=== PATIENT | male | born 1945 | race African-American/Black ===

== ENCOUNTER 2017-01-09 07:04 | Inpatient (IN) | payer OTHER ==
--- NOTE | 2017-01-09 08:15 | PDOC ---
History of Present Illness - General Chief Complaint: Congestive Heart Failure Stated Complaint: ADMISSION/ PCP REFERRAL Time Seen by Provider: 01/09/17 07:42 History Source: Patient, Family Exam Limitations: No Limitations - History of Present Illness Initial Comments: 71 yo AA with h/o CAD s/p [place], HTN, COPD on home 4L O2, pulmonary HTN, dystolic CHF, chronic venous stasis, prostate cancer s/p prostectomy, stage 3 CKD sent to the ED by his PMD due to worsening shortness of breath. Patient states that he has gained over 30 lbs over unknown amount of time compared to baseline weight of 250 lbs. He has mainly exertional shortness of breath which has been getting worse since last year. He uses 2 pillows to sleep and gets sob within 10 meters. Denies chest pain, fever, chills, n/v, abd pain, constipation or diarrhea. Timing/Duration: getting worse Associated Symptoms: reports: cough Past History - Travel Traveled outside of the country in the last 30 days: No - Past Medical History Allergies/Adverse Reactions: Allergies Allergy/AdvReac Type Severity Reaction Status Date / Time lactose Allergy Mild Verified 01/09/17 07:10 Penicillins Allergy Verified 01/09/17 07:10 Home Medications: Ambulatory Orders Hydralazine HCl 100 mg PO BID 03/17/16 Isosorbide Dinitrate [Isordil -] 10 mg PO BID 03/17/16 Lisinopril [Prinivil] 20 mg PO DAILY 03/17/16 Torsemide 40 mg PO DAILY 03/17/16 Acetaminophen [Tylenol .Regular Strength -] 650 mg PO Q4H PRN #0 tablet Albuterol 0.083% Nebulizer Felicia [Ventolin 0.083% Nebulizer Soln -] 1 amp NEB Q4H PRN #120 amp 03/21/16 Arformoterol Tartrate [Brovana -] 1 amp NEB BID #30 amp 03/21/16 Levofloxacin [Levaquin -] 500 mg PO DAILY@0600 #10 tablet 03/21/16 Mineral Oil/Petrolat,Wht/Water [Eucerin (Large Jar) -] 1 applic TP DAILY PRN #1 jar 03/21/16 Asthma: Yes Cancer: Yes (prostate) COPD: Yes HTN: Yes - Surgical History Abdominal Surgery: Yes Appendectomy: Yes - Psycho/Social/Smoking Cessation Hx Anxiety: No Suicidal Ideation: No Smoking History: Never smoked Have you smoked in the past 12 months: No If you are a former smoker, when did you quit?: 1959 Information on smoking cessation initiated: No Hx Alcohol Use: No Drug/Substance Use Hx: No Substance Use Type: None Hx Substance Use Treatment: No Review of Systems - Review of Systems Able to Perform ROS?: Yes Is the patient limited Kazakh proficient: No Constitutional: Yes: Other (Weight gain of >35 lbs over unknown amount of time) Respiratory: Yes: Cough, Shortness of Breath, SOB with Exertion Cardiac (ROS): No: Chest Pain ABD/GI: No: Constipated, Diarrhea, Vomiting : Yes: Frequency *Physical Exam - Vital Signs Last Vital Signs Temp Pulse Resp BP Pulse Ox 98.0 F 84 22 159/65 98 01/09/17 07:10 01/09/17 07:10 01/09/17 07:10 01/09/17 07:10 01/09/17 07:10 - Physical Exam General Appearance: No: Apparent Distress HEENT: positive: Other (tonsil removed) Neck: positive: Trachea midline, Supple Respiratory/Chest: positive: Crackles (bibasilar) Cardiovascular: positive: Regular Rhythm, Regular Rate. negative: Diastolic Murmur, Systolic Murmur, Gallop/S3, Gallop/S4 Gastrointestinal/Abdominal: positive: Normal Bowel Sounds, Distended Extremity: positive: Swelling, Erythema Integumentary: positive: Dry Neurologic: positive: Fully Oriented, Alert, Normal Mood/Affect ED Treatment Course - LABORATORY CBC & Chemistry Diagram: 01/10/17 07:15 01/10/17 07:15 Medical Decision Making - Medical Decision Making 71 yo AA with h/o CAD, HTN, COPD on home 4L O2, pulmonary HTN, dystolic CHF, chronic venous stasis, prostate cancer s/p prostectomy, stage 3 CKD sent to the ED by his PMD due to worsening shortness of breath. Differential diagnosis include acute on chronic CHF or COPD exacerbation, pneumonia, BEATRIZ. Will obtain CBC w/ diff, CMP, Mg, Phos, Troponin, BNP, CXR, UA and give lasix if there's sign of fluid overload. 01/09/17 09:39 CBC shows elevated WBC at 11, elevated Cr at 1.6 which is at his baseline, CXR is unremarkable, BNP normal range, EKG shows anterior infarct which is noted since 2014; no other change compared to prior EKGs. 1 dose of lasix 40mg given. Call made to Dr. Amaya's office and message left. Awaiting call-back regarding admission decision. 01/09/17 10:[address] Amaya and will admit the patient under hospitalist service. Will also consult patient's manager sales support Dr. Fu. *DC/Admit/Observation/Transfer Diagnosis at time of Disposition: CHF (congestive heart failure) Qualifiers: Congestive heart failure type: diastolic Congestive heart failure chronicity: unspecified congestive heart failure chronicity Qualified Code(s): I50.30 - Unspecified diastolic (congestive) heart failure
[2017-01-09 09:00] LABS: BASOPHIL 0.6 % (0-2.0); EOSINOPHIL 0.6 % (0-4.5); MCH 27.9 pg (25.7-33.7); MCHC 33.2 g/dl (32.0-35.9); MEAN CELL VOLUME 84.1 fl (80-96); MEAN PLT VOLUME 7.8 fl (7.5-11.1); PLATELET COUNT 238 K/MM3 (134-434); RDW 15.3 % (11.9-15.9); WHITE BLOOD COUNT 11.2 K/mm3 (4.0-10.0)
[2017-01-09 09:12] LABS: URINE APPEARANCE CLEAR; URINE BILIRUBIN NEGATIVE (NEGATIVE); URINE BLOOD NEGATIVE (NEGATIVE); URINE COLOR STRAW; URINE GLUCOSE (UA) NEGATIVE (NEGATIVE); URINE KETONE NEGATIVE (NEGATIVE); URINE LEUK ESTERASE NEGATIVE (NEGATIVE); URINE NITRITE NEGATIVE (NEGATIVE); URINE PROTEIN NEGATIVE (NEGATIVE); URINE UROBILINOGEN NEGATIVE E.U./dl (0.2-1.0)
[2017-01-09] MEDS ORDERED: FUROSEMIDE 40 MG/4 ML INJECTABLE VIAL IVPUSH ONE (09:14)
[2017-01-09 09:26] LABS: MAGNESIUM 1.9 mg/dL (1.8-2.4)
[2017-01-09 09:27] LABS: ALBUMIN 3.8 g/dl (3.4-5.0); CALCIUM 8.8 mg/dL (8.5-10.1); COCKROFT - GAULT 76.88; CREATININE 1.6 mg/dL (0.7-1.3)
[2017-01-09 09:28] LABS: PHOSPHOROUS 3.5 mg/dL (2.5-4.9); TROPONIN I < 0.02 ng/ml (0.00-0.05)
[2017-01-09 09:29] LABS: BILIRUBIN,TOTAL 0.9 mg/dL (0.2-1.0); TOT PROT 6.9 g/dl (6.4-8.2)
[2017-01-09] MEDS ORDERED: FUROSEMIDE 40 MG/4 ML INJECTABLE VIAL ONE (09:34)
--- NOTE | 2017-01-09 10:13 | PDOC ---
Attending Attestation - Resident Resident Name: Pablito Gilmore - ED Attending Attestation I have performed the following: I have examined & evaluated the patient, The case was reviewed & discussed with the resident, I agree w/resident's findings & plan, Exceptions are as noted - HPI HPI: 01/09/17 10:11 71-year-old male with history of CHF and COPD sent by Dr. Amaya for volume overload and progressive shortness of breath. - Physicial Exam PE: 01/09/17 10:11 Vital signs normal. Bibasilar crackles. Chronic bilateral leg edema - Medical Decision Making 01/09/17 10:11 Patient seen and evaluated with the resident. I agree with the overall evaluation, assessment, and management with the following summary of visit: 71-year-old male sent for evaluation and management of volume overload and progressive dyspnea. Labs, EKG Chest x-ray Diuresis Admission as per Dr. Amaya Heart Score/ECG Review #1 ECG reviewed & interpreted by me at: 08:15 General ECG Interpretation: Sinus Rhythm, Normal Rate (74), Normal Intervals, No acute ischemic changes (TWI I/AVL) Compared to previous ECG there are: No significant change
--- NOTE | 2017-01-09 11:19 | EKG ---
Test Reason : Blood Pressure : / mmHG Vent. Rate : 074 BPM Atrial Rate : 074 BPM P-R Int : 194 ms QRS Dur : 090 ms QT Int : 428 ms P-R-T Axes : 040 -08 068 degrees QTc Int : 475 ms NORMAL SINUS RHYTHM POSSIBLE LEFT ATRIAL ENLARGEMENT POSSIBLE ANTERIOR INFARCT (CITED ON OR BEFORE 07-NOV-2013) ABNORMAL ECG WHEN COMPARED WITH ECG OF 17-MAR-2016 07:44, CRITERIA FOR INFERIOR INFARCT ARE NO LONGER PRESENT NONSPECIFIC T WAVE ABNORMALITY NOW EVIDENT IN LATERAL LEADS QT HAS LENGTHENED Confirmed by JOHN GIBSON, DUSTIN ([id number]) on 01/09/2017 11:19:20 AM Referred By: Confirmed By:DUSTIN LOPEZ MD
--- NOTE | 2017-01-09 13:25 | CON.PULM ---
Consult Consult Specialty:: PULMONARY Referred by:: ER Reason for Consultation:: shortness of breath - History of Present Illness Chief Complaint: shortness of breath History of Present Illness: 71yo male with h/o HTN, LV diastolic dysfunction, COPD, chronic hypoxic respiratory failure on home O2, LV diastolic dysfunction, pulmonary HTN, CKD, severe BEATRIZ, CAD s/p [place], prostate ca who presents with worsening shortness of breath. He denies any chest pain or palpitations. No fevers, chills or sweats. No nausea, vomiting or diarrhea. No recent travel or sick contacts. States that he ran out of his medications or stopped his medications about 6 months ago and has not seen his PMD or his special procedures tech recently. Reports about a 30 lb weight gain since March when he was last admitted. Reports increase in his leg swelling , abdominal bloating and now with 2 pillow orthopnea. - History Source History Provided By: Patient, Medical Record Limitations to Obtaining History: No Limitations - Past Medical History Cardio/Vascular: Yes: CAD, CHF, HTN, Pulmonary Hypertension Pulmonary: Yes: Asthma, COPD. No: O2 Dependent Renal/: Yes: Cancer (prostate) Dermatology: Yes: Other (chronic changes on bilateral LEs due to venous insufficiency) - Past Surgical History Past Surgical History: Yes: Appendectomy, Prostatectomy - Alcohol/Substance Use Hx Alcohol Use: No History of Substance Use: reports: Marijuana (many years ago) - Smoking History Smoking history: Never smoked Have you smoked in the past 12 months: No If you are a former smoker, when did you quit?: 1959 - Social History Usual Living Arrangement: With Spouse ADL: Family Assistance History of Recent Travel: (unknown) Home Medications - Allergies Allergies/Adverse Reactions: Allergies Allergy/AdvReac Type Severity Reaction Status Date / Time lactose Allergy Mild Verified 01/09/17 07:10 Penicillins Allergy Verified 01/09/17 07:10 - Home Medications Home Medications: Ambulatory Orders Hydralazine HCl 100 mg PO BID 03/17/16 Isosorbide Dinitrate [Isordil -] 10 mg PO BID 03/17/16 Lisinopril [Prinivil] 20 mg PO DAILY 03/17/16 Torsemide 40 mg PO DAILY 03/17/16 Acetaminophen [Tylenol .Regular Strength -] 650 mg PO Q4H PRN #0 tablet Albuterol 0.083% Nebulizer Felicia [Ventolin 0.083% Nebulizer Soln -] 1 amp NEB Q4H PRN #120 amp 03/21/16 Arformoterol Tartrate [Brovana -] 1 amp NEB BID #30 amp 03/21/16 Levofloxacin [Levaquin -] 500 mg PO DAILY@0600 #10 tablet 03/21/16 Mineral Oil/Petrolat,Wht/Water [Eucerin (Large Jar) -] 1 applic TP DAILY PRN #1 jar 03/21/16 Family Disease History - Family Disease History Family Disease History: Heart Disease: Father (HTN, Stroke ) Review of Systems - Review of Systems Constitutional: denies: Chills, Fever Eyes: denies: Recent Change in Vision HENT: denies: Nasal Congestion, Throat Pain Neck: denies: Stiffness, Tenderness Cardiovascular: reports: Edema, Shortness of Breath. denies: Chest Pain, Palpitations Respiratory: reports: Cough, SOB, SOB on Exertion. denies: Hemoptysis, Wheezing Gastrointestinal: denies: Abdominal Pain, Nausea, Vomiting Genitourinary: denies: Dysuria, Hematuria Neurological: denies: Dizziness, Headache Endocrine: reports: Unexplained Weight Gain Physical Exam Vital Sings: Vital Signs Temperature 98.0 F 01/09/17 07:10 Pulse Rate 78 01/09/17 12:26 Respiratory Rate 22 01/09/17 12:26 Blood Pressure 136/73 01/09/17 12:26 O2 Sat by Pulse Oximetry (%) 99 01/09/17 12:26 Constitutional: Yes: Calm Eyes: Yes: Conjunctiva Clear, EOM Intact HENT: Yes: Atraumatic, Normocephalic Neck: Yes: Supple, Trachea Midline Cardiovascular: Yes: Regular Rate and Rhythm Respiratory: Yes: Rales (basilar) ...Clubbing: No Gastrointestinal: Yes: Normal Bowel Sounds, Soft, Abdomen, Obese. No: Tenderness Edema: Yes Neurological: Yes: Alert, Oriented Imaging - Results Chest X-ray: Report Reviewed, Image Reviewed (no infiltrates) Problem List - Problems (1) Acute on chronic diastolic (congestive) heart failure Code(s): I50.33 - ACUTE ON CHRONIC DIASTOLIC (CONGESTIVE) HEART FAILURE (2) Pulmonary hypertension Code(s): I27.2 - OTHER SECONDARY PULMONARY HYPERTENSION (3) Volume overload Code(s): E87.70 - FLUID OVERLOAD, UNSPECIFIED (4) COPD (chronic obstructive pulmonary disease) Code(s): J44.9 - CHRONIC OBSTRUCTIVE PULMONARY DISEASE, UNSPECIFIED Qualifiers : COPD type: COPD with acute exacerbation Qualified Code(s): J44.1 - Chronic obstructive pulmonary disease with (acute) exacerbation (5) Chronic respiratory failure with hypoxia and hypercapnia Code(s): J96.11 - CHRONIC RESPIRATORY FAILURE WITH HYPOXIA J96.12 - CHRONIC RESPIRATORY FAILURE WITH HYPERCAPNIA (6) Obstructive sleep apnea Code(s): G47.33 - OBSTRUCTIVE SLEEP APNEA (ADULT) (PEDIATRIC) (7) HTN (hypertension) Code(s): I10 - ESSENTIAL (PRIMARY) HYPERTENSION Assessment/Plan Acute on Chronic LV Diastolic Heart Failure Pulmonary HTN COPD Chronic Hypoxic and Hypercapneic Respiratory Failure Severe Obstructive Sleep Apnea HTN CKD - IV lasix - monitor urine output, creatinine - daily weights, I/Os - beta milli, SHEN-I when renal function stable - echocardiogram - O2 to keep SpO2 >90% - inhaled bronchodilators - DVT prophylaxis Thank you for this consult Js Bah MD
--- NOTE | 2017-01-09 14:08 | HP ---
CHIEF COMPLAINT: worsening shortness of breath, unable to lay flat PCP: Dr. Terrell Insurance Verification Specialist: Dr. Fu HISTORY OF PRESENT ILLNESS: Patient is an 71 year old male with a significant past medical history of CAD, s /p KS, hypertension, dystolic CHF, chronic venous stasis, prostate cancer with prostectomy and CKD stage 3. He was sent to [place] ER by his PCP due to worsening shortness of breath. Patient noted that he has been gaining weight over past few months but was unable to seek medical attention due to family obligations. He also reports being non compliant with his home medications. He noted that he became short of breath when ambulating a few feet and unable to lay flat in the bed. He denies any chest pain, fever, chills, nausea or vomiting. He is home oxygen dependent: nasal cannula @ 4 liters. He also states he uses crutches to ambulate secondary to a painful right hip and a pulled right groin muscle. ER course was notable for: (1) EKG with possible left atrial enlargement, anterior infarct noted since 2013 (2) WBC 11.2, K: 3.3 (3) BUN/Creat: 24/1.6 (4) Glucose 159 (5) Troponin negative x 1 Recent Travel: denies PAST MEDICAL HISTORY: Coronary artery disease Myocardial infarction Hypertension COPD Pulmonary hypertension Chronic diastolic heart failure Chronic venous stasis Prostate cancer Stage 3 chronic kidney disease PAST SURGICAL HISTORY: Prostatectomy, CAD with stents. appendectomy Social History: Smoking: denies Alcohol: denies Drugs: denies Family History: He is retired, lives with his who is semi-retired Allergies: lactose, penicillins lactose Allergy (Mild, Verified 01/09/17 07:10) Penicillins Allergy (Verified 01/09/17 07:10) HOME MEDICATIONS: Home Medications Medication Instructions Recorded Hydralazine HCl 100 mg PO BID 03/17/16 Isosorbide Dinitrate [Isordil -] 10 mg PO BID 03/17/16 Lisinopril [Prinivil] 20 mg PO DAILY 03/17/16 Torsemide 40 mg PO DAILY 03/17/16 Acetaminophen [Tylenol .Regular 650 mg PO Q4H PRN #0 tablet 03/21/16 Strength -] Albuterol 0.083% Nebulizer Felicia 1 amp NEB Q4H PRN #120 amp 03/21/16 [Ventolin 0.083% Nebulizer Soln -] Arformoterol Tartrate [Brovana -] 1 amp NEB BID #30 amp 03/21/16 Levofloxacin [Levaquin -] 500 mg PO DAILY@0600 #10 tablet 03/21/16 Mineral Oil/Petrolat,Wht/Water 1 applic TP DAILY PRN #1 jar 03/21/16 [Eucerin (Large Jar) -] REVIEW OF SYSTEMS CONSTITUTIONAL: Absent: fever, chills, diaphoresis, generalized weakness, malaise, loss of appetite HEENT: Absent: rhinorrhea, nasal congestion, throat pain, throat swelling, difficulty swallowing, mouth swelling, ear pain, eye pain, visual changes CARDIOVASCULAR: Absent: chest pain, syncope, palpitations, irregular heart rate, lightheadedness , peripheral edema RESPIRATORY: Present: non productive moist cough, shortness of breath, dyspnea with exertion , orthopnea GASTROINTESTINAL: Absent: abdominal pain, abdominal distension, nausea, vomiting, diarrhea, constipation, melena, hematochezia GENITOURINARY: Absent: dysuria, frequency, urgency, hesitancy, hematuria, flank pain, genital pain MUSCULOSKELETAL: Absent: myalgia, arthralgia, joint swelling, back pain, neck pain SKIN: Absent: rash, itching, pallor HEMATOLOGIC/IMMUNOLOGIC: Absent: easy bleeding, easy bruising, lymphadenopathy, frequent infections ENDOCRINE: Absent: unexplained weight gain, unexplained weight loss, heat intolerance, cold intolerance NEUROLOGIC: Absent: headache, focal weakness or paresthesias, dizziness, unsteady gait, seizure, mental status changes, bladder or bowel incontinence PSYCHIATRIC: Absent: anxiety, depression, suicidal or homicidal ideation, hallucinations. PHYSICAL EXAMINATION Vital Signs - 24 hr 01/09/17 01/09/17 11:45 12:26 Pulse Rate [ 78 Left Radial] Respiratory 22 Rate Blood Pressure 136/73 [Left Arm] O2 Sat by Pulse 98 99 Oximetry (%) GENERAL: Awake, alert, and fully oriented, in mild respiratory distress HEAD: Normal with no signs of trauma. EYES: Pupils equal, round and reactive to light, extraocular movements intact, sclera anicteric, conjunctiva clear. No lid lag. EARS, NOSE, THROAT: Ears normal, nares patent, oropharynx clear without exudates. Moist mucous membranes. NECK: Normal range of motion, supple without lymphadenopathy, JVD, or masses. LUNGS: + course crackles: bilateral lung bases Left> right HEART: Regular rate and rhythm ABDOMEN: Distended, soft MUSCULOSKELETAL: Normal range of motion at all joints. No bony deformities or tenderness. No CVA tenderness. UPPER EXTREMITIES: bilateral hands with non pitting edema LOWER EXTREMITIES: 2+ pulses, warm, well-perfused. No calf tenderness. No peripheral edema. NEUROLOGICAL: Normal speech. Normal gait. PSYCHIATRIC: Cooperative. Good eye contact. Appropriate mood and affect. SKIN: bilateral lower extremities with non pitting edema ASSESSMENT/PLAN: Patient is an 71 year old male with a significant past medical history of CAD, s /p KS, hypertension, dystolic CHF, chronic venous stasis, prostate cancer with prostectomy and CKD stage 3, COPD (home oxygen dependent), pulmonary hypertension and chronic venous insufficiency. He was sent to [place] ER by his PCP due to worsening shortness of breath. Patient noted that he has been gaining weight over past few months but was unable to seek medical attention due to family obligations. He also reports being non compliant with his home medications. He noted that he became short of breath when ambulating a few feet and unable to lay flat in the bed. He denies any chest pain, fever, chills, nausea or vomiting. He also states he uses crutches to ambulate secondary to a painful right hip and a pulled right groin muscle. Imaging: EKG 01/09/2017: anterior inf.possible left atrial enlargement, unchanged since ekg of 2013 Echo pending Chest xray 01/09/17 uncoiled thoracic aorta, no evidence of active pulmonary disease Cardiology: CHF (congestive heart failure) acute on chronic/shortness of breath Assessment/Plan: Likely secondary to medication non compliance Echo ordered Troponins negative x 1, continue to trend On Lasix 40mg BID Hypertension - chronic Assessment/Plan: Monitor on Hydrazine Titrate as needed CAD, history of KS Assessment/Plan: Not on home ASA Lipid panel ordered for a.m. Endocrine: Hyperglycemia Assessment/Plan: BGMs ordered, hmg a1c for a.m. Pulmonary: Pulmonary HTN - chronic Assessment/Plan: On Lasix, monitor COPD - stable, not in acute exacerbation Assessment/Plan: Albuterol as needed supplemental oxygen Chronic hypoxic and hypercapnic respiratory failure Assessment/Plan: Home oxygen dependent @ 4 liters Supplemental oxygen ordered : Acute kidney injury - acute on chronic Assessment/Plan: Likely secondary to dehydration/diuretic use Monitor BUN, creatinine, baseline creatinine ~1.3 hold iram inhibitor F.E.N Fluids: no IVF, tolerating PO Electrolytes: hypokalemia repleted with K supplements x 1 Nutrition: low sodium diet. Prophylaxis: GI: Protonix DVT:Lovenox 40mg daily Disposition: Requires inpatient hospitalization. Full Code. Visit type - Emergency Visit Emergency Visit: Yes ED Registration Date: 01/09/17 Care time: The patient presented to the Emergency Department on the above date and was hospitalized for further evaluation of their emergent condition. - New Patient This patient is new to me today: Yes Date on this admission: 01/09/17 - Critical Care Critical Care patient: No
[2017-01-09] MEDS ORDERED: ALBUTEROL SO4 2.5/IPRATROPIUM 0.5 INH SOL 3 ML VIAL.NEB. NEB SCH (14:15)
--- NOTE | 2017-01-09 15:03 | CON.CARD ---
Cardiology Consult (text) - Consultation Consultation Note: Consultation Note: cc: sob, cough, fevers hpi: 71 m hx dchf, venous insuff/le edema, htn, obesity, copd, and pna this past summer here with sob. states hasn't taken any medication since august because his prescription ran out. since then slow weight gain, worsened sob. Now sob with minimal exertion. worsened LE edema, abdominal distension no orthopnea, cp, palps, dizziness, bleeding, claudicaiton + joint pain , no f/c/s, n/v/d, cough, congestion, headache, visual disturbances , rash. pmh: per hpi psh: appendectomy, prostate surgery social: ex tob fam: nc ros: per hpi; meds: Ambulatory Orders Hydralazine HCl 100 mg PO BID 03/17/16 Isosorbide Dinitrate [Isordil -] 10 mg PO BID 03/17/16 Lisinopril [Prinivil] 20 mg PO DAILY 03/17/16 Torsemide 40 mg PO DAILY 03/17/16 Acetaminophen [Tylenol .Regular Strength -] 650 mg PO Q4H PRN #0 tablet Albuterol 0.083% Nebulizer Felicia [Ventolin 0.083% Nebulizer Soln -] 1 amp NEB Q4H PRN #120 amp 03/21/16 Arformoterol Tartrate [Brovana -] 1 amp NEB BID #30 amp 03/21/16 Levofloxacin [Levaquin -] 500 mg PO DAILY@0600 #10 tablet 03/21/16 Mineral Oil/Petrolat,Wht/Water [Eucerin (Large Jar) -] 1 applic TP DAILY PRN #1 jar 03/21/16 Current Medications Albuterol/Ipratropium (Duoneb -) 1 amp NEB Q4HPO EVANGELINA Furosemide (Lasix Injection -) 40 mg IVPUSH BID@0600,1400 EVANGELINA Hydralazine HCl (Apresoline -) 100 mg PO BID EVANGELINA Fluticasone/Salmeterol (Advair 100mcg/50mcg -) 1 puff IH BID EVANGELINA pe: Vital Signs - 24 hr 01/09/17 01/09/17 01/09/17 07:10 10:00 11:45 Temperature 98.0 F Pulse Rate 84 Pulse Rate [ 86 Left Radial] Respiratory 22 22 Rate Blood Pressure 159/65 Blood Pressure 140/70 [Left Arm] O2 Sat by Pulse 98 98 98 Oximetry (%) 01/09/17 12:26 Temperature Pulse Rate Pulse Rate [ 78 Left Radial] Respiratory 22 Rate Blood Pressure Blood Pressure 136/73 [Left Arm] O2 Sat by Pulse 99 Oximetry (%) Intake & Output 01/07/17 01/08/17 01/09/17 01/10/17 07:59 07:59 07:59 07:59 Weight 283 lb nad, jvd elevated rrr s1s2 no mrg bibasilar crackles, no wheeze, nl eff aaox3 abd nt distended pos bs. 1+ le edema and nonpitting edema, chronic stasis changes no diaphoresis jaundice diminished dp pt CBC, BMP 01/09/17 08:40 01/09/17 08:40 Laboratory Tests 10/07/15 01/09/17 01/09/17 19:30 08:38 08:40 Total Bilirubin 0.9 D AST 7 L D ALT 13 D Alkaline Phosphatase 88 D Creatine Kinase 130 Troponin I < 0.02 B-Natriuretic Peptide 1449.49 H 109.61 Albumin 3.8 D ecg: nsr, prolonged qt, lae, poor r wave progression. TWI in high lateral leads. cxr: clear per report. by my review --> suboptimal quality. mibi 11/2013: no ischemia, nl lvef echo 10/2015: tds, nl lvef, mild conc lvh, nl rv, mild lae, mod phtn, no sig valve path 71 m hx dchf, venous insuff/le edema, htn, obesity, copd, and pna this past summer here with sob. dchf - diuresis with iv lasix. monitor standing weight, daily i/o bmp. copd: - per pmd anthony: -monitor with diuresis venous insuff: -diuretic as above htn: -holding iram due to anthony. on hydralazine but not home indur.
[2017-01-09] MEDS: FUROSEMIDE 40 MG/4 ML INJECTABLE VIAL IVPUSH SCH (16:00)
[2017-01-09] MEDS ORDERED: POTASSIUM CHLORIDE ORAL LIQUID 20 MEQ/15 ML PO ONE (17:52)
[2017-01-09] MEDS ORDERED: ALBUTEROL SO4 2.5/IPRATROPIUM 0.5 INH SOL 3 ML VIAL.NEB. NEB PRN (18:20)
[2017-01-09 19:35] VITALS: BMI 37.7
[2017-01-09] MEDS: ENOXAPARIN NA (PORCINE) 40 MG/0.4 ML DISP.SYRIN SQ SCH (21:48)
[2017-01-09] MEDS: hydrALAZINE HCL 50 MG TABLET (FP) PO SCH (21:48)
[2017-01-09] MEDS ORDERED: PT OWN MED DRAWER 7, Y5N ONE (21:52)
[2017-01-09] MEDS: FLUTICASONE/SALMETEROL 100 MCG/50 MCG DISKUS IH SCH (23:00)
[2017-01-10] MEDS: ACETAMINOPHEN 325 MG TABLET (FP) PO PRN (01:20)
[2017-01-10] MEDS: FUROSEMIDE 40 MG/4 ML INJECTABLE VIAL IVPUSH SCH ×2 (05:54→14:43)
[2017-01-10 08:21] LABS: MCHC 32.9 g/dl (32.0-35.9); MEAN PLT VOLUME 7.9 fl (7.5-11.1); PLATELET COUNT 226 K/MM3 (134-434); RDW 15.8 % (11.9-15.9); WHITE BLOOD COUNT 9.7 K/mm3 (4.0-10.0)
[2017-01-10 08:44] LABS: CALCIUM 8.9 mg/dL (8.5-10.1); CREATININE 1.6 mg/dL (0.7-1.3); MAGNESIUM 1.9 mg/dL (1.8-2.4); PHOSPHOROUS 3.3 mg/dL (2.5-4.9)
[2017-01-10 08:54] LABS: CHOLESTEROL 216 mg/dL (50-200); LDL CHOLESTEROL (ONLY SJRH) 117 mg/dL (5-100)
[2017-01-10] MEDS ORDERED: ATORVASTATIN CA 20 MG TABLET (FP) PO ONE (09:30)
[2017-01-10] MEDS: hydrALAZINE HCL 50 MG TABLET (FP) PO SCH ×2 (10:12→21:54)
[2017-01-10] MEDS: ENOXAPARIN NA (PORCINE) 40 MG/0.4 ML DISP.SYRIN SQ SCH (10:12)
[2017-01-10] MEDS: FLUTICASONE/SALMETEROL 100 MCG/50 MCG DISKUS IH SCH ×3 (10:13→21:58)
[2017-01-10] MEDS ORDERED: POTASSIUM CHLORIDE ORAL LIQUID 20 MEQ/15 ML PO ONE (10:30)
[2017-01-10 10:46] LABS: TROPONIN I < 0.02 ng/ml (0.00-0.05)
--- NOTE | 2017-01-10 12:04 | PN ---
Physical Exam: SUBJECTIVE: Patient seen and examined. Denies chest pain, some shortness of breath with ambulation. Comfortable at rest. OBJECTIVE: Patient was ambulating with PT using rolling walker, steady gait Patient appears to be tolerating room air, less dyspnea Lipid panel reviewed, started on Lipitor Hmg A1c elevated, pt states he does not take any diabetic meds at home - will need diabetic teaching - Started on Novolog Vital Signs Period Temp Pulse Resp BP Sys/Davila Pulse Ox Last 24 Hr 98 F-98.6 F 74-97 18-22 136-164/73-97 93-99 GENERAL: Awake, alert, and fully oriented, in no respiratory distress during exam, has dyspnea with ambulation HEAD: Normal with no signs of trauma. EYES: Pupils equal, round and reactive to light, extraocular movements intact, sclera anicteric, conjunctiva clear. No lid lag. EARS, NOSE, THROAT: Ears normal, nares patent, oropharynx clear without exudates. Moist mucous membranes. NECK: Normal range of motion, supple without lymphadenopathy, JVD, or masses. LUNGS: + crackles: bilateral lung bases HEART: Regular rate and rhythm ABDOMEN: Distended, soft MUSCULOSKELETAL: Normal range of motion at all joints. No bony deformities or tenderness. No CVA tenderness. UPPER EXTREMITIES: bilateral hands with non pitting edema LOWER EXTREMITIES: 2+ pulses, warm, well-perfused. No calf tenderness. No peripheral edema. NEUROLOGICAL: Normal speech. Normal gait. PSYCHIATRIC: Cooperative. Good eye contact. Appropriate mood and affect. SKIN: bilateral lower extremities with non pitting edema - improving Laboratory Results - last 24 hr 01/10/17 01/10/17 01/10/17 00:39 07:15 07:15 WBC 9.7 RBC 4.74 Hgb 13.2 Hct 40.2 MCV 85.0 MCHC 32.9 RDW 15.8 Plt Count 226 MPV 7.9 Sodium 141 Potassium 3.4 L Chloride 94 L Carbon Dioxide 36 H Anion Gap 11 BUN 30 H D Creatinine 1.6 H POC Glucometer 142 Random Glucose 152 H Hemoglobin A1c % Calcium 8.9 Phosphorus 3.3 Magnesium 1.9 Troponin I Triglycerides Cholesterol Total LDL Cholesterol HDL Cholesterol 01/10/17 01/10/17 01/10/17 07:15 07:15 07:30 WBC RBC Hgb Hct MCV MCHC RDW Plt Count MPV Sodium Potassium Chloride Carbon Dioxide Anion Gap BUN Creatinine POC Glucometer Random Glucose Hemoglobin A1c % 7.8 H D Calcium Phosphorus Magnesium Troponin I < 0.02 Cancelled Triglycerides 324 H Cholesterol 216 H D Total LDL Cholesterol 117 H D HDL Cholesterol 39 L D 01/10/17 11:35 WBC RBC Hgb Hct MCV MCHC RDW Plt Count MPV Sodium Potassium Chloride Carbon Dioxide Anion Gap BUN Creatinine POC Glucometer 171 Random Glucose Hemoglobin A1c % Calcium Phosphorus Magnesium Troponin I Triglycerides Cholesterol Total LDL Cholesterol HDL Cholesterol Active Medications Generic Name Dose Route Start Last Admin Trade Name Freq PRN Reason Stop Dose Admin Acetaminophen 650 mg 01/10/17 01:05 01/10/17 01:20 Tylenol - PO 650 mg Q6H PRN Administration FEVER OR PAIN Albuterol/Ipratropium 1 amp 01/09/17 18:20 Duoneb - NEB Q4HPO PRN copd Atorvastatin Calcium 40 mg 01/10/17 22:00 Lipitor - PO HS EVANGELINA Enoxaparin Sodium 40 mg 01/09/17 21:00 01/10/17 10:12 Lovenox - SQ 40 mg DAILY EVANGELINA Administration Furosemide 40 mg 01/09/17 14:00 01/10/17 05:54 Lasix Injection - IVPUSH 40 mg BID@0600,1400 EVANGELINA Administration Hydralazine HCl 100 mg 01/09/17 22:00 01/10/17 10:12 Apresoline - PO 100 mg BID EVANGELINA Administration Insulin Aspart 1 vial 01/10/17 16:30 Novolog Vial Sliding Scale - SQ ACHS EVANGELINA Protocol Fluticasone/Salmeterol 1 puff 01/09/17 22:00 01/10/17 10:13 Advair 100mcg/50mcg - IH Not Given BID EVANGELINA ASSESSMENT/PLAN: Patient is an 71 year old male with a significant past medical history of CAD, s /p [place], hypertension, dystolic CHF, chronic venous stasis, prostate cancer with prostectomy and CKD stage 3, COPD (home oxygen dependent), pulmonary hypertension and chronic venous insufficiency. He was sent to [place] ER by his PCP due to worsening shortness of breath. Patient noted that he has been gaining weight over past few months but was unable to seek medical attention due to family obligations. He also reports being non compliant with his home medications. He noted that he became short of breath when ambulating a few feet and unable to lay flat in the bed. He denies any chest pain, fever, chills, nausea or vomiting. He also states he uses crutches to ambulate secondary to a painful right hip and a pulled right groin muscle. Imaging: EKG 01/09/2017: anterior inf.possible left atrial enlargement, unchanged since ekg of 2013 Echo pending Chest xray 01/09/17 uncoiled thoracic aorta, no evidence of active pulmonary disease Cardiology: CHF (congestive heart failure) acute on chronic/shortness of breath Assessment/Plan: Likely secondary to medication non compliance Echo reviewed Troponins negative x 2, On Lasix 40mg iv push BID daily weights, intake and output Hypertension - chronic Assessment/Plan: Monitor on Hydrazine BID Started on Isosorbide CAD, history of [place] Assessment/Plan: Not on home ASA Lipid panel reviewed, started on Lipitor 40mg @ hs Endocrine: Diabetes Mellitus Assessment/Plan: hmga1c 7.8, started on Novolog sliding scale Pt states he has no home diabetic meds, will need diabetic teaching for compliance Pulmonary: Pulmonary HTN - chronic Assessment/Plan: On Lasix, monitor COPD - stable, not in acute exacerbation Assessment/Plan: Albuterol as needed supplemental oxygen Chronic hypoxic and hypercapnic respiratory failure Assessment/Plan: Home oxygen dependent @ 4 liters Supplemental oxygen ordered : Acute kidney injury - acute on chronic Assessment/Plan: Likely secondary to dehydration/diuretic use Monitor BUN, creatinine, baseline creatinine ~1.3 hold iram inhibitor F.E.N Fluids: no IVF, tolerating PO Electrolytes: hypokalemia repleted with 40meq K supplements x 1 Nutrition: low sodium diet. Prophylaxis: GI: Protonix DVT:Lovenox 40mg daily Disposition: Requires inpatient hospitalization. Full Code. Visit type - Emergency Visit Emergency Visit: Yes ED Registration Date: 01/09/17 Care time: The patient presented to the Emergency Department on the above date and was hospitalized for further evaluation of their emergent condition. - New Patient This patient is new to me today: No - Critical Care Critical Care patient: No - Discharge Referral Referred to [facility] Med [facility] No
[2017-01-10] MEDS: ISOSORBIDE DINITRATE 10 MG TABLET (FP) PO SCH ×2 (15:37→21:57)
--- NOTE | 2017-01-10 15:58 | PN ---
Progress Note (short form) - Note Progress Note: s: no cp, sob, palps, dizzy; le edema better o: Vital Signs Period Temp Pulse Resp BP Sys/Davila Pulse Ox Last 24 Hr 98 F-98.6 F 74-97 18-20 152-164/75-97 93-95 nad, no jvd rrr s1s2 no mrg cta bl nl eff aaox3 trace le edema and nonpitting edema, chronic stasis changes no diaphoresis jaundice Current Medications Generic Name Dose Route Start Last Admin Trade Name Freq PRN Reason Stop Dose Admin Acetaminophen 650 mg 01/10/17 01:05 01/10/17 01:20 Tylenol - PO 650 mg Q6H PRN Administration FEVER OR PAIN Albuterol/Ipratropium 1 amp 01/09/17 18:20 Duoneb - NEB Q4HPO PRN copd Atorvastatin Calcium 40 mg 01/10/17 22:00 Lipitor - PO HS EVANGELINA Enoxaparin Sodium 40 mg 01/09/17 21:00 01/10/17 10:12 Lovenox - SQ 40 mg DAILY EVANGELINA Administration Furosemide 40 mg 01/09/17 14:00 01/10/17 14:43 Lasix Injection - IVPUSH 40 mg BID@0600,1400 EVANGELINA Administration Hydralazine HCl 100 mg 01/09/17 22:00 01/10/17 10:12 Apresoline - PO 100 mg BID EVANGELINA Administration Insulin Aspart 1 vial 01/10/17 16:30 Novolog Vial Sliding Scale - SQ ACHS [facility] Protocol Isosorbide Dinitrate 10 mg 01/10/17 15:00 01/10/17 15:37 Isordil - PO Not Given BID EVANGELINA Fluticasone/Salmeterol 1 puff 01/09/17 22:00 01/10/17 12:44 Advair 100mcg/50mcg - IH 1 puff BID EVANGELINA Administration CBC, BMP 01/10/17 07:15 01/10/17 07:15 ecg: nsr, prolonged qt, lae, poor r wave progression. TWI in high lateral leads. cxr: clear per report mibi 11/2013: no ischemia, nl lvef echo 10/2015: tds, nl lvef, mild conc lvh, nl rv, mild lae, mod phtn, no sig valve path a/p: 71 m hx dchf, venous insuff/le edema, htn, obesity, copd, and pna this past summer here with sob. dchf - wt down, le edema improving, cr stable. cont diuresis with iv lasix. near his prior baseline dry wt (260s) monitor standing weight, daily i/o bmp. copd: - per pmd anthony: -monitor with diuresis, cr stable venous insuff: -diuretic as above htn: -holding iram due to anthony -cont home hydralazine, will add home isordil as well as bp high
--- NOTE | 2017-01-10 17:20 | PN ---
Progress Note (short form) - Note Progress Note: PULMONARY AMBULATING HAS LOST 2 LBS LOW GRADE TEMP TODAY ANICTERIC DISTANT B/L BREATH SOUNDS S1S2 BS+ OBESE LESS EDEMA LABS/MEDS/NOTES/IMAGING/MICRO/ECHO REVIEWED Acute on Chronic LV Diastolic Heart Failure Pulmonary HTN COPD Chronic Hypoxic and Hypercapneic Respiratory Failure Severe Obstructive Sleep Apnea HTN CKD - IV lasix - monitor urine output, creatinine - daily weights, I/Os - O2 to keep SpO2 >90% - inhaled bronchodilators - DVT prophylaxis Apollo CID MD
[2017-01-10] MEDS: INSULIN SLIDING SCALE (NOVOLOG) 1 VIAL SQ SCH ×2 (17:34→21:59)
[2017-01-10] MEDS ORDERED: PT OWN MED DRAWER 7, Y5N ONE (21:50)
[2017-01-10] MEDS: ATORVASTATIN CA 40 MG TABLET (FP) PO SCH (21:54)
[2017-01-11] MEDS: FUROSEMIDE 40 MG/4 ML INJECTABLE VIAL IVPUSH SCH ×2 (05:48→14:34)
[2017-01-11] MEDS: ACETAMINOPHEN 325 MG TABLET (FP) PO PRN ×2 (06:21→15:30)
[2017-01-11] MEDS ORDERED: INSULIN (NOVOLOG) ASPART 100 UNITS/ML 10ML VIAL ONE ×2 (06:43→11:33)
[2017-01-11] MEDS: INSULIN SLIDING SCALE (NOVOLOG) 1 VIAL SQ SCH ×4 (06:45→21:49)
[2017-01-11] MEDS ORDERED: PT OWN MED DRAWER 7, Y5N ONE ×3 (09:49→21:23)
[2017-01-11] MEDS: hydrALAZINE HCL 50 MG TABLET (FP) PO SCH ×2 (09:58→21:41)
[2017-01-11] MEDS: ENOXAPARIN NA (PORCINE) 40 MG/0.4 ML DISP.SYRIN SQ SCH (09:58)
[2017-01-11] MEDS: ISOSORBIDE DINITRATE 10 MG TABLET (FP) PO SCH ×2 (10:00→21:41)
[2017-01-11] MEDS: FLUTICASONE/SALMETEROL 100 MCG/50 MCG DISKUS IH SCH ×2 (10:02→21:42)
--- NOTE | 2017-01-11 11:30 | PN ---
Progress Note (short form) - Note Progress Note: s: no cp, sob, palps, dizzy; le edema better o: Vital Signs Period Temp Pulse Resp BP Sys/Davila Pulse Ox Last 24 Hr 97.9 F-99.2 F 70-80 18-20 122-162/69-86 95-95 nad, no jvd rrr s1s2 no mrg cta bl nl eff aaox3 trace le edema and nonpitting edema, chronic stasis changes no diaphoresis jaundice Current Medications Generic Name Dose Route Start Last Admin Trade Name Freq PRN Reason Stop Dose Admin Acetaminophen 650 mg 01/10/17 01:05 01/11/17 06:21 Tylenol - PO 650 mg Q6H PRN Administration FEVER OR PAIN Albuterol/Ipratropium 1 amp 01/09/17 18:20 Duoneb - NEB Q4HPO PRN copd Atorvastatin Calcium 40 mg 01/10/17 22:00 01/10/17 21:54 Lipitor - PO 40 mg HS EVANGELINA Administration Enoxaparin Sodium 40 mg 01/09/17 21:00 01/11/17 09:58 Lovenox - SQ 40 mg DAILY EVANGELINA Administration Furosemide 40 mg 01/09/17 14:00 01/11/17 05:48 Lasix Injection - IVPUSH 40 mg BID@0600,1400 EVANGELINA Administration Hydralazine HCl 100 mg 01/09/17 22:00 01/11/17 09:58 Apresoline - PO 100 mg BID EVANGELINA Administration Insulin Aspart 1 vial 01/10/17 16:30 01/11/17 06:45 Novolog Vial Sliding Scale - SQ 2 units ACHS EVANGELINA Administration Protocol Isosorbide Dinitrate 10 mg 01/10/17 15:00 01/11/17 10:00 Isordil - PO 10 mg BID EVANGELINA Administration Fluticasone/Salmeterol 1 puff 01/09/17 22:00 01/11/17 10:02 Advair 100mcg/50mcg - IH 1 puff BID EVANGELINA Administration CBC, BMP 01/10/17 07:15 01/10/17 07:15 ecg: nsr, prolonged qt, lae, poor r wave progression. TWI in high lateral leads. cxr: clear per report mibi 11/2013: no ischemia, nl lvef echo 10/2015: tds, nl lvef, mild conc lvh, nl rv, mild lae, mod phtn, no sig valve path echo 12/2016: tds; mild conc lvh, nl lvef, nl rv, mild tr, mod ao root dil a/p: 71 m hx dchf, venous insuff/le edema, htn, obesity, copd, and pna this past summer here with sob. dchf - wt continues to decrease, le edema improving, cr stable. cont diuresis with iv lasix. near his prior baseline dry wt (low 260s). monitor daily standing weight, i/o, bmp. copd: - per pmd ckd/anthony: -monitor with diuresis, cr has been stable venous insuff: -diuretic as above htn: -holding iram due to anthony -cont home hydralazine and isordil
--- NOTE | 2017-01-11 12:23 | PN ---
Progress Note (short form) - Note Progress Note: PULMONARY OOB TO CHAIR VSS/AFEBRILE ANICTERIC DISTANT B/L BREATH SOUNDS S1S2 BS+ OBESE LESS EDEMA LABS/MEDS/NOTES/IMAGING/MICRO/ECHO REVIEWED Acute on Chronic LV Diastolic Heart Failure Pulmonary HTN COPD Chronic Hypoxic and Hypercapneic Respiratory Failure Severe Obstructive Sleep Apnea HTN CKD - IV lasix - monitor urine output, creatinine - daily weights, I/Os - O2 to keep SpO2 >90% - inhaled bronchodilators - DVT prophylaxis Apollo CID MD
--- NOTE | 2017-01-11 12:55 | PN ---
Physical Exam: SUBJECTIVE: Patient seen and examined. He is up OOB to side watching TV. He ambulated with crutches, he denies SOB or sob with ambulation. OBJECTIVE: Vital Signs Period Temp Pulse Resp BP Sys/Davila Pulse Ox Last 24 Hr 97.9 F-99.2 F 70-80 18-20 122-162/69-86 92-95 PE Neuro: alert, awake, cn 2-12intact Pulm: basilar crackles, no sob, orthopnea, wheezing CV: S1 s2 rrr no mrg Abd: s nt bd + bs Ext: le edema +2 leathery venous skin changes Laboratory Results - last 24 hr 01/11/17 01/11/17 05:51 11:15 POC Glucometer 181 187 Active Medications Generic Name Dose Route Start Last Admin Trade Name Freq PRN Reason Stop Dose Admin Acetaminophen 650 mg 01/10/17 01:05 01/11/17 06:21 Tylenol - PO 650 mg Q6H PRN Administration FEVER OR PAIN Albuterol/Ipratropium 1 amp 01/09/17 18:20 Duoneb - NEB Q4HPO PRN copd Atorvastatin Calcium 40 mg 01/10/17 22:00 01/10/17 21:54 Lipitor - PO 40 mg HS EVANGELINA Administration Enoxaparin Sodium 40 mg 01/09/17 21:00 01/11/17 09:58 Lovenox - SQ 40 mg DAILY EVANGELINA Administration Furosemide 40 mg 01/09/17 14:00 01/11/17 05:48 Lasix Injection - IVPUSH 40 mg BID@0600,1400 EVANGELINA Administration Hydralazine HCl 100 mg 01/09/17 22:00 01/11/17 09:58 Apresoline - PO 100 mg BID EVANGELINA Administration Insulin Aspart 1 vial 01/10/17 16:30 01/11/17 11:35 Novolog Vial Sliding Scale - SQ Not Given ACHS EVANGELINA Protocol Isosorbide Dinitrate 10 mg 01/10/17 15:00 01/11/17 10:00 Isordil - PO 10 mg BID EVANGELINA Administration Fluticasone/Salmeterol 1 puff 01/09/17 22:00 01/11/17 10:02 Advair 100mcg/50mcg - IH 1 puff BID EVANGELINA Administration Imaging: ECHO 12/2016: normal LVEF, normal RVSP, mild conc lvh, mild tr, mod ao root dil Assessment: 71 year old male with CAD, s/p [place], HTN, diastolic CHF, chronic venous stasis, prostate cancer with prostectomy and CKD stage 3 admitted with worsening SOB. Plan: 1. Acute on chronic LV diastolic HF - Continue diuresis Lasix 40mg IV BID - Monitor weight 2. Acute on chronic hypoxic and hypercapneic resp failure - Due to CHF exacerbation 3. COPD - [place] 1 BID - Duonebs prn 4. HTN - Hydralazine 100mg BID - Isordil 10mg BID - Hold SHEN d/t PAULINO 5. PAULINO on CKD - Baseline appears to be 1.3 - On diuretics - Will trend 6. BEATRIZ - Evening OA screen tonight 7. DVT ppx - Change lovenox 40mg to heparin 5000mg TID Visit type - Emergency Visit Emergency Visit: Yes ED Registration Date: 01/09/17 Care time: The patient presented to the Emergency Department on the above date and was hospitalized for further evaluation of their emergent condition. - New Patient This patient is new to me today: Yes Date on this admission: 01/11/17 - Critical Care Critical Care patient: No
[2017-01-11] MEDS: ATORVASTATIN CA 40 MG TABLET (FP) PO SCH (21:41)
[2017-01-11] MEDS ORDERED: ATORVASTATIN CA 20 MG TABLET (FP) PO SCH (22:00)
[2017-01-12] MEDS: FUROSEMIDE 40 MG/4 ML INJECTABLE VIAL IVPUSH SCH (06:23)
[2017-01-12] MEDS: INSULIN SLIDING SCALE (NOVOLOG) 1 VIAL SQ SCH ×2 (06:45→11:52)
[2017-01-12 08:58] VITALS: BP 141/66; TEMP 98.2
[2017-01-12 09:19] VITALS: PULSE 53
[2017-01-12 09:29] LABS: ALBUMIN 3.6 g/dl (3.4-5.0); BILIRUBIN,TOTAL 0.9 mg/dL (0.2-1.0); CALCIUM 8.3 mg/dL (8.5-10.1); COCKROFT - GAULT 68.22; CREATININE 1.7 mg/dL (0.7-1.3); TOT PROT 6.7 g/dl (6.4-8.2)
[2017-01-12] MEDS ORDERED: PT OWN MED DRAWER 7, Y5N ONE (09:40)
[2017-01-12] MEDS ORDERED: HEPARIN NA (PORCINE) 5,000 UNITS/ML 1ML VIAL SQ SCH (10:00)
[2017-01-12] MEDS: ISOSORBIDE DINITRATE 10 MG TABLET (FP) PO SCH (10:03)
[2017-01-12] MEDS: FLUTICASONE/SALMETEROL 100 MCG/50 MCG DISKUS IH SCH (10:03)
[2017-01-12] MEDS: hydrALAZINE HCL 50 MG TABLET (FP) PO SCH (10:03)
--- NOTE | 2017-01-12 10:08 | PN ---
Progress Note (short form) - Note Progress Note: PULMONARY States breathing is improving daily. No chest pain or palpitations. Swelling is decreasing. Last Vital Signs Temp Pulse Resp BP Pulse Ox 98.2 F 53 L 20 141/66 97 01/12/17 08:58 01/12/17 09:18 01/12/17 08:58 01/12/17 08:58 01/12/17 09:18 Intake & Output 01/09/17 01/10/17 01/11/17 01/12/17 23:59 23:59 23:59 23:59 Intake Total 1540 700 Output Total 800 2450 1200 Balance -800 -910 -500 Weight 270 lb 9 oz 268 lb 11.2 oz 265 lb 266 lb 12.8 oz Gen: NAD at rest Heart: RRR Lung: decreased breath sound at the bases Abd: soft, nontender Ext: decreasing edema CBC, BMP 01/10/17 07:15 01/12/17 06:00 Active Medications Acetaminophen (Tylenol -) 650 mg PO Q6H PRN PRN Reason: FEVER OR PAIN Last Admin: 01/11/17 15:30 Dose: 650 mg Albuterol/Ipratropium (Duoneb -) 1 amp NEB Q4HPO PRN PRN Reason: copd Atorvastatin Calcium (Lipitor -) 40 mg PO HS [facility] Last Admin: 01/11/17 21:41 Dose: 40 mg Furosemide (Lasix Injection -) 40 mg IVPUSH BID@0600,1400 [facility] Last Admin: 01/12/17 06:23 Dose: 40 mg Heparin Sodium (Porcine) (Heparin -) 5,000 unit SQ TID [facility] Last Admin: 01/12/17 10:03 Dose: 5,000 unit Hydralazine HCl (Apresoline -) 100 mg PO BID [facility] Last Admin: 01/12/17 10:03 Dose: 100 mg Insulin Aspart (Novolog Vial Sliding Scale -) 1 vial SQ ACHS [facility] PRN Reason: Protocol Last Admin: 01/12/17 06:45 Dose: Not Given Isosorbide Dinitrate (Isordil -) 10 mg PO BID [facility] Last Admin: 01/12/17 10:03 Dose: 10 mg Fluticasone/Salmeterol (Advair 100mcg/50mcg -) 1 puff IH BID [facility] Last Admin: 01/12/17 10:03 Dose: 1 puff A/P Acute on Chronic LV Diastolic Heart Failure Pulmonary HTN COPD Chronic Hypoxic and Hypercapneic Respiratory Failure Severe Obstructive Sleep Apnea HTN CKD - IV lasix - monitor urine output, creatinine - daily weights, I/Os - beta milli, SHEN-I when renal function stable - O2 to keep SpO2 >90% - inhaled bronchodilators - DVT prophylaxis Problem List - Problems (1) Acute on chronic diastolic (congestive) heart failure Code(s): I50.33 - ACUTE ON CHRONIC DIASTOLIC (CONGESTIVE) HEART FAILURE (2) Pulmonary hypertension Code(s): I27.2 - OTHER SECONDARY PULMONARY HYPERTENSION (3) Volume overload Code(s): E87.70 - FLUID OVERLOAD, UNSPECIFIED (4) COPD (chronic obstructive pulmonary disease) Code(s): J44.9 - CHRONIC OBSTRUCTIVE PULMONARY DISEASE, UNSPECIFIED Qualifiers : COPD type: COPD with acute exacerbation Qualified Code(s): J44.1 - Chronic obstructive pulmonary disease with (acute) exacerbation (5) Chronic respiratory failure with hypoxia and hypercapnia Code(s): J96.11 - CHRONIC RESPIRATORY FAILURE WITH HYPOXIA J96.12 - CHRONIC RESPIRATORY FAILURE WITH HYPERCAPNIA (6) Obstructive sleep apnea Code(s): G47.33 - OBSTRUCTIVE SLEEP APNEA (ADULT) (PEDIATRIC) (7) HTN (hypertension) Code(s): I10 - ESSENTIAL (PRIMARY) HYPERTENSION
--- NOTE | 2017-01-12 11:10 | PN ---
Progress Note (short form) - Note Progress Note: s: no cp, sob, palps, dizzy; le edema better, walking in halls a lot, feels well o: Vital Signs Period Temp Pulse Resp BP Sys/Davila Pulse Ox Last 24 Hr 97.9 F-98.9 F 53-83 20-20 133-152/56-81 96-97 nad, no jvd rrr s1s2 no mrg cta bl nl eff aaox3 trace le edema and nonpitting edema, chronic stasis changes no diaphoresis jaundice Current Medications Generic Name Dose Route Start Last Admin Trade Name Freq PRN Reason Stop Dose Admin Acetaminophen 650 mg 01/10/17 01:05 01/11/17 15:30 Tylenol - PO 650 mg Q6H PRN Administration FEVER OR PAIN Albuterol/Ipratropium 1 amp 01/09/17 18:20 Duoneb - NEB Q4HPO PRN copd Atorvastatin Calcium 40 mg 01/10/17 22:00 01/11/17 21:41 Lipitor - PO 40 mg HS EVANGELINA Administration Furosemide 40 mg 01/12/17 14:00 Lasix - PO BID@0600,1400 [facility] Heparin Sodium (Porcine) 5,000 unit 01/12/17 10:00 01/12/17 10:03 Heparin - SQ 5,000 unit TID EVANGELINA Administration Hydralazine HCl 100 mg 01/09/17 22:00 01/12/17 10:03 Apresoline - PO 100 mg BID EVANGELINA Administration Insulin Aspart 1 vial 01/10/17 16:30 01/12/17 06:45 Novolog Vial Sliding Scale - SQ Not Given ACHS [facility] Protocol Isosorbide Dinitrate 10 mg 01/10/17 15:00 01/12/17 10:03 Isordil - PO 10 mg BID EVANGELINA Administration Fluticasone/Salmeterol 1 puff 01/09/17 22:00 01/12/17 10:03 Advair 100mcg/50mcg - IH 1 puff BID EVANGELINA Administration CBC, BMP 01/10/17 07:15 01/12/17 06:00 ecg: nsr, prolonged qt, lae, poor r wave progression. TWI in high lateral leads. cxr: clear per report mibi 11/2013: no ischemia, nl lvef echo 10/2015: tds, nl lvef, mild conc lvh, nl rv, mild lae, mod phtn, no sig valve path echo 12/2016: tds; mild conc lvh, nl lvef, nl rv, mild tr, mod ao root dil a/p: 71 m hx dchf, venous insuff/le edema, htn, obesity, copd, and pna this past summer here with sob. dchf - vol status improved, pt feels at baseline, wt plateaued. Switch to po lasix 40 bid with kdur. copd: - per pmd/pulm ckd/anthony: -monitor with diuresis, cr has been stable venous insuff: -diuretic as above htn: -iram stopped due to anthony/ckd -cont home hydralazine and isordil cardiac pedro ok for dc. Pt has hx of noncompliance with meds and f/u. Again instructed of importance of taking meds and following up.
[2017-01-12] MEDS ORDERED: POTASSIUM CHLORIDE ORAL LIQUID 20 MEQ/15 ML PO ONE (11:42)
--- NOTE | 2017-01-12 11:54 | DS ---
Physical Exam: SUBJECTIVE: Patient seen and examined. He feels well, no sob or dyspnea. Had long discussion regarding importance of follow up and medication adherence, pt agrees and is going to start taking care of himself. OBJECTIVE: Vital Signs Period Temp Pulse Resp BP Sys/Davila Pulse Ox Last 24 Hr 98.2 F-98.9 F 53-83 20-20 137-152/56-81 96-97 PE Neuro: alert, awake, cn 2-12intact Pulm: mild basilar crackles, no sob, orthopnea, wheezing CV: S1 s2 rrr no mrg Abd: s nt bd + bs Ext: le edema +1 leathery venous skin changes Laboratory Results - last 24 hr 01/12/17 06:00 Sodium 140 Potassium 3.3 L Chloride 96 L Carbon Dioxide 34 H Anion Gap 10 BUN 30 H Creatinine 1.7 H Creat Clearance w eGFR 39.93 POC Glucometer Random Glucose 155 H Calcium 8.3 L Total Bilirubin 0.9 AST 9 L D ALT 15 Alkaline Phosphatase 84 Total Protein 6.7 Albumin 3.6 HOSPITAL COURSE: Date of Admission:01/09/17 Date of Discharge: 01/12/17 Minutes to complete discharge: 35 Discharge Summary Reason For Visit: CHRONIC DIASTOLIC HEART FAILURE Current Active Problems Acute on chronic diastolic (congestive) heart failure (Acute) CHF (congestive heart failure) (Acute) Obstructive sleep apnea (Acute) Volume overload (Acute) Hospital Course: Initial Hospital Course: Briefly, this 71 year old male with a significant past medical history of CAD, s /p RI, hypertension, dystolic CHF, chronic venous stasis, prostate cancer with prostectomy and CKD stage 3. Sent to ED by PCP due to worsening shortness of breath. Patient noted weight gain over past few months but was unable to seek medical attention due to family obligations. He also reported being non compliant with his home medications. He was becoming SOB after ambulating a few feet and unable to lay flat in the bed. He is home oxygen dependent: nasal cannula @ 4 liters. He uses crutches to ambulate secondary to a painful right hip and a pulled right groin muscle. Imaging: ECHO 12/2016: normal LVEF, normal RVSP, mild conc lvh, mild tr, mod ao root dil Subsequent Hospital Course/Progress Note/Discharge Summary by a/p: Assessment: 71 year old male with CAD, s/p RI, HTN, diastolic CHF, chronic venous stasis, prostate cancer with prostectomy and CKD stage 3 admitted with worsening SOB. Plan: 1. Acute on chronic LV diastolic HF - s/p IV diuresis Lasix 40mg BID - Transition to 40mg PO BID 2. Acute on chronic hypoxic and hypercapneic resp failure - Resolved - Due to CHF exacerbation 3. COPD - Tim 1 BID - Duonebs prn 4. HTN - Hydralazine 100mg BID - Isordil 10mg BID - Hold SHEN d/t PAULINO, pt to follow up with Cardiology next week for restarting, pt aware 5. PAULINO on CKD - Baseline appears to be 1.3; 1.7 on discharge - Lasix now PO - SHEN discontinued - To follow up with cardiology next week for blood work 6. BEATRIZ - OA screening completed, pulmonary referral enclosed Dispo: - Home with above meds and pcp, cardiology and pulm follow up - Pt aware and agrees to above plan Condition: Stable - Instructions Diet, Activity, Other Instructions: Please return to the ED for any new, persistent, or worsening symptoms. Follow up with your PC in 1 week Follow up with Dr. Fu in office next week, he will decide at that time if to restart you on Lisinopril 20mg daily Resume home medications as listed on home discharge list Referrals: Gael Amaya MD [Primary Care Provider] - Kadeem Gong MD [Staff Physician] - 2 Weeks (Kidney doctor, who will follow your kidney function ) Triston Fu MD [Staff Physician] - 1 Week (Re evaluate for Lisinopril and status of your heart failure ) Disposition: HOME - Home Medications Comprehensive Discharge Medication List: Ambulatory Orders Hydralazine HCl 100 mg PO BID 03/17/16 Isosorbide Dinitrate [Isordil -] 10 mg PO BID 03/17/16 Acetaminophen [Tylenol .Regular Strength -] 650 mg PO Q4H PRN #0 tablet Albuterol 0.083% Nebulizer Felicia [Ventolin 0.083% Nebulizer Soln -] 1 amp NEB Q4H PRN #120 amp 03/21/16 Arformoterol Tartrate [Brovana -] 1 amp NEB BID #30 amp 03/21/16 Mineral Oil/Petrolat,Wht/Water [Eucerin (Large Jar) -] 1 applic TP DAILY PRN #1 jar 03/21/16 Atorvastatin Ca [Lipitor] 40 mg PO HS #30 tablet 01/12/17 Furosemide [Lasix -] 40 mg PO BID@0600,1400 #60 tablet 01/12/17 This patient is new to me today: No Emergency Visit: Yes ED Registration Date: 01/09/17 Care time: The patient presented to the Emergency Department on the above date and was hospitalized for further evaluation of their emergent condition. Critical Care patient: No - Discharge Referral Referred to [facility] Med P.C.: No
[2017-01-12] MEDS ORDERED: FUROSEMIDE 40 MG TABLET (FP) PO SCH (14:00)
== END 2017-01-12 12:52 | disposition home or self-care (01) | DRG 291 ==
LOC: JER 07:04 → JERBED 11:36 → J8W 13:25
PROVIDERS: ADMIT Internal Medicine; ATTEND Nurse Practitioner Acute Care
DX: I13.0 Hypertensive heart and chronic kidney disease with heart failure and stage 1 through stage 4 chronic kidney disease, or unspecified chronic kidney disease (principal); I50.33 Acute on chronic diastolic (congestive) heart failure; J96.11 Chronic respiratory failure with hypoxia; J96.10 Chronic respiratory failure, unspecified whether with hypoxia or hypercapnia; N17.9 Acute kidney failure, unspecified; I25.10 Atherosclerotic heart disease of native coronary artery without angina pectoris; I27.2 Other secondary pulmonary hypertension; N18.3 Chronic kidney disease, stage 3 (moderate); J44.9 Chronic obstructive pulmonary disease, unspecified; G47.33 Obstructive sleep apnea (adult) (pediatric); I25.2 Old myocardial infarction; I73.89 Other specified peripheral vascular diseases; M25.551 Pain in right hip; E87.6 Hypokalemia; E86.0 Dehydration; E66.8 Other obesity; Z68.37 Body mass index [BMI] 37.0-37.9, adult; Z71.3 Dietary counseling and surveillance; Z91.14 Patient's other noncompliance with medication regimen; Z85.46 Personal history of malignant neoplasm of prostate; Z99.81 Dependence on supplemental oxygen
CPT/HCPCS: 36415; 71010-TC; 80048; 80053; 80061; 81003; 82550; 83036; 83721; 83735; 83880; 84100; 84484; 85025; 85027; 93005; 93010; 93306-TC; 94640; 97116-GP; 97161-GP; 99283-25; J1644

== ENCOUNTER 2017-08-07 09:26 | Inpatient (IN) | payer OTHER ==
--- NOTE | 2017-08-07 10:39 | PDOC ---
History of Present Illness <ClariNyla - Last Filed: 08/07/17 14:09> - General History Source: Patient Exam Limitations: No Limitations - History of Present Illness Initial Comments: This is a 71 YOM with h/o diastolic CHF, COPD, chronic venous stasis, CKD stage 3, CAD with prior VT, prostate CA, and prostatectomy who presents with SOB and leg swelling for the past week. The SOB is constant despite his home use of 3 LPM O2 at all times. He has decreased exercise tolerance but is unable to say how many blocks he can walk. The SOB and leg swelling are accompanied by exacerbated cough with white milky sputum, weight gain, and decreased urine production. He denies any fever. He does note additionally having spilled boiling water on both feet about a month ago and notes he sustained alanis, and has continued wounds to both feet. <BookerLorin - Last Filed: 08/08/17 11:30> - General Chief Complaint: Congestive Heart Failure Stated Complaint: SOB, SWOLLEN LEGS Time Seen by Provider: 08/07/17 10:00 Past History <Nyla Montague - Last Filed: 08/07/17 14:09> - Past Medical History Asthma: Yes Cancer: Yes (prostate) COPD: Yes HTN: Yes - Surgical History Abdominal Surgery: Yes (Prostate removal) Appendectomy: Yes - Immunization History Immunization Up to Date: Yes - Suicide/Smoking/Psychosocial Hx Smoking History: Former smoker Have you smoked in the past 12 months: No If you are a former smoker, when did you quit?: 1959 Information on smoking cessation initiated: No Hx Alcohol Use: No Drug/Substance Use Hx: No Substance Use Type: None Hx Substance Use Treatment: No <Booker,Lorin - Last Filed: 08/08/17 11:30> - Past Medical History Allergies/Adverse Reactions: Allergies Allergy/AdvReac Type Severity Reaction Status Date / Time lactose Allergy Mild Verified 08/07/17 09:50 Penicillins Allergy Verified 08/07/17 09:50 Home Medications: Ambulatory Orders Hydralazine HCl 100 mg PO BID 03/17/16 Isosorbide Dinitrate [Isordil -] 10 mg PO BID 03/17/16 Atorvastatin Ca [Lipitor] 40 mg PO HS #30 tablet 01/12/17 Furosemide [Lasix] 20 mg PO BID 08/07/17 Potassium Chloride 20 meq PO DAILY 08/07/17 Review of Systems - Review of Systems Able to Perform ROS?: Yes Is the patient limited Syriac proficient: No Constitutional: No: Chills, Fever, Unexplained wgt Loss HEENTM: No: Recent change in vision, Throat Pain Respiratory: Yes: Cough, Shortness of Breath, SOB with Exertion, SOB at Rest, Productive cough Cardiac (ROS): Yes: Edema. No: Chest Pain, Palpitations ABD/GI: No: Constipated, Diarrhea, Nausea, Vomiting : Yes: Other (decreased urination). No: Burning, Incontinence Musculoskeletal: No: Back Pain, Neck Pain Integumentary: No: Bruising, Rash Neurological: No: Headache, Numbness, Tingling, Weakness, Dizziness Endocrine: No: Increased Urine, Unexplained Weight Loss <Lorin Booker - Last Filed: 08/08/17 11:30> *Physical Exam - Vital Signs Last Vital Signs Temp Pulse Resp BP Pulse Ox 98.9 F 81 24 162/108 80 L 08/07/17 09:50 08/07/17 09:50 08/07/17 09:50 08/07/17 09:50 08/07/17 09:50 <BladimirNyla cuevas - Last Filed: 08/07/17 14:09> - Vital Signs Last Vital Signs Temp Pulse Resp BP Pulse Ox 98.9 F 81 24 162/108 80 L 08/07/17 09:50 08/07/17 09:50 08/07/17 09:50 08/07/17 09:50 08/07/17 09:50 - Physical Exam General Appearance: Yes: Nourished, Appropriately Dressed, Obese, Other ( pleasant and answering questions, occasionally becomes winded with conversation) . No: Apparent Distress HEENT: positive: EOMI, Normal Voice, Hearing Grossly Normal. negative: Scleral Icterus (R), Scleral Icterus (L), Nasal Congestion Neck: positive: Trachea midline, Supple. negative: Tender, Rigid Respiratory/Chest: positive: Respiratory Distress, Rapid RR, Crackles (bibasilar ). negative: Stridor, Wheezing Cardiovascular: positive: Edema (3+ BLE pitting edema with skin tightening), Murmur (2/6 systolic), Irregularly Irregular Gastrointestinal/Abdominal: positive: Normal Bowel Sounds, Soft, Protuberent. negative: Tender, Organomegaly, Pulsatile Mass, Guarding Musculoskeletal: negative: Decreased Range of Motion, Vertebral Tenderness Extremity: positive: Normal Capillary Refill, Normal Inspection, Normal Range of Motion. negative: Tender, Cyanosis Integumentary: positive: Normal Color, Dry, Warm, Swelling (BLE), Other ( bilateral dorsal foot ulcerations with appearance of wet gangrene and a few maggots present, L worse than R). negative: Erythema, Rash, Bruising Neurologic: positive: senior research scientist II-XII NML intact, Fully Oriented, Alert, Normal Mood/ Affect, Normal Response, Motor Strength 5/5 <Booker,Lorin - Last Filed: 08/08/17 11:30> Heart Score/ECG Review #1 General ECG Interpretation: Normal Rate (97), Normal Intervals, No acute ischemic changes - ECG Intrepretation Rhythm: Irregularly Irregular Comment:: 08/07/17 14:09 atrial fibrillation <Nyla Montgaue - Last Filed: 08/07/17 14:09> ED Treatment Course - LABORATORY CBC & Chemistry Diagram: 08/07/17 11:20 08/07/17 11:20 - ADDITIONAL ORDERS Additional order review: Laboratory Results 08/07/17 08/07/17 08/07/17 11:22 11:20 11:20 Sodium 141 Potassium 3.6 Chloride 98 Carbon Dioxide 38 H Anion Gap 5 L BUN 12 D Creatinine 1.1 D Creat Clearance w eGFR > 60 Random Glucose 226 H D Lactic Acid 1.3 Calcium 8.1 L Total Bilirubin 0.7 D AST 6 L D ALT 14 Alkaline Phosphatase 96 Creatine Kinase 79 Troponin I 0.02 B-Natriuretic Peptide 1383.44 H Total Protein 6.0 L Albumin 3.0 L TSH 2.06 D 08/07/17 11:20 RBC 3.97 L MCV 84.9 MCHC 32.5 RDW 16.3 H MPV 6.6 L D Neutrophils % 80.2 Lymphocytes % 13.2 Monocytes % 5.3 Eosinophils % 0.8 Basophils % 0.5 - RADIOLOGY Radiology Studies Ordered: Category Date Time Status CHEST X-RAY PORTABLE* [RAD] Stat Radiology 08/07/17 10:32 Completed - Medications Given in the ED: ED Medications Discontinued Medications Generic Name Dose Route Start Last Admin Trade Name Freq PRN Reason Stop Dose Admin Clindamycin Phosphate 50 mls @ 100 mls/hr 08/07/17 10:41 08/07/17 11:19 Cleocin 600 Mg Premix Ivpb - IVPB 08/07/17 11:10 100 mls/hr ONCE ONE Administration <BladimirNyla ceuvas - Last Filed: 08/07/17 14:09> - LABORATORY CBC & Chemistry Diagram: 08/08/17 06:30 08/08/17 06:30 <Lorin Booker - Last Filed: 08/08/17 11:30> Medical Decision Making - Medical Decision Making 71 YOM with h/o diastolic CHF (admitted 12/2016), COPD, P/W SOB, leg edema, and BLE foot wounds. Has not taken most of his medications in one week, including Lasix. On exam his saturation is 80% on 1 LPM, bibasilar crackles, 3+ tight pitting edema BLE. Also in atrial fibrillation on exam and on EKG, which Pt states is new. Also dorsal bilateral foot wounds with wet gangrenous appearance and maggots. DDX for SOB/edema IBNLT CHF exacerbation, pneumonia, COPD exacerbation, etc. DDX for foot wounds IBNLT cellulitis, wet gangrene, 2nd degree burn, unlikely deep space infection or osteo. Ordered is CBCD, CMP, BNP, cardiac panel, blood cx, lactate, TSH, EKG, clinda for empiric coverage. 08/07/17 11:00 BNP 1383 which is higher than baseline but not as high as it has been in the past per [facility] records. CBCD, CMP, lactate are non-directive. CXR concerning for bilateral pleural effusion. Spoke with Dr. Encarnacion (honest john rocket crew member for Dr. Fu). He will call back with recommendation for ED Lasix dosing and other recs. 08/07/17 13:29 Ordered is 40 mg Lasix IVPUSH. Patient to be admitted. 08/07/17 14:00 Spoke with Raji Braun whose team will admit to inpatient tele under Dr. Hernandez. 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
[2017-08-07] MEDS ORDERED: CLINDAMYCIN 600MG PREMIX IVPB 50 ML IVPB ONE ×3 (10:41→19:38)
[2017-08-07 11:38] LABS: BASOPHIL 0.5 % (0-2.0); EOSINOPHIL 0.8 % (0-4.5); MCH 27.6 pg (25.7-33.7); MCHC 32.5 g/dl (32.0-35.9); MEAN CELL VOLUME 84.9 fl (80-96); MEAN PLT VOLUME 6.6 fl (7.5-11.1); NEUTROPHILS 80.2 % (42.8-82.8); PLATELET COUNT 193 K/MM3 (134-434); RDW 16.3 % (11.9-15.9); WHITE BLOOD COUNT 8.3 K/mm3 (4.0-10.0)
[2017-08-07 12:03] LABS: ANION GAP 5 (8-16); CALCIUM 8.1 mg/dL (8.5-10.1); CO2 38 mmol/L (21-32); CREATININE 1.1 mg/dL (0.7-1.3); GLUCOSE,RANDOM 226 mg/dL (74-106); SGOT/AST 6 U/L (15-37); SGPT/ALT 14 U/L (12-78)
[2017-08-07 12:14] LABS: ALK PHOS 96 U/L (45-117); BILIRUBIN,TOTAL 0.7 mg/dL (0.2-1.0); CPK 79 IU/L (39-308); TROPONIN I 0.02 ng/ml (0.00-0.05)
--- NOTE | 2017-08-07 13:16 | PDOC ---
Attending Attestation - Resident Resident Name: Lorin Booker - ED Attending Attestation I have performed the following: I have examined & evaluated the patient, The case was reviewed & discussed with the resident, I agree w/resident's findings & plan, Exceptions are as noted - Medical Decision Making 08/07/17 13:13 71-year-old male with a history of hypertension, CHF states he's been off his medications for 1 week. Here today complaining of bilateral leg swelling, exertional shortness of breath, denies chest pain, fevers, chills, or cough. Patient follows Dr. Steele and Dr. Mely Cardoza. On exam patient is awake and alert, and lungs are with bilateral crackles at bases. Normal work of breathing. Cardiac irregularly irregular rhythm no murmurs rubs or gallops. Abdomen is distended but soft and nontender. Bilateral lower extremity pitting edema. Bilateral feet with scaling blistering skin with discoloration. Visible maggots present. Differential CHF, new onset A. fib, anemia, SLOT HOST, cellulitis, infection such as pneumonia. Plan chest x-ray, EKG, he C, CMP, BNP, will cover for infection of bilateral feet with clindamycin and admit for likely diuresis. <Nyla Montague - Last Filed: 08/07/17 13:12> - HPI HPI: 08/07/17 13:17 71 y/o M with a PMHx of diastolic CHF, COPD, chronic venous stasis, CKD stage 3 , CAD with prior ND, prostate CA, and prostatectomy presents to the ED with SOB and bilateral lower extremity edema for a week. Patient is on 3 L of O2 at home but still feels short of breath. His SOB is worse with ambulation. Patient also reports boiling water burned both of his feet a few weeks ago, and he has not seen anyone for it. He does not have a design specialist. He has not been taking his medications for a week. No known history of AFib. Denies chest pain. Denies fever, chills. Denies nausea, vomiting, diarrhea. PCP: Dr. Amaya Bar Host: Dr. Farrell Ultrasonic Cleaner: Dr. uF - Physicial Exam PE: 08/07/17 13:18 GENERAL: Awake, alert, and fully oriented, in no acute distress HEAD: No signs of trauma EYES: PERRLA, EOMI, sclera anicteric, conjunctiva clear ENT: Auricles normal inspection, hearing grossly normal, nares patent, oropharynx clear without exudates. Moist mucosa NECK: Normal ROM, supple, no lymphadenopathy, JVD, or masses LUNGS: Crackles in bilateral lung bases HEART: Irregularly irregular, no murmurs, rubs or gallops ABDOMEN: Obese, nontender, normoactive bowel sounds. No guarding, no rebound. No masses EXTREMITIES: Bilateral pitting edema, moving all extremities equally. No clubbing or cyanosis. No cords, erythema, or tenderness NEUROLOGICAL: Cranial nerves II through XII grossly intact. Normal speech, A& Ox3 SKIN: Bilateral feet with scaling dermatitis with peeling warmth and maggots present. - Medical Decision Making 08/07/17 13:18 Documentation prepared by Itzel Oliva, acting as medical device sales representative for Nyla Montague MD. <Itzel Oliva - Last Filed: 08/07/17 13:18>
[2017-08-07] MEDS ORDERED: FUROSEMIDE 40 MG/4 ML INJECTABLE VIAL IVPUSH ONE ×2 (13:26→15:51)
[2017-08-07] MEDS ORDERED: POTASSIUM CHLORIDE TABS 20 MEQ TABLET.ER (FP) PO ONE ×2 (14:56→15:14)
--- NOTE | 2017-08-07 14:57 | CON.CARD ---
Cardiology Consult (text) - Consultation Consultation Note: cc: sob, afib hpi: 71 m hx diastolic chf/venous insuff/le edema, htn, dilated aortic root, ckd, obesity, copd p/w heart failure exacerbation and new onset aflutter. states hasn't taken any medication in 2 weeks because his prescription ran out. since then slow weight gain, worsened sob. Now sob with minimal exertion. worsened LE edema, abdominal distension recently burned his feet --> erythema, pain, exudate. Unclear what dose of lasix he was taking prior to stopping his meds. no orthopnea, cp, palps, dizziness, bleeding, claudicaiton + joint pain , no f/c/s, n/v/d, cough, congestion, headache, visual disturbances , rash. pmh: per hpi psh: appendectomy, prostate surgery social: ex tob fam: no premature cad. ros: per hpi; meds: Ambulatory Orders Hydralazine HCl 100 mg PO BID 03/17/16 Isosorbide Dinitrate [Isordil -] 10 mg PO BID 03/17/16 Acetaminophen [Tylenol .Regular Strength -] 650 mg PO Q4H PRN #0 tablet Albuterol 0.083% Nebulizer Felicia [Ventolin 0.083% Nebulizer Soln -] 1 amp NEB Q4H PRN #120 amp 03/21/16 Arformoterol Tartrate [Brovana -] 1 amp NEB BID #30 amp 03/21/16 Mineral Oil/Petrolat,Wht/Water [Eucerin (Large Jar) -] 1 applic TP DAILY PRN #1 jar 03/21/16 Atorvastatin Ca [Lipitor] 40 mg PO HS #30 tablet 01/12/17 Furosemide [Lasix -] 40 mg PO BID@0600,1400 #60 tablet 01/12/17 per office notes: hydralazine 100 bid, isordil 10 bid, lasix 80 bid, kdur 20 bid , lipitor 40. Vital Signs - 24 hr 08/07/17 09:50 Temperature 98.9 F Pulse Rate 81 Respiratory 24 Rate Blood Pressure 162/108 O2 Sat by Pulse 80 L Oximetry (%) Intake & Output 08/05/17 08/06/17 08/07/17 08/08/17 08:59 07:59 07:59 07:59 Weight 280 lb nad, calm jvd elevated, neck supple irregularly irregular s1s2 no mrg bibasilar crackles, no wheeze, nl eff aaox3 abd nt distended pos bs. 1+ tense le edema to sacrum, chronic stasis changes no diaphoresis jaundice diminished dp pt no carotid bruits CBC, BMP 08/07/17 11:20 08/07/17 11:20 Laboratory Tests 03/17/16 01/09/17 08/07/17 07:45 08:38 11:20 INR 1.48 H Lactic Acid ALT 14 Alkaline Phosphatase 96 Creatine Kinase 79 B-Natriuretic Peptide 109.61 1383.44 H Troponin I 0.02 Albumin 3.0 L 08/07/17 11:22 INR Lactic Acid 1.3 ALT Alkaline Phosphatase Creatine Kinase B-Natriuretic Peptide Troponin I Albumin ekg: afib with pvc's/aberrancy. poor r wave progresion. no acute ischemic changes tele: flutter, hr's 100's. cxr: poor inspiration. suspicion for bilateral pleural effusions mibi 11/2013: no ischemia, nl lvef echo 12/2016 ([facility]) : tds; mild conc lvh, nl lvef, nl rv, mild tr, mod ao root dil 71 m hx diastolic chf/venous insuff/le edema, htn, dilated aortic root, ckd, obesity, copd p/w heart failure exacerbation and new onset aflutter. new onset afib - on heparin drip - curretnly hr in low 100's. will start lopressor 25 mg tid (monitor for bronchospasm). Will decrease hydral dose to make room for uptitration of av omkar blockade. - ANA - evaluate for infectious trigger per pmd. diastolic chf exacerbation - grossly volume overloaded. diuresis with lasix 80 mg IV BId to start. uptitrate as needed. - reevaluate EF once better diuresed. - ana. monitor standing weight, daily i/o, bmp. copd: - per pmd venous insuff: -diuretic as above htn: - changes as above. have decreased dose of hydralazine to allow for BB uptitration. .
--- NOTE | 2017-08-07 15:04 | PN ---
Progress Note (short form) - Note Progress Note: ID consult dictated imp/reccd 71 year old man with PMH CHF on home oxygen admitted with progressive SOB and increasing edema He ran out of his lasix several weeks ago he spilled hot water on hiselft and has a healing burn on his right thigh, as well as nonhealing skin ulcers on the dorsum of both feet with maggots he tried soaking his feet at home no fever or chills given clindamycin in ED for his legs +anasarca CBC, BMP 08/07/17 11:20 08/07/17 11:20 suspect volume overload/chf from not taking lasix at home soft tissue infection both feet- no erythema no drainage, maggots removed pen allergy- hives? plan continue clindamycin , add bacid surgical evaluation for wound care Problem List - Problems (1) Maggot infestation Code(s): B87.9 - MYIASIS, UNSPECIFIED (2) CHF (congestive heart failure) Code(s): I50.9 - HEART FAILURE, UNSPECIFIED Qualifiers: Congestive heart failure type: diastolic Congestive heart failure chronicity: unspecified congestive heart failure chronicity Qualified Code(s): I50.30 - Unspecified diastolic (congestive) heart failure; I50.30 - Unspecified diastolic (congestive) heart failure; I50.30 - Unspecified diastolic (congestive) heart failure; I50.30 - Unspecified diastolic (congestive ) heart failure
--- NOTE | 2017-08-07 15:07 | HP ---
CHIEF COMPLAINT:"My feet are swollen" PCP:Xander HISTORY OF PRESENT ILLNESS: nitial Comments: 71M with PMH of heart failure with preserved ejection fraction, COPD, chronic venous stasis, CKD , documented CAD with prior [place] however patient denies having an [place] or having a cath, prostate CA s/p prostatectomy in 2005 who presents with worsening shortness of breath leg swelling for the 1-2 weeks. Patient lives on home oxygen and uses 3-4 liters nasal cannula. He states his saturation is usually between 87-92%. He states he has been also having worsening exercise tolerance. He has a history of being non compliant with his medications. Patient states he ran out of his medications about weeks ago. Patient was admitted December of this year and discharged on torsemide 40mg but he had his diuretic changes to lasix 20mg BID. Per cardiology he was supposed to be on lasix 80mg po BID. The patient states he has had a cough with some sputum which is white in color and he states he has had this chronically from COPD. He denies fevers chills chest pain. He denies nausea vomiting constipation or urinary symptoms. The patient spilled boiling water on both his feet and his right thigh about a month ago and has been unable to care for his feet since he can not bend over that far. he has been able to care for the wound on his thigh since he was able to reach it. He has been trying to place triple antibiotic ointment on his feet and thigh along with some silver cream however the patients feet still got infected. he never wrapped then but did soak them sometimes. Initially he stated the burn was a week ago. The patient seems to be a poor historian and has changed the length of time he has not been taking his meds and forgets how long its been since he burned his feet. He denies palpitations. Patient walks with crutches and states he need 2 knees and a hip replaced. He endorses that yesterday he all of a sudden had 3 episodes of "explosive" diarrhea which has since resolved. Patient's daughter at bedside states her father has "diabetic neuropathy" because he has numbness and tingling in his feet but they deny a history of diabetes. Patient is a retied search and rescue officer. In the ED he was noted to have foul smelling feet with maggots coming out of them. he was also noted to have new onset A. Fib. He denies ever having a history of A. Fib ER course was notable for: (1)Labs (2)CXR (3)Lasix Recent Travel:Denies PAST MEDICAL HISTORY:Morbid obesity heart failure with preserved ejection fraction COPD on home O2 CKD possible CAD prostate Ca HTN HLD PAST SURGICAL HISTORY:Prostate surgery appendectomy Social History: Smoking:quit 30 years ago Alcohol:Denies Drugs: Denies Allergies lactose Allergy (Mild, Verified 08/07/17 09:50) Penicillins Allergy (Verified 08/07/17 09:50) HOME MEDICATIONS: Home Medications Ambulatory Orders Hydralazine HCl 100 mg PO BID 03/17/16 Isosorbide Dinitrate [Isordil -] 10 mg PO BID 03/17/16 Atorvastatin Ca [Lipitor] 40 mg PO HS #30 tablet 01/12/17 Furosemide [Lasix] 20 mg PO BID 08/07/17 Potassium Chloride 20 meq PO DAILY 08/07/17 REVIEW OF SYSTEMS CONSTITUTIONAL: Absent: fever, chills, diaphoresis, generalized weakness, malaise, loss of appetite, weight change HEENT: Absent: rhinorrhea, nasal congestion, throat pain, throat swelling, difficulty swallowing, mouth swelling, ear pain, eye pain, visual changes CARDIOVASCULAR: Absent: chest pain, syncope, palpitations, irregular heart rate, lightheadedness , Present: peripheral edema RESPIRATORY: Absent: wheezing, stridor, hemoptysis Present: cough, shortness of breath, dyspnea with exertion, orthopnea GASTROINTESTINAL: Absent: abdominal pain, abdominal distension, nausea, vomiting, diarrhea, constipation, melena, hematochezia GENITOURINARY: Absent: dysuria, frequency, urgency, hesitancy, hematuria, flank pain, genital pain MUSCULOSKELETAL: Absent: joint swelling, back pain, neck pain Present: arthralgia SKIN: Absent: rash, itching, pallor HEMATOLOGIC/IMMUNOLOGIC: Absent: easy bleeding, easy bruising, lymphadenopathy, frequent infections ENDOCRINE: Absent: unexplained weight gain, unexplained weight loss, heat intolerance, cold intolerance NEUROLOGIC: Absent: headache, focal weakness, dizziness, unsteady gait, seizure, mental status changes, bladder or bowel incontinence Present: paresthesias in lower extremities PSYCHIATRIC: Absent: anxiety, depression, suicidal or homicidal ideation, hallucinations. PHYSICAL EXAMINATION Vital Signs - 24 hr 08/07/17 09:50 Temperature 98.9 F Pulse Rate 81 Respiratory 24 Rate Blood Pressure 162/108 O2 Sat by Pulse 80 L Oximetry (%) GENERAL: Awake, alert, and fully oriented, in no acute distress. Patient looks disheveled and has poor hygiene. Anasarca EYES: Pupils equal, round and reactive to light, extraocular movements intact, sclera anicteric, conjunctiva clear. No lid lag. EARS, NOSE, THROAT: Moist mucous membranes. Extremely poor dentition NECK:supple LUNGS: Bilateral crackles diffusely HEART: Irregulary Irregular S1 S2 heard no murmur appreciated. 2+ pitting edema up to epigastrium. Anasarca. positive JVD ABDOMEN: Soft, nontender, not distended. 2+ pitting edema UPPER EXTREMITIES: warm, well-perfused. LOWER EXTREMITIES: warm, evidence of chronic venous stasis. Legs are dry and scaly. Right thigh has superficial 1st degree alanis with no signs of infection. Bilateral feet scaly and crusted with open wounds weeping pus and foul smelling. In between the webbed toe spaces maggots were present. legs are taut from edema. There is stuck debris such as cotton, dirt, hair etc. likely from socks and clothing being placed directly on open wound/ Pulses coukld not be palpated NEUROLOGICAL: Cranial nerves II-XII intact. Normal speech. Normal gait. PSYCHIATRIC: Cooperative. Good eye contact. Appropriate mood and affect. SKIN: Warm, dry, normal turgor, no rashes or lesions noted, normal capillary refill. Laboratory Results - last 24 hr 08/07/17 08/07/17 08/07/17 11:20 11:20 11:20 WBC 8.3 RBC 3.97 L Hgb 10.9 L D Hct 33.7 L D MCV 84.9 MCH 27.6 MCHC 32.5 RDW 16.3 H Plt Count 193 MPV 6.6 L D Neutrophils % 80.2 Lymphocytes % 13.2 Monocytes % 5.3 Eosinophils % 0.8 Basophils % 0.5 Sodium 141 Potassium 3.6 Chloride 98 Carbon Dioxide 38 H Anion Gap 5 L BUN 12 D Creatinine 1.1 D Creat Clearance w eGFR > 60 Random Glucose 226 H D Lactic Acid Calcium 8.1 L Total Bilirubin 0.7 D AST 6 L D ALT 14 Alkaline Phosphatase 96 Creatine Kinase 79 Troponin I 0.02 B-Natriuretic Peptide 1383.44 H Total Protein 6.0 L Albumin 3.0 L TSH 2.06 D 08/07/17 11:22 WBC RBC Hgb Hct MCV MCH MCHC RDW Plt Count MPV Neutrophils % Lymphocytes % Monocytes % Eosinophils % Basophils % Sodium Potassium Chloride Carbon Dioxide Anion Gap BUN Creatinine Creat Clearance w eGFR Random Glucose Lactic Acid 1.3 Calcium Total Bilirubin AST ALT Alkaline Phosphatase Creatine Kinase Troponin I B-Natriuretic Peptide Total Protein Albumin TSH EKG: A fib. CXR:consistent with fluid overload Echo from 12/2016: Diastolic CHF. miild oncentric LVH. normal RV. moderate aortic root dilation Mild tricuspid regurgitation tds; mild conc lvh, nl lvef, nl rv, mild tr, mod ao root dil ASSESSMENT/PLAN: 71M with multiple medical problems including diastolic CHF presents with acute exacerbation of CHF and bilateral foot infection. acute exacerbation of heart failure with preserved ejection fraction: likely due to poor medication compliance and ineffective doses of diuretics. Patient ran out of meds and per cardiology should be on a stronger dose of loop diuertics. new onset A. Fib may also be contibuting to exacerbation Admit to inpatient telemetry daily weights lasix 80mg IV BID cardiology consult strict I/O await cardiology recs for starting beta beta milli vs CCB for rate control will probably need SHEN inhibitor/ARB prior to discharge to prevent remodeling will send lipid panel check HbA1c TSH will get dietary consult for low sodium diet education as patient has poor diet habits continue isosorbide dinitrate 10mg po BID Anasarca: See above New onset A. Fib Cardiology consult troponin negative [id number] at least 4 if patient has diabetes will be 5 will start heparin gtt PTT q6h then per protocol PTT goal 50-70 Guiac stool first Infected bilateral feet with maggots: from poor hygiene and not being able to take care of himself. patient never wrapped his feet nor did he clean them maggots removed with forceps soak with peroxide to get other maggots out from under skin vascular Sx consult podiatry consult ID consult Continue Clindamycin 600mg IV Q8H COPD on Home O2: does not seem to be in exacerbation at this time ifrah PRN Pulmonology consult continue 4L nasal cannula O2 SPO2 monitoring was on inhaled steroids in the past but not currently on inhaled steroids HTN: continue hydralazine 100mg po BID continue isosorbide dinitrate 10mg po BID trend BP and titrate meds PRN May need SHEN/ARB May need beta milli vs CCB....will follow up with cardiology HLD: continue Statin Hyperglycemia: Possible new onset diabetes check HbA1c Fingersticks ACHS to monitor for now ISS Possible history of CAD documented in EMR: patient never had cath and denies history of [place] last stress test in 2013 cardiology consult Prostate Ca s/p surgery: outpatient follow up Morbid obesity: Counselled on lifestyle changes such as exercise and dietary modifications will get dietary consult Probable Obstructive sleep apnea: outpatient sleep study FEN: no IVF hypokalemia replete and start home dose of 20 meq daily diabetic/sodium controlled diet PPx: Heparin gtt no GI PPx indicated PT consult to avoid deconditioning Case discussed with attending Dr. Hernandez Visit type - Emergency Visit Emergency Visit: Yes ED Registration Date: 08/07/17 Care time: The patient presented to the Emergency Department on the above date and was hospitalized for further evaluation of their emergent condition. - New Patient This patient is new to me today: Yes Date on this admission: 08/07/17 - Critical Care Critical Care patient: No
[2017-08-07] MEDS ORDERED: FUROSEMIDE 40 MG/4 ML INJECTABLE VIAL ONE ×2 (15:14→16:56)
--- NOTE | 2017-08-07 15:35 | CONSULT ---
Consultation: REQUESTING PROVIDER: Raji Braun CONSULT REQUEST: We have been asked to medically evaluate this patient for ( specify). HISTORY OF PRESENT ILLNESS: This is a 71 YOM with h/o diastolic CHF, COPD, chronic venous stasis, CKD stage 3, CAD with prior [place], prostate CA, and prostatectomy who presents with SOB and leg swelling for the past week. The SOB is constant despite his home use of 3 L O2 at all times. He has decreased exercise tolerance, he can walk up to 600 yards on flaat floor and can climb up to 27 steps before feel SOB. The SOB and leg swelling are accompanied by exacerbated cough with white milky sputum, weight gain, and decreased urine production. He denies any fever. He does note additionally having spilled boiling water on both feet about a month ago and notes he sustained alanis, and has continued wounds to both feet. He denies any fever, chills, N/V/D/C, chest pain, palpitation, dizziness, abdominal pain or burning on urinations. He reports he can not lay flat, he sleep on 45 degree. Patient reports that he ran out of his diuretic meds. REVIEW OF SYSTEMS: CONSTITUTIONAL: Denies fever, chills, diaphoresis, generalized weakness, malaise, loss of appetite, weight change Denies chest pain, syncope, palpitations, lightheadedness,+ peripheral edema RESPIRATORY: Absent: cough,+ shortness of breath, +dyspnea with exertion, +orthopnea, Denies wheezing, stridor, hemoptysis GASTROINTESTINAL: Absent: abdominal pain, abdominal distension, nausea, vomiting, diarrhea, constipation, melena, hematochezia GENITOURINARY: denies dysuria, frequency, urgency, hesitancy, hematuria, flank pain, genital pain MUSCULOSKELETAL: Absent: myalgia, arthralgia, joint swelling, back pain, neck pain SKIN: Absent: rash, itching, pallor HEMATOLOGIC/IMMUNOLOGIC: Absent: easy bleeding, easy bruising, lymphadenopathy, frequent infections ENDOCRINE: Absent: +unexplained weight gain, unexplained weight loss, heat intolerance, cold intolerance NEUROLOGIC: Absent: headache, focal weakness or paresthesias, dizziness, unsteady gait, seizure, mental status changes, bladder or bowel incontinence PSYCHIATRIC: Absent: anxiety, depression, suicidal or homicidal ideation, hallucinations. PHYSICAL EXAMINATION GENERAL: Awake, alert, and fully oriented, in no acute distress. HEAD: Normal with no signs of trauma. EYES: sclera anicteric, conjunctiva clear. EARS, NOSE, THROAT: Moist mucous membranes.very poor dental Hygiene. NECK: No JVD, LUNGS: Bibasilar crackles No wheezes. No accessory muscle use. HEART: IRRegular rate and rhythm, normal S1 and S2 without murmur, rub or gallop. ABDOMEN: Soft,Obese , nontender, not distended, normoactive bowel sounds, no guarding, LOWER EXTREMITIES: , warm,peripheral venous stasis, No calf tenderness.+2 peripheral edema. very poor hygiene. buring blisters B/L foot. NEUROLOGICAL: no focal deficit, Normal speech. gait not observed. PSYCHIATRIC: Cooperative. Good eye contact. Appropriate mood and affect. SKIN: Warm, dry, no rashes. Home Medications Medication Instructions Recorded Hydralazine HCl 100 mg PO BID 03/17/16 Isosorbide Dinitrate [Isordil -] 10 mg PO BID 03/17/16 Acetaminophen [Tylenol .Regular 650 mg PO Q4H PRN #0 tablet 03/21/16 Strength -] Albuterol 0.083% Nebulizer Felicia 1 amp NEB Q4H PRN #120 amp 03/21/16 [Ventolin 0.083% Nebulizer Soln -] Arformoterol Tartrate [Brovana -] 1 amp NEB BID #30 amp 03/21/16 Mineral Oil/Petrolat,Wht/Water 1 applic TP DAILY PRN #1 jar 03/21/16 [Eucerin (Large Jar) -] Atorvastatin Ca [Lipitor] 40 mg PO HS #30 tablet 01/12/17 Furosemide [Lasix -] 40 mg PO BID@0600,1400 #60 tablet 01/12/17 Active Medications Generic Name Dose Route Start Last Admin Trade Name Freq PRN Reason Stop Dose Admin Heparin Sodium (Porcine) 5,000 unit 08/07/17 22:00 Heparin - SQ TID [facility] Laboratory Tests 03/17/16 01/09/17 08/07/17 07:45 08:38 11:20 INR 1.48 H Lactic Acid ALT 14 Alkaline Phosphatase 96 Creatine Kinase 79 B-Natriuretic Peptide 109.61 1383.44 H Troponin I 0.02 Albumin 3.0 L 08/07/17 11:22 INR Lactic Acid 1.3 ALT Alkaline Phosphatase Creatine Kinase B-Natriuretic Peptide Troponin I Albumin CBC, BMP 08/07/17 11:20 08/07/17 11:20 CXR Shallow inspiration. Cardiomegaly. Blunting of the bilateral costophrenic angles concerning for the pleural effusions. No pneumothorax is seen ASSESSMENT/PLAN: This is a 71 YOM with h/o diastolic CHF, COPD, chronic venous stasis, CKD stage 3, CAD with prior [place], prostate CA, and prostatectomy who presents with SOB and leg swelling for the past week. he was admitted to tele for further evaluation and treatment. # DCHF # COPD on home O2 # HTN # CKD stage 3 # B/L feet alanis stage 2 # Peripheral venous stasis # CAD #H/O prostate cancer with prostatectomy # Maggot infestation Plan: Furosemide 40 mg IV I/O daily weight continue home meds Hydrazine, Isosorbide dinitrate continue statin 40 mg daily one dose of clindamycin was given in ED Consult Cardiology Consult [employer] and may be vascular surgeon Duo-neb , albuterol , O2 to keep sat >90 % F/U blood culture Dispo: We will continue to follow the patient. Thank you for this consultative opportunity. Visit type - Emergency Visit Emergency Visit: Yes ED Registration Date: 08/07/17 Care time: The patient presented to the Emergency Department on the above date and was hospitalized for further evaluation of their emergent condition. - New Patient This patient is new to me today: Yes Date on this admission: 08/07/17 - Critical Care Critical Care patient: No
[2017-08-07] MEDS ORDERED: hydrALAZINE HCL 50 MG TABLET (FP) PO ONE (15:51)
--- NOTE | 2017-08-07 16:40 | PN ---
Teaching Attending Note Name of Resident: Tj Smith ATTENDING PHYSICIAN STATEMENT I saw and evaluated the patient. I reviewed the resident's note and discussed the case with the resident. I agree with the resident's findings and plan as documented. PULMONARY IMP ACUTE ON CHRONIC HYPOXEMIC/HYPERCAPNEIC RESPIRATORY FAILURE ACUTE ON CHRONIC DIASTOLIC CHF COPD PVD CKD PULMONARY HTN HTN MORBID OBESITY LIKELY OSAS PLAN IV LASIX O2 INHALED BRONCHODILATORS ANTIBIOTICS DAILY WTS VASCULAR OPINION MONITOR LYTES,RENAL FUNCTION F/U CHEST X-RAYS SLEEP SCREEN DR ESPARZA Problem List - Problems (1) Acute on chronic respiratory failure with hypoxia and hypercapnia Code(s): J96.21 - ACUTE AND CHRONIC RESPIRATORY FAILURE WITH HYPOXIA J96.22 - ACUTE AND CHRONIC RESPIRATORY FAILURE WITH HYPERCAPNIA (2) Foot ulcer Code(s): L97.509 - NON-PRESSURE CHRONIC ULCER OTH PRT UNSP FOOT W UNSP SEVERITY Qualifiers: Laterality: unspecified laterality Non-pressure ulcer stage: unspecified non-pressure ulcer stage Qualified Code(s): L97.509 - Non- pressure chronic ulcer of other part of unspecified foot with unspecified severity; L97.509 - Non-pressure chronic ulcer of other part of unspecified foot with unspecified severity; L97.509 - Non-pressure chronic ulcer of other part of unspecified foot with unspecified severity; L97.509 - Non-pressure chronic ulcer of other part of unspecified foot with unspecified severity (3) Maggot infestation Code(s): B87.9 - MYIASIS, UNSPECIFIED (4) CHF (congestive heart failure) Code(s): I50.9 - HEART FAILURE, UNSPECIFIED Qualifiers: Congestive heart failure type: diastolic Congestive heart failure chronicity: unspecified congestive heart failure chronicity Qualified Code(s): I50.30 - Unspecified diastolic (congestive) heart failure; I50.30 - Unspecified diastolic (congestive) heart failure; I50.30 - Unspecified diastolic (congestive) heart failure; I50.30 - Unspecified diastolic (congestive ) heart failure (5) Volume overload Code(s): E87.70 - FLUID OVERLOAD, UNSPECIFIED (6) CAD (coronary artery disease) Code(s): I25.10 - ATHSCL HEART DISEASE OF [place] CORONARY ARTERY W/O ANG PCTRS (7) CKD (chronic kidney disease) stage 3, GFR 30-59 ml/min Code(s): N18.3 - CHRONIC KIDNEY DISEASE, STAGE 3 (MODERATE) (8) COPD (chronic obstructive pulmonary disease) Code(s): J44.9 - CHRONIC OBSTRUCTIVE PULMONARY DISEASE, UNSPECIFIED Qualifiers : COPD type: COPD with acute exacerbation Qualified Code(s): J44.1 - Chronic obstructive pulmonary disease with (acute) exacerbation; J44.1 - Chronic obstructive pulmonary disease with (acute) exacerbation; J44.1 - Chronic obstructive pulmonary disease with (acute) exacerbation; J44.1 - Chronic obstructive pulmonary disease with (acute) exacerbation (9) HTN (hypertension) Code(s): I10 - ESSENTIAL (PRIMARY) HYPERTENSION (10) Obesity, Class II, BMI 35.0-39.9, with comorbidity (see actual BMI) Code(s): E66.01 - MORBID (SEVERE) OBESITY DUE TO EXCESS CALORIES (11) Pulmonary hypertension Code(s): I27.2 - OTHER SECONDARY PULMONARY HYPERTENSION * DO NOT USE * (12) Venous stasis of both lower extremities Code(s): I87.8 - OTHER SPECIFIED DISORDERS OF VEINS
--- NOTE | 2017-08-07 16:44 | PN ---
Teaching Attending Note Name of Resident: Raji Braun ATTENDING PHYSICIAN STATEMENT I saw and evaluated the patient. I reviewed the resident's note and discussed the case with the resident. I agree with the resident's findings and plan as documented. SUBJECTIVE: This is a 71 year old man with a history of HTN, chronic diastolic heart failure, chronic venous stasis, COPD, chronic hypoxic respiratory failure , prostate cancer, CKD, obesity who comes to the ER complaining of worsening SOB and leg edema for the past 2 weeks. He says he ran out of medications 1-2 weeks ago. He denies chest pain, palpitations, fever, chills. OBJECTIVE: Vital Signs Period Temp Pulse Resp BP Sys/Davila Pulse Ox Last 24 Hr 98.9 F 81 24 162/108 80 HEART: Irregularly irregular LUNGS: Bibasilar crackles ABDOMEN: Obese, soft, non-tender, non-distended, normal BS EXTREMITIES: 2+ edema, chronic venous stasis changes, healing burn wound right thigh, ulcers of dorsal surfaces of both feet Home Medications Medication Instructions Recorded Hydralazine HCl 100 mg PO BID 03/17/16 Isosorbide Dinitrate [Isordil -] 10 mg PO BID 03/17/16 Atorvastatin Ca [Lipitor] 40 mg PO HS #30 tablet 01/12/17 Furosemide [Lasix] 20 mg PO BID 08/07/17 Potassium Chloride 20 meq PO DAILY 08/07/17 Laboratory Tests 08/07/17 08/07/17 08/07/17 11:20 11:20 11:20 WBC 8.3 RBC 3.97 L Hgb 10.9 L D Hct 33.7 L D MCV 84.9 MCH 27.6 MCHC 32.5 RDW 16.3 H Plt Count 193 MPV 6.6 L D Neutrophils % 80.2 Lymphocytes % 13.2 Monocytes % 5.3 Eosinophils % 0.8 Basophils % 0.5 Sodium 141 Potassium 3.6 Chloride 98 Carbon Dioxide 38 H Anion Gap 5 L BUN 12 D Creatinine 1.1 D Creat Clearance w eGFR > 60 Random Glucose 226 H D Lactic Acid Calcium 8.1 L Total Bilirubin 0.7 D AST 6 L D ALT 14 Alkaline Phosphatase 96 Creatine Kinase 79 Troponin I 0.02 B-Natriuretic Peptide 1383.44 H Total Protein 6.0 L Albumin 3.0 L TSH 2.06 D 11/06/17 11:22 WBC RBC Hgb Hct MCV MCH MCHC RDW Plt Count MPV Neutrophils % Lymphocytes % Monocytes % Eosinophils % Basophils % Sodium Potassium Chloride Carbon Dioxide Anion Gap BUN Creatinine Creat Clearance w eGFR Random Glucose Lactic Acid 1.3 Calcium Total Bilirubin AST ALT Alkaline Phosphatase Creatine Kinase Troponin I B-Natriuretic Peptide Total Protein Albumin TSH ASSESSMENT AND PLAN: This is a 71 year old man with a history of HTN, chronic diastolic heart failure , chronic venous stasis, COPD, chronic hypoxic respiratory failure, prostate cancer, stage 3 CKD, obesity who presented to the ER today with worsening SOB and leg edema x 2 weeks. 1. Acute on chronic diastolic heart failure - Fluid overload/anasarca secondary to non-compliance - IV Lasix - Monitor I&O, weight - Cardiology consult appreciated 2. Atrial fibrillation, new-onset - Rate ok without medication - Monitor on telemetry - Serial troponins 3. Bilateral infected foot wounds - Clindamycin given in ER - Continue Clindamycin - Wound care - Podiatry consult - ID consult appreciated 4. Chronic hypoxic respiratory failure - Continue oxygen to maintain saturation > 90% 5. COPD - Stable - DuoNeb as needed 6. Stage 3 CKD - Stable 7. HTN - Continue Hydralazine, lasix 8. Hyperlipidemia - Continue Lipitor 9. Venous insufficiency of both legs 10. Morbid obesity with BMI 40.2
[2017-08-07] MEDS ORDERED: HEPARIN INFUSION - 500 ML IVPB ONE (16:57)
[2017-08-07] MEDS: HEPARIN - 25,000 UNIT in SODIUM CHLORIDE 495 ML IV SCH (17:26)
[2017-08-07 17:29] LABS: INR 1.19 (0.82-1.09); PROTHROMBIN TIME (PATIENT) 13.4 SEC (9.98-11.88)
[2017-08-07 17:31] LABS: ACTIVATED PTT 31.8 SECONDS (26.9-34.4)
[2017-08-07 18:10] LABS: ARTERIAL BLOOD GAS pH 7.39 (7.35-7.45)
[2017-08-07 18:11] LABS: ARTERIAL BLOOD GAS PO2 65.9 mmHg (70-100)
[2017-08-07 18:12] LABS: ALLENS TEST POSITIVE; ART PUNCT SITE LEFT RADIAL; ARTERIAL BLD GAS O2 SATURATION 91.7 % (90-98.9); ARTERIAL BLOOD GAS BASE EXCESS 10.8 meq/l (-2-2); ARTERIAL BLOOD GAS HCO3 37.7 meq/L (22-26); PT. ON O2? YES
[2017-08-07 18:13] LABS: LPM/O2% 3L; TYPE OF O2 NASAL
[2017-08-07 18:14] LABS: MECH. VENT. NO
--- NOTE | 2017-08-07 18:25 | EKG ---
Test Reason : Blood Pressure : / mmHG Vent. Rate : 097 BPM Atrial Rate : 083 BPM P-R Int : 000 ms QRS Dur : 088 ms QT Int : 404 ms P-R-T Axes : 000 -01 033 degrees QTc Int : 513 ms ATRIAL FIBRILLATION WITH PREMATURE VENTRICULAR OR ABERRANTLY CONDUCTED COMPLEXES LOW VOLTAGE QRS IN LIMB LEADS CANNOT RULE OUT ANTERIOR INFARCT (CITED ON OR BEFORE 07-NOV-2013) ABNORMAL ECG WHEN COMPARED WITH ECG OF 09-JAN-2017 08:15, ATRIAL FIBRILLATION HAS REPLACED SINUS RHYTHM Confirmed by CHITO FLORES MD ([id number]) on 08/07/2017 6:24:41 PM Referred By: Confirmed By:CHITO FLORES MD
[2017-08-07] MEDS: CLINDAMYCIN 600MG PREMIX IVPB 50 ML IVPB SCH (19:00)
[2017-08-07] MEDS: METOPROLOL TARTRATE 25 MG TABLET (FP) PO SCH (19:00)
[2017-08-07] MEDS: INSULIN SLIDING SCALE (NOVOLOG) 1 VIAL SQ SCH (19:00)
[2017-08-07] MEDS ORDERED: METOPROLOL TARTRATE 25 MG TABLET (FP) ONE (19:38)
[2017-08-07] MEDS ORDERED: CLINDAMYCIN 600MG PREMIX IVPB 50 ML IVPB SCH (21:00)
[2017-08-07] MEDS ORDERED: hydrALAZINE HCL 50 MG TABLET (FP) PO SCH (22:00)
[2017-08-07] MEDS ORDERED: HEPARIN NA (PORCINE) 5,000 UNITS/ML 1ML VIAL SQ SCH (22:00)
[2017-08-07] MEDS ORDERED: METOPROLOL TARTRATE 25 MG TABLET (FP) PO SCH (22:00)
[2017-08-07] MEDS ORDERED: hydrALAZINE HCL 25 MG TABLET (FP) ONE (22:07)
[2017-08-07] MEDS ORDERED: ATORVASTATIN CA 40 MG TABLET (FP) ONE (22:07)
[2017-08-07] MEDS: ATORVASTATIN CA 40 MG TABLET (FP) PO SCH (22:34)
[2017-08-07] MEDS: LACTOBACILLUS ACIDOPHILUS 1 EACH TAB (FP) PO SCH (22:34)
[2017-08-07] MEDS: ISOSORBIDE DINITRATE 10 MG TABLET (FP) PO SCH (22:34)
[2017-08-07] MEDS: hydrALAZINE HCL 50 MG TABLET (FP) PO SCH (22:34)
[2017-08-07 23:40] LABS: INR 1.18 (0.82-1.09); PROTHROMBIN TIME (PATIENT) 13.3 SEC (9.98-11.88)
[2017-08-07 23:43] LABS: ACTIVATED PTT 33.9 SECONDS (26.9-34.4)
[2017-08-08] MEDS: CLINDAMYCIN 600MG PREMIX IVPB 50 ML IVPB SCH ×3 (02:45→18:11)
[2017-08-08] MEDS ORDERED: ACETAMINOPHEN 325 MG TABLET (FP) ONE (04:09)
[2017-08-08] MEDS: ACETAMINOPHEN 325 MG TABLET (FP) PO PRN ×2 (04:09→19:49)
[2017-08-08] MEDS: METOPROLOL TARTRATE 25 MG TABLET (FP) PO SCH ×3 (05:24→22:27)
[2017-08-08] MEDS: FUROSEMIDE 40 MG/4 ML INJECTABLE VIAL IVPUSH SCH ×2 (05:24→15:26)
[2017-08-08 05:43] VITALS: BMI 48.9
[2017-08-08] MEDS: INSULIN SLIDING SCALE (NOVOLOG) 1 VIAL SQ SCH ×3 (06:03→17:15)
[2017-08-08 07:06] LABS: MCH 27.6 pg (25.7-33.7); MCHC 32.7 g/dl (32.0-35.9); MEAN CELL VOLUME 84.6 fl (80-96); MEAN PLT VOLUME 7.1 fl (7.5-11.1); PLATELET COUNT 227 K/MM3 (134-434); WHITE BLOOD COUNT 8.9 K/mm3 (4.0-10.0)
[2017-08-08 07:32] LABS: ANION GAP 7 (8-16); CALCIUM 8.2 mg/dL (8.5-10.1); CHOLESTEROL 157 mg/dL (50-200); CO2 38 mmol/L (21-32); CREATININE 1.3 mg/dL (0.7-1.3); GLUCOSE,RANDOM 256 mg/dL (74-106); MAGNESIUM 1.7 mg/dL (1.8-2.4); SGOT/AST 8 U/L (15-37); SGPT/ALT 15 U/L (12-78)
[2017-08-08 07:35] LABS: ALK PHOS 97 U/L (45-117); BILIRUBIN,TOTAL 0.8 mg/dL (0.2-1.0); PHOSPHOROUS 3.4 mg/dL (2.5-4.9); TOT PROT 6.3 g/dl (6.4-8.2)
[2017-08-08] MEDS: HEPARIN NA (PORCINE) 5,000 UNITS/ML 1ML VIAL IVPUSH PRN ×2 (09:23→23:07)
[2017-08-08] MEDS ORDERED: FLU VACCINE QUAD 60 MCG/0.5 ML (MDV 17-18) IM ONE (10:00)
[2017-08-08 10:32] LABS: URINE APPEARANCE CLEAR; URINE BILIRUBIN NEGATIVE (NEGATIVE); URINE BLOOD NEGATIVE (NEGATIVE); URINE COLOR COLORLESS; URINE GLUCOSE (UA) 1+ (NEGATIVE); URINE KETONE NEGATIVE (NEGATIVE); URINE NITRITE NEGATIVE (NEGATIVE); URINE PROTEIN NEGATIVE (NEGATIVE); URINE UROBILINOGEN NEGATIVE mg/dL (0.2-1.0)
[2017-08-08] MEDS ORDERED: POTASSIUM CHLORIDE TABS 20 MEQ TABLET.ER (FP) PO ONE (10:45)
[2017-08-08] MEDS ORDERED: MAGNESIUM SULF 50% (8.12 MEQ/2 ML-1 GM VIAL) IVPB ONE (11:00)
--- NOTE | 2017-08-08 11:08 | CONS ---
INFECTIOUS DISEASE CONSULTATION DATE OF CONSULTATION: 08/07/2017 Patient was seen and examined in the ER on August 07. HISTORY OF PRESENT ILLNESS: This is a 71-year-old man who presents with progressive shortness of breath to the emergency room. He has a history of heart failure, COPD. About a month back, he spilled some hot water on himself. He burned his right thigh and both his feet. He was able to take care of the thigh because he could bend and see it, but he really was not able to take care of his feet. He tried various antibacterial ointments and soaks with no improvement. He ran out of his Lasix several weeks ago and did not renew; so, he had progressive worsening of shortness of breath and worsening edema, and he came to the emergency room. He has no fevers or chills. No nausea, vomiting, diarrhea, or dysuria. He had some diarrhea yesterday, which has since resolved. In the emergency room, he was noted to have ulcers that appeared superficial on both his feet. He had maggots between his toes, and he was noted to have new-onset atrial fibrillation. PAST MEDICAL HISTORY: Notable for a history of asthma, prostate cancer, COPD, hypertension. He has a history of CHF, chronic venous stasis, CKD, coronary artery disease. SURGICAL HISTORY: He is status post prostatectomy. He has had an appendectomy in the past. ALLERGIES: He is allergic to PENICILLIN and LACTOSE. MEDICATIONS AT HOME: Include hydralazine, Isordil, Lipitor, Lasix, and potassium. SOCIAL HISTORY: Former smoker, stopped many years ago. He is a retired surveillance officer. He lives at home. No history of any substance use. He stopped smoking at least 30 years ago. REVIEW OF SYSTEMS: There are no fevers or chills. He has had weight gain and progressive decrease in urination and increasing edema. He has no chest pain. PHYSICAL EXAMINATION: General: He is awake and alert. Vital Signs: He has no fever; temperature is 98.9. Pulse of 63, blood pressure 166/85, respiratory rate is 18. He is saturating 97% on 2 L. HEENT: He is normocephalic. His eyes are anicteric. Neck: Supple. Lungs: Have diminished breath sounds at the bases. Heart: Regular rate and rhythm. Abdomen: Protuberant and soft, nontender. Extremities: He has pitting edema that extends up into his lower abdomen including all his thighs, his scrotum, as well as lower abdomen. He has superficial ulcers on both his legs. He has maggots coming out between his toes. He has minimal erythema. He has no purulence associated with the foot wounds. DIAGNOSTIC DATA: His white count is 8.3, hemoglobin 10.9, platelets are 193. BUN is 12 and creatinine 1.1. BNP is 1383. LFTs are normal. His chest x-ray is notable for cardiomegaly with blunting of both costophrenic margins. In summary, this is a 71-year-old man with volume overload consistent with [id number] heart failure. He has a history as well of chronic hypoxemia and respiratory failure. He is on home oxygen. He has, of note, cellulitis with maggot infestation of both his feet and a PENICILLIN allergy. Would suggest at this time that we continue clindamycin. Would add Bacid and would ask Surgery to evaluate his feet. The ulcers appear superficial, and hopefully, he will improve with diuresis. Case was discussed with the admitting resident. Brandon [id number]
--- NOTE | 2017-08-08 11:52 | PN ---
Progress Note, Physician History of Present Illness: pulmonary alert,feeling better,less dyspneic. - Current Medication List Current Medications: Active Medications Acetaminophen (Tylenol -) 650 mg PO Q6H PRN PRN Reason: FEVER OR PAIN Last Admin: 08/08/17 04:09 Dose: 650 mg Albuterol/Ipratropium (Duoneb -) 1 amp NEB Q4H PRN PRN Reason: SHORTNESS OF BREATH Atorvastatin Calcium (Lipitor -) 40 mg PO HS [facility] Last Admin: 08/07/17 22:34 Dose: 40 mg Furosemide (Lasix Injection -) 80 mg IVPUSH BID@0600,1400 [facility] Last Admin: 08/08/17 05:24 Dose: 80 mg Heparin Sodium (Porcine) (Heparin -) 1,000 unit IVPUSH PRN PRN PRN Reason: Heparin Heparin Sodium (Porcine) (Heparin -) 5,000 unit IVPUSH PRN PRN PRN Reason: Heparin Last Admin: 08/08/17 09:23 Dose: 5,000 unit Hydralazine HCl (Apresoline -) 50 mg PO BID [facility] Last Admin: 08/07/17 22:34 Dose: 50 mg Heparin Sodium (Porcine) 25, (000 unit/ Sodium Chloride) 500 mls @ 20 mls/hr IV TITR [facility]ANGELINA; 1,000 UNIT/HR PRN Reason: Protocol Last Titration: 08/08/17 00:48 Dose: 1,150 unit/hr Clindamycin Phosphate (Cleocin 600 Mg Premix Ivpb -) 50 mls @ 100 mls/hr IVPB Q8H-IV [facility] Last Admin: 08/08/17 02:45 Dose: 100 mls/hr Insulin Aspart (Novolog Vial Sliding Scale -) 1 vial SQ TIDAC [facility] PRN Reason: Protocol Insulin Detemir (Levemir Vial) 10 units SQ [facility] Isosorbide Dinitrate (Isordil -) 10 mg PO BID [facility] Last Admin: 08/07/17 22:34 Dose: 10 mg Lactobacillus Acidophilus (Bacid -) 1 tab PO BID [facility] Last Admin: 08/07/17 22:34 Dose: 1 tab Metoprolol Tartrate (Lopressor -) 25 mg PO TID [facility] Last Admin: 08/08/17 05:24 Dose: 25 mg Potassium Chloride (K-Dur -) 20 meq PO DAILY [facility] Silver Sulfadiazine (Silvadene -) 1 applic TP DAILY [facility] Sodium Hypochlorite (Dakin's Solution 0.25% (Half-Strength) -) 1 applic TP DAILY [facility] Spironolactone (Aldactone -) 25 mg PO DAILY EVANGELINA - Objective Vital Signs: Vital Signs Temperature 98.0 F 08/08/17 06:00 Pulse Rate 60 08/08/17 06:00 Respiratory Rate 24 08/08/17 06:00 Blood Pressure 133/63 08/08/17 06:00 O2 Sat by Pulse Oximetry (%) 92 L 08/08/17 04:00 Constitutional: Yes: Well Nourished, Calm, Obese Eyes: Yes: WNL HENT: Yes: WNL Cardiovascular: Yes: Regular Rate and Rhythm, S1, S2 Respiratory: Yes: Diminished Gastrointestinal: Yes: Normal Bowel Sounds, Soft Extremities: Yes: WNL Edema: Yes Labs: CBC, BMP 08/08/17 06:30 08/08/17 06:30 INR, PTT INR 1.18 (0.82-1.09) H 08/07/17 23:12 Problem List - Problems (1) Acute on chronic respiratory failure with hypoxia and hypercapnia Code(s): J96.21 - ACUTE AND CHRONIC RESPIRATORY FAILURE WITH HYPOXIA J96.22 - ACUTE AND CHRONIC RESPIRATORY FAILURE WITH HYPERCAPNIA (2) Foot ulcer Code(s): L97.509 - NON-PRESSURE CHRONIC ULCER OTH PRT UNSP FOOT W UNSP SEVERITY Qualifiers: Laterality: unspecified laterality Non-pressure ulcer stage: with fat layer exposed Qualified Code(s): L97.502 - Non-pressure chronic ulcer of other part of unspecified foot with fat layer exposed; L97.502 - Non-pressure chronic ulcer of other part of unspecified foot with fat layer exposed; L97.502 - Non-pressure chronic ulcer of other part of unspecified foot with fat layer exposed; L97.502 - Non-pressure chronic ulcer of other part of unspecified foot with fat layer exposed (3) Maggot infestation Code(s): B87.9 - MYIASIS, UNSPECIFIED (4) CHF (congestive heart failure) Code(s): I50.9 - HEART FAILURE, UNSPECIFIED Qualifiers: Congestive heart failure type: diastolic Congestive heart failure chronicity: unspecified congestive heart failure chronicity Qualified Code(s): I50.30 - Unspecified diastolic (congestive) heart failure; I50.30 - Unspecified diastolic (congestive) heart failure; I50.30 - Unspecified diastolic (congestive) heart failure; I50.30 - Unspecified diastolic (congestive ) heart failure (5) Volume overload Code(s): E87.70 - FLUID OVERLOAD, UNSPECIFIED (6) CAD (coronary artery disease) Code(s): I25.10 - ATHSCL HEART DISEASE OF [place] CORONARY ARTERY W/O ANG PCTRS (7) CKD (chronic kidney disease) stage 3, GFR 30-59 ml/min Code(s): N18.3 - CHRONIC KIDNEY DISEASE, STAGE 3 (MODERATE) (8) COPD (chronic obstructive pulmonary disease) Code(s): J44.9 - CHRONIC OBSTRUCTIVE PULMONARY DISEASE, UNSPECIFIED Qualifiers : COPD type: COPD with acute exacerbation Qualified Code(s): J44.1 - Chronic obstructive pulmonary disease with (acute) exacerbation; J44.1 - Chronic obstructive pulmonary disease with (acute) exacerbation; J44.1 - Chronic obstructive pulmonary disease with (acute) exacerbation; J44.1 - Chronic obstructive pulmonary disease with (acute) exacerbation (9) HTN (hypertension) Code(s): I10 - ESSENTIAL (PRIMARY) HYPERTENSION (10) Obesity, Class II, BMI 35.0-39.9, with comorbidity (see actual BMI) Code(s): E66.01 - MORBID (SEVERE) OBESITY DUE TO EXCESS CALORIES (11) Pulmonary hypertension Code(s): I27.2 - OTHER SECONDARY PULMONARY HYPERTENSION * DO NOT USE * (12) Venous stasis of both lower extremities Code(s): I87.8 - OTHER SPECIFIED DISORDERS OF VEINS Assessment/Plan PULMONARY IMP ACUTE ON CHRONIC HYPOXEMIC/HYPERCAPNEIC RESPIRATORY FAILURE ACUTE ON CHRONIC DIASTOLIC CHF COPD PVD CKD PULMONARY HTN HTN MORBID OBESITY LIKELY OSAS PLAN IV LASIX O2 INHALED BRONCHODILATORS ANTIBIOTICS PER ID DAILY WTS MONITOR LYTES,RENAL FUNCTION F/U CHEST X-RAYS SLEEP SCREEN DR ESPARZA
[2017-08-08] MEDS: hydrALAZINE HCL 50 MG TABLET (FP) PO SCH ×2 (12:11→22:28)
[2017-08-08] MEDS: ISOSORBIDE DINITRATE 10 MG TABLET (FP) PO SCH ×2 (12:11→22:28)
[2017-08-08] MEDS: LACTOBACILLUS ACIDOPHILUS 1 EACH TAB (FP) PO SCH ×2 (12:11→22:27)
[2017-08-08] MEDS: SODIUM HYPOCHLORITE 0.25%- 473 ML BULK BOTTLE TP SCH (12:12)
[2017-08-08] MEDS: SILVER SULFADIAZINE 1% TOP CREAM 50 GM JAR TP SCH (12:13)
[2017-08-08] MEDS: POTASSIUM CHLORIDE TABS 20 MEQ TABLET.ER (FP) PO SCH (12:14)
[2017-08-08] MEDS: SPIRONOLACTONE 25 MG TABLET (FP) PO SCH (13:14)
--- NOTE | 2017-08-08 13:20 | PN ---
Progress Note (short form) - Note Progress Note: CC: sob, new aflutter S: remains in aflutter, better rate control. started on metoprolol last night. endorses good uop to lasix. no cp, palps, dizziness. + sob. Current Medications Acetaminophen (Tylenol -) 650 mg PO Q6H PRN PRN Reason: FEVER OR PAIN Last Admin: 08/08/17 04:09 Dose: 650 mg Albuterol/Ipratropium (Duoneb -) 1 amp NEB Q4H PRN PRN Reason: SHORTNESS OF BREATH Atorvastatin Calcium (Lipitor -) 40 mg PO HS [facility] Last Admin: 08/07/17 22:34 Dose: 40 mg Furosemide (Lasix Injection -) 80 mg IVPUSH BID@0600,1400 [facility] Last Admin: 08/08/17 05:24 Dose: 80 mg Heparin Sodium (Porcine) (Heparin -) 1,000 unit IVPUSH PRN PRN PRN Reason: Heparin Heparin Sodium (Porcine) (Heparin -) 5,000 unit IVPUSH PRN PRN PRN Reason: Heparin Last Admin: 08/08/17 09:23 Dose: 5,000 unit Hydralazine HCl (Apresoline -) 50 mg PO BID [facility] Last Admin: 08/08/17 12:11 Dose: 50 mg Heparin Sodium (Porcine) 25, (000 unit/ Sodium Chloride) 500 mls @ 20 mls/hr IV TITR EVANGELINA; 1,000 UNIT/HR PRN Reason: Protocol Last Titration: 08/08/17 00:48 Dose: 1,150 unit/hr Clindamycin Phosphate (Cleocin 600 Mg Premix Ivpb -) 50 mls @ 100 mls/hr IVPB Q8H-IV [facility] Last Admin: 08/08/17 12:11 Dose: 100 mls/hr Insulin Aspart (Novolog Vial Sliding Scale -) 1 vial SQ TIDAC [facility] PRN Reason: Protocol Last Admin: 08/08/17 12:06 Dose: 4 unit Insulin Detemir (Levemir Vial) 10 units SQ [facility] Isosorbide Dinitrate (Isordil -) 10 mg PO BID [facility] Last Admin: 08/08/17 12:11 Dose: 10 mg Lactobacillus Acidophilus (Bacid -) 1 tab PO BID [facility] Last Admin: 08/08/17 12:11 Dose: 1 tab Metoprolol Tartrate (Lopressor -) 25 mg PO TID [facility] Last Admin: 08/08/17 05:24 Dose: 25 mg Potassium Chloride (K-Dur -) 20 meq PO DAILY [facility] Last Admin: 08/08/17 12:14 Dose: 20 meq Silver Sulfadiazine (Silvadene -) 1 applic TP DAILY [facility] Last Admin: 08/08/17 12:13 Dose: 1 applic Sodium Hypochlorite (Dakin's Solution 0.25% (Half-Strength) -) 1 applic TP DAILY [facility] Last Admin: 08/08/17 12:12 Dose: 1 applic Spironolactone (Aldactone -) 25 mg PO DAILY [facility] Last Admin: 08/08/17 13:14 Dose: 25 mg Vital Signs - 24 hr 08/07/17 08/07/17 08/08/17 16:32 20:33 00:58 Temperature Pulse Rate Pulse Rate [ 63 70 80 Apical] Respiratory 18 18 18 Rate Blood Pressure Blood Pressure 166/85 163/83 108/80 [Arm] O2 Sat by Pulse 97 95 93 L Oximetry (%) 08/08/17 08/08/17 08/08/17 01:09 02:08 02:20 Temperature 98.3 F Pulse Rate 61 Pulse Rate [ Apical] Respiratory 24 Rate Blood Pressure 145/83 Blood Pressure [Arm] O2 Sat by Pulse 92 L 92 L Oximetry (%) 08/08/17 08/08/17 08/08/17 03:08 04:00 06:00 Temperature 98.0 F Pulse Rate 60 Pulse Rate [ Apical] Respiratory 24 Rate Blood Pressure 133/63 Blood Pressure [Arm] O2 Sat by Pulse 92 L 92 L Oximetry (%) 08/08/17 10:00 Temperature 98.1 F Pulse Rate 63 Pulse Rate [ Apical] Respiratory 18 Rate Blood Pressure 144/75 Blood Pressure [Arm] O2 Sat by Pulse Oximetry (%) Intake & Output 08/06/17 08/07/17 08/08/17 08/09/17 07:59 07:59 07:59 07:59 Intake Total 161 370 Output Total 1000 Balance -839 370 Weight 341 lb 6.4 oz nad, calm jvd elevated, neck supple irregularly irregular s1s2 no mrg bibasilar crackles, no wheeze, nl eff aaox3 abd nt distended pos bs. 1+ tense le edema to sacrum, chronic stasis changes no diaphoresis jaundice diminished dp pt no carotid bruits Laboratory Tests 08/07/17 08/08/17 08/08/17 11:20 06:30 06:30 WBC 8.9 Hgb 11.6 L Plt Count 227 Sodium 141 Potassium 3.5 Carbon Dioxide 38 H BUN 16 D Creatinine 1.3 Hemoglobin A1c % Magnesium 1.7 L Total Bilirubin 0.8 AST 8 L D ALT 15 Alkaline Phosphatase 97 Troponin I 0.02 Albumin 3.0 L Triglycerides 175 H D Cholesterol 157 D Total LDL Cholesterol 86 D HDL Cholesterol 35 L 08/08/17 08/08/17 06:30 12:56 WBC Hgb Plt Count Sodium Potassium Carbon Dioxide BUN Creatinine Hemoglobin A1c % 11.6 H D Magnesium Total Bilirubin AST ALT Alkaline Phosphatase Troponin I < 0.02 Albumin Triglycerides Cholesterol Total LDL Cholesterol HDL Cholesterol ekg: afib with pvc's/aberrancy. poor r wave progresion. no acute ischemic changes tele: flutter, rate controlled. cxr: poor inspiration. suspicion for bilateral pleural effusions mibi 11/2013: no ischemia, nl lvef echo 12/2016 ([facility]) : tds; mild conc lvh, nl lvef, nl rv, mild tr, mod ao root dil 71 m hx diastolic chf/venous insuff/le edema, htn, dilated aortic root, ckd, obesity, copd p/w heart failure exacerbation and new onset aflutter. new onset aflutter - on heparin drip. Long-term AC is going to be a challenge. Discussed with pmd , patient unlikely to be compliant with INR checks. Limited data for NOAC's at BMI of 49. Given possible increased risk of stroke with non-adherence to xarelto, would favor eliquis. If patient's insurance can cover it, would recommend transitioning to eliquis tomorrow. If noac's not covered than will need to reconsider feasability of coumadin. - started on lopressor 25 tid with good rate control today, cont - echo pending - Ce's neg. - evaluate for infectious trigger per pmd diastolic chf exacerbation - remains grossly volume overloaded. good uop to 80 mg IV lasix. con't. Adding aldactone as additional diuretic/bp med and to help with low k. monitor weight, daily bmp, I/O - reevaluate EF --> echo pending. copd: - per pmd venous insuff: -diuretic as above htn: - changes as above. still needs improved control. have decreased dose of hydralazine to allow for BB and aldactone. con't nitrate for now.
[2017-08-08 13:34] LABS: CPK 91 IU/L (39-308); TROPONIN I < 0.02 ng/ml (0.00-0.05)
--- NOTE | 2017-08-08 14:06 | PN ---
Progress Note (short form) - Note Progress Note: feels better weight of 340! he was 89 when he was here last -December 2016 Vital Signs Period Temp Pulse Resp BP Sys/Davila Pulse Ox Last 24 Hr 98.0 F-98.3 F 60-80 18-24 108-166/63-85 92-97 cor-rrr lungs decreased bs at ases abd soft,nt ext +edema CBC, BMP 08/08/17 06:30 08/08/17 06:30 Microbiology 08/07/17 11:20 Blood - Peripheral Venous Blood Culture - Preliminary NO GROWTH OBTAINED AFTER 24 HOURS, INCUBATION TO CONTINUE FOR 4 DAYS. 08/07/17 11:20 Blood - Peripheral Venous Blood Culture - Preliminary NO GROWTH OBTAINED AFTER 24 HOURS, INCUBATION TO CONTINUE FOR 4 DAYS. a/p suspect volume overload/chf from not taking lasix at home soft tissue infection both feet- no erythema no drainage, maggots removed pen allergy- hives? plan continue clindamycin , add bacid surgical evaluation for wound care feels better today continue diuresis continue antibiotics Problem List - Problems (1) Maggot infestation Code(s): B87.9 - MYIASIS, UNSPECIFIED (2) CHF (congestive heart failure) Code(s): I50.9 - HEART FAILURE, UNSPECIFIED Qualifiers: Congestive heart failure type: diastolic Congestive heart failure chronicity: unspecified congestive heart failure chronicity Qualified Code(s): I50.30 - Unspecified diastolic (congestive) heart failure; I50.30 - Unspecified diastolic (congestive) heart failure; I50.30 - Unspecified diastolic (congestive) heart failure; I50.30 - Unspecified diastolic (congestive ) heart failure
--- NOTE | 2017-08-08 14:42 | PN ---
Physical Exam: SUBJECTIVE: Patient seen and examined at bedside. feeling better, breathing is better. No new complains, no acute events over night. OBJECTIVE: Vital Signs Period Temp Pulse Resp BP Sys/Davila Pulse Ox Last 24 Hr 98.0 F-98.3 F 60-80 18-24 108-166/63-85 92-97 GENERAL: Awake, alert, and fully oriented, in no acute distress. HEAD: Normal with no signs of trauma. EYES: sclera anicteric, conjunctiva clear. EARS, NOSE, THROAT: Moist mucous membranes.very poor dental Hygiene. NECK: No JVD, LUNGS: Bibasilar crackles No wheezes. No accessory muscle use. HEART: IRRegular rate and rhythm, normal S1 and S2 without murmur, rub or gallop. ABDOMEN: Soft,Obese , nontender, not distended, normoactive bowel sounds, no guarding, LOWER EXTREMITIES: , warm,peripheral venous stasis, No calf tenderness.+2 peripheral edema. very poor hygiene. buring blisters B/L foot. NEUROLOGICAL: no focal deficit, Normal speech. gait not observed. PSYCHIATRIC: Cooperative. Good eye contact. Appropriate mood and affect. SKIN: Warm, dry, no rashes. Laboratory Results - last 24 hr 08/07/17 08/07/17 08/07/17 17:00 17:45 19:51 WBC RBC Hgb Hct MCV MCH MCHC RDW Plt Count MPV PT with INR 13.40 H INR 1.19 H PTT (Actin FS) 31.8 Anticoagulation Therapy Y Puncture Site Left radial ABG pH 7.39 ABG pCO2 at Pt Temp 63.1 H* D ABG pO2 at Pt Temp 65.9 L ABG HCO3 37.7 H ABG O2 Sat (Measured) 91.7 ABG O2 Content 15.1 ABG Base Excess 10.8 H Logan Test Positive O2 Delivery Device Nasal Oxygen Flow Rate 3l Vent Mode Y Vent Rate Y Mechanical Rate No Pressure Support Vent Y Sodium Potassium Chloride Carbon Dioxide Anion Gap BUN Creatinine Creat Clearance w eGFR POC Glucometer [phone] Random Glucose Hemoglobin A1c % Calcium Phosphorus Magnesium Total Bilirubin AST ALT Alkaline Phosphatase Creatine Kinase Troponin I Total Protein Albumin Triglycerides Cholesterol Total LDL Cholesterol HDL Cholesterol Urine Color Urine Appearance Urine pH Ur Specific Eldon Urine Protein Urine Glucose (UA) Urine Ketones Urine Blood Urine Nitrite Urine Bilirubin Urine Urobilinogen 08/07/17 08/08/17 08/08/17 23:12 05:23 06:30 WBC 8.9 RBC 4.19 Hgb 11.6 L Hct 35.4 MCV 84.6 MCH 27.6 MCHC 32.7 RDW 16.0 H Plt Count 227 MPV 7.1 L PT with INR 13.30 H INR 1.18 H PTT (Actin FS) 33.9 Anticoagulation Therapy Puncture Site ABG pH ABG pCO2 at Pt Temp ABG pO2 at Pt Temp ABG HCO3 ABG O2 Sat (Measured) ABG O2 Content ABG Base Excess Logan Test O2 Delivery Device Oxygen Flow Rate Vent Mode Vent Rate Mechanical Rate Pressure Support Vent Sodium Potassium Chloride Carbon Dioxide Anion Gap BUN Creatinine Creat Clearance w eGFR POC Glucometer 285 Random Glucose Hemoglobin A1c % Calcium Phosphorus Magnesium Total Bilirubin AST ALT Alkaline Phosphatase Creatine Kinase Troponin I Total Protein Albumin Triglycerides Cholesterol Total LDL Cholesterol HDL Cholesterol Urine Color Urine Appearance Urine pH Ur Specific Eldon Urine Protein Urine Glucose (UA) Urine Ketones Urine Blood Urine Nitrite Urine Bilirubin Urine Urobilinogen 08/08/17 08/08/17 08/08/17 06:30 06:30 06:30 WBC RBC Hgb Hct MCV MCH MCHC RDW Plt Count MPV PT with INR INR PTT (Actin FS) 33.6 Anticoagulation Therapy Puncture Site ABG pH ABG pCO2 at Pt Temp ABG pO2 at Pt Temp ABG HCO3 ABG O2 Sat (Measured) ABG O2 Content ABG Base Excess Logan Test O2 Delivery Device Oxygen Flow Rate Vent Mode Vent Rate Mechanical Rate Pressure Support Vent Sodium 141 Potassium 3.5 Chloride 96 L Carbon Dioxide 38 H Anion Gap 7 L BUN 16 D Creatinine 1.3 Creat Clearance w eGFR 54.42 POC Glucometer Random Glucose 256 H Hemoglobin A1c % 11.6 H D Calcium 8.2 L Phosphorus 3.4 Magnesium 1.7 L Total Bilirubin 0.8 AST 8 L D ALT 15 Alkaline Phosphatase 97 Creatine Kinase Troponin I Total Protein 6.3 L Albumin 3.0 L Triglycerides 175 H D Cholesterol 157 D Total LDL Cholesterol 86 D HDL Cholesterol 35 L Urine Color Urine Appearance Urine pH Ur Specific Eldon Urine Protein Urine Glucose (UA) Urine Ketones Urine Blood Urine Nitrite Urine Bilirubin Urine Urobilinogen 08/08/17 08/08/17 08/08/17 07:00 12:06 12:56 WBC RBC Hgb Hct MCV MCH MCHC RDW Plt Count MPV PT with INR INR PTT (Actin FS) Anticoagulation Therapy Puncture Site ABG pH ABG pCO2 at Pt Temp ABG pO2 at Pt Temp ABG HCO3 ABG O2 Sat (Measured) ABG O2 Content ABG Base Excess Logan Test O2 Delivery Device Oxygen Flow Rate Vent Mode Vent Rate Mechanical Rate Pressure Support Vent Sodium Potassium Chloride Carbon Dioxide Anion Gap BUN Creatinine Creat Clearance w eGFR POC Glucometer 243 Random Glucose Hemoglobin A1c % Calcium Phosphorus Magnesium Total Bilirubin AST ALT Alkaline Phosphatase Creatine Kinase 91 Troponin I < 0.02 Total Protein Albumin Triglycerides Cholesterol Total LDL Cholesterol HDL Cholesterol Urine Color Colorless Urine Appearance Clear Urine pH 8.0 D Ur Specific Eldon 1.006 Urine Protein Negative Urine Glucose (UA) 1+ H Urine Ketones Negative Urine Blood Negative Urine Nitrite Negative Urine Bilirubin Negative Urine Urobilinogen Negative Active Medications Generic Name Dose Route Start Last Admin Trade Name Freq PRN Reason Stop Dose Admin Acetaminophen 650 mg 08/08/17 03:54 08/08/17 04:09 Tylenol - PO 650 mg Q6H PRN Administration FEVER OR PAIN Albuterol/Ipratropium 1 amp 08/07/17 16:45 Duoneb - NEB Q4H PRN SHORTNESS OF BREATH Atorvastatin Calcium 40 mg 08/07/17 22:00 08/07/17 22:34 Lipitor - PO 40 mg HS EVANGELINA Administration Furosemide 80 mg 08/08/17 06:00 08/08/17 05:24 Lasix Injection - IVPUSH 80 mg BID@0600,1400 EVANGELINA Administration Heparin Sodium (Porcine) 1,000 unit 08/07/17 15:46 Heparin - IVPUSH PRN PRN Heparin Heparin Sodium (Porcine) 5,000 unit 08/07/17 15:46 08/08/17 09:23 Heparin - IVPUSH 5,000 unit PRN PRN Administration Heparin Hydralazine HCl 75 mg 08/08/17 22:00 Apresoline - PO BID EVANGELINA Heparin Sodium (Porcine) 25, 500 mls @ 20 mls/hr 08/07/17 16:00 08/08/17 09:30 000 unit/ Sodium Chloride IV 1,300 unit/hr TITR EVANGELINA Titration Protocol 1,000 UNIT/HR Clindamycin Phosphate 50 mls @ 100 mls/hr 08/07/17 18:00 08/08/17 12:11 Cleocin 600 Mg Premix Ivpb - IVPB 100 mls/hr Q8H-IV EVANGELINA Administration Insulin Aspart 1 vial 08/08/17 11:00 08/08/17 12:06 Novolog Vial Sliding Scale - SQ 4 unit TIDAC EVANGELINA Administration Protocol Insulin Detemir 10 units 08/08/17 22:00 Levemir Vial SQ HS EVANGELINA Isosorbide Dinitrate 10 mg 08/07/17 22:00 08/08/17 12:11 Isordil - PO 10 mg BID EVANGELINA Administration Lactobacillus Acidophilus 1 tab 08/07/17 22:00 08/08/17 12:11 Bacid - PO 1 tab BID EVANGELINA Administration Metoprolol Tartrate 25 mg 08/07/17 19:00 08/08/17 05:24 Lopressor - PO 25 mg TID EVANGELINA Administration Potassium Chloride 20 meq 08/08/17 10:00 08/08/17 12:14 K-Dur - PO 20 meq DAILY EVANGELINA Administration Silver Sulfadiazine 1 applic 08/08/17 10:00 08/08/17 12:13 Silvadene - TP 1 applic DAILY EVANGELINA Administration Sodium Hypochlorite 1 applic 08/08/17 10:00 08/08/17 12:12 Dakin's Solution 0.25% (Half-Strength) - TP 1 applic DAILY EVANGELINA Administration Spironolactone 25 mg 08/08/17 10:15 08/08/17 13:14 Aldactone - PO 25 mg DAILY EVANGELINA Administration CBC, BMP 08/08/17 06:30 08/08/17 06:30 Microbiology 08/07/17 11:20 Blood - Peripheral Venous Blood Culture - Preliminary NO GROWTH OBTAINED AFTER 24 HOURS, INCUBATION TO CONTINUE FOR 4 DAYS. 08/07/17 11:20 Blood - Peripheral Venous Blood Culture - Preliminary NO GROWTH OBTAINED AFTER 24 HOURS, INCUBATION TO CONTINUE FOR 4 DAYS. CXR Shallow inspiration. Cardiomegaly. Blunting of the bilateral costophrenic angles concerning for the pleural effusions. No pneumothorax is seen ASSESSMENT/PLAN: This is a 71 YOM with h/o diastolic CHF, COPD, chronic venous stasis, CKD stage 3, CAD with prior [place], prostate CA, and prostatectomy who presents with SOB and leg swelling for the past week. he was admitted to [facility] for further evaluation and treatment. # DCHF # COPD on home O2 # HTN # CKD stage 3 # B/L feet alanis stage 2 # Peripheral venous stasis # CAD #H/O prostate cancer with prostatectomy # Maggot infestation Plan: Furosemide 80 mg IV BID I/O daily weight continue home meds Hydrazine, Isosorbide dinitrate continue statin 40 mg daily one dose of clindamycin was given in ED Consult Cardiology Consult Institute Director and may be vascular surgeon Duo-neb , albuterol , O2 to keep sat >90 % blood culture No growth Visit type - Emergency Visit Emergency Visit: Yes ED Registration Date: 08/07/17 Care time: The patient presented to the Emergency Department on the above date and was hospitalized for further evaluation of their emergent condition. - New Patient This patient is new to me today: Yes Date on this admission: 08/10/17 - Critical Care Critical Care patient: No
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
--- NOTE | 2017-08-08 16:19 | PN ---
Teaching Attending Note Name of Resident: Olivia Goldberg ATTENDING PHYSICIAN STATEMENT I saw and evaluated the patient. I reviewed the resident's note and discussed the case with the resident. I agree with the resident's findings and plan as documented. SUBJECTIVE: complains of HILL and orthopnia . has no cough , feels better today OBJECTIVE: NAD , morbidly obese male . Pleasant and cooperative . MMM. no LAP in neck CV: irreg irreg . JVD . Lungs : b/l crackles half way down Abd: soft, morbidly obese. nl BS . Ext: R anterior thigh with area of hypopigmented skin . b/l dorsal feet with scaly skin with slough and greenish exudate. DP 1+ b/l . 2-3 + pitting edema up tothighs ASSESSMENT AND PLAN: 71 y/o man with h/o HTN, CAD, Diastolic heart failure , COPD , prostate carcinoma and untreated DM , who presented with SOB , LE edema and wounds on his feet. He was found to have infected wounds, CHF, and A flutter with RVR 1- Acute CHF exacerbation: he has h/o D CHF , but now tih rapid A flutter , his EF might have fallen . also , being off lasix might have triggered this - Cont lasix 60 BID - Obtain echo, last echo was 01/16 - Control rate - Started on spironolactone - d/w Dr. Stubbs, the possibility of changing isosorbide dinitrate to Isosorbide mononitrate for compliance purpose. will follow Recs 2- New onset A flutter: rate is controlled on BB now. TSH NL, no significant valvular abn on previous echo. possibly triggred by infection and BEATRIZ - Cont BB - cont tele - [id number] 4. cont heparin gtt - Choice of terminal manager AC is a little challenging. LOvenox is not recommended for weight > 120 kg. NOACS not studies for morbidly obese patients. Coumadin which would be ideal for such obese patients, will be risky in this non compliant patient. Decision on AC will follow in next 1-2 days after more discussion with patient and cardiology. conversation already started with patinet and family. 3- Infected wounds on feet : - cont clinda - follow blood cx 4- hyperlipidemia : LDL above goal - cont lipitor 5- DM : A1c 11. Need to be on insulin. pt agreeable - Start 10 units of levemir in HS - Cont SSI - Can adjust dose 6- HTN: cont nitrate , HZn, BB , and diuretics pending further card recs 7- dispo : HLOC
[2017-08-08] MEDS: HEPARIN - 25,000 UNIT in SODIUM CHLORIDE 495 ML IV SCH ×2 (17:14→23:06)
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
[2017-08-08 20:12] LABS: URINE LEUK ESTERASE Negative (NEGATIVE)
[2017-08-08] MEDS: GABAPENTIN 300 MG CAPSULE (FP) PO SCH (22:27)
[2017-08-08] MEDS: ATORVASTATIN CA 40 MG TABLET (FP) PO SCH (22:27)
[2017-08-08] MEDS: INSULIN DETEMIR 100 UNITS/ML MDV SQ SCH (22:28)
[2017-08-09] MEDS: CLINDAMYCIN 600MG PREMIX IVPB 50 ML IVPB SCH ×3 (02:55→17:28)
[2017-08-09 08:32] LABS: MCH 27.7 pg (25.7-33.7); MCHC 32.5 g/dl (32.0-35.9); MEAN CELL VOLUME 85.2 fl (80-96); MEAN PLT VOLUME 7.5 fl (7.5-11.1); PLATELET COUNT 234 K/MM3 (134-434); RDW 15.6 % (11.9-15.9); WHITE BLOOD COUNT 8.2 K/mm3 (4.0-10.0)
--- NOTE | 2017-08-09 09:27 | PN ---
Teaching Attending Note Name of Resident: Olivia Goldberg ATTENDING PHYSICIAN STATEMENT I saw and evaluated the patient. I reviewed the resident's note and discussed the case with the resident. I agree with the resident's findings and plan as documented. SUBJECTIVE: Patient is morbidly obese, lying in bed on 3L NC, o2 sat. was found to be 82% on RA. OBJECTIVE: Vital Signs Temperature 97.8 F 08/09/17 07:30 Pulse Rate 58 L 08/09/17 07:30 Respiratory Rate 18 08/09/17 07:30 Blood Pressure 134/68 08/09/17 07:30 O2 Sat by Pulse Oximetry (%) 96 08/08/17 22:00 CBCD WBC 8.2 K/mm3 (4.0-10.0) 08/09/17 05:35 RBC 3.93 M/mm3 (4.00-5.60) L 08/09/17 05:35 Hgb 10.9 GM/dL (11.7-16.9) L 08/09/17 05:35 Hct 33.5 % (35.4-49) L 08/09/17 05:35 MCV 85.2 fl (80-96) 08/09/17 05:35 MCHC 32.5 g/dl (32.0-35.9) 08/09/17 05:35 RDW 15.6 % (11.9-15.9) 08/09/17 05:35 Plt Count 234 K/MM3 (134-434) 08/09/17 05:35 MPV 7.5 fl (7.5-11.1) 08/09/17 05:35 CMP Sodium 141 mmol/L (136-145) 08/08/17 06:30 Potassium 3.5 mmol/L (3.5-5.1) 08/08/17 06:30 Chloride 96 mmol/L (98-107) L 08/08/17 06:30 Carbon Dioxide 38 mmol/L (21-32) H 08/08/17 06:30 Anion Gap 7 (8-16) L 08/08/17 06:30 BUN 16 mg/dL (7-18) D 08/08/17 06:30 Creatinine 1.3 mg/dL (0.7-1.3) 08/08/17 06:30 Creat Clearance w eGFR 54.42 (>60) 08/08/17 06:30 Random Glucose 256 mg/dL (74-106) H 08/08/17 06:30 Calcium 8.2 mg/dL (8.5-10.1) L 08/08/17 06:30 Total Bilirubin 0.8 mg/dL (0.2-1.0) 08/08/17 06:30 AST 8 U/L (15-37) L D 08/08/17 06:30 ALT 15 U/L (12-78) 08/08/17 06:30 Alkaline Phosphatase 97 U/L (45-117) 08/08/17 06:30 Total Protein 6.3 g/dl (6.4-8.2) L 08/08/17 06:30 Albumin 3.0 g/dl (3.4-5.0) L 08/08/17 06:30 CARDIAC ENZYMES Creatine Kinase 91 IU/L (39-308) 08/08/17 12:56 Troponin I < 0.02 ng/ml (0.00-0.05) 08/08/17 12:56 Current Medications Generic Name Dose Route Start Last Admin Trade Name Freq PRN Reason Stop Dose Admin Acetaminophen 650 mg 08/08/17 03:54 08/08/17 19:49 Tylenol - PO 650 mg Q6H PRN Administration FEVER OR PAIN Albuterol/Ipratropium 1 amp 08/07/17 16:45 Duoneb - NEB Q4H PRN SHORTNESS OF BREATH Atorvastatin Calcium 40 mg 08/07/17 22:00 08/08/17 22:27 Lipitor - PO 40 mg HS EVANGELINA Administration Furosemide 80 mg 08/08/17 06:00 08/08/17 15:26 Lasix Injection - IVPUSH 80 mg BID@0600,1400 EVANGELINA Administration Gabapentin 300 mg 08/08/17 22:00 08/08/17 22:27 Neurontin - PO 300 mg TID EVANGELINA Administration Heparin Sodium (Porcine) 1,000 unit 08/07/17 15:46 Heparin - IVPUSH PRN PRN Heparin Heparin Sodium (Porcine) 5,000 unit 08/07/17 15:46 08/08/17 23:07 Heparin - IVPUSH 5,000 unit PRN PRN Administration Heparin Hydralazine HCl 75 mg 08/08/17 22:00 08/08/17 22:28 Apresoline - PO 75 mg BID EVANGELINA Administration Heparin Sodium (Porcine) 25, 500 mls @ 20 mls/hr 08/07/17 16:00 08/08/17 23: 06 000 unit/ Sodium Chloride IV 1,450 unit/hr TITR EVANGELINA 29 mls/hr Protocol Administration 1,000 UNIT/HR Clindamycin Phosphate 50 mls @ 100 mls/hr 08/07/17 18:00 08/09/17 02:55 Cleocin 600 Mg Premix Ivpb - IVPB 100 mls/hr Q8H-IV EVANGELINA Administration Insulin Aspart 1 vial 08/08/17 11:00 08/08/17 17:15 Novolog Vial Sliding Scale - SQ 2 unit TIDAC EVANGELINA Administration Protocol Insulin Detemir 10 units 08/08/17 22:00 08/08/17 22:28 Levemir Vial SQ 10 units HS EVANGELINA Administration Isosorbide Dinitrate 10 mg 08/07/17 22:00 08/08/17 22:28 Isordil - PO 10 mg BID EVANGELINA Administration Lactobacillus Acidophilus 1 tab 08/07/17 22:00 08/08/17 22:27 Bacid - PO 1 tab BID EVANGELINA Administration Metoprolol Tartrate 25 mg 08/07/17 19:00 08/08/17 22:27 Lopressor - PO 25 mg TID EVANGELINA Administration Potassium Chloride 20 meq 08/08/17 10:00 08/08/17 12:14 K-Dur - PO 20 meq DAILY EVANGELINA Administration Silver Sulfadiazine 1 applic 08/08/17 10:00 08/08/17 12:13 Silvadene - TP 1 applic DAILY EVANGELINA Administration Sodium Hypochlorite 1 applic 08/08/17 10:00 08/08/17 12:12 Dakin's Solution 0.25% (Half-Strength) - TP 1 applic DAILY EVANGELINA Administration Spironolactone 25 mg 08/08/17 10:15 08/08/17 13:14 Aldactone - PO 25 mg DAILY EVANGELINA Administration Home Medications Medication Instructions Recorded Hydralazine HCl 100 mg PO BID 03/17/16 Isosorbide Dinitrate [Isordil -] 10 mg PO BID 03/17/16 Atorvastatin Ca [Lipitor] 40 mg PO HS #30 tablet 01/12/17 Furosemide [Lasix] 20 mg PO BID 08/07/17 Potassium Chloride 20 meq PO DAILY 08/07/17 PE: morbidly obese patient, on 3 Liter NC lying on bed. rest of pE per resident's note. ASSESSMENT AND PLAN: Patient is a 71 y/o man with h/o HTN, CAD, Diastolic heart failure , COPD , prostate carcinoma and untreated DM , who presented with SOB , LE edema and wounds on his feet. He was admitted for infected wounds of LEs , CHF, and A flutter with RVR # Acute disatolic CHF exacerbation: with dminished EF , patient is noncompliance with his meds at home ,which might have triggered his symptoms. On IV lasix 60 BID continue for now, last echo was 01/16 ; on spironolactone daily , Isordil, as per cardio, to change to LA isordil daily. # New onset A flutter: rate is controlled now on BB, TSH NL, On heparin drip continue , on heparin drip. Long-term AC is going to be a challenge. Discussed with pmd, patient unlikely to be compliant with INR checks. per beauty specialist; Limited data for NOAC's with BMI of 49. Given possible increased risk of stroke with non-adherence to xarelto, would favor Eliquis. If noac's not covered than will need to reconsider feasability of coumadin. on lopressor 25 tid with good rate control today continue , on tele with [id number] 4. cont heparin gtt # Infected wounds on feet : cont IV clinda , follow blood cx # hyperlipidemia : LDL above goal , cont lipitor # DM : with hemoglobin A1c 11. placed on insulin LA,pt agreeable ; Start 10 units of levemir in HS ; Cont SSI ;adjust dose accordingly # HTN: cont nitrate , HZn, BB , and diuretics DVT px: heparin upon discharge will need sleep studies since patient is morbidly obese to r/o sleep apnea, possible needing Bipap at home, possible discharge with Home 0xygen.
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
[2017-08-09] MEDS: ISOSORBIDE DINITRATE 10 MG TABLET (FP) PO SCH ×2 (10:09→21:44)
[2017-08-09] MEDS: LACTOBACILLUS ACIDOPHILUS 1 EACH TAB (FP) PO SCH ×2 (10:09→21:44)
[2017-08-09] MEDS: SPIRONOLACTONE 25 MG TABLET (FP) PO SCH (10:09)
[2017-08-09] MEDS: hydrALAZINE HCL 50 MG TABLET (FP) PO SCH ×2 (10:09→21:44)
[2017-08-09] MEDS: SODIUM HYPOCHLORITE 0.25%- 473 ML BULK BOTTLE TP SCH (10:13)
[2017-08-09] MEDS: SILVER SULFADIAZINE 1% TOP CREAM 50 GM JAR TP SCH (10:13)
[2017-08-09] MEDS: POTASSIUM CHLORIDE TABS 20 MEQ TABLET.ER (FP) PO SCH (10:13)
--- NOTE | 2017-08-09 10:28 | PN ---
Physical Exam: SUBJECTIVE: Patient seen and examined at bedside. feeling better, breathing is better. No new complains, no acute events over night. OBJECTIVE: Vital Signs Period Temp Pulse Resp BP Sys/Davila Pulse Ox Last 24 Hr 97.7 F-98.8 F 58-64 18-18 126-142/58-87 92-96 GENERAL: Awake, alert, and fully oriented, in no acute distress. HEAD: Normal with no signs of trauma. EYES: sclera anicteric, conjunctiva clear. EARS, NOSE, THROAT: Moist mucous membranes.very poor dental Hygiene. NECK: Supple JVD elevated, LUNGS: Bibasilar crackles No wheezes. No accessory muscle use. HEART: IRRegular rate and rhythm, normal S1 and S2 without murmur, rub or gallop. ABDOMEN: Soft,Obese , nontender, not distended, normoactive bowel sounds, no guarding, LOWER EXTREMITIES: , warm, Chronic peripheral venous stasis, No calf tenderness. +1 peripheral edema to scratum. very poor hygiene. buring blisters B/L foot. NEUROLOGICAL: no focal deficit, Normal speech. gait not observed. PSYCHIATRIC: Cooperative. Good eye contact. Appropriate mood and affect. SKIN: Warm, dry, no rashes. Joni dorsal feet with scaly skin with yellow/ greenish exudate and sloughing of skin. Laboratory Results - last 24 hr Intake & Output 08/06/17 08/07/17 08/08/17 08/09/17 23:59 23:59 23:59 23:59 Intake Total 1131 Output Total 1850 Balance -719 Weight 127.006 kg 154.856 kg 08/07/17 08/08/17 08/08/17 19:51 07:00 12:06 WBC RBC Hgb Hct MCV MCH MCHC RDW Plt Count MPV PTT (Actin FS) POC Glucometer [id number] 243 Creatine Kinase Troponin I Urine Color Colorless Urine Appearance Clear Urine pH 8.0 D Ur Specific [place] 1.006 Urine Protein Negative Urine Glucose (UA) 1+ H Urine Ketones Negative Urine Blood Negative Urine Nitrite Negative Urine Bilirubin Negative Urine Urobilinogen Negative Ur Leukocyte Esterase Negative 08/08/17 08/08/17 08/08/17 12:56 17:13 20:00 WBC RBC Hgb Hct MCV MCH MCHC RDW Plt Count MPV PTT (Actin FS) 36.4 H POC Glucometer 160 Creatine Kinase 91 Troponin I < 0.02 Urine Color Urine Appearance Urine pH Ur Specific [place] Urine Protein Urine Glucose (UA) Urine Ketones Urine Blood Urine Nitrite Urine Bilirubin Urine Urobilinogen Ur Leukocyte Esterase 08/08/17 08/09/17 08/09/17 22:01 05:35 05:35 WBC 8.2 RBC 3.93 L Hgb 10.9 L Hct 33.5 L MCV 85.2 MCH 27.7 MCHC 32.5 RDW 15.6 Plt Count 234 MPV 7.5 PTT (Actin FS) 53.2 H D POC Glucometer 225 Creatine Kinase Troponin I Urine Color Urine Appearance Urine pH Ur Specific [place] Urine Protein Urine Glucose (UA) Urine Ketones Urine Blood Urine Nitrite Urine Bilirubin Urine Urobilinogen Ur Leukocyte Esterase 08/09/17 06:53 WBC RBC Hgb Hct MCV MCH MCHC RDW Plt Count MPV PTT (Actin FS) POC Glucometer 203 Creatine Kinase Troponin I Urine Color Urine Appearance Urine pH Ur Specific [place] Urine Protein Urine Glucose (UA) Urine Ketones Urine Blood Urine Nitrite Urine Bilirubin Urine Urobilinogen Ur Leukocyte Esterase Active Medications Generic Name Dose Route Start Last Admin Trade Name Freq PRN Reason Stop Dose Admin Acetaminophen 650 mg 08/08/17 03:54 08/08/17 19:49 Tylenol - PO 650 mg Q6H PRN Administration FEVER OR PAIN Albuterol/Ipratropium 1 amp 08/07/17 16:45 Duoneb - NEB Q4H PRN SHORTNESS OF BREATH Atorvastatin Calcium 40 mg 08/07/17 22:00 08/08/17 22:27 Lipitor - PO 40 mg HS EVANGELINA Administration Furosemide 80 mg 08/08/17 06:00 08/08/17 15:26 Lasix Injection - IVPUSH 80 mg BID@0600,1400 EVANGELINA Administration Gabapentin 300 mg 08/08/17 22:00 08/08/17 22:27 Neurontin - PO 300 mg TID EVANGELINA Administration Heparin Sodium (Porcine) 1,000 unit 08/07/17 15:46 Heparin - IVPUSH PRN PRN Heparin Heparin Sodium (Porcine) 5,000 unit 08/07/17 15:46 08/08/17 23:07 Heparin - IVPUSH 5,000 unit PRN PRN Administration Heparin Hydralazine HCl 75 mg 08/08/17 22:00 08/09/17 10:09 Apresoline - PO 75 mg BID EVANGELINA Administration Heparin Sodium (Porcine) 25, 500 mls @ 20 mls/hr 08/07/17 16:00 08/08/17 23: 06 000 unit/ Sodium Chloride IV 1,450 unit/hr TITR EVANGELINA 29 mls/hr Protocol Administration 1,000 UNIT/HR Clindamycin Phosphate 50 mls @ 100 mls/hr 08/07/17 18:00 08/09/17 10:09 Cleocin 600 Mg Premix Ivpb - IVPB 100 mls/hr Q8H-IV EVANGELINA Administration Insulin Aspart 1 vial 08/08/17 11:00 08/08/17 17:15 Novolog Vial Sliding Scale - SQ 2 unit TIDAC EVANGELINA Administration Protocol Insulin Detemir 10 units 08/08/17 22:00 08/08/17 22:28 Levemir Vial SQ 10 units HS EVANGELINA Administration Isosorbide Dinitrate 10 mg 08/07/17 22:00 08/09/17 10:09 Isordil - PO 10 mg BID EVANGELINA Administration Lactobacillus Acidophilus 1 tab 08/07/17 22:00 08/09/17 10:09 Bacid - PO 1 tab BID EVANGELINA Administration Metoprolol Tartrate 25 mg 08/07/17 19:00 08/08/17 22:27 Lopressor - PO 25 mg TID EVANGELINA Administration Potassium Chloride 20 meq 08/08/17 10:00 08/09/17 10:13 K-Dur - PO 20 meq DAILY EVANGELINA Administration Silver Sulfadiazine 1 applic 08/08/17 10:00 08/09/17 10:13 Silvadene - TP 1 applic DAILY EVANGELINA Administration Sodium Hypochlorite 1 applic 08/08/17 10:00 08/09/17 10:13 Dakin's Solution 0.25% (Half-Strength) - TP 1 applic DAILY EVANGELINA Administration Spironolactone 25 mg 08/08/17 10:15 08/09/17 10:09 Aldactone - PO 25 mg DAILY EVANGELINA Administration Microbiology 08/07/17 11:20 Blood - Peripheral Venous Blood Culture - Preliminary NO GROWTH OBTAINED AFTER 48 HOURS, INCUBATION TO CONTINUE FOR 3 DAYS. 08/07/17 11:20 Blood - Peripheral Venous Blood Culture - Preliminary NO GROWTH OBTAINED AFTER 48 HOURS, INCUBATION TO CONTINUE FOR 3 DAYS. 08/08/17 07:00 Urine - Urine Clean Catch Urine Culture - Final Contaminated: Please Repeat CXR Shallow inspiration. Cardiomegaly. Blunting of the bilateral costophrenic angles concerning for the pleural effusions. No pneumothorax is seen ASSESSMENT/PLAN: This is a 71 YOM with h/o diastolic CHF, COPD, chronic venous stasis, CKD stage 3, CAD with prior [place], prostate CA, and prostatectomy who presents with SOB and leg swelling for the past week. he was admitted to tele for further evaluation and treatment. #Acute on chronic hypoxic hypercapnic respiratory failure # Acute on chromic DCHF #New Onset of Atrial Fibrillation # COPD on home O2 # HTN #pulmonary HTN # CKD stage 3 # B/L feet alanis stage 2 # Peripheral venous stasis # CAD #H/O prostate cancer with prostatectomy # Maggot infestation # Morbid obesity Plan: Furosemide 80 mg IV BID ,Sprinonolactone 25mg po daily added I/O daily weight F/U Echo F/U CTA continue home meds Hydrazine, Isosorbide dinitrate continue statin 40 mg daily one dose of clindamycin was given in ED Consult Cardiology Consult [employer] and may be vascular surgeon [id number]-[id number] , albuterol , O2 to keep sat >90 % blood culture No growth sleep screen local care Visit type - Emergency Visit Emergency Visit: Yes ED Registration Date: 08/07/17 Care time: The patient presented to the Emergency Department on the above date and was hospitalized for further evaluation of their emergent condition. - New Patient This patient is new to me today: No - Critical Care Critical Care patient: No
[2017-08-09] MEDS: ALBUTEROL SO4 2.5/IPRATROPIUM 0.5 INH SOL 3 ML VIAL.NEB. NEB PRN (10:50)
--- NOTE | 2017-08-09 11:13 | PN ---
Teaching Attending Note Name of Resident: Tj Smith ATTENDING PHYSICIAN STATEMENT I saw and evaluated the patient. I reviewed the resident's note and discussed the case with the resident. I agree with the resident's findings and plan as documented. PULMONARY ALERT,SITTING UP ON BED ,NAD OBJECTIVE: IMP ACUTE ON CHRONIC HYPOXEMIC/HYPERCAPNEIC RESPIRATORY FAILURE ACUTE ON CHRONIC DIASTOLIC CHF COPD PVD CKD PULMONARY HTN HTN MORBID OBESITY LIKELY OSAS PLAN CONTINUE IV LASIX O2 INHALED BRONCHODILATORS ANTIBIOTICS PER ID DAILY WTS MONITOR LYTES,RENAL FUNCTION F/U CHEST X-RAYS [facility] SLEEP SCREEN DR ESPARZA Problem List - Problems (1) Acute on chronic respiratory failure with hypoxia and hypercapnia Code(s): J96.21 - ACUTE AND CHRONIC RESPIRATORY FAILURE WITH HYPOXIA J96.22 - ACUTE AND CHRONIC RESPIRATORY FAILURE WITH HYPERCAPNIA (2) Foot ulcer Code(s): L97.509 - NON-PRESSURE CHRONIC ULCER OTH PRT UNSP FOOT W UNSP SEVERITY Qualifiers: Laterality: unspecified laterality Non-pressure ulcer stage: unspecified non-pressure ulcer stage Qualified Code(s): L97.509 - Non- pressure chronic ulcer of other part of unspecified foot with unspecified severity; L97.509 - Non-pressure chronic ulcer of other part of unspecified foot with unspecified severity; L97.509 - Non-pressure chronic ulcer of other part of unspecified foot with unspecified severity; L97.509 - Non-pressure chronic ulcer of other part of unspecified foot with unspecified severity (3) Maggot infestation Code(s): B87.9 - MYIASIS, UNSPECIFIED (4) CHF (congestive heart failure) Code(s): I50.9 - HEART FAILURE, UNSPECIFIED Qualifiers: Congestive heart failure type: diastolic Congestive heart failure chronicity: unspecified congestive heart failure chronicity Qualified Code(s): I50.30 - Unspecified diastolic (congestive) heart failure; I50.30 - Unspecified diastolic (congestive) heart failure; I50.30 - Unspecified diastolic (congestive) heart failure; I50.30 - Unspecified diastolic (congestive ) heart failure (5) Volume overload Code(s): E87.70 - FLUID OVERLOAD, UNSPECIFIED (6) CAD (coronary artery disease) Code(s): I25.10 - ATHSCL HEART DISEASE OF [place] CORONARY ARTERY W/O ANG PCTRS (7) CKD (chronic kidney disease) stage 3, GFR 30-59 ml/min Code(s): N18.3 - CHRONIC KIDNEY DISEASE, STAGE 3 (MODERATE) (8) COPD (chronic obstructive pulmonary disease) Code(s): J44.9 - CHRONIC OBSTRUCTIVE PULMONARY DISEASE, UNSPECIFIED Qualifiers : COPD type: COPD with acute exacerbation Qualified Code(s): J44.1 - Chronic obstructive pulmonary disease with (acute) exacerbation; J44.1 - Chronic obstructive pulmonary disease with (acute) exacerbation; J44.1 - Chronic obstructive pulmonary disease with (acute) exacerbation; J44.1 - Chronic obstructive pulmonary disease with (acute) exacerbation (9) HTN (hypertension) Code(s): I10 - ESSENTIAL (PRIMARY) HYPERTENSION (10) Obesity, Class II, BMI 35.0-39.9, with comorbidity (see actual BMI) Code(s): E66.01 - MORBID (SEVERE) OBESITY DUE TO EXCESS CALORIES (11) Pulmonary hypertension Code(s): I27.2 - OTHER SECONDARY PULMONARY HYPERTENSION * DO NOT USE * (12) Venous stasis of both lower extremities Code(s): I87.8 - OTHER SPECIFIED DISORDERS OF VEINS Problem List - Problems (1) Obesity, Class II, BMI 35.0-39.9, with comorbidity (see actual BMI) Code(s): E66.01 - MORBID (SEVERE) OBESITY DUE TO EXCESS CALORIES (2) HTN (hypertension) Code(s): I10 - ESSENTIAL (PRIMARY) HYPERTENSION (3) CAD (coronary artery disease) Code(s): I25.10 - ATHSCL HEART DISEASE OF [place] CORONARY ARTERY W/O ANG PCTRS (4) COPD (chronic obstructive pulmonary disease) Code(s): J44.9 - CHRONIC OBSTRUCTIVE PULMONARY DISEASE, UNSPECIFIED Qualifiers: COPD type: COPD with acute exacerbation Qualified Code(s): J44.1 - Chronic obstructive pulmonary disease with (acute) exacerbation (5) Venous stasis of both lower extremities Code(s): I87.8 - OTHER SPECIFIED DISORDERS OF VEINS (6) Acute on chronic respiratory failure with hypoxia and hypercapnia Code(s): J96.21 - ACUTE AND CHRONIC RESPIRATORY FAILURE WITH HYPOXIA; J96.22 - ACUTE AND CHRONIC RESPIRATORY FAILURE WITH HYPERCAPNIA (7) Pulmonary hypertension Code(s): I27.2 - OTHER SECONDARY PULMONARY HYPERTENSION * DO NOT USE * (8) CKD (chronic kidney disease) stage 3, GFR 30-59 ml/min Code(s): N18.3 - CHRONIC KIDNEY DISEASE, STAGE 3 (MODERATE) (9) Volume overload Code(s): E87.70 - FLUID OVERLOAD, UNSPECIFIED (10) CHF (congestive heart failure) Code(s): I50.9 - HEART FAILURE, UNSPECIFIED Qualifiers: Congestive heart failure type: diastolic Congestive heart failure chronicity: unspecified congestive heart failure chronicity Qualified Code(s) : I50.30 - Unspecified diastolic (congestive) heart failure (11) Foot ulcer Code(s): L97.509 - NON-PRESSURE CHRONIC ULCER OTH PRT UNSP FOOT W UNSP SEVERITY Qualifiers: Laterality: unspecified laterality Non-pressure ulcer stage: with fat layer exposed Qualified Code(s): L97.502 - Non-pressure chronic ulcer of other part of unspecified foot with fat layer exposed (12) Maggot infestation Code(s): B87.9 - MYIASIS, UNSPECIFIED
--- NOTE | 2017-08-09 11:34 | PN ---
Progress Note (short form) - Note Progress Note: CC: sob, new aflutter S: remains in aflutter, better rate control. endorses good uop to lasix. no cp, palps, dizziness. less sob, legs less tight Current Medications Generic Name Dose Route Start Last Admin Trade Name Freq PRN Reason Stop Dose Admin Acetaminophen 650 mg 08/08/17 03:54 08/08/17 19:49 Tylenol - PO 650 mg Q6H PRN Administration FEVER OR PAIN Acetylcysteine 600 mg 08/09/17 11:15 Mucomyst 20 Oral / Inh Use Only* PO BID EVANGELINA Albuterol/Ipratropium 1 amp 08/07/17 16:45 Duoneb - NEB Q4H PRN SHORTNESS OF BREATH Atorvastatin Calcium 40 mg 08/07/17 22:00 08/08/17 22:27 Lipitor - PO 40 mg HS EVANGELINA Administration Furosemide 80 mg 08/08/17 06:00 08/08/17 15:26 Lasix Injection - IVPUSH 80 mg BID@0600,1400 EVANGELINA Administration Gabapentin 300 mg 08/08/17 22:00 08/08/17 22:27 Neurontin - PO 300 mg TID EVANGELINA Administration Heparin Sodium (Porcine) 1,000 unit 08/07/17 15:46 Heparin - IVPUSH PRN PRN Heparin Heparin Sodium (Porcine) 5,000 unit 08/07/17 15:46 08/08/17 23:07 Heparin - IVPUSH 5,000 unit PRN PRN Administration Heparin Hydralazine HCl 75 mg 08/08/17 22:00 08/09/17 10:09 Apresoline - PO 75 mg BID EVANGELINA Administration Heparin Sodium (Porcine) 25, 500 mls @ 20 mls/hr 08/07/17 16:00 08/08/17 23: 06 000 unit/ Sodium Chloride IV 1,450 unit/hr TITR EVANGELINA 29 mls/hr Protocol Administration 1,000 UNIT/HR Clindamycin Phosphate 50 mls @ 100 mls/hr 08/07/17 18:00 08/09/17 10:09 Cleocin 600 Mg Premix Ivpb - IVPB 100 mls/hr Q8H-IV EVANGELINA Administration Insulin Aspart 1 vial 08/08/17 11:00 08/08/17 17:15 Novolog Vial Sliding Scale - SQ 2 unit TIDAC EVANGELINA Administration Protocol Insulin Detemir 10 units 11/07/17 22:00 08/08/17 22:28 Levemir Vial SQ 10 units HS EVANGELINA Administration Isosorbide Dinitrate 10 mg 08/07/17 22:00 08/09/17 10:09 Isordil - PO 10 mg BID EVANGELINA Administration Lactobacillus Acidophilus 1 tab 08/07/17 22:00 08/09/17 10:09 Bacid - PO 1 tab BID EVANGELINA Administration Metoprolol Tartrate 25 mg 08/07/17 19:00 08/08/17 22:27 Lopressor - PO 25 mg TID EVANGELINA Administration Potassium Chloride 20 meq 08/08/17 10:00 08/09/17 10:13 K-Dur - PO 20 meq DAILY EVANGELINA Administration Silver Sulfadiazine 1 applic 08/08/17 10:00 08/09/17 10:13 Silvadene - TP 1 applic DAILY EVANGELINA Administration Sodium Hypochlorite 1 applic 08/08/17 10:00 08/09/17 10:13 Dakin's Solution 0.25% (Half-Strength) - TP 1 applic DAILY EVANGELINA Administration Spironolactone 25 mg 08/08/17 10:15 08/09/17 10:09 Aldactone - PO 25 mg DAILY EVANGELINA Administration Vital Signs Temp 98.8 F 08/09/17 10:04 Pulse 60 08/09/17 10:04 Resp 18 08/09/17 10:04 BP 132/69 08/09/17 10:04 Pulse Ox 96 08/09/17 09:00 Intake & Output 08/08/17 08/08/17 08/09/17 11:59 23:59 11:59 Intake Total 531 600 Output Total 1000 850 Balance -469 -250 Weight 341 lb 6.4 oz Intake: IV 161 Heparin - 25,000 Unit In 161 Normal Saline - 495 ml @ 1,000 UNIT/HR 20 mls/hr IV TITR EVANGELINA Rx#: [id number] Oral 370 600 Output: Urine 1000 850 Void 1000 850 Other: Voiding Method Urinal Urinal Urinal Bowel Movement No No Height 5 ft 10 in Body Mass Index (BMI) 48.9 Weight Measurement Method Standing Scale nad, calm jvd elevated, neck supple irregularly irregular s1s2 no mrg bibasilar crackles, no wheeze, nl eff aaox3 abd nt distended pos bs. 1+ le edema to sacrum, chronic stasis changes no diaphoresis jaundice diminished dp pt no carotid bruits Laboratory Last Values WBC 8.2 K/mm3 (4.0-10.0) 08/09/17 05:35 RBC 3.93 M/mm3 (4.00-5.60) L 08/09/17 05:35 Hgb 10.9 GM/dL (11.7-16.9) L 08/09/17 05:35 Hct 33.5 % (35.4-49) L 08/09/17 05:35 MCV 85.2 fl (80-96) 08/09/17 05:35 MCH 27.7 pg (25.7-33.7) 08/09/17 05:35 MCHC 32.5 g/dl (32.0-35.9) 08/09/17 05:35 RDW 15.6 % (11.9-15.9) 08/09/17 05:35 Plt Count 234 K/MM3 (134-434) 08/09/17 05:35 MPV 7.5 fl (7.5-11.1) 08/09/17 05:35 Neutrophils % 80.2 % (42.8-82.8) 08/07/17 11:20 Lymphocytes % 13.2 % (8-40) 08/07/17 11:20 Monocytes % 5.3 % (3.8-10.2) 08/07/17 11:20 Eosinophils % 0.8 % (0-4.5) 08/07/17 11:20 Basophils % 0.5 % (0-2.0) 08/07/17 11:20 PT with INR 13.30 SEC (9.98-11.88) H 08/07/17 23:12 INR 1.18 (0.82-1.09) H 08/07/17 23:12 PTT (Actin FS) 53.2 SECONDS (26.9-34.4) H D 08/09/17 05:35 Anticoagulation Therapy Y 08/07/17 17:45 Puncture Site Left radial 08/07/17 17:45 ABG pH 7.39 (7.35-7.45) 08/07/17 17:45 ABG pCO2 at Pt Temp 63.1 mmHg (35-45) H* D 08/07/17 17:45 ABG pO2 at Pt Temp 65.9 mmHg (70-100) L 08/07/17 17:45 ABG HCO3 37.7 meq/L (22-26) H 08/07/17 17:45 ABG O2 Sat (Measured) 91.7 % (90-98.9) 08/07/17 17:45 ABG O2 Content 15.1 % vol (15-22) 08/07/17 17:45 ABG Base Excess 10.8 meq/l (-2-2) H 08/07/17 17:45 Logan Test Positive 08/07/17 17:45 O2 Delivery Device Nasal 08/07/17 17:45 Oxygen Flow Rate 3l 08/07/17 17:45 Vent Mode Y 08/07/17 17:45 Vent Rate Y 08/07/17 17:45 Mechanical Rate No 08/07/17 17:45 Pressure Support Vent Y 08/07/17 17:45 Sodium 141 mmol/L (136-145) 08/08/17 06:30 Potassium 3.5 mmol/L (3.5-5.1) 08/08/17 06:30 Chloride 96 mmol/L (98-107) L 08/08/17 06:30 Carbon Dioxide 38 mmol/L (21-32) H 08/08/17 06:30 Anion Gap 7 (8-16) L 08/08/17 06:30 BUN 16 mg/dL (7-18) D 08/08/17 06:30 Creatinine 1.3 mg/dL (0.7-1.3) 08/08/17 06:30 Creat Clearance w eGFR 54.42 (>60) 08/08/17 06:30 POC Glucometer 203 UNITS (80-120) 08/09/17 06:53 Random Glucose 256 mg/dL (74-106) H 08/08/17 06:30 Hemoglobin A1c % 11.6 % (4.8-6.0) H D 08/08/17 06:30 Lactic Acid 1.3 mmol/L (0.4-2.0) 08/07/17 11:22 Calcium 8.2 mg/dL (8.5-10.1) L 08/08/17 06:30 Phosphorus 3.4 mg/dL (2.5-4.9) 08/08/17 06:30 Magnesium 1.7 mg/dL (1.8-2.4) L 08/08/17 06:30 Total Bilirubin 0.8 mg/dL (0.2-1.0) 08/08/17 06:30 AST 8 U/L (15-37) L D 08/08/17 06:30 ALT 15 U/L (12-78) 08/08/17 06:30 Alkaline Phosphatase 97 U/L (45-117) 08/08/17 06:30 Creatine Kinase 91 IU/L (39-308) 08/08/17 12:56 Troponin I < 0.02 ng/ml (0.00-0.05) 08/08/17 12:56 B-Natriuretic Peptide 1383.44 pg/ml (5-125) H 08/07/17 11:20 Total Protein 6.3 g/dl (6.4-8.2) L 08/08/17 06:30 Albumin 3.0 g/dl (3.4-5.0) L 08/08/17 06:30 Triglycerides 175 mg/dL (35-160) H D 08/08/17 06:30 Cholesterol 157 mg/dL (50-200) D 08/08/17 06:30 Total LDL Cholesterol 86 mg/dL (5-100) D 08/08/17 06:30 HDL Cholesterol 35 mg/dL (40-60) L 08/08/17 06:30 TSH 2.06 uIU/ml (0.358-3.74) D 08/07/17 11:20 Urine Color Colorless 08/08/17 07:00 Urine Appearance Clear 08/08/17 07:00 Urine pH 8.0 (5.0-8.0) D 08/08/17 07:00 Ur Specific [place] 1.006 (1.001-1.035) 08/08/17 07:00 Urine Protein Negative (NEGATIVE) 08/08/17 07:00 Urine Glucose (UA) 1+ (NEGATIVE) H 08/08/17 07:00 Urine Ketones Negative (NEGATIVE) 08/08/17 07:00 Urine Blood Negative (NEGATIVE) 08/08/17 07:00 Urine Nitrite Negative (NEGATIVE) 08/08/17 07:00 Urine Bilirubin Negative (NEGATIVE) 08/08/17 07:00 Urine Urobilinogen Negative mg/dL (0.2-1.0) 08/08/17 07:00 Ur Leukocyte Esterase Negative (NEGATIVE) 08/08/17 07:00 ekg: afib with pvc's/aberrancy. poor r wave progresion. no acute ischemic changes tele: flutter, rate controlled. cxr: poor inspiration. suspicion for bilateral pleural effusions mibi 11/2013: no ischemia, nl lvef echo 12/2016 ([facility]) : tds; mild conc lvh, nl lvef, nl rv, mild tr, mod ao root dil a/p: 71 m hx diastolic chf/venous insuff/le edema, htn, dilated aortic root, ckd, obesity, copd p/w heart failure exacerbation and new onset aflutter. new onset aflutter - on heparin drip. Long-term AC is going to be a challenge. Discussed with pmd , patient unlikely to be compliant with INR checks. Limited data for NOAC's at BMI of 49. Given possible increased risk of stroke with non-adherence to xarelto, would favor eliquis. If patient's insurance can cover it, would recommend transitioning to eliquis. If noac's not covered than will need to reconsider feasability of coumadin. - on lopressor 25 tid with good rate control today, cont - echo pending - Ce's neg. diastolic chf exacerbation - remains grossly volume overloaded. good uop to 80 mg IV lasix. con't. Adding aldactone as additional diuretic/bp med and to help with low k. monitor weight, daily bmp, I/O - reevaluate EF --> echo pending. copd: - per pmd venous insuff: -diuretic as above htn: -cont current meds
[2017-08-09] MEDS: INSULIN SLIDING SCALE (NOVOLOG) 1 VIAL SQ SCH ×2 (12:01→16:46)
[2017-08-09 12:03] LABS: ARTERIAL BLD GAS O2 SATURATION 95.9 % (90-98.9); ARTERIAL BLOOD GAS BASE EXCESS 12.8 meq/l (-2-2); ARTERIAL BLOOD GAS HCO3 38.7 meq/L (22-26); ARTERIAL BLOOD GAS PO2 75.8 mmHg (70-100); ARTERIAL BLOOD GAS pH 7.44 (7.35-7.45)
[2017-08-09 12:10] LABS: ALLENS TEST POSITIVE
[2017-08-09 12:11] LABS: ART PUNCT SITE RIGHT RADIAL; LPM/O2% 3L; PT. ON O2? YES; TYPE OF O2 NASAL/O2
[2017-08-09] MEDS: FUROSEMIDE 40 MG/4 ML INJECTABLE VIAL IVPUSH SCH (14:00)
[2017-08-09] MEDS: METOPROLOL TARTRATE 25 MG TABLET (FP) PO SCH ×2 (14:00→21:43)
[2017-08-09] MEDS: GABAPENTIN 300 MG CAPSULE (FP) PO SCH ×3 (14:01→21:47)
[2017-08-09] MEDS: HEPARIN - 25,000 UNIT in SODIUM CHLORIDE 495 ML IV SCH (16:00)
[2017-08-09] MEDS: ACETYLCYSTEINE 20% 200MG/ML 30 ML VIAL *FOR ORAL / INH USE ONLY PO SCH ×2 (16:42→21:45)
--- NOTE | 2017-08-09 17:10 | PN ---
Progress Note (short form) - Note Progress Note: feels better Vital Signs Period Temp Pulse Resp BP Sys/Davila Pulse Ox Last 24 Hr 97.7 F-98.8 F 58-79 18-18 126-149/58-87 95-96 cor-rrr lungs decreased bs at bases abd firm ext +edema +venous stasis +skin slough, no erythema CBC, BMP 08/09/17 05:35 08/08/17 06:30 Microbiology 08/07/17 11:20 Blood - Peripheral Venous Blood Culture - Preliminary NO GROWTH OBTAINED AFTER 48 HOURS, INCUBATION TO CONTINUE FOR 3 DAYS. 08/07/17 11:20 Blood - Peripheral Venous Blood Culture - Preliminary NO GROWTH OBTAINED AFTER 48 HOURS, INCUBATION TO CONTINUE FOR 3 DAYS. 08/08/17 07:00 Urine - Urine Clean Catch Urine Culture - Final Contaminated: Please Repeat a/p suspect volume overload/chf from not taking lasix at home soft tissue infection both feet- no erythema no drainage, maggots removed- will d/c clindamycin, local care per wound care pen allergy- hives? please call back if needed Problem List - Problems (1) CHF (congestive heart failure) Code(s): I50.9 - HEART FAILURE, UNSPECIFIED Qualifiers: Congestive heart failure type: diastolic Congestive heart failure chronicity: unspecified congestive heart failure chronicity Qualified Code(s) : I50.30 - Unspecified diastolic (congestive) heart failure (2) Maggot infestation Code(s): B87.9 - MYIASIS, UNSPECIFIED
[2017-08-09] MEDS: INSULIN DETEMIR 100 UNITS/ML MDV SQ SCH (21:45)
[2017-08-09] MEDS: ATORVASTATIN CA 40 MG TABLET (FP) PO SCH (21:45)
[2017-08-10] MEDS: CLINDAMYCIN 600MG PREMIX IVPB 50 ML IVPB SCH ×2 (02:48→10:15)
[2017-08-10] MEDS: INSULIN SLIDING SCALE (NOVOLOG) 1 VIAL SQ SCH ×4 (06:09→18:17)
[2017-08-10] MEDS: FUROSEMIDE 40 MG/4 ML INJECTABLE VIAL IVPUSH SCH ×3 (06:09→13:52)
[2017-08-10] MEDS: METOPROLOL TARTRATE 25 MG TABLET (FP) PO SCH ×3 (06:10→22:26)
[2017-08-10] MEDS: GABAPENTIN 300 MG CAPSULE (FP) PO SCH ×3 (06:11→22:26)
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
[2017-08-10 07:49] LABS: MCH 27.7 pg (25.7-33.7); MCHC 32.2 g/dl (32.0-35.9); MEAN CELL VOLUME 86.1 fl (80-96); MEAN PLT VOLUME 7.5 fl (7.5-11.1); PLATELET COUNT 221 K/MM3 (134-434); RDW 16.1 % (11.9-15.9); WHITE BLOOD COUNT 7.5 K/mm3 (4.0-10.0)
[2017-08-10 09:10] LABS: ANION GAP 10 (8-16); CO2 36 mmol/L (21-32); CREATININE 1.5 mg/dL (0.7-1.3); GLUCOSE,RANDOM 163 mg/dL (74-106); PHOSPHOROUS 5.4 mg/dL (2.5-4.9)
--- NOTE | 2017-08-10 10:39 | PN ---
Physical Exam: SUBJECTIVE: Patient seen and examined at bed side. doing well in term of breathing, denies any fever, chills, N/V/D/C. OBJECTIVE: Vital Signs Period Temp Pulse Resp BP Sys/Davila Pulse Ox Last 24 Hr 97.6 F-98.9 F 60-90 18-18 123-149/60-79 95-97 GENERAL: Awake, alert, and fully oriented, in no acute distress. HEAD: Normal with no signs of trauma. EYES: sclera anicteric, conjunctiva clear. EARS, NOSE, THROAT: Moist mucous membranes.very poor dental Hygiene. NECK: Supple JVD elevated, LUNGS: Bibasilar crackles No wheezes. No accessory muscle use. HEART: IRRegular rate and rhythm, normal S1 and S2 without murmur, rub or gallop. ABDOMEN: Soft,Obese , nontender, not distended, normoactive bowel sounds, no guarding, LOWER EXTREMITIES: , warm, Chronic peripheral venous stasis, No calf tenderness. +1 peripheral edema to scratum. very poor hygiene. buring blisters B/L foot. NEUROLOGICAL: no focal deficit, Normal speech. gait not observed. PSYCHIATRIC: Cooperative. Good eye contact. Appropriate mood and affect. SKIN: Warm, dry, no rashes. Joni dorsal feet with scaly skin with yellow/ greenish exudate and sloughing of skin. Laboratory Results - last 24 hr 08/09/17 08/09/17 08/09/17 11:38 11:49 16:45 WBC RBC Hgb Hct MCV MCH MCHC RDW Plt Count MPV PTT (Actin FS) Puncture Site Right radial ABG pH 7.44 ABG pCO2 at Pt Temp 57.4 H ABG pO2 at Pt Temp 75.8 ABG HCO3 38.7 H ABG O2 Sat (Measured) 95.9 ABG O2 Content 14.5 L ABG Base Excess 12.8 H Logan Test Positive O2 Delivery Device Nasal/o2 Oxygen Flow Rate 3l PEEP 0.0 Sodium Potassium Chloride POC Glucometer 185 167 08/09/17 08/09/17 08/10/17 17:10 21:40 06:05 WBC RBC Hgb Hct MCV MCH MCHC RDW Plt Count MPV PTT (Actin FS) Puncture Site ABG pH ABG pCO2 at Pt Temp ABG pO2 at Pt Temp ABG HCO3 ABG O2 Sat (Measured) ABG O2 Content ABG Base Excess Logan Test O2 Delivery Device Oxygen Flow Rate PEEP Sodium Potassium Chloride POC Glucometer 150 221 184 08/10/17 08/10/17 08/10/17 06:45 06:45 06:45 WBC 7.5 RBC 4.06 Hgb 11.3 L Hct 34.9 L MCV 86.1 MCH 27.7 MCHC 32.2 RDW 16.1 H Plt Count 221 MPV 7.5 PTT (Actin FS) 46.6 H Puncture Site ABG pH ABG pCO2 at Pt Temp ABG pO2 at Pt Temp ABG HCO3 ABG O2 Sat (Measured) ABG O2 Content ABG Base Excess Logan Test O2 Delivery Device Oxygen Flow Rate PEEP Sodium 141 Potassium 3.9 Chloride 95 L POC Glucometer Active Medications Generic Name Dose Route Start Last Admin Trade Name Freq PRN Reason Stop Dose Admin Acetaminophen 650 mg 08/08/17 03:54 08/08/17 19:49 Tylenol - PO 650 mg Q6H PRN Administration FEVER OR PAIN Acetylcysteine 600 mg 08/09/17 11:15 08/09/17 21:45 Mucomyst 20 Oral / Inh Use Only* PO 600 mg BID EVANGELINA Administration Albuterol/Ipratropium 1 amp 08/07/17 16:45 08/09/17 10:50 Duoneb - NEB 1 amp Q4H PRN Administration SHORTNESS OF BREATH Atorvastatin Calcium 40 mg 08/07/17 22:00 08/09/17 21:45 Lipitor - PO 40 mg HS EVANGELINA Administration Furosemide 80 mg 08/08/17 06:00 08/10/17 06:10 Lasix Injection - IVPUSH 80 mg BID@0600,1400 EVANGELINA Administration Gabapentin 300 mg 08/08/17 22:00 08/10/17 06:11 Neurontin - PO 300 mg TID EVANGELINA Administration Heparin Sodium (Porcine) 1,000 unit 08/07/17 15:46 Heparin - IVPUSH PRN PRN Heparin Heparin Sodium (Porcine) 5,000 unit 08/07/17 15:46 08/08/17 23:07 Heparin - IVPUSH 5,000 unit PRN PRN Administration Heparin Hydralazine HCl 75 mg 08/08/17 22:00 08/09/17 21:44 Apresoline - PO 75 mg BID EVANGELINA Administration Heparin Sodium (Porcine) 25, 500 mls @ 20 mls/hr 08/07/17 16:00 08/09/17 16: 00 000 unit/ Sodium Chloride IV 1,450 unit/hr TITR EVANGELINA 29 mls/hr Protocol Administration 1,000 UNIT/HR Clindamycin Phosphate 50 mls @ 100 mls/hr 08/07/17 18:00 08/10/17 02:48 Cleocin 600 Mg Premix Ivpb - IVPB 100 mls/hr Q8H-IV EVANGELINA Administration Insulin Aspart 1 vial 08/08/17 11:00 08/10/17 06:11 Novolog Vial Sliding Scale - SQ 2 unit TIDAC EVANGELINA Administration Protocol Insulin Detemir 10 units 08/08/17 22:00 08/09/17 21:45 Levemir Vial SQ 10 units HS EVANGELINA Administration Isosorbide Dinitrate 10 mg 08/07/17 22:00 08/09/17 21:44 Isordil - PO 10 mg BID EVANGELINA Administration Lactobacillus Acidophilus 1 tab 08/07/17 22:00 08/09/17 21:44 Bacid - PO 1 tab BID EVANGELINA Administration Metoprolol Tartrate 25 mg 08/07/17 19:00 08/10/17 06:10 Lopressor - PO 25 mg TID EVANGELINA Administration Potassium Chloride 20 meq 08/08/17 10:00 08/09/17 10:13 K-Dur - PO 20 meq DAILY EVANGELINA Administration Silver Sulfadiazine 1 applic 08/08/17 10:00 08/09/17 10:13 Silvadene - TP 1 applic DAILY EVANGELINA Administration Sodium Hypochlorite 1 applic 08/08/17 10:00 08/09/17 10:13 Dakin's Solution 0.25% (Half-Strength) - TP 1 applic DAILY EVANGELINA Administration Spironolactone 25 mg 08/08/17 10:15 08/09/17 10:09 Aldactone - PO 25 mg DAILY EVANGELINA Administration CBC, BMP 08/10/17 06:45 08/10/17 06:45 Microbiology 08/07/17 11:20 Blood - Peripheral Venous Blood Culture - Preliminary NO GROWTH OBTAINED AFTER 48 HOURS, INCUBATION TO CONTINUE FOR 3 DAYS. 08/07/17 11:20 Blood - Peripheral Venous Blood Culture - Preliminary NO GROWTH OBTAINED AFTER 48 HOURS, INCUBATION TO CONTINUE FOR 3 DAYS. 08/08/17 07:00 Urine - Urine Clean Catch Urine Culture - Final Contaminated: Please Repeat ASSESSMENT/PLAN: This is a 71 YOM with h/o diastolic CHF, COPD, chronic venous stasis, CKD stage 3, CAD with prior AR, prostate CA, and prostatectomy who presents with SOB and leg swelling for the past week. [facility] and treatment. #Acute on chronic hypoxic hypercapnic respiratory failure # Acute on chromic DCHF #New Onset of Atrial Fibrillation # COPD on home O2 # HTN #pulmonary HTN # CKD stage 3 # B/L feet alanis stage 2 # Peripheral venous stasis # CAD #H/O prostate cancer with prostatectomy # Maggot infestation # Morbid obesity Plan: Furosemide 80 mg IV BID ,Sprinonolactone 25mg po daily added I/O daily weight F/U Echo F/U CTA continue home meds Hydrazine, Isosorbide dinitrate continue statin 40 mg daily one dose of clindamycin was given in ED Consult Cardiology Consult [employer] and may be vascular surgeon [id number] , albuterol , O2 to keep sat >90 % blood culture No growth sleep screen local care Visit type - Emergency Visit Emergency Visit: Yes ED Registration Date: 08/07/17 Care time: The patient presented to the Emergency Department on the above date and was hospitalized for further evaluation of their emergent condition. - New Patient This patient is new to me today: No - Critical Care Critical Care patient: No
[2017-08-10] MEDS ORDERED: INSULIN (NOVOLOG) ASPART 100 UNITS/ML 10ML VIAL ONE (11:31)
--- NOTE | 2017-08-10 11:45 | PN ---
Progress Note (short form) - Note Progress Note: CC: sob, new aflutter S: remains in aflutter, better rate control. endorses good uop to lasix. no cp, palps, dizziness. less sob, legs less tight Current Medications Generic Name Dose Route Start Last Admin Trade Name Freq PRN Reason Stop Dose Admin Acetaminophen 650 mg 08/08/17 03:54 08/08/17 19:49 Tylenol - PO 650 mg Q6H PRN Administration FEVER OR PAIN Acetylcysteine 600 mg 08/09/17 11:15 08/09/17 21:45 Mucomyst 20 Oral / Inh Use Only* PO 600 mg BID EVANGELINA Administration Albuterol/Ipratropium 1 amp 08/07/17 16:45 08/09/17 10:50 Duoneb - NEB 1 amp Q4H PRN Administration SHORTNESS OF BREATH Atorvastatin Calcium 40 mg 08/07/17 22:00 08/09/17 21:45 Lipitor - PO 40 mg HS EVANGELINA Administration Furosemide 80 mg 08/08/17 06:00 08/10/17 06:10 Lasix Injection - IVPUSH 80 mg BID@0600,1400 EVANGELINA Administration Gabapentin 300 mg 08/08/17 22:00 08/10/17 06:11 Neurontin - PO 300 mg TID EVANGELINA Administration Heparin Sodium (Porcine) 1,000 unit 08/07/17 15:46 Heparin - IVPUSH PRN PRN Heparin Heparin Sodium (Porcine) 5,000 unit 08/07/17 15:46 08/08/17 23:07 Heparin - IVPUSH 5,000 unit PRN PRN Administration Heparin Hydralazine HCl 75 mg 08/08/17 22:00 08/09/17 21:44 Apresoline - PO 75 mg BID EVANGELINA Administration Heparin Sodium (Porcine) 25, 500 mls @ 20 mls/hr 08/07/17 16:00 08/09/17 16: 00 000 unit/ Sodium Chloride IV 1,450 unit/hr TITR EVANGELINA 29 mls/hr Protocol Administration 1,000 UNIT/HR Clindamycin Phosphate 50 mls @ 100 mls/hr 08/07/17 18:00 08/10/17 02:48 Cleocin 600 Mg Premix Ivpb - IVPB 100 mls/hr Q8H-IV EVANGELINA Administration Insulin Aspart 1 vial 08/08/17 11:00 08/10/17 06:11 Novolog Vial Sliding Scale - SQ 2 unit TIDAC EVANGELINA Administration Protocol Insulin Detemir 10 units 08/08/17 22:00 08/09/17 21:45 Levemir Vial SQ 10 units HS EVANGELINA Administration Isosorbide Dinitrate 10 mg 08/07/17 22:00 08/09/17 21:44 Isordil - PO 10 mg BID EVANGELINA Administration Lactobacillus Acidophilus 1 tab 08/07/17 22:00 08/09/17 21:44 Bacid - PO 1 tab BID EVANGELINA Administration Metoprolol Tartrate 25 mg 08/07/17 19:00 08/10/17 06:10 Lopressor - PO 25 mg TID EVANGELINA Administration Potassium Chloride 20 meq 08/08/17 10:00 08/09/17 10:13 K-Dur - PO 20 meq DAILY EVANGELINA Administration Silver Sulfadiazine 1 applic 08/08/17 10:00 08/09/17 10:13 Silvadene - TP 1 applic DAILY VEANGELINA Administration Sodium Hypochlorite 1 applic 08/08/17 10:00 08/09/17 10:13 Dakin's Solution 0.25% (Half-Strength) - TP 1 applic DAILY EVANGELINA Administration Spironolactone 25 mg 08/08/17 10:15 08/09/17 10:09 Aldactone - PO 25 mg DAILY EVANGELINA Administration Vital Signs Temp 97.6 F 08/10/17 06:00 Pulse 90 08/10/17 06:00 Resp 18 08/10/17 06:00 BP 132/79 08/10/17 06:00 Pulse Ox 97 08/09/17 20:59 Intake & Output 08/09/17 08/09/17 08/10/17 11:59 23:59 11:59 Intake Total 865 730 Output Total 3250 200 Balance -2385 530 Weight 275 lb 2 oz Intake: IV 120 210 Heparin - 25,000 Unit In 120 210 Normal Saline - 495 ml @ 1,000 UNIT/HR 20 mls/hr IV TITR EVANGELINA Rx#: [id number] IVPB 50 Oral 745 470 Output: Urine 3250 200 Void 3250 200 Other: Voiding Method Urinal Urinal Urinal # Unmeasured Voids Void 1 Weight Measurement Method Standing Scale nad, calm jvd elevated, neck supple irregularly irregular s1s2 no mrg bibasilar crackles, no wheeze, nl eff aaox3 abd nt distended pos bs. 1+ le edema to sacrum, chronic stasis changes no diaphoresis jaundice diminished dp pt no carotid bruits Laboratory Last Values WBC 7.5 K/mm3 (4.0-10.0) 08/10/17 06:45 RBC 4.06 M/mm3 (4.00-5.60) 08/10/17 06:45 Hgb 11.3 GM/dL (11.7-16.9) L 08/10/17 06:45 Hct 34.9 % (35.4-49) L 08/10/17 06:45 MCV 86.1 fl (80-96) 08/10/17 06:45 MCH 27.7 pg (25.7-33.7) 08/10/17 06:45 MCHC 32.2 g/dl (32.0-35.9) 08/10/17 06:45 RDW 16.1 % (11.9-15.9) H 08/10/17 06:45 Plt Count 221 K/MM3 (134-434) 08/10/17 06:45 MPV 7.5 fl (7.5-11.1) 08/10/17 06:45 Neutrophils % 80.2 % (42.8-82.8) 08/07/17 11:20 Lymphocytes % 13.2 % (8-40) 08/07/17 11:20 Monocytes % 5.3 % (3.8-10.2) 08/07/17 11:20 Eosinophils % 0.8 % (0-4.5) 08/07/17 11:20 Basophils % 0.5 % (0-2.0) 08/07/17 11:20 PT with INR 13.30 SEC (9.98-11.88) H 08/07/17 23:12 INR 1.18 (0.82-1.09) H 08/07/17 23:12 PTT (Actin FS) 46.6 SECONDS (26.9-34.4) H 08/10/17 06:45 Anticoagulation Therapy Y 08/07/17 17:45 Puncture Site Right radial 08/09/17 11:49 ABG pH 7.44 (7.35-7.45) 08/09/17 11:49 ABG pCO2 at Pt Temp 57.4 mmHg (35-45) H 08/09/17 11:49 ABG pO2 at Pt Temp 75.8 mmHg (70-100) 08/09/17 11:49 ABG HCO3 38.7 meq/L (22-26) H 08/09/17 11:49 ABG O2 Sat (Measured) 95.9 % (90-98.9) 08/09/17 11:49 ABG O2 Content 14.5 % vol (15-22) L 08/09/17 11:49 ABG Base Excess 12.8 meq/l (-2-2) H 08/09/17 11:49 Logan Test Positive 08/09/17 11:49 O2 Delivery Device Nasal/o2 08/09/17 11:49 Oxygen Flow Rate 3l 08/09/17 11:49 Vent Mode Y 08/07/17 17:45 Vent Rate Y 08/07/17 17:45 Mechanical Rate No 08/07/17 17:45 PEEP 0.0 cmH2O 08/09/17 11:49 Pressure Support Vent Y 08/07/17 17:45 Sodium 141 mmol/L (136-145) 08/10/17 06:45 Potassium 3.9 mmol/L (3.5-5.1) 08/10/17 06:45 Chloride 95 mmol/L (98-107) L 08/10/17 06:45 Carbon Dioxide 36 mmol/L (21-32) H 08/10/17 06:45 Anion Gap 10 (8-16) 08/10/17 06:45 BUN 20 mg/dL (7-18) H D 08/10/17 06:45 Creatinine 1.5 mg/dL (0.7-1.3) H 08/10/17 06:45 Creat Clearance w eGFR 54.42 (>60) 08/08/17 06:30 POC Glucometer 184 UNITS (80-120) 08/10/17 06:05 Random Glucose 163 mg/dL (74-106) H D 08/10/17 06:45 Hemoglobin A1c % 11.6 % (4.8-6.0) H D 08/08/17 06:30 Lactic Acid 1.3 mmol/L (0.4-2.0) 08/07/17 11:22 Calcium 8.0 mg/dL (8.5-10.1) L 08/10/17 06:45 Phosphorus 5.4 mg/dL (2.5-4.9) H D 08/10/17 06:45 Magnesium 2.0 mg/dL (1.8-2.4) 08/10/17 06:45 Total Bilirubin 0.8 mg/dL (0.2-1.0) 08/08/17 06:30 AST 8 U/L (15-37) L D 08/08/17 06:30 ALT 15 U/L (12-78) 08/08/17 06:30 Alkaline Phosphatase 97 U/L (45-117) 08/08/17 06:30 Creatine Kinase 91 IU/L (39-308) 08/08/17 12:56 Troponin I < 0.02 ng/ml (0.00-0.05) 08/08/17 12:56 B-Natriuretic Peptide 1383.44 pg/ml (5-125) H 08/07/17 11:20 Total Protein 6.3 g/dl (6.4-8.2) L 08/08/17 06:30 Albumin 3.0 g/dl (3.4-5.0) L 08/08/17 06:30 Triglycerides 175 mg/dL (35-160) H D 08/08/17 06:30 Cholesterol 157 mg/dL (50-200) D 08/08/17 06:30 Total LDL Cholesterol 86 mg/dL (5-100) D 08/08/17 06:30 HDL Cholesterol 35 mg/dL (40-60) L 08/08/17 06:30 TSH 2.06 uIU/ml (0.358-3.74) D 08/07/17 11:20 Urine Color Colorless 08/08/17 07:00 Urine Appearance Clear 08/08/17 07:00 Urine pH 8.0 (5.0-8.0) D 08/08/17 07:00 Ur Specific [place] 1.006 (1.001-1.035) 08/08/17 07:00 Urine Protein Negative (NEGATIVE) 08/08/17 07:00 Urine Glucose (UA) 1+ (NEGATIVE) H 08/08/17 07:00 Urine Ketones Negative (NEGATIVE) 08/08/17 07:00 Urine Blood Negative (NEGATIVE) 08/08/17 07:00 Urine Nitrite Negative (NEGATIVE) 08/08/17 07:00 Urine Bilirubin Negative (NEGATIVE) 08/08/17 07:00 Urine Urobilinogen Negative mg/dL (0.2-1.0) 08/08/17 07:00 Ur Leukocyte Esterase Negative (NEGATIVE) 08/08/17 07:00 ekg: afib with pvc's/aberrancy. poor r wave progresion. no acute ischemic changes tele: flutter, rate controlled. cxr: poor inspiration. suspicion for bilateral pleural effusions mibi 11/2013: no ischemia, nl lvef echo 12/2016 ([facility]) : tds; mild conc lvh, nl lvef, nl rv, mild tr, mod ao root dil echo 08/2017: mild lve, mild dec lvef, mild dec rv fcn, mild rve, mild james, mild mr, mild tr, mild pr, nl rvsp, mild ao root dil a/p: 71 m hx diastolic chf/venous insuff/le edema, htn, dilated aortic root, ckd, obesity, copd p/w heart failure exacerbation and new onset aflutter. new onset aflutter - on heparin drip. Long-term AC is going to be a challenge. Discussed with pmd , patient unlikely to be compliant with INR checks. Limited data for NOAC's at BMI of 49. Given possible increased risk of stroke with non-adherence to xarelto, would favor eliquis. If patient's insurance can cover it, would recommend transitioning to eliquis. If noac's not covered than will need to reconsider feasability of coumadin. - on lopressor 25 tid with good rate control today, cont - Ce's neg. diastolic chf exacerbation - remains grossly volume overloaded. good uop with 80 mg IV lasix, wt and sxs improving. con't. Added aldactone as additional diuretic/bp med and to help with low k. monitor weight, daily bmp, I/O copd: - per pmd venous insuff: -diuretic as above htn: -cont current meds
[2017-08-10] MEDS: ISOSORBIDE DINITRATE 10 MG TABLET (FP) PO SCH ×2 (12:18→22:26)
[2017-08-10] MEDS: LACTOBACILLUS ACIDOPHILUS 1 EACH TAB (FP) PO SCH ×2 (12:18→22:26)
[2017-08-10] MEDS: hydrALAZINE HCL 50 MG TABLET (FP) PO SCH ×2 (12:18→22:24)
[2017-08-10] MEDS: SODIUM HYPOCHLORITE 0.25%- 473 ML BULK BOTTLE TP SCH (12:19)
[2017-08-10] MEDS: ACETYLCYSTEINE 20% 200MG/ML 30 ML VIAL *FOR ORAL / INH USE ONLY PO SCH ×2 (12:19→22:26)
[2017-08-10] MEDS: POTASSIUM CHLORIDE TABS 20 MEQ TABLET.ER (FP) PO SCH (12:19)
[2017-08-10] MEDS: SPIRONOLACTONE 25 MG TABLET (FP) PO SCH (12:19)
[2017-08-10] MEDS: SILVER SULFADIAZINE 1% TOP CREAM 50 GM JAR TP SCH (12:20)
[2017-08-10] MEDS: HEPARIN NA (PORCINE) 5,000 UNITS/ML 1ML VIAL IVPUSH PRN ×2 (12:22→18:18)
[2017-08-10] MEDS ORDERED: PICC LINE 8 ML FLUSH PROTOCOL IVPUSH PRN (12:46)
--- NOTE | 2017-08-10 12:51 | PN ---
Progress Note (short form) - Note Progress Note: Sleeping. Loud snoring with apenas. Know very severe OSAS with an RDI of 116.7 and lowest saturation of 67% on NPSG in 2016. Noted new A Flutter. Intake & Output 08/07/17 08/08/17 08/09/17 08/10/17 23:59 23:59 23:59 23:59 Intake Total 1131 865 730 Output Total 1850 3250 200 Balance -719 -8915 530 Weight 280 lb 341 lb 6.4 oz 275 lb 2 oz Last Vital Signs Temp Pulse Resp BP Pulse Ox 98.8 F 63 18 112/64 95 08/10/17 10:00 08/10/17 10:00 08/10/17 10:00 08/10/17 10:00 08/10/17 09:00 Active Medications Acetaminophen (Tylenol -) 650 mg PO Q6H PRN PRN Reason: FEVER OR PAIN Last Admin: 08/08/17 19:49 Dose: 650 mg Acetylcysteine (Mucomyst 20 Oral / Inh Use Only*) 600 mg PO BID [facility] Last Admin: 08/10/17 12:19 Dose: 600 mg Albuterol/Ipratropium (Duoneb -) 1 amp NEB Q4H PRN PRN Reason: SHORTNESS OF BREATH Last Admin: 08/09/17 10:50 Dose: 1 amp Atorvastatin Calcium (Lipitor -) 40 mg PO HS [facility] Last Admin: 08/09/17 21:45 Dose: 40 mg Docusate Sodium (Colace -) 100 mg PO BID EVANGELINA Furosemide (Lasix Injection -) 80 mg IVPUSH BID@0600,1400 [facility] Last Admin: 08/10/17 06:10 Dose: 80 mg Gabapentin (Neurontin -) 300 mg PO TID [facility] Last Admin: 08/10/17 06:11 Dose: 300 mg Heparin Sodium (Porcine) (Heparin -) 1,000 unit IVPUSH PRN PRN PRN Reason: Heparin Last Admin: 08/10/17 12:22 Dose: 1,000 unit Heparin Sodium (Porcine) (Heparin -) 5,000 unit IVPUSH PRN PRN PRN Reason: Heparin Last Admin: 08/08/17 23:07 Dose: 5,000 unit Hydralazine HCl (Apresoline -) 75 mg PO BID [facility] Last Admin: 08/10/17 12:18 Dose: 75 mg IV Flush (Picc Line Flush) 8 ml IVPUSH PRN PRN PRN Reason: Protocol Heparin Sodium (Porcine) 25, (000 unit/ Sodium Chloride) 500 mls @ 20 mls/hr IV TITR EVANGELINA; 1,000 UNIT/HR PRN Reason: Protocol Last Titration: 08/10/17 12:21 Dose: 1,550 unit/hr, 31 mls/hr Insulin Aspart (Novolog Vial Sliding Scale -) 1 vial SQ TIDAC EVANGELINA PRN Reason: Protocol Last Admin: 08/10/17 12:20 Dose: Not Given Insulin Detemir (Levemir Vial) 10 units SQ HS [facility] Last Admin: 08/09/17 21:45 Dose: 10 units Isosorbide Dinitrate (Isordil -) 10 mg PO BID [facility] Last Admin: 08/10/17 12:18 Dose: 10 mg Lactobacillus Acidophilus (Bacid -) 1 tab PO BID [facility] Last Admin: 08/10/17 12:18 Dose: 1 tab Metoprolol Tartrate (Lopressor -) 25 mg PO TID [facility] Last Admin: 08/10/17 06:10 Dose: 25 mg Potassium Chloride (K-Dur -) 20 meq PO DAILY [facility] Last Admin: 08/10/17 12:19 Dose: 20 meq Senna (Senna -) 1 tab PO ONE Stop: 08/10/17 12:42 Silver Sulfadiazine (Silvadene -) 1 applic TP DAILY [facility] Last Admin: 08/10/17 12:20 Dose: 1 applic Sodium Hypochlorite (Dakin's Solution 0.25% (Half-Strength) -) 1 applic TP DAILY [facility] Last Admin: 08/10/17 12:19 Dose: 1 applic Spironolactone (Aldactone -) 25 mg PO DAILY [facility] Last Admin: 08/10/17 12:19 Dose: 25 mg GENERAL: Sleeping in NAD. HEAD: Normal with no signs of trauma. EYES: sclera anicteric, conjunctiva clear. EARS, NOSE, THROAT: Moist mucous membranes.very poor dental Hygiene. NECK: Supple LUNGS: Bibasilar rales/rhonchi. No wheezes. No accessory muscle use. HEART: Irregular rate and rhythm, normal S1 and S2 without murmur, rub or gallop. ABDOMEN: Soft,Obese , nontender, not distended, normoactive bowel sounds, no guarding, LOWER EXTREMITIES: , warm, Chronic peripheral venous stasis, No calf tenderness.blisters B/L foot. NEUROLOGICAL: no focal deficit SKIN: Warm, dry, no rashes. Joni dorsal feet with scaly skin with yellow/ greenish exudate and sloughing of skin. Laboratory Results - last 24 hr 08/09/17 08/09/17 08/09/17 16:45 17:10 21:40 WBC RBC Hgb Hct MCV MCH MCHC RDW Plt Count MPV PTT (Actin FS) Sodium Potassium Chloride Carbon Dioxide Anion Gap BUN Creatinine POC Glucometer 167 150 221 Random Glucose Calcium Phosphorus Magnesium 08/10/17 08/10/17 08/10/17 06:05 06:45 06:45 WBC 7.5 RBC 4.06 Hgb 11.3 L Hct 34.9 L MCV 86.1 MCH 27.7 MCHC 32.2 RDW 16.1 H Plt Count 221 MPV 7.5 PTT (Actin FS) 46.6 H Sodium Potassium Chloride Carbon Dioxide Anion Gap BUN Creatinine POC Glucometer 184 Random Glucose Calcium Phosphorus Magnesium 08/10/17 08/10/17 06:45 12:17 WBC RBC Hgb Hct MCV MCH MCHC RDW Plt Count MPV PTT (Actin FS) Sodium 141 Potassium 3.9 Chloride 95 L Carbon Dioxide 36 H Anion Gap 10 BUN 20 H D Creatinine 1.5 H POC Glucometer 141 Random Glucose 163 H D Calcium 8.0 L Phosphorus 5.4 H D Magnesium 2.0 Problem List - Problems (1) Acute on chronic respiratory failure with hypoxia and hypercapnia Code(s): J96.21 - ACUTE AND CHRONIC RESPIRATORY FAILURE WITH HYPOXIA J96.22 - ACUTE AND CHRONIC RESPIRATORY FAILURE WITH HYPERCAPNIA (2) Foot ulcer Code(s): L97.509 - NON-PRESSURE CHRONIC ULCER OTH PRT UNSP FOOT W UNSP SEVERITY Qualifiers: Laterality: unspecified laterality Non-pressure ulcer stage: unspecified non-pressure ulcer stage Qualified Code(s): L97.509 - Non- pressure chronic ulcer of other part of unspecified foot with unspecified severity; L97.509 - Non-pressure chronic ulcer of other part of unspecified foot with unspecified severity; L97.509 - Non-pressure chronic ulcer of other part of unspecified foot with unspecified severity; L97.509 - Non-pressure chronic ulcer of other part of unspecified foot with unspecified severity (3) Maggot infestation Code(s): B87.9 - MYIASIS, UNSPECIFIED (4) CHF (congestive heart failure) Code(s): I50.9 - HEART FAILURE, UNSPECIFIED Qualifiers: Congestive heart failure type: diastolic Congestive heart failure chronicity: unspecified congestive heart failure chronicity Qualified Code(s): I50.30 - Unspecified diastolic (congestive) heart failure; I50.30 - Unspecified diastolic (congestive) heart failure; I50.30 - Unspecified diastolic (congestive) heart failure; I50.30 - Unspecified diastolic (congestive ) heart failure (5) Volume overload Code(s): E87.70 - FLUID OVERLOAD, UNSPECIFIED (6) CAD (coronary artery disease) Code(s): I25.10 - ATHSCL HEART DISEASE OF [place] CORONARY ARTERY W/O ANG PCTRS (7) CKD (chronic kidney disease) stage 3, GFR 30-59 ml/min Code(s): N18.3 - CHRONIC KIDNEY DISEASE, STAGE 3 (MODERATE) (8) COPD (chronic obstructive pulmonary disease) Code(s): J44.9 - CHRONIC OBSTRUCTIVE PULMONARY DISEASE, UNSPECIFIED Qualifiers : COPD type: COPD with acute exacerbation Qualified Code(s): J44.1 - Chronic obstructive pulmonary disease with (acute) exacerbation; J44.1 - Chronic obstructive pulmonary disease with (acute) exacerbation; J44.1 - Chronic obstructive pulmonary disease with (acute) exacerbation; J44.1 - Chronic obstructive pulmonary disease with (acute) exacerbation (9) HTN (hypertension) Code(s): I10 - ESSENTIAL (PRIMARY) HYPERTENSION (10) Obesity, Class II, BMI 35.0-39.9, with comorbidity (see actual BMI) Code(s): E66.01 - MORBID (SEVERE) OBESITY DUE TO EXCESS CALORIES (11) Pulmonary hypertension Code(s): I27.2 - OTHER SECONDARY PULMONARY HYPERTENSION * DO NOT USE * (12) Venous stasis of both lower extremities Code(s): I87.8 - OTHER SPECIFIED DISORDERS OF VEINS BJECTIVE: IMP ACUTE ON CHRONIC HYPOXEMIC/HYPERCAPNEIC RESPIRATORY FAILURE ACUTE ON CHRONIC DIASTOLIC CHF COPD PVD CKD PULMONARY HTN HTN MORBID OBESITY LIKELY OSAS PLAN IV LASIX O2 INHALED BRONCHODILATORS ANTIBIOTICS PER ID DAILY WTS MONITOR LYTES,RENAL FUNCTION F/U CHEST X-RAYS LOCAL CARE WILL NEED FORMAL TITRATION STUDY : ISSUE WITH ARBITRARY SETTINGS -> COULD INDUCE [facility]-C[employer]TER AND PRESSER DUE TO HIS SIGNIFICANT CARDIAC HISTORY. DR WATT
[2017-08-10] MEDS: DOCUSATE SODIUM 100 MG CAPSULE (FP) PO SCH ×2 (13:52→22:26)
[2017-08-10] MEDS: HEPARIN - 25,000 UNIT in SODIUM CHLORIDE 495 ML IV SCH (16:00)
[2017-08-10] MEDS ORDERED: PT OWN MED DRAWER 7, Y5N ONE (17:17)
--- NOTE | 2017-08-10 18:31 | PN ---
Teaching Attending Note Name of Resident: Olivia Goldberg ATTENDING PHYSICIAN STATEMENT I saw and evaluated the patient. I reviewed the resident's note and discussed the case with the resident. I agree with the resident's findings and plan as documented. SUBJECTIVE: Patient is lying in bed with no acute distress, no nausea or vomiting, patient likes to sleep during day time and stay up during night time. OBJECTIVE: Vital Signs Temperature 98.3 F 08/10/17 14:25 Pulse Rate 118 H 08/10/17 14:25 Respiratory Rate 18 08/10/17 14:25 Blood Pressure 122/57 08/10/17 14:25 O2 Sat by Pulse Oximetry (%) 95 08/10/17 13:56 CBCD WBC 7.5 K/mm3 (4.0-10.0) 08/10/17 06:45 RBC 4.06 M/mm3 (4.00-5.60) 08/10/17 06:45 Hgb 11.3 GM/dL (11.7-16.9) L 08/10/17 06:45 Hct 34.9 % (35.4-49) L 08/10/17 06:45 MCV 86.1 fl (80-96) 08/10/17 06:45 MCHC 32.2 g/dl (32.0-35.9) 08/10/17 06:45 RDW 16.1 % (11.9-15.9) H 08/10/17 06:45 Plt Count 221 K/MM3 (134-434) 08/10/17 06:45 MPV 7.5 fl (7.5-11.1) 08/10/17 06:45 CMP Sodium 141 mmol/L (136-145) 08/10/17 06:45 Potassium 3.9 mmol/L (3.5-5.1) 08/10/17 06:45 Chloride 95 mmol/L (98-107) L 08/10/17 06:45 Carbon Dioxide 36 mmol/L (21-32) H 08/10/17 06:45 Anion Gap 10 (8-16) 08/10/17 06:45 BUN 20 mg/dL (7-18) H D 08/10/17 06:45 Creatinine 1.5 mg/dL (0.7-1.3) H 08/10/17 06:45 Creat Clearance w eGFR 54.42 (>60) 08/08/17 06:30 Random Glucose 163 mg/dL (74-106) H D 08/10/17 06:45 Calcium 8.0 mg/dL (8.5-10.1) L 08/10/17 06:45 Total Bilirubin 0.8 mg/dL (0.2-1.0) 08/08/17 06:30 AST 8 U/L (15-37) L D 08/08/17 06:30 ALT 15 U/L (12-78) 08/08/17 06:30 Alkaline Phosphatase 97 U/L (45-117) 08/08/17 06:30 Total Protein 6.3 g/dl (6.4-8.2) L 08/08/17 06:30 Albumin 3.0 g/dl (3.4-5.0) L 08/08/17 06:30 CARDIAC ENZYMES Creatine Kinase 91 IU/L (39-308) 08/08/17 12:56 Troponin I < 0.02 ng/ml (0.00-0.05) 08/08/17 12:56 Current Medications Generic Name Dose Route Start Last Admin Trade Name Freq PRN Reason Stop Dose Admin Acetaminophen 650 mg 08/08/17 03:54 08/08/17 19:49 Tylenol - PO 650 mg Q6H PRN Administration FEVER OR PAIN Acetylcysteine 600 mg 08/09/17 11:15 08/10/17 12:19 Mucomyst 20 Oral / Inh Use Only* PO 600 mg BID EVANGELINA Administration Albuterol/Ipratropium 1 amp 08/07/17 16:45 08/09/17 10:50 Duoneb - NEB 1 amp Q4H PRN Administration SHORTNESS OF BREATH Atorvastatin Calcium 40 mg 08/07/17 22:00 08/09/17 21:45 Lipitor - PO 40 mg HS EVANGELINA Administration Docusate Sodium 100 mg 08/10/17 12:45 08/10/17 13:52 Colace - PO 100 mg BID EVANGELINA Administration Furosemide 80 mg 08/08/17 06:00 08/10/17 13:52 Lasix Injection - IVPUSH 80 mg BID@0600,1400 EVANGELINA Administration Gabapentin 300 mg 08/08/17 22:00 08/10/17 13:53 Neurontin - PO 300 mg TID EVANGELINA Administration Heparin Sodium (Porcine) 1,000 unit 08/07/17 15:46 08/10/17 18:18 Heparin - IVPUSH 1,000 unit PRN PRN Administration Heparin Heparin Sodium (Porcine) 5,000 unit 08/07/17 15:46 08/08/17 23:07 Heparin - IVPUSH 5,000 unit PRN PRN Administration Heparin Hydralazine HCl 75 mg 08/08/17 22:00 08/10/17 12:18 Apresoline - PO 75 mg BID EVANGELINA Administration IV Flush 8 ml 08/10/17 12:46 Picc Line Flush IVPUSH PRN PRN Protocol Heparin Sodium (Porcine) 25, 500 mls @ 20 mls/hr 08/07/17 16:00 08/10/17 18: 17 000 unit/ Sodium Chloride IV 1,650 unit/hr TITR EVANGELINA 33 mls/hr Protocol Titration 1,000 UNIT/HR Insulin Aspart 1 vial 08/08/17 11:00 08/10/17 18:17 Novolog Vial Sliding Scale - SQ 4 unit TIDAC EVANGELINA Administration Protocol Insulin Detemir 10 units 08/08/17 22:00 08/09/17 21:45 Levemir Vial SQ 10 units HS EVANGELINA Administration Isosorbide Dinitrate 10 mg 08/07/17 22:00 08/10/17 12:18 Isordil - PO 10 mg BID EVANGELINA Administration Lactobacillus Acidophilus 1 tab 08/07/17 22:00 08/10/17 12:18 Bacid - PO 1 tab BID EVANGELINA Administration Metoprolol Tartrate 25 mg 08/07/17 19:00 08/10/17 13:53 Lopressor - PO 25 mg TID EVANGELINA Administration Potassium Chloride 20 meq 08/08/17 10:00 08/10/17 12:19 K-Dur - PO 20 meq DAILY EVANGELINA Administration Senna 1 tab 08/10/17 22:00 Senna - PO 08/10/17 22:01 HS ONE Silver Sulfadiazine 1 applic 08/08/17 10:00 08/10/17 12:20 Silvadene - TP 1 applic DAILY EVANGELINA Administration Sodium Hypochlorite 1 applic 08/08/17 10:00 08/10/17 12:19 Dakin's Solution 0.25% (Half-Strength) - TP 1 applic DAILY EVANGELINA Administration Spironolactone 25 mg 08/08/17 10:15 08/10/17 12:19 Aldactone - PO 25 mg DAILY EVANGELINA Administration Home Medications Medication Instructions Recorded Hydralazine HCl 100 mg PO BID 03/17/16 Isosorbide Dinitrate [Isordil -] 10 mg PO BID 03/17/16 Atorvastatin Ca [Lipitor] 40 mg PO HS #30 tablet 01/12/17 Furosemide [Lasix] 20 mg PO BID 08/07/17 Potassium Chloride 20 meq PO DAILY 08/07/17 PE: morbidly obese patient, on 3 Liter NC lying on bed. rest of pE per resident's note. ASSESSMENT AND PLAN: Patient is a 71 y/o man with h/o HTN, CAD, Diastolic heart failure , COPD , prostate carcinoma and untreated DM , who presented with SOB , LE edema and wounds on his feet. He was admitted for infected wounds of LEs , CHF, and A flutter with RVR # Acute disatolic CHF exacerbation: with dminished EF , continue IV lasix 60 BID continue for now, last echo was 01/16 ; on spironolactone daily , Isordil, as per cardio, to change to [place] isordil daily. # New onset A flutter: rate is controlled now on BB, TSH NL, On heparin drip continue . Long-term AC is going to be a challenge. Discussed with pmd, patient unlikely to be compliant with INR checks. per community case manager; Limited data for NOAC's with BMI of 49. Given possible increased risk of stroke with non-adherence to xarelto, would favor Eliquis. If noac's not covered than will need to reconsider feasability of coumadin. on lopressor 25 tid with good rate control today continue , on tele with [id number] 4. cont heparin gtt # Infected wounds on feet : s/p IV clinda , Local wound care as per ID. No further antibiotic is needed. # hyperlipidemia : cont lipitor # DM : with hemoglobin A1c 11. On 10 units of levemir in HS ; Cont SSI ;adjust dose accordingly # HTN: BB , and diuretics DVT px: heparin upon discharge will need sleep studies since patient is morbidly obese to r/o sleep apnea, possible needing Bipap at home, possible discharge with Home 0xygen.
[2017-08-10] MEDS: ALBUTEROL SO4 2.5/IPRATROPIUM 0.5 INH SOL 3 ML VIAL.NEB. NEB PRN (20:53)
[2017-08-10] MEDS ORDERED: SENNOSIDES 8.6MG TABLET (FP) PO ONE (22:00)
[2017-08-10] MEDS: INSULIN DETEMIR 100 UNITS/ML MDV SQ SCH (22:26)
[2017-08-10] MEDS: ATORVASTATIN CA 40 MG TABLET (FP) PO SCH (22:26)
[2017-08-11] MEDS: HEPARIN NA (PORCINE) 5,000 UNITS/ML 1ML VIAL IVPUSH PRN (02:15)
[2017-08-11] MEDS: GABAPENTIN 300 MG CAPSULE (FP) PO SCH ×3 (06:55→22:05)
[2017-08-11] MEDS: METOPROLOL TARTRATE 25 MG TABLET (FP) PO SCH ×3 (06:55→22:05)
[2017-08-11] MEDS: FUROSEMIDE 40 MG/4 ML INJECTABLE VIAL IVPUSH SCH ×2 (06:55→13:26)
[2017-08-11 06:56] LABS: MCH 27.8 pg (25.7-33.7); MCHC 32.5 g/dl (32.0-35.9); MEAN CELL VOLUME 85.4 fl (80-96); MEAN PLT VOLUME 7.6 fl (7.5-11.1); PLATELET COUNT 203 K/MM3 (134-434); RDW 16.3 % (11.9-15.9); WHITE BLOOD COUNT 7.5 K/mm3 (4.0-10.0)
[2017-08-11] MEDS: INSULIN SLIDING SCALE (NOVOLOG) 1 VIAL SQ SCH ×3 (06:56→16:54)
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
[2017-08-11 07:51] LABS: ALBUMIN 3.1 g/dl (3.4-5.0); ANION GAP 5 (8-16); CALCIUM 7.8 mg/dL (8.5-10.1); CO2 39 mmol/L (21-32); CREATININE 1.5 mg/dL (0.7-1.3); GLUCOSE,RANDOM 190 mg/dL (74-106); SGOT/AST 8 U/L (15-37); SGPT/ALT 13 U/L (12-78)
[2017-08-11 07:52] LABS: ALK PHOS 84 U/L (45-117); BILIRUBIN,TOTAL 0.9 mg/dL (0.2-1.0); TOT PROT 6.4 g/dl (6.4-8.2)
[2017-08-11] MEDS ORDERED: PT OWN MED DRAWER 7, Y5N ONE ×2 (09:29→21:56)
[2017-08-11] MEDS: SPIRONOLACTONE 25 MG TABLET (FP) PO SCH (09:37)
[2017-08-11] MEDS: LACTOBACILLUS ACIDOPHILUS 1 EACH TAB (FP) PO SCH ×2 (09:37→22:05)
[2017-08-11] MEDS: POTASSIUM CHLORIDE TABS 20 MEQ TABLET.ER (FP) PO SCH (09:37)
[2017-08-11] MEDS: ACETYLCYSTEINE 20% 200MG/ML 30 ML VIAL *FOR ORAL / INH USE ONLY PO SCH ×2 (09:37→22:06)
[2017-08-11] MEDS: ISOSORBIDE DINITRATE 10 MG TABLET (FP) PO SCH ×2 (09:37→22:05)
[2017-08-11] MEDS: hydrALAZINE HCL 50 MG TABLET (FP) PO SCH ×2 (09:37→22:05)
[2017-08-11] MEDS: DOCUSATE SODIUM 100 MG CAPSULE (FP) PO SCH ×2 (09:37→22:05)
[2017-08-11] MEDS: SODIUM HYPOCHLORITE 0.25%- 473 ML BULK BOTTLE TP SCH (09:47)
[2017-08-11] MEDS: SILVER SULFADIAZINE 1% TOP CREAM 50 GM JAR TP SCH (09:47)
--- NOTE | 2017-08-11 10:21 | PN ---
Teaching Attending Note Name of Resident: Candelaria Guzman ATTENDING PHYSICIAN STATEMENT I saw and evaluated the patient. I reviewed the resident's note and discussed the case with the resident. I agree with the resident's findings and plan as documented. SUBJECTIVE: Patient is feeling better, with no acute distress, no nausea or vomiting, no shortness of breath, no headache. OBJECTIVE: Vital Signs Temperature 97.9 F 08/11/17 06:00 Pulse Rate 60 08/11/17 06:00 Respiratory Rate 18 08/11/17 06:00 Blood Pressure 128/74 08/11/17 06:00 O2 Sat by Pulse Oximetry (%) 95 08/10/17 22:00 CBCD WBC 7.5 K/mm3 (4.0-10.0) 08/11/17 05:10 RBC 3.90 M/mm3 (4.00-5.60) L 08/11/17 05:10 Hgb 10.8 GM/dL (11.7-16.9) L 08/11/17 05:10 Hct 33.3 % (35.4-49) L 08/11/17 05:10 MCV 85.4 fl (80-96) 08/11/17 05:10 MCHC 32.5 g/dl (32.0-35.9) 08/11/17 05:10 RDW 16.3 % (11.9-15.9) H 08/11/17 05:10 Plt Count 203 K/MM3 (134-434) 08/11/17 05:10 MPV 7.6 fl (7.5-11.1) 08/11/17 05:10 CMP Sodium 140 mmol/L (136-145) 08/11/17 05:10 Potassium 3.8 mmol/L (3.5-5.1) 08/11/17 05:10 Chloride 96 mmol/L (98-107) L 08/11/17 05:10 Carbon Dioxide 39 mmol/L (21-32) H 08/11/17 05:10 Anion Gap 5 (8-16) L 08/11/17 05:10 BUN 25 mg/dL (7-18) H D 08/11/17 05:10 Creatinine 1.5 mg/dL (0.7-1.3) H 08/11/17 05:10 Creat Clearance w eGFR 46.13 (>60) 08/11/17 05:10 Random Glucose 190 mg/dL (74-106) H 08/11/17 05:10 Calcium 7.8 mg/dL (8.5-10.1) L 08/11/17 05:10 Total Bilirubin 0.9 mg/dL (0.2-1.0) 08/11/17 05:10 AST 8 U/L (15-37) L 08/11/17 05:10 ALT 13 U/L (12-78) 08/11/17 05:10 Alkaline Phosphatase 84 U/L (45-117) 08/11/17 05:10 Total Protein 6.4 g/dl (6.4-8.2) 08/11/17 05:10 Albumin 3.1 g/dl (3.4-5.0) L 08/11/17 05:10 CARDIAC ENZYMES Creatine Kinase 91 IU/L (39-308) 08/08/17 12:56 Troponin I < 0.02 ng/ml (0.00-0.05) 08/08/17 12:56 Current Medications Generic Name Dose Route Start Last Admin Trade Name Freq PRN Reason Stop Dose Admin Acetaminophen 650 mg 08/08/17 03:54 08/08/17 19:49 Tylenol - PO 650 mg Q6H PRN Administration FEVER OR PAIN Acetylcysteine 600 mg 08/09/17 11:15 08/11/17 09:37 Mucomyst 20 Oral / Inh Use Only* PO 600 mg BID EVANGELINA Administration Albuterol/Ipratropium 1 amp 08/07/17 16:45 08/10/17 20:53 Duoneb - NEB 1 amp Q4H PRN Administration SHORTNESS OF BREATH Atorvastatin Calcium 40 mg 08/07/17 22:00 08/10/17 22:26 Lipitor - PO 40 mg HS EVANGELINA Administration Docusate Sodium 100 mg 08/10/17 12:45 08/11/17 09:37 Colace - PO 100 mg BID EVANGELINA Administration Furosemide 80 mg 08/08/17 06:00 08/11/17 06:55 Lasix Injection - IVPUSH 80 mg BID@0600,1400 EVANGELINA Administration Gabapentin 300 mg 08/08/17 22:00 08/11/17 06:55 Neurontin - PO 300 mg TID EVANGELINA Administration Heparin Sodium (Porcine) 1,000 unit 08/07/17 15:46 08/11/17 02:15 Heparin - IVPUSH 1,000 unit PRN PRN Administration Heparin Heparin Sodium (Porcine) 5,000 unit 08/07/17 15:46 08/08/17 23:07 Heparin - IVPUSH 5,000 unit PRN PRN Administration Heparin Hydralazine HCl 75 mg 08/08/17 22:00 08/11/17 09:37 Apresoline - PO 75 mg BID EVANGELINA Administration IV Flush 8 ml 08/10/17 12:46 Picc Line Flush IVPUSH PRN PRN Protocol Heparin Sodium (Porcine) 25, 500 mls @ 20 mls/hr 08/07/17 16:00 08/11/17 02: 15 000 unit/ Sodium Chloride IV 1,750 unit/hr TITR EVANGELINA 35 mls/hr Protocol Titration 1,000 UNIT/HR Insulin Aspart 1 vial 08/08/17 11:00 08/11/17 06:56 Novolog Vial Sliding Scale - SQ 4 unit TIDAC EVANGELINA Administration Protocol Insulin Detemir 10 units 08/08/17 22:00 08/10/17 22:26 Levemir Vial SQ 10 units HS EVANGELINA Administration Isosorbide Dinitrate 10 mg 08/07/17 22:00 08/11/17 09:37 Isordil - PO 10 mg BID EVANGELINA Administration Lactobacillus Acidophilus 1 tab 08/07/17 22:00 08/11/17 09:37 Bacid - PO 1 tab BID EVANGELINA Administration Metoprolol Tartrate 25 mg 08/07/17 19:00 08/11/17 06:55 Lopressor - PO 25 mg TID EVANGELINA Administration Potassium Chloride 20 meq 08/08/17 10:00 08/11/17 09:37 K-Dur - PO 20 meq DAILY EVANGELINA Administration Silver Sulfadiazine 1 applic 08/08/17 10:00 08/11/17 09:47 Silvadene - TP 1 applic DAILY EVANGELINA Administration Sodium Hypochlorite 1 applic 08/08/17 10:00 08/11/17 09:47 Dakin's Solution 0.25% (Half-Strength) - TP 1 applic DAILY EVANGELINA Administration Spironolactone 25 mg 08/08/17 10:15 08/11/17 09:37 Aldactone - PO 25 mg DAILY EVANGELINA Administration Home Medications Medication Instructions Recorded Hydralazine HCl 100 mg PO BID 03/17/16 Isosorbide Dinitrate [Isordil -] 10 mg PO BID 03/17/16 Atorvastatin Ca [Lipitor] 40 mg PO HS #30 tablet 01/12/17 Furosemide [Lasix] 20 mg PO BID 08/07/17 Potassium Chloride 20 meq PO DAILY 08/07/17 Intake & Output 08/08/17 08/09/17 08/10/17 08/11/17 23:59 23:59 23:59 23:59 Intake Total 7427 395 6919 365 Output Total 1850 3250 1200 1100 Balance -719 -2385 -70 -735 Weight 154.856 kg 124.795 kg 121.653 kg PE: morbidly obese patient, on 3 Liter NC lying on bed, uses 3 liter at home. NecK: nigra acanthosis LUNGS: decreased BS BL. rest of pE per resident's note. ASSESSMENT AND PLAN: Patient is a 71 y/o man with h/o HTN, CAD, Diastolic heart failure , COPD , prostate carcinoma and untreated DM , who presented with SOB , LE edema and wounds on his feet. He was admitted for infected wounds of LEs , CHF, and A flutter with RVR # Acute disatolic CHF exacerbation: with dminished EF , continue IV lasix 80 BID , last echo was 01/16 ; on spironolactone daily , Isordil 10mg po BID continue. # New onset A flutter:with [id number] 4. rate is controlled now on BB, TSH NL, On Eliquis po 10mg BID , witched from heparin drip . On lopressor 25 tid with good rate control today continue. # Infected wounds on feet : Local wound care as per ID. No further antibiotic is needed. s/p IV abx # hyperlipidemia : cont lipitor # DM : with hemoglobin A1c 11. will increase his insulin to 15 units of levemir in HS ; Cont SSI ;will adjust dose accordingly SSI # HTN: BB , and diuretics DVT px: heparin upon discharge will need sleep studies since patient is morbidly obese to r/o sleep apnea, possible needing Bipap at home, patient is on 3liter oxygen at home.
--- NOTE | 2017-08-11 10:49 | PN ---
Progress Note (short form) - Note Progress Note: CC: sob, new aflutter S: endorses good uop to lasix. no cp, palps, dizziness. less sob, legs less tight Current Medications Generic Name Dose Route Start Last Admin Trade Name Freq PRN Reason Stop Dose Admin Acetaminophen 650 mg 08/08/17 03:54 08/08/17 19:49 Tylenol - PO 650 mg Q6H PRN Administration FEVER OR PAIN Acetylcysteine 600 mg 08/09/17 11:15 08/11/17 09:37 Mucomyst 20 Oral / Inh Use Only* PO 600 mg BID EVANGELINA Administration Albuterol/Ipratropium 1 amp 08/07/17 16:45 08/10/17 20:53 Duoneb - NEB 1 amp Q4H PRN Administration SHORTNESS OF BREATH Apixaban 5 mg 08/11/17 10:30 Eliquis - PO BID EVANGELINA Atorvastatin Calcium 40 mg 08/07/17 22:00 08/10/17 22:26 Lipitor - PO 40 mg HS EVANGELINA Administration Docusate Sodium 100 mg 08/10/17 12:45 08/11/17 09:37 Colace - PO 100 mg BID EVANGELINA Administration Furosemide 80 mg 08/08/17 06:00 08/11/17 06:55 Lasix Injection - IVPUSH 80 mg BID@0600,1400 EVANGELINA Administration Gabapentin 300 mg 08/08/17 22:00 08/11/17 06:55 Neurontin - PO 300 mg TID EVANGELINA Administration Hydralazine HCl 75 mg 08/08/17 22:00 08/11/17 09:37 Apresoline - PO 75 mg BID EVANGELINA Administration IV Flush 8 ml 08/10/17 12:46 Picc Line Flush IVPUSH PRN PRN Protocol Insulin Aspart 1 vial 08/08/17 11:00 08/11/17 06:56 Novolog Vial Sliding Scale - SQ 4 unit TIDAC EVANGELINA Administration Protocol Insulin Detemir 10 units 08/08/17 22:00 08/10/17 22:26 Levemir Vial SQ 10 units HS EVANGELINA Administration Isosorbide Dinitrate 10 mg 08/07/17 22:00 08/11/17 09:37 Isordil - PO 10 mg BID EVANGELINA Administration Lactobacillus Acidophilus 1 tab 08/07/17 22:00 08/11/17 09:37 Bacid - PO 1 tab BID EVANGELINA Administration Metoprolol Tartrate 25 mg 08/07/17 19:00 08/11/17 06:55 Lopressor - PO 25 mg TID EVANGELINA Administration Potassium Chloride 20 meq 08/08/17 10:00 08/11/17 09:37 K-Dur - PO 20 meq DAILY EVANGELINA Administration Silver Sulfadiazine 1 applic 08/08/17 10:00 08/11/17 09:47 Silvadene - TP 1 applic DAILY EVANGELINA Administration Sodium Hypochlorite 1 applic 08/08/17 10:00 08/11/17 09:47 Dakin's Solution 0.25% (Half-Strength) - TP 1 applic DAILY EVANGELINA Administration Spironolactone 25 mg 08/08/17 10:15 08/11/17 09:37 Aldactone - PO 25 mg DAILY EVANGELINA Administration Vital Signs Period Temp Pulse Resp BP Sys/Davila Pulse Ox Last 24 Hr 97.9 F-98.9 F 60-118 18-22 102-128/43-74 95-95 nad, calm jvd elevated, neck supple irregularly irregular s1s2 no mrg cta bl, no wheeze, nl eff aaox3 abd nt distended pos bs. trace-1+ le chronic stasis changes no diaphoresis jaundice diminished dp pt no carotid bruits CBC, BMP 08/11/17 05:10 08/11/17 05:10 ekg: afib with pvc's/aberrancy. poor r wave progresion. no acute ischemic changes tele: flutter, rate controlled. cxr: poor inspiration. suspicion for bilateral pleural effusions mibi 11/2013: no ischemia, nl lvef echo 12/2016 ([facility]) : tds; mild conc lvh, nl lvef, nl rv, mild tr, mod ao root dil echo 08/2017: mild lve, mild dec lvef, mild dec rv fcn, mild rve, mild james, mild mr, mild tr, mild pr, nl rvsp, mild ao root dil a/p: 71 m hx diastolic chf/venous insuff/le edema, htn, dilated aortic root, ckd, obesity, copd p/w heart failure exacerbation and new onset aflutter. new onset aflutter - on heparin drip, can transition to eliquis now. - on lopressor 25 tid with good rate control today, cont diastolic chf exacerbation - remains grossly volume overloaded but much improved and close to baseline. good uop with 80 mg IV lasix, wt and sxs improving. con't same for now. Added aldactone as additional diuretic/bp med and to help with low k. monitor weight, daily bmp, I/O copd: - per pmd venous insuff: -diuretic as above htn: -cont current meds
[2017-08-11] MEDS: APIXABAN 5 MG TABLET PO SCH ×2 (11:37→22:05)
--- NOTE | 2017-08-11 12:53 | PN ---
Progress Note, Physician History of Present Illness: pulmonary alert,feeling better,-resp distress - Current Medication List Current Medications: Active Medications Acetaminophen (Tylenol -) 650 mg PO Q6H PRN PRN Reason: FEVER OR PAIN Last Admin: 08/08/17 19:49 Dose: 650 mg Acetylcysteine (Mucomyst 20 Oral / Inh Use Only*) 600 mg PO BID [facility] Last Admin: 08/11/17 09:37 Dose: 600 mg Albuterol/Ipratropium (Duoneb -) 1 amp NEB Q4H PRN PRN Reason: SHORTNESS OF BREATH Last Admin: 08/10/17 20:53 Dose: 1 amp Apixaban (Eliquis -) 5 mg PO BID [facility] Last Admin: 08/11/17 11:37 Dose: 5 mg Atorvastatin Calcium (Lipitor -) 40 mg PO HS [facility] Last Admin: 08/10/17 22:26 Dose: 40 mg Docusate Sodium (Colace -) 100 mg PO BID [facility] Last Admin: 08/11/17 09:37 Dose: 100 mg Furosemide (Lasix Injection -) 80 mg IVPUSH BID@0600,1400 [facility] Last Admin: 08/11/17 06:55 Dose: 80 mg Gabapentin (Neurontin -) 300 mg PO TID [facility] Last Admin: 08/11/17 06:55 Dose: 300 mg Hydralazine HCl (Apresoline -) 75 mg PO BID [facility] Last Admin: 08/11/17 09:37 Dose: 75 mg IV Flush (Picc Line Flush) 8 ml IVPUSH PRN PRN PRN Reason: Protocol Insulin Aspart (Novolog Vial Sliding Scale -) 1 vial SQ TIDAC [facility] PRN Reason: Protocol Last Admin: 08/11/17 12:15 Dose: 2 unit Insulin Detemir (Levemir Vial) 10 units SQ [facility] Last Admin: 08/10/17 22:26 Dose: 10 units Isosorbide Dinitrate (Isordil -) 10 mg PO BID [facility] Last Admin: 08/11/17 09:37 Dose: 10 mg Lactobacillus Acidophilus (Bacid -) 1 tab PO BID [facility] Last Admin: 08/11/17 09:37 Dose: 1 tab Metoprolol Tartrate (Lopressor -) 25 mg PO TID [facility] Last Admin: 08/11/17 06:55 Dose: 25 mg Potassium Chloride (K-Dur -) 20 meq PO DAILY EVANGELINA Last Admin: 08/11/17 09:37 Dose: 20 meq Silver Sulfadiazine (Silvadene -) 1 applic TP DAILY EVANGELINA Last Admin: 08/11/17 09:47 Dose: 1 applic Sodium Hypochlorite (Dakin's Solution 0.25% (Half-Strength) -) 1 applic TP DAILY EVANGELINA Last Admin: 08/11/17 09:47 Dose: 1 applic Spironolactone (Aldactone -) 25 mg PO DAILY EVANGELINA Last Admin: 08/11/17 09:37 Dose: 25 mg - Objective Vital Signs: Vital Signs Temperature 97.9 F 08/11/17 06:00 Pulse Rate 62 08/11/17 11:12 Respiratory Rate 18 08/11/17 06:00 Blood Pressure 128/74 08/11/17 06:00 O2 Sat by Pulse Oximetry (%) 96 08/11/17 11:12 Constitutional: Yes: No Distress, Obese Eyes: Yes: WNL HENT: Yes: WNL Neck: Yes: WNL Cardiovascular: Yes: Pulse Irregular, S1, S2 Respiratory: Yes: Diminished Gastrointestinal: Yes: Normal Bowel Sounds, Soft Extremities: Yes: WNL, Other (chronic stasis changes bilaterally) Edema: Yes Labs: CBC, BMP 08/11/17 05:10 08/11/17 05:10 INR, PTT INR 1.18 (0.82-1.09) H 08/07/17 23:12 Problem List - Problems (1) Obesity, Class II, BMI 35.0-39.9, with comorbidity (see actual BMI) Code(s): E66.01 - MORBID (SEVERE) OBESITY DUE TO EXCESS CALORIES (2) HTN (hypertension) Code(s): I10 - ESSENTIAL (PRIMARY) HYPERTENSION (3) CAD (coronary artery disease) Code(s): I25.10 - ATHSCL HEART DISEASE OF [place] CORONARY ARTERY W/O ANG PCTRS (4) COPD (chronic obstructive pulmonary disease) Code(s): J44.9 - CHRONIC OBSTRUCTIVE PULMONARY DISEASE, UNSPECIFIED Qualifiers: COPD type: COPD with acute exacerbation Qualified Code(s): J44.1 - Chronic obstructive pulmonary disease with (acute) exacerbation (5) Venous stasis of both lower extremities Code(s): I87.8 - OTHER SPECIFIED DISORDERS OF VEINS (6) Acute on chronic respiratory failure with hypoxia and hypercapnia Code(s): J96.21 - ACUTE AND CHRONIC RESPIRATORY FAILURE WITH HYPOXIA; J96.22 - ACUTE AND CHRONIC RESPIRATORY FAILURE WITH HYPERCAPNIA (7) Pulmonary hypertension Code(s): I27.2 - OTHER SECONDARY PULMONARY HYPERTENSION * DO NOT USE * (8) CKD (chronic kidney disease) stage 3, GFR 30-59 ml/min Code(s): N18.3 - CHRONIC KIDNEY DISEASE, STAGE 3 (MODERATE) (9) Volume overload Code(s): E87.70 - FLUID OVERLOAD, UNSPECIFIED (10) CHF (congestive heart failure) Code(s): I50.9 - HEART FAILURE, UNSPECIFIED Qualifiers: Congestive heart failure type: diastolic Congestive heart failure chronicity: unspecified congestive heart failure chronicity Qualified Code(s) : I50.30 - Unspecified diastolic (congestive) heart failure (11) Foot ulcer Code(s): L97.509 - NON-PRESSURE CHRONIC ULCER OTH PRT UNSP FOOT W UNSP SEVERITY Qualifiers: Laterality: unspecified laterality Non-pressure ulcer stage: with fat layer exposed Qualified Code(s): L97.502 - Non-pressure chronic ulcer of other part of unspecified foot with fat layer exposed (12) Maggot infestation Code(s): B87.9 - MYIASIS, UNSPECIFIED Assessment/Plan PULMONARY IMP ACUTE ON CHRONIC HYPOXEMIC/HYPERCAPNEIC RESPIRATORY FAILURE ACUTE ON CHRONIC DIASTOLIC CHF COPD PVD CKD AFIB PULMONARY HTN HTN MORBID OBESITY LIKELY OSAS PLAN IV LASIX O2 INHALED BRONCHODILATORS DAILY WTS MONITOR LYTES,RENAL FUNCTION F/U CHEST X-RAYS SLEEP SCREEN DR ESPARZA
[2017-08-11] MEDS: ATORVASTATIN CA 40 MG TABLET (FP) PO SCH (22:05)
[2017-08-11] MEDS: INSULIN DETEMIR 100 UNITS/ML MDV SQ SCH (22:06)
[2017-08-12] MEDS: INSULIN SLIDING SCALE (NOVOLOG) 1 VIAL SQ SCH ×3 (06:10→17:00)
[2017-08-12] MEDS: FUROSEMIDE 40 MG/4 ML INJECTABLE VIAL IVPUSH SCH ×2 (06:10→14:33)
[2017-08-12] MEDS: METOPROLOL TARTRATE 25 MG TABLET (FP) PO SCH ×3 (06:10→21:54)
[2017-08-12] MEDS: GABAPENTIN 300 MG CAPSULE (FP) PO SCH ×3 (06:10→21:54)
[2017-08-12 08:08] LABS: MCH 27.3 pg (25.7-33.7); MEAN CELL VOLUME 85.3 fl (80-96); MEAN PLT VOLUME 7.6 fl (7.5-11.1); PLATELET COUNT 223 K/MM3 (134-434); RDW 15.8 % (11.9-15.9); WHITE BLOOD COUNT 7.8 K/mm3 (4.0-10.0)
[2017-08-12] MEDS: SPIRONOLACTONE 25 MG TABLET (FP) PO SCH (10:51)
[2017-08-12] MEDS: LACTOBACILLUS ACIDOPHILUS 1 EACH TAB (FP) PO SCH ×2 (10:51→21:54)
[2017-08-12] MEDS: DOCUSATE SODIUM 100 MG CAPSULE (FP) PO SCH ×2 (10:51→21:54)
[2017-08-12] MEDS: hydrALAZINE HCL 50 MG TABLET (FP) PO SCH ×2 (10:51→21:55)
[2017-08-12] MEDS: ISOSORBIDE DINITRATE 10 MG TABLET (FP) PO SCH ×2 (10:52→21:54)
[2017-08-12] MEDS: POTASSIUM CHLORIDE TABS 20 MEQ TABLET.ER (FP) PO SCH (10:52)
[2017-08-12] MEDS: APIXABAN 5 MG TABLET PO SCH ×2 (10:53→21:54)
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
--- NOTE | 2017-08-12 12:27 | PN ---
Progress Note (short form) - Note Progress Note: CC: sob, new aflutter S: no cp, palps, dizziness. less sob, legs less tight Current Medications Generic Name Dose Route Start Last Admin Trade Name Nicolasq PRN Reason Stop Dose Admin Acetaminophen 650 mg 08/08/17 03:54 08/08/17 19:49 Tylenol - PO 650 mg Q6H PRN Administration FEVER OR PAIN Acetylcysteine 600 mg 08/09/17 11:15 08/11/17 22:06 Mucomyst 20 Oral / Inh Use Only* PO 600 mg BID EVANGELINA Administration Albuterol/Ipratropium 1 amp 08/07/17 16:45 08/10/17 20:53 Duoneb - NEB 1 amp Q4H PRN Administration SHORTNESS OF BREATH Apixaban 5 mg 08/11/17 10:30 08/12/17 10:53 Eliquis - PO 5 mg BID EVANGELINA Administration Atorvastatin Calcium 40 mg 08/07/17 22:00 08/11/17 22:05 Lipitor - PO 40 mg HS EVANGELINA Administration Docusate Sodium 100 mg 08/10/17 12:45 08/12/17 10:51 Colace - PO 100 mg BID EVANGELINA Administration Furosemide 80 mg 08/08/17 06:00 08/12/17 06:10 Lasix Injection - IVPUSH 80 mg BID@0600,1400 EVANGELINA Administration Gabapentin 300 mg 08/08/17 22:00 08/12/17 06:10 Neurontin - PO 300 mg TID EVANGELINA Administration Hydralazine HCl 75 mg 08/08/17 22:00 08/12/17 10:51 Apresoline - PO 75 mg BID EVANGELINA Administration IV Flush 8 ml 08/10/17 12:46 Picc Line Flush IVPUSH PRN PRN Protocol Insulin Aspart 1 vial 08/08/17 11:00 08/12/17 12:14 Novolog Vial Sliding Scale - SQ 4 unit TIDAC EVANGELINA Administration Protocol Insulin Detemir 10 units 08/08/17 22:00 08/11/17 22:06 Levemir Vial SQ 10 units HS EVANGELINA Administration Isosorbide Dinitrate 10 mg 08/07/17 22:00 08/12/17 10:52 Isordil - PO 10 mg BID EVANGELINA Administration Lactobacillus Acidophilus 1 tab 08/07/17 22:00 08/12/17 10:51 Bacid - PO 1 tab BID EVANGELINA Administration Metoprolol Tartrate 25 mg 08/07/17 19:00 08/12/17 06:10 Lopressor - PO 25 mg TID EVANGELINA Administration Potassium Chloride 20 meq 08/08/17 10:00 08/12/17 10:52 K-Dur - PO 20 meq DAILY EVANGELINA Administration Silver Sulfadiazine 1 applic 08/08/17 10:00 08/11/17 09:47 Silvadene - TP 1 applic DAILY EVANGELINA Administration Sodium Hypochlorite 1 applic 08/08/17 10:00 08/11/17 09:47 Dakin's Solution 0.25% (Half-Strength) - TP 1 applic DAILY EVANGELINA Administration Spironolactone 25 mg 08/08/17 10:15 08/12/17 10:51 Aldactone - PO 25 mg DAILY EVANGELINA Administration Vital Signs Period Temp Pulse Resp BP Sys/Davila Pulse Ox Last 24 Hr 98.1 F-99.4 F 60-73 18-22 130-153/61-81 93-93 nad, calm jvd elevated, neck supple irregularly irregular s1s2 no mrg cta bl, no wheeze, nl eff aaox3 abd nt distended pos bs. trace-1+ le chronic stasis changes no diaphoresis jaundice diminished dp pt no carotid bruits CBC, BMP 08/12/17 06:00 08/11/17 05:10 ekg: afib with pvc's/aberrancy. poor r wave progresion. no acute ischemic changes tele: aflutter, rate controlled. cxr: poor inspiration. suspicion for bilateral pleural effusions mibi 11/2013: no ischemia, nl lvef echo 12/2016 ([facility]) : tds; mild conc lvh, nl lvef, nl rv, mild tr, mod ao root dil echo 08/2017: mild lve, mild dec lvef, mild dec rv fcn, mild rve, mild james, mild mr, mild tr, mild pr, nl rvsp, mild ao root dil a/p: 71 m hx diastolic chf/venous insuff/le edema, htn, dilated aortic root, ckd, obesity, copd p/w heart failure exacerbation and new onset aflutter. new onset aflutter - on heparin drip, can transition to eliquis now. - on lopressor 25 tid with good rate control today, cont diastolic chf exacerbation - remains a little volume overloaded still but much improved and close to baseline. good uop with 80 mg IV lasix, wt and sxs improving. con't same for now. Added aldactone as additional diuretic/bp med and to help with low k. monitor weight, daily bmp, I/O copd: - per pmd venous insuff: -diuretic as above htn: -cont current meds
[2017-08-12] MEDS: ACETYLCYSTEINE 20% 200MG/ML 30 ML VIAL *FOR ORAL / INH USE ONLY PO SCH ×2 (14:32→21:55)
[2017-08-12] MEDS: SODIUM HYPOCHLORITE 0.25%- 473 ML BULK BOTTLE TP SCH (14:32)
[2017-08-12] MEDS: SILVER SULFADIAZINE 1% TOP CREAM 50 GM JAR TP SCH (14:33)
--- NOTE | 2017-08-12 16:20 | PN ---
Progress Note (short form) - Note Progress Note: PULMONARY Breathing continues to improve. Diuresing well. No chest pain. Last Vital Signs Temp Pulse Resp BP Pulse Ox 98.9 F 62 20 129/74 93 L 08/12/17 15:40 08/12/17 15:40 08/12/17 15:40 08/12/17 15:40 08/12/17 10:16 Intake & Output 08/09/17 08/10/17 08/11/17 08/12/17 23:59 23:59 23:59 23:59 Intake Total 865 1130 1395 130 Output Total 3250 1200 4400 2800 Balance -8245 -70 -3005 -4960 Weight 275 lb 2 oz 268 lb 3.2 oz 265 lb 12.8 oz Gen: NAD at rest Heart: RRR Lung: basilar rales R>L Abd: soft, nontender Ext: + edema CBC, BMP 08/12/17 06:00 08/11/17 05:10 Active Medications Acetaminophen (Tylenol -) 650 mg PO Q6H PRN PRN Reason: FEVER OR PAIN Last Admin: 08/08/17 19:49 Dose: 650 mg Acetylcysteine (Mucomyst 20 Oral / Inh Use Only*) 600 mg PO BID [facility] Last Admin: 08/12/17 14:32 Dose: 600 mg Albuterol/Ipratropium (Duoneb -) 1 amp NEB Q4H PRN PRN Reason: SHORTNESS OF BREATH Last Admin: 08/10/17 20:53 Dose: 1 amp Apixaban (Eliquis -) 5 mg PO BID [facility] Last Admin: 08/12/17 10:53 Dose: 5 mg Atorvastatin Calcium (Lipitor -) 40 mg PO HS [facility] Last Admin: 08/11/17 22:05 Dose: 40 mg Docusate Sodium (Colace -) 100 mg PO BID [facility] Last Admin: 08/12/17 10:51 Dose: 100 mg Furosemide (Lasix Injection -) 80 mg IVPUSH BID@0600,1400 [facility] Last Admin: 08/12/17 14:33 Dose: 80 mg Gabapentin (Neurontin -) 300 mg PO TID [facility] Last Admin: 08/12/17 14:33 Dose: 300 mg Hydralazine HCl (Apresoline -) 75 mg PO BID [facility] Last Admin: 08/12/17 10:51 Dose: 75 mg IV Flush (Picc Line Flush) 8 ml IVPUSH PRN PRN PRN Reason: Protocol Insulin Aspart (Novolog Vial Sliding Scale -) 1 vial SQ TIDAC EVANGELINA PRN Reason: Protocol Last Admin: 08/12/17 12:14 Dose: 4 unit Insulin Detemir (Levemir Vial) 10 units SQ HS [facility] Last Admin: 08/11/17 22:06 Dose: 10 units Isosorbide Dinitrate (Isordil -) 10 mg PO BID [facility] Last Admin: 08/12/17 10:52 Dose: 10 mg Lactobacillus Acidophilus (Bacid -) 1 tab PO BID [facility] Last Admin: 08/12/17 10:51 Dose: 1 tab Metoprolol Tartrate (Lopressor -) 25 mg PO TID [facility] Last Admin: 08/12/17 14:33 Dose: 25 mg Potassium Chloride (K-Dur -) 20 meq PO DAILY [facility] Last Admin: 08/12/17 10:52 Dose: 20 meq Silver Sulfadiazine (Silvadene -) 1 applic TP DAILY [facility] Last Admin: 08/12/17 14:33 Dose: 1 applic Sodium Hypochlorite (Dakin's Solution 0.25% (Half-Strength) -) 1 applic TP DAILY [facility] Last Admin: 08/12/17 14:32 Dose: 1 applic Spironolactone (Aldactone -) 25 mg PO DAILY [facility] Last Admin: 08/12/17 10:51 Dose: 25 mg A/P Acute on Chronic Hypoxic and Hypercapneic Respiratory Failure Acute on Chronic Diastolic Heart Failure Pulmonary HTN COPD Atrial Fibrillation CKD Morbid Obesity Likely BEATRIZ/OHS - continue lasix, aldactone - monitor urine output, creatinine - daily weights, I/Os - O2 to keep Spo2 >90% - inhaled bronchodilators - rate controlled - continue anticoagulation - outpt PFTs, PSG
[2017-08-12] MEDS ORDERED: PT OWN MED DRAWER 7, Y5N ONE (21:52)
[2017-08-12] MEDS: ATORVASTATIN CA 40 MG TABLET (FP) PO SCH (21:54)
[2017-08-12] MEDS: INSULIN DETEMIR 100 UNITS/ML MDV SQ SCH (21:55)
[2017-08-13] MEDS: FUROSEMIDE 40 MG/4 ML INJECTABLE VIAL IVPUSH SCH ×2 (06:20→13:31)
[2017-08-13] MEDS: GABAPENTIN 300 MG CAPSULE (FP) PO SCH ×3 (06:23→22:32)
[2017-08-13] MEDS: METOPROLOL TARTRATE 25 MG TABLET (FP) PO SCH ×3 (06:23→22:32)
[2017-08-13] MEDS ORDERED: INSULIN (NOVOLOG) ASPART 100 UNITS/ML 10ML VIAL ONE (06:28)
[2017-08-13] MEDS: INSULIN SLIDING SCALE (NOVOLOG) 1 VIAL SQ SCH ×3 (06:32→17:01)
[2017-08-13 07:15] LABS: MCH 27.2 pg (25.7-33.7); MEAN CELL VOLUME 84.9 fl (80-96); MEAN PLT VOLUME 7.3 fl (7.5-11.1); PLATELET COUNT 227 K/MM3 (134-434); RDW 15.3 % (11.9-15.9); WHITE BLOOD COUNT 7.4 K/mm3 (4.0-10.0)
[2017-08-13] MEDS: ISOSORBIDE DINITRATE 10 MG TABLET (FP) PO SCH ×2 (09:54→22:32)
[2017-08-13] MEDS: SPIRONOLACTONE 25 MG TABLET (FP) PO SCH (09:54)
[2017-08-13] MEDS: APIXABAN 5 MG TABLET PO SCH ×2 (09:54→22:32)
[2017-08-13] MEDS: POTASSIUM CHLORIDE TABS 20 MEQ TABLET.ER (FP) PO SCH (09:54)
[2017-08-13] MEDS: hydrALAZINE HCL 50 MG TABLET (FP) PO SCH ×2 (09:54→22:32)
[2017-08-13] MEDS: DOCUSATE SODIUM 100 MG CAPSULE (FP) PO SCH ×2 (09:55→22:32)
[2017-08-13] MEDS: LACTOBACILLUS ACIDOPHILUS 1 EACH TAB (FP) PO SCH ×2 (09:55→22:32)
[2017-08-13 10:52] LABS: ANION GAP 10 (8-16); CALCIUM 8.3 mg/dL (8.5-10.1); CO2 36 mmol/L (21-32); CREATININE 1.5 mg/dL (0.7-1.3); GLUCOSE,RANDOM 176 mg/dL (74-106)
--- NOTE | 2017-08-13 11:36 | PN ---
Progress Note (short form) - Note Progress Note: CC: sob, new aflutter S: no cp, palps, dizziness. less sob, legs less tight Current Medications Generic Name Dose Route Start Last Admin Trade Name Freq PRN Reason Stop Dose Admin Acetaminophen 650 mg 08/08/17 03:54 08/08/17 19:49 Tylenol - PO 650 mg Q6H PRN Administration FEVER OR PAIN Acetylcysteine 600 mg 08/09/17 11:15 08/12/17 21:55 Mucomyst 20 Oral / Inh Use Only* PO 600 mg BID EVANGELINA Administration Apixaban 5 mg 08/11/17 10:30 08/13/17 09:54 Eliquis - PO 5 mg BID EVANGELINA Administration Atorvastatin Calcium 40 mg 08/07/17 22:00 08/12/17 21:54 Lipitor - PO 40 mg HS EVANGELINA Administration Docusate Sodium 100 mg 08/10/17 12:45 08/13/17 09:55 Colace - PO 100 mg BID EVANGELINA Administration Furosemide 80 mg 08/08/17 06:00 08/13/17 06:20 Lasix Injection - IVPUSH 80 mg BID@0600,1400 EVANGELINA Administration Gabapentin 300 mg 08/08/17 22:00 08/13/17 06:23 Neurontin - PO 300 mg TID EVANGELINA Administration Hydralazine HCl 75 mg 08/08/17 22:00 08/13/17 09:54 Apresoline - PO 75 mg BID EVANGELINA Administration IV Flush 8 ml 08/10/17 12:46 Picc Line Flush IVPUSH PRN PRN Protocol Insulin Aspart 1 vial 08/08/17 11:00 08/13/17 06:32 Novolog Vial Sliding Scale - SQ 4 unit TIDAC EVANGELINA Administration Protocol Insulin Detemir 10 units 08/08/17 22:00 08/12/17 21:55 Levemir Vial SQ 10 units HS EVANGELINA Administration Isosorbide Dinitrate 10 mg 08/07/17 22:00 08/13/17 09:54 Isordil - PO 10 mg BID EVANGELINA Administration Lactobacillus Acidophilus 1 tab 08/07/17 22:00 08/13/17 09:55 Bacid - PO 1 tab BID EVANGELINA Administration Metoprolol Tartrate 25 mg 08/07/17 19:00 08/13/17 06:23 Lopressor - PO 25 mg TID EVANGELINA Administration Potassium Chloride 20 meq 08/08/17 10:00 08/13/17 09:54 K-Dur - PO 20 meq DAILY EVANGELINA Administration Silver Sulfadiazine 1 applic 08/08/17 10:00 08/12/17 14:33 Silvadene - TP 1 applic DAILY EVANGELINA Administration Sodium Hypochlorite 1 applic 08/08/17 10:00 08/12/17 14:32 Dakin's Solution 0.25% (Half-Strength) - TP 1 applic DAILY EVANGELINA Administration Spironolactone 25 mg 08/08/17 10:15 08/13/17 09:54 Aldactone - PO 25 mg DAILY EVANGELINA Administration Vital Signs Period Temp Pulse Resp BP Sys/Davila Pulse Ox Last 24 Hr 97.8 F-98.9 F 60-62 20-20 115-136/60-74 93-95 nad, calm irregularly irregular s1s2 no mrg cta bl, no wheeze, nl eff aaox3 abd nt distended pos bs. trace le chronic stasis changes no diaphoresis jaundice Laboratory Last Values WBC 7.4 K/mm3 (4.0-10.0) 08/13/17 06:30 RBC 4.16 M/mm3 (4.00-5.60) 08/13/17 06:30 Hgb 11.3 GM/dL (11.7-16.9) L 08/13/17 06:30 Hct 35.3 % (35.4-49) L 08/13/17 06:30 MCV 84.9 fl (80-96) 08/13/17 06:30 MCH 27.2 pg (25.7-33.7) 08/13/17 06:30 MCHC 32.0 g/dl (32.0-35.9) 08/13/17 06:30 RDW 15.3 % (11.9-15.9) 08/13/17 06:30 Plt Count 227 K/MM3 (134-434) 08/13/17 06:30 MPV 7.3 fl (7.5-11.1) L 08/13/17 06:30 Neutrophils % 80.2 % (42.8-82.8) 08/07/17 11:20 Lymphocytes % 13.2 % (8-40) 08/07/17 11:20 Monocytes % 5.3 % (3.8-10.2) 08/07/17 11:20 Eosinophils % 0.8 % (0-4.5) 08/07/17 11:20 Basophils % 0.5 % (0-2.0) 08/07/17 11:20 PT with INR 13.30 SEC (9.98-11.88) H 08/07/17 23:12 INR 1.18 (0.82-1.09) H 08/07/17 23:12 PTT (Actin FS) 36.8 SECONDS (26.9-34.4) H 08/13/17 06:30 Anticoagulation Therapy Y 08/07/17 17:45 Puncture Site Right radial 08/09/17 11:49 ABG pH 7.44 (7.35-7.45) 08/09/17 11:49 ABG pCO2 at Pt Temp 57.4 mmHg (35-45) H 08/09/17 11:49 ABG pO2 at Pt Temp 75.8 mmHg (70-100) 08/09/17 11:49 ABG HCO3 38.7 meq/L (22-26) H 08/09/17 11:49 ABG O2 Sat (Measured) 95.9 % (90-98.9) 08/09/17 11:49 ABG O2 Content 14.5 % vol (15-22) L 08/09/17 11:49 ABG Base Excess 12.8 meq/l (-2-2) H 08/09/17 11:49 Logan Test Positive 08/09/17 11:49 O2 Delivery Device Nasal/o2 08/09/17 11:49 Oxygen Flow Rate 3l 08/09/17 11:49 Vent Mode Y 08/07/17 17:45 Vent Rate Y 08/07/17 17:45 Mechanical Rate No 08/07/17 17:45 PEEP 0.0 cmH2O 08/09/17 11:49 Pressure Support Vent Y 08/07/17 17:45 Sodium 140 mmol/L (136-145) 08/13/17 10:40 Potassium 3.8 mmol/L (3.5-5.1) 08/13/17 10:40 Chloride 94 mmol/L (98-107) L 08/13/17 10:40 Carbon Dioxide 36 mmol/L (21-32) H 08/13/17 10:40 Anion Gap 10 (8-16) 08/13/17 10:40 BUN 29 mg/dL (7-18) H 08/13/17 10:40 Creatinine 1.5 mg/dL (0.7-1.3) H 08/13/17 10:40 Creat Clearance w eGFR 46.13 (>60) 08/11/17 05:10 POC Glucometer 201 UNITS (80-120) 08/13/17 06:26 Random Glucose 176 mg/dL (74-106) H 08/13/17 10:40 Hemoglobin A1c % 11.6 % (4.8-6.0) H D 08/08/17 06:30 Lactic Acid 1.3 mmol/L (0.4-2.0) 08/07/17 11:22 Calcium 8.3 mg/dL (8.5-10.1) L 08/13/17 10:40 Phosphorus 5.4 mg/dL (2.5-4.9) H D 08/10/17 06:45 Magnesium 2.0 mg/dL (1.8-2.4) 08/10/17 06:45 Total Bilirubin 0.9 mg/dL (0.2-1.0) 08/11/17 05:10 AST 8 U/L (15-37) L 08/11/17 05:10 ALT 13 U/L (12-78) 08/11/17 05:10 Alkaline Phosphatase 84 U/L (45-117) 08/11/17 05:10 Creatine Kinase 91 IU/L (39-308) 08/08/17 12:56 Troponin I < 0.02 ng/ml (0.00-0.05) 08/08/17 12:56 B-Natriuretic Peptide 1383.44 pg/ml (5-125) H 08/07/17 11:20 Total Protein 6.4 g/dl (6.4-8.2) 08/11/17 05:10 Albumin 3.1 g/dl (3.4-5.0) L 08/11/17 05:10 Triglycerides 175 mg/dL (35-160) H D 08/08/17 06:30 Cholesterol 157 mg/dL (50-200) D 08/08/17 06:30 Total LDL Cholesterol 86 mg/dL (5-100) D 08/08/17 06:30 HDL Cholesterol 35 mg/dL (40-60) L 08/08/17 06:30 TSH 2.06 uIU/ml (0.358-3.74) D 08/07/17 11:20 Urine Color Colorless 08/08/17 07:00 Urine Appearance Clear 08/08/17 07:00 Urine pH 8.0 (5.0-8.0) D 08/08/17 07:00 Ur Specific Henry 1.006 (1.001-1.035) 08/08/17 07:00 Urine Protein Negative (NEGATIVE) 08/08/17 07:00 Urine Glucose (UA) 1+ (NEGATIVE) H 08/08/17 07:00 Urine Ketones Negative (NEGATIVE) 08/08/17 07:00 Urine Blood Negative (NEGATIVE) 08/08/17 07:00 Urine Nitrite Negative (NEGATIVE) 08/08/17 07:00 Urine Bilirubin Negative (NEGATIVE) 08/08/17 07:00 Urine Urobilinogen Negative mg/dL (0.2-1.0) 08/08/17 07:00 Ur Leukocyte Esterase Negative (NEGATIVE) 08/08/17 07:00 ekg: afib with pvc's/aberrancy. poor r wave progresion. no acute ischemic changes tele: aflutter, rate controlled. cxr: poor inspiration. suspicion for bilateral pleural effusions mibi 11/2013: no ischemia, nl lvef echo 12/2016 ([facility]) : tds; mild conc lvh, nl lvef, nl rv, mild tr, mod ao root dil echo 08/2017: mild lve, mild dec lvef, mild dec rv fcn, mild rve, mild james, mild mr, mild tr, mild pr, nl rvsp, mild ao root dil a/p: 71 m hx diastolic chf/venous insuff/le edema, htn, dilated aortic root, ckd, obesity, copd p/w heart failure exacerbation and new onset aflutter. new onset aflutter - on ac with eliquis - on lopressor 25 tid with good rate control today, cont diastolic chf exacerbation - remains a little volume overloaded still but much improved and close to baseline. good uop with 80 mg IV lasix, wt and sxs improving, cr stable. Possibly change to po diuretic tomorrow. Added aldactone as additional diuretic /bp med and to help with low k. monitor weight, daily bmp, I/O copd: - per pmd venous insuff: -diuretic as above htn: -cont current meds
[2017-08-13] MEDS: SILVER SULFADIAZINE 1% TOP CREAM 50 GM JAR TP SCH (12:00)
[2017-08-13] MEDS: SODIUM HYPOCHLORITE 0.25%- 473 ML BULK BOTTLE TP SCH (12:01)
[2017-08-13] MEDS: ACETYLCYSTEINE 20% 200MG/ML 30 ML VIAL *FOR ORAL / INH USE ONLY PO SCH ×2 (12:01→23:21)
--- NOTE | 2017-08-13 16:21 | PN ---
Progress Note (short form) - Note Progress Note: PULMONARY Breathing continues to improve. Continues to diurese well. No chest pain. Last Vital Signs Temp Pulse Resp BP Pulse Ox 98.1 F 69 20 111/68 95 08/13/17 14:30 08/13/17 14:30 08/13/17 14:30 08/13/17 14:30 08/13/17 10:57 Gen: NAD at rest Heart: RRR Lung: basilar rales R>L Abd: soft, nontender Ext: + edema CBC, BMP 08/13/17 06:30 08/13/17 10:40 Active Medications Acetaminophen (Tylenol -) 650 mg PO Q6H PRN PRN Reason: FEVER OR PAIN Last Admin: 08/08/17 19:49 Dose: 650 mg Acetylcysteine (Mucomyst 20 Oral / Inh Use Only*) 600 mg PO BID [facility] Last Admin: 08/13/17 12:01 Dose: 600 mg Apixaban (Eliquis -) 5 mg PO BID [facility] Last Admin: 08/13/17 09:54 Dose: 5 mg Atorvastatin Calcium (Lipitor -) 40 mg PO HS [facility] Last Admin: 08/12/17 21:54 Dose: 40 mg Docusate Sodium (Colace -) 100 mg PO BID [facility] Last Admin: 08/13/17 09:55 Dose: 100 mg Furosemide (Lasix Injection -) 80 mg IVPUSH BID@0600,1400 [facility] Last Admin: 08/13/17 13:31 Dose: 80 mg Gabapentin (Neurontin -) 300 mg PO TID [facility] Last Admin: 08/13/17 13:31 Dose: 300 mg Hydralazine HCl (Apresoline -) 75 mg PO BID [facility] Last Admin: 08/13/17 09:54 Dose: 75 mg IV Flush (Picc Line Flush) 8 ml IVPUSH PRN PRN PRN Reason: Protocol Insulin Aspart (Novolog Vial Sliding Scale -) 1 vial SQ TIDAC [facility] PRN Reason: Protocol Last Admin: 08/13/17 12:00 Dose: 4 unit Insulin Detemir (Levemir Vial) 10 units SQ [facility] Last Admin: 08/12/17 21:55 Dose: 10 units Isosorbide Dinitrate (Isordil -) 10 mg PO BID [facility] Last Admin: 08/13/17 09:54 Dose: 10 mg Lactobacillus Acidophilus (Bacid -) 1 tab PO BID [facility] Last Admin: 08/13/17 09:55 Dose: 1 tab Metoprolol Tartrate (Lopressor -) 25 mg PO TID [facility] Last Admin: 08/13/17 13:31 Dose: 25 mg Potassium Chloride (K-Dur -) 20 meq PO DAILY [facility] Last Admin: 08/13/17 09:54 Dose: 20 meq Silver Sulfadiazine (Silvadene -) 1 applic TP DAILY [facility] Last Admin: 08/13/17 12:00 Dose: 1 applic Sodium Hypochlorite (Dakin's Solution 0.25% (Half-Strength) -) 1 applic TP DAILY [facility] Last Admin: 08/13/17 12:01 Dose: 1 applic Spironolactone (Aldactone -) 25 mg PO DAILY [facility] Last Admin: 08/13/17 09:54 Dose: 25 mg A/P Acute on Chronic Hypoxic and Hypercapneic Respiratory Failure Acute on Chronic Diastolic Heart Failure Pulmonary HTN COPD Atrial Fibrillation CKD Morbid Obesity Likely BEATRIZ/OHS - continue lasix, aldactone - monitor urine output, creatinine - daily weights, I/Os - O2 to keep Spo2 >90% - inhaled bronchodilators - rate controlled - continue anticoagulation - outpt PFTs, PSG
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
[2017-08-13] MEDS ORDERED: PT OWN MED DRAWER 7, Y5N ONE (22:23)
[2017-08-13] MEDS: ATORVASTATIN CA 40 MG TABLET (FP) PO SCH (22:32)
[2017-08-13] MEDS: INSULIN DETEMIR 100 UNITS/ML MDV SQ SCH (22:33)
[2017-08-14] MEDS ORDERED: INSULIN (NOVOLOG) ASPART 100 UNITS/ML 10ML VIAL ONE (06:24)
[2017-08-14] MEDS: METOPROLOL TARTRATE 25 MG TABLET (FP) PO SCH ×2 (06:38→16:25)
[2017-08-14] MEDS: GABAPENTIN 300 MG CAPSULE (FP) PO SCH ×2 (06:38→16:25)
[2017-08-14] MEDS: FUROSEMIDE 40 MG/4 ML INJECTABLE VIAL IVPUSH SCH ×2 (06:38→16:25)
[2017-08-14] MEDS: INSULIN SLIDING SCALE (NOVOLOG) 1 VIAL SQ SCH ×3 (06:38→16:27)
[2017-08-14 09:21] LABS: ALBUMIN 3.1 g/dl (3.4-5.0); ALK PHOS 77 U/L (45-117); ANION GAP 11 (8-16); BILIRUBIN,TOTAL 0.5 mg/dL (0.2-1.0); CALCIUM 8.3 mg/dL (8.5-10.1); CO2 34 mmol/L (21-32); CREATININE 1.4 mg/dL (0.7-1.3); GLUCOSE,RANDOM 165 mg/dL (74-106); SGOT/AST 7 U/L (15-37); SGPT/ALT 10 U/L (12-78); TOT PROT 6.5 g/dl (6.4-8.2)
[2017-08-14] MEDS ORDERED: ACETYLCYSTEINE 20% 200MG/ML 4 ML VIAL *FOR ORAL / INH USE ONLY IH SCH (10:00)
[2017-08-14] MEDS: SPIRONOLACTONE 25 MG TABLET (FP) PO SCH (10:18)
[2017-08-14] MEDS: hydrALAZINE HCL 50 MG TABLET (FP) PO SCH (10:18)
[2017-08-14] MEDS: LACTOBACILLUS ACIDOPHILUS 1 EACH TAB (FP) PO SCH (10:19)
[2017-08-14] MEDS: SODIUM HYPOCHLORITE 0.25%- 473 ML BULK BOTTLE TP SCH (10:19)
[2017-08-14] MEDS: ISOSORBIDE DINITRATE 10 MG TABLET (FP) PO SCH (10:19)
[2017-08-14] MEDS: APIXABAN 5 MG TABLET PO SCH (10:19)
[2017-08-14] MEDS: DOCUSATE SODIUM 100 MG CAPSULE (FP) PO SCH (10:19)
[2017-08-14] MEDS: POTASSIUM CHLORIDE TABS 20 MEQ TABLET.ER (FP) PO SCH (10:19)
[2017-08-14] MEDS: SILVER SULFADIAZINE 1% TOP CREAM 50 GM JAR TP SCH (10:20)
--- NOTE | 2017-08-14 11:33 | PN ---
Teaching Attending Note Name of Resident: Olivia Goldberg ATTENDING PHYSICIAN STATEMENT I saw and evaluated the patient. I reviewed the resident's note and discussed the case with the resident. I agree with the resident's findings and plan as documented. SUBJECTIVE: Patient is comfortable, wants to go home, with no acute distress. No shortness of breath, on 3 liter oxygen. continue OBJECTIVE: Vital Signs Temperature 98.5 F 08/14/17 10:00 Pulse Rate 61 08/14/17 10:00 Respiratory Rate 20 08/14/17 10:00 Blood Pressure 109/67 08/14/17 10:00 O2 Sat by Pulse Oximetry (%) 94 L 08/14/17 10:36 CBCD WBC 7.4 K/mm3 (4.0-10.0) 08/13/17 06:30 RBC 4.16 M/mm3 (4.00-5.60) 08/13/17 06:30 Hgb 11.3 GM/dL (11.7-16.9) L 08/13/17 06:30 Hct 35.3 % (35.4-49) L 08/13/17 06:30 MCV 84.9 fl (80-96) 08/13/17 06:30 MCHC 32.0 g/dl (32.0-35.9) 08/13/17 06:30 RDW 15.3 % (11.9-15.9) 08/13/17 06:30 Plt Count 227 K/MM3 (134-434) 08/13/17 06:30 MPV 7.3 fl (7.5-11.1) L 08/13/17 06:30 CMP Sodium 140 mmol/L (136-145) 08/14/17 05:35 Potassium 3.7 mmol/L (3.5-5.1) 08/14/17 05:35 Chloride 95 mmol/L (98-107) L 08/14/17 05:35 Carbon Dioxide 34 mmol/L (21-32) H 08/14/17 05:35 Anion Gap 11 (8-16) 08/14/17 05:35 BUN 28 mg/dL (7-18) H 08/14/17 05:35 Creatinine 1.4 mg/dL (0.7-1.3) H 08/14/17 05:35 Creat Clearance w eGFR 49.96 (>60) 08/14/17 05:35 Random Glucose 165 mg/dL (74-106) H 08/14/17 05:35 Calcium 8.3 mg/dL (8.5-10.1) L 08/14/17 05:35 Total Bilirubin 0.5 mg/dL (0.2-1.0) D 08/14/17 05:35 AST 7 U/L (15-37) L 08/14/17 05:35 ALT 10 U/L (12-78) L D 08/14/17 05:35 Alkaline Phosphatase 77 U/L (45-117) 08/14/17 05:35 Total Protein 6.5 g/dl (6.4-8.2) 08/14/17 05:35 Albumin 3.1 g/dl (3.4-5.0) L 08/14/17 05:35 CARDIAC ENZYMES Creatine Kinase 91 IU/L (39-308) 08/08/17 12:56 Troponin I < 0.02 ng/ml (0.00-0.05) 08/08/17 12:56 Home Medications Medication Instructions Recorded Hydralazine HCl 100 mg PO BID 03/17/16 Isosorbide Dinitrate [Isordil -] 10 mg PO BID 03/17/16 Atorvastatin Ca [Lipitor] 40 mg PO HS #30 tablet 01/12/17 Furosemide [Lasix] 20 mg PO BID 08/07/17 Potassium Chloride 20 meq PO DAILY 08/07/17 Intake & Output 08/11/17 08/12/17 08/13/17 08/14/17 23:59 23:59 23:59 23:59 Intake Total 1395 260 Output Total 4400 4350 3600 300 Balance -3005 -4090 -3600 -300 Weight 121.653 kg 120.565 kg 117.934 kg 116.573 kg Current Medications Generic Name Dose Route Start Last Admin Trade Name Freq PRN Reason Stop Dose Admin Acetaminophen 650 mg 08/08/17 03:54 08/08/17 19:49 Tylenol - PO 650 mg Q6H PRN Administration FEVER OR PAIN Apixaban 5 mg 08/11/17 10:30 08/14/17 10:19 Eliquis - PO 5 mg BID [facility] Administration Atorvastatin Calcium 40 mg 08/07/17 22:00 08/13/17 22:32 Lipitor - PO 40 mg HS [facility] Administration Docusate Sodium 100 mg 08/10/17 12:45 08/14/17 10:19 Colace - PO 100 mg BID [facility] Administration Furosemide 80 mg 08/08/17 06:00 08/14/17 16:25 Lasix Injection - IVPUSH 80 mg BID@0600,1400 [facility] Administration Gabapentin 300 mg 08/08/17 22:00 08/14/17 16:25 Neurontin - PO 300 mg TID [facility] Administration Hydralazine HCl 75 mg 08/08/17 22:00 08/14/17 10:18 Apresoline - PO 75 mg BID [facility] Administration Insulin Aspart 1 vial 08/08/17 11:00 08/14/17 16:27 Novolog Vial Sliding Scale - SQ Not Given TIDAC [facility] Protocol Insulin Detemir 14 units 08/14/17 22:00 Levemir Vial SQ HS [facility] Isosorbide Dinitrate 10 mg 08/07/17 22:00 08/14/17 10:19 Isordil - PO 10 mg BID [facility] Administration Lactobacillus Acidophilus 1 tab 08/07/17 22:00 08/14/17 10:19 Bacid - PO 1 tab BID [facility] Administration Metoprolol Succinate 75 mg 08/15/17 10:00 Toprol Xl - PO DAILY [facility] Potassium Chloride 20 meq 08/08/17 10:00 08/14/17 10:19 K-Dur - PO 20 meq DAILY [facility] Administration Silver Sulfadiazine 1 applic 08/08/17 10:00 08/14/17 10:20 Silvadene - TP 1 applic DAILY [facility] Administration Sodium Hypochlorite 1 applic 08/08/17 10:00 08/14/17 10:19 Dakin's Solution 0.25% (Half-Strength) - TP 1 applic DAILY [facility] Administration Spironolactone 25 mg 08/08/17 10:15 08/14/17 10:18 Aldactone - PO 25 mg DAILY [facility] Administration Home Medications Medication Instructions Recorded Hydralazine HCl 100 mg PO BID 03/17/16 Isosorbide Dinitrate [Isordil -] 10 mg PO BID 03/17/16 Atorvastatin Ca [Lipitor] 40 mg PO HS #30 tablet 01/12/17 Potassium Chloride 20 meq PO DAILY 08/07/17 Apixaban [Eliquis -] 5 mg PO BID #60 tablet 08/14/17 Docusate Sodium [Colace -] 100 mg PO BID #60 capsule 08/14/17 Gabapentin [Neurontin -] 300 mg PO TID #90 capsule 08/14/17 Insulin (Levemir) [Levemir Vial] 14 units SQ HS #200 units 08/14/17 Insulin Aspart [Novolog] 5 unit SQ TID #100 cartridge 08/14/17 Metoprolol Succinate [Toprol XL -] 75 mg PO DAILY #30 tab.sr.24h 08/14/17 Pen Needle, Diabetic [Bd 1 each MC TID #100 dis.needle 08/14/17 Ultra-Fine Pen Needle] Silver Sulfadiazine 1% Top Cr 1 applic TP DAILY #1 jar 08/14/17 [Silvadene -] Sodium Hypochlorite [Dakin's 1 applic TP DAILY #1 tube 08/14/17 Solution 0.25% (Half-Strength) -] Spironolactone [Aldactone -] 25 mg PO DAILY #30 tablet 08/14/17 Torsemide 100 mg PO DAILY #30 tablet 08/14/17 pE: per resident's note ASSESSMENT AND PLAN: Patient is a 71 y/o man with h/o HTN, CAD, Diastolic heart failure , COPD , prostate carcinoma and untreated DM , who presented with SOB , LE edema and wounds on his feet. He was admitted for infected wounds of LEs , CHF, and A flutter with RVR # Acute diastolic CHF exacerbation:Discussed with microbiological analyst to dc patient home on Torsemide 100mg po daily , Toprol XL 75mg po daily , spironolactone and Isordil 10mg po BID. Follow with in 2 weeks and if he gains weight to call the office. # New onset A flutter:with [id number] 4. rate is controlled now on BB, TSH NL, On Eliquis po 10mg BID , switched from heparin drip . On Toprol Xl 75mg po daily. # Infected wounds on feet : Local wound care as per ID. No further antibiotic is needed. s/p IV abx # hyperlipidemia : cont lipitor # DM : with hemoglobin A1c 11. will increase his insulin to 15 units of levemir in HS ; to follow with, also NPH regular prescribed 2x per day and follow up with him in a week period . # HTN: BB ,and diuretics Follow with Dr. Pardo for sleep studies since patient is morbidly obese to r /o sleep apnea, possible needing Bipap at home, patient is on 3liter oxygen at home to continue . follow up with a wound care clinic with Dr.Nirav Zapata.
--- NOTE | 2017-08-14 12:35 | CONSULT ---
Consult Consult Specialty:: Endocrinology Referred by:: Dr Fay Reason for Consultation:: Hyperglycemia - History of Present Illness Chief Complaint: SOB History of Present Illness: This is a 71 YOM with h/o diastolic CHF, COPD, chronic venous stasis, CKD stage 3, CAD with prior ID, prostate CA, and prostatectomy who was admitted for SOB and leg swelling for the past week. He also c/o of SOB despite his home use of 3 L O2 at all times. He had spilled boiling water on both feet about a month ago and noted he sustained alanis. Pt was treated with IV Abx, diuretics. Pt found to have hyperglycemia with A1c of 11.6 and treated with Insulin. A1c was 7.1 in 2016. Pt says he was diagnosed with borderline diabetes during admission to hospital about 6 years ago and has been getting Insulin during hosptialization. He has not taken any antidiabetic medication at home. Has polyuria, Polydipsia and nocturia. Has paresthesia of feet but no visual symptoms. - History Source History Provided By: Patient, Medical Record - Past Medical History Cardio/Vascular: Yes: CAD, CHF, HTN, Pulmonary Hypertension Pulmonary: Yes: Asthma, COPD. No: O2 Dependent Renal/: Yes: Cancer (prostate) Endocrine: Yes: Other (Hyperglycemia) Dermatology: Yes: Other (chronic changes on bilateral LEs due to venous insufficiency) - Past Surgical History Past Surgical History: Yes: Appendectomy, Prostatectomy - Alcohol/Substance Use Hx Alcohol Use: No History of Substance Use: reports: Marijuana (many years ago) - Smoking History Smoking history: Former smoker Have you smoked in the past 12 months: No If you are a former smoker, when did you quit?: 1959 - Social History Usual Living Arrangement: With Spouse ADL: Family Assistance History of Recent Travel: (unknown) Home Medications - Allergies Allergies/Adverse Reactions: Allergies Allergy/AdvReac Type Severity Reaction Status Date / Time lactose Allergy Mild Verified 08/07/17 09:50 Penicillins Allergy Verified 08/07/17 09:50 - Home Medications Home Medications: Ambulatory Orders Hydralazine HCl 100 mg PO BID 03/17/16 Isosorbide Dinitrate [Isordil -] 10 mg PO BID 03/17/16 Atorvastatin Ca [Lipitor] 40 mg PO HS #30 tablet 01/12/17 Furosemide [Lasix] 20 mg PO BID 08/07/17 Potassium Chloride 20 meq PO DAILY 08/07/17 Pen Needle, Diabetic [Bd Ultra-Fine Pen Needle] 1 each MC TID #100 dis.needle Family Disease History - Family Disease History Family Disease History: Diabetes: Grandparent (Maternal Grandmother), Heart Disease: Father (HTN, Stroke ) Review of Systems - Review of Systems Constitutional: reports: No Symptoms Eyes: reports: No Symptoms HENT: reports: No Symptoms Neck: reports: No Symptoms Cardiovascular: reports: Other (HILL) Respiratory: reports: SOB on Exertion Gastrointestinal: reports: No Symptoms Genitourinary: reports: Other (polyuria, polydipsia) Breasts: reports: No Symptoms Reported Musculoskeletal: reports: No Symptoms Integumentary: reports: Other (stasis changes of legs) Neurological: reports: Parasthesia (Of feet) Physical Exam Vital Signs: Vital Signs Temperature 98.5 F 08/14/17 10:00 Pulse Rate 61 08/14/17 10:00 Respiratory Rate 20 08/14/17 10:00 Blood Pressure 109/67 08/14/17 10:00 O2 Sat by Pulse Oximetry (%) 94 L 08/14/17 10:36 Constitutional: Yes: No Distress, Calm Eyes: Yes: Conjunctiva Clear, EOM Intact HENT: Yes: Atraumatic, Normocephalic Neck: Yes: Supple, Trachea Midline Cardiovascular: Yes: Regular Rate and Rhythm Respiratory: Yes: Regular, CTA Bilaterally Gastrointestinal: Yes: Normal Bowel Sounds, Soft Musculoskeletal: Yes: WNL Extremities: Yes: Other (stasis changes both legs) Edema: Yes Edema: LLE: Trace, RLE: Trace Neurological: Yes: Alert, Oriented Labs: CBC, BMP 08/13/17 06:30 08/14/17 05:35 Assessment/Plan AP: T2DM Renal Insufficiency CHF Stasis changes of feet Obesity HTN HLD Feet Infection A Flutter CAD Nutrition consult Discussed need to stop drinking sugary drinks Increase Levemir to 14 units daily at HS Novolog 5 units TID with meals FS TID premeals. Pt to call me at [phone] if FS > 300 or <80 F/U in the office next week with FS record.
--- NOTE | 2017-08-14 13:08 | PN ---
Progress Note, Physician Chief Complaint: PULMONARY ALERT,NAD,SITTING UP IN BED,-RESP DISTRESS. [id number] - Current Medication List Current Medications: Active Medications Acetaminophen (Tylenol -) 650 mg PO Q6H PRN PRN Reason: FEVER OR PAIN Last Admin: 08/08/17 19:49 Dose: 650 mg Apixaban (Eliquis -) 5 mg PO BID [facility] Last Admin: 08/14/17 10:19 Dose: 5 mg Atorvastatin Calcium (Lipitor -) 40 mg PO HS [facility] Last Admin: 08/13/17 22:32 Dose: 40 mg Docusate Sodium (Colace -) 100 mg PO BID [facility] Last Admin: 08/14/17 10:19 Dose: 100 mg Furosemide (Lasix Injection -) 80 mg IVPUSH BID@0600,1400 [facility] Last Admin: 08/14/17 06:38 Dose: 80 mg Gabapentin (Neurontin -) 300 mg PO TID [facility] Last Admin: 08/14/17 06:38 Dose: 300 mg Hydralazine HCl (Apresoline -) 75 mg PO BID [facility] Last Admin: 08/14/17 10:18 Dose: 75 mg IV Flush (Picc Line Flush) 8 ml IVPUSH PRN PRN PRN Reason: Protocol Insulin Aspart (Novolog Vial Sliding Scale -) 1 vial SQ TIDAC [facility] PRN Reason: Protocol Last Admin: 08/14/17 10:56 Dose: 4 units Insulin Detemir (Levemir Vial) 14 units SQ [facility] Isosorbide Dinitrate (Isordil -) 10 mg PO BID [facility] Last Admin: 08/14/17 10:19 Dose: 10 mg Lactobacillus Acidophilus (Bacid -) 1 tab PO BID [facility] Last Admin: 08/14/17 10:19 Dose: 1 tab Metoprolol Tartrate (Lopressor -) 25 mg PO TID [facility] Last Admin: 08/14/17 06:38 Dose: 25 mg Potassium Chloride (K-Dur -) 20 meq PO DAILY [facility] Last Admin: 08/14/17 10:19 Dose: 20 meq Silver Sulfadiazine (Silvadene -) 1 applic TP DAILY [facility] Last Admin: 08/14/17 10:20 Dose: 1 applic Sodium Hypochlorite (Dakin's Solution 0.25% (Half-Strength) -) 1 applic TP DAILY [facility] Last Admin: 08/14/17 10:19 Dose: 1 applic Spironolactone (Aldactone -) 25 mg PO DAILY [facility] Last Admin: 08/14/17 10:18 Dose: 25 mg - Objective Vital Signs: Vital Signs Temperature 98.5 F 08/14/17 10:00 Pulse Rate 61 08/14/17 10:00 Respiratory Rate 20 08/14/17 10:00 Blood Pressure 109/67 08/14/17 10:00 O2 Sat by Pulse Oximetry (%) 94 L 08/14/17 10:36 Constitutional: Yes: Calm, Obese Eyes: Yes: WNL HENT: Yes: WNL Neck: Yes: Supple Cardiovascular: Yes: Pulse Irregular, S1, S2 Respiratory: Yes: Diminished Gastrointestinal: Yes: Normal Bowel Sounds, Soft Extremities: Yes: WNL Edema: Yes Labs: CBC, BMP 08/14/17 05:35 INR, PTT INR 1.18 (0.82-1.09) H 08/07/17 23:12 Problem List - Problems (1) Obesity, Class II, BMI 35.0-39.9, with comorbidity (see actual BMI) Code(s): E66.01 - MORBID (SEVERE) OBESITY DUE TO EXCESS CALORIES (2) HTN (hypertension) Code(s): I10 - ESSENTIAL (PRIMARY) HYPERTENSION (3) CAD (coronary artery disease) Code(s): I25.10 - ATHSCL HEART DISEASE OF [place] CORONARY ARTERY W/O ANG PCTRS (4) COPD (chronic obstructive pulmonary disease) Code(s): J44.9 - CHRONIC OBSTRUCTIVE PULMONARY DISEASE, UNSPECIFIED Qualifiers: COPD type: COPD with acute exacerbation Qualified Code(s): J44.1 - Chronic obstructive pulmonary disease with (acute) exacerbation (5) Venous stasis of both lower extremities Code(s): I87.8 - OTHER SPECIFIED DISORDERS OF VEINS (6) Acute on chronic respiratory failure with hypoxia and hypercapnia Code(s): J96.21 - ACUTE AND CHRONIC RESPIRATORY FAILURE WITH HYPOXIA; J96.22 - ACUTE AND CHRONIC RESPIRATORY FAILURE WITH HYPERCAPNIA (7) Pulmonary hypertension Code(s): I27.2 - OTHER SECONDARY PULMONARY HYPERTENSION * DO NOT USE * (8) CKD (chronic kidney disease) stage 3, GFR 30-59 ml/min Code(s): N18.3 - CHRONIC KIDNEY DISEASE, STAGE 3 (MODERATE) (9) Volume overload Code(s): E87.70 - FLUID OVERLOAD, UNSPECIFIED (10) CHF (congestive heart failure) Code(s): I50.9 - HEART FAILURE, UNSPECIFIED Qualifiers: Congestive heart failure type: diastolic Congestive heart failure chronicity: unspecified congestive heart failure chronicity Qualified Code(s) : I50.30 - Unspecified diastolic (congestive) heart failure (11) Foot ulcer Code(s): L97.509 - NON-PRESSURE CHRONIC ULCER OTH PRT UNSP FOOT W UNSP SEVERITY Qualifiers: Laterality: unspecified laterality Non-pressure ulcer stage: with fat layer exposed Qualified Code(s): L97.502 - Non-pressure chronic ulcer of other part of unspecified foot with fat layer exposed (12) Maggot infestation Code(s): B87.9 - MYIASIS, UNSPECIFIED Assessment/Plan PULMONARY IMP ACUTE ON CHRONIC HYPOXEMIC/HYPERCAPNEIC RESPIRATORY FAILURE IMPROVING ACUTE ON CHRONIC DIASTOLIC CHF IMPROVING COPD PVD CKD AFIB PULMONARY HTN HTN MORBID OBESITY SEVERE OSAS PLAN CONTINUE IV LASIX O2 INHALED BRONCHODILATORS DAILY WTS MONITOR LYTES,RENAL FUNCTION F/U CHEST X-RAYS BIPAP AT NIGHT IF PT COMPLIES DR ESPARZA
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
--- NOTE | 2017-08-14 14:33 | PN ---
Progress Note (short form) - Note Progress Note: CC: sob, new aflutter S: no cp, palps, dizziness. sob, le edema improved. Current Medications Acetaminophen (Tylenol -) 650 mg PO Q6H PRN PRN Reason: FEVER OR PAIN Last Admin: 08/08/17 19:49 Dose: 650 mg Apixaban (Eliquis -) 5 mg PO BID [facility] Last Admin: 08/14/17 10:19 Dose: 5 mg Atorvastatin Calcium (Lipitor -) 40 mg PO HS [facility] Last Admin: 08/13/17 22:32 Dose: 40 mg Docusate Sodium (Colace -) 100 mg PO BID [facility] Last Admin: 08/14/17 10:19 Dose: 100 mg Furosemide (Lasix Injection -) 80 mg IVPUSH BID@0600,1400 [facility] Last Admin: 08/14/17 06:38 Dose: 80 mg Gabapentin (Neurontin -) 300 mg PO TID [facility] Last Admin: 08/14/17 06:38 Dose: 300 mg Hydralazine HCl (Apresoline -) 75 mg PO BID [facility] Last Admin: 08/14/17 10:18 Dose: 75 mg IV Flush (Picc Line Flush) 8 ml IVPUSH PRN PRN PRN Reason: Protocol Insulin Aspart (Novolog Vial Sliding Scale -) 1 vial SQ TIDAC [facility] PRN Reason: Protocol Last Admin: 08/14/17 10:56 Dose: 4 units Insulin Detemir (Levemir Vial) 14 units SQ [facility] Isosorbide Dinitrate (Isordil -) 10 mg PO BID [facility] Last Admin: 08/14/17 10:19 Dose: 10 mg Lactobacillus Acidophilus (Bacid -) 1 tab PO BID [facility] Last Admin: 08/14/17 10:19 Dose: 1 tab Metoprolol Tartrate (Lopressor -) 25 mg PO TID [facility] Last Admin: 08/14/17 06:38 Dose: 25 mg Potassium Chloride (K-Dur -) 20 meq PO DAILY [facility] Last Admin: 08/14/17 10:19 Dose: 20 meq Silver Sulfadiazine (Silvadene -) 1 applic TP DAILY [facility] Last Admin: 08/14/17 10:20 Dose: 1 applic Sodium Hypochlorite (Dakin's Solution 0.25% (Half-Strength) -) 1 applic TP DAILY [facility] Last Admin: 08/14/17 10:19 Dose: 1 applic Spironolactone (Aldactone -) 25 mg PO DAILY [facility] Last Admin: 08/14/17 10:18 Dose: 25 mg Vital Signs - 24 hr 08/13/17 08/13/17 08/14/17 18:00 21:00 02:00 Temperature 97.9 F 98.4 F 98.1 F Pulse Rate 60 62 75 Respiratory 18 18 20 Rate Blood Pressure 127/72 145/84 120/58 O2 Sat by Pulse 97 Oximetry (%) 08/14/17 08/14/17 08/14/17 06:00 09:00 10:00 Temperature 98.4 F 98.5 F Pulse Rate 60 61 Respiratory 18 20 20 Rate Blood Pressure 115/55 109/67 O2 Sat by Pulse 94 L Oximetry (%) 08/14/17 08/14/17 10:36 14:00 Temperature 97.8 F Pulse Rate 64 Respiratory 20 Rate Blood Pressure 124/62 O2 Sat by Pulse 94 L Oximetry (%) Intake & Output 08/12/17 08/13/17 08/14/17 08/15/17 07:59 07:59 07:59 07:59 Intake Total 1160 130 Output Total 3700 5050 2800 Balance -2540 -4920 -2800 Weight 265 lb 12.8 oz 260 lb 257 lb nad, calm irregularly irregular s1s2 no mrg cta bl, no wheeze, nl eff aaox3 abd nt distended pos bs. trace le chronic stasis changes no diaphoresis jaundice CBC, BMP 08/13/17 06:30 08/14/17 05:35 ekg: afib with pvc's/aberrancy. poor r wave progresion. no acute ischemic changes tele: aflutter, rate controlled. cxr: poor inspiration. suspicion for bilateral pleural effusions mibi 11/2013: no ischemia, nl lvef echo 12/2016 ([facility]) : tds; mild conc lvh, nl lvef, nl rv, mild tr, mod ao root dil echo 08/2017: mild lve, mild dec lvef, mild dec rv fcn, mild rve, mild james, mild mr, mild tr, mild pr, nl rvsp, mild ao root dil a/p: 71 m hx diastolic chf/venous insuff/le edema, htn, dilated aortic root, ckd, obesity, copd p/w heart failure exacerbation and new onset aflutter. new onset aflutter - on ac with eliquis - on lopressor 25 tid with good rate control at stable dose. Can transition to long-acting (toprol 75 mg daily). diastolic chf exacerbation - remains a little volume overloaded still but much improved and close to baseline. good uop with 80 mg IV lasix, wt and sxs improving, cr stable. Plan for discharge today. Can d/c home on torsemid 100 mg daily. Con't aldactone as additional diuretic/bp med and to help with low k. Patient counseled to monitor weight at home and call outpatient cardiology office if weight increases or decreases by 3 lbs before his follow up appointment. F/u with Dr. Fu in 2-3 weeks. copd: - per pmd venous insuff: -diuretic as above htn: -cont current meds stable for d/c from CV perspective. recs as mentioned above.
[2017-08-14 18:18] VITALS: BP 133/78; PULSE 61; TEMP 98.3
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
[2017-08-14] MEDS ORDERED: INSULIN DETEMIR 100 UNITS/ML MDV SQ SCH (22:00)
[2017-08-15] MEDS ORDERED: METOPROLOL SUCCINATE 25 MG TAB.SR.24H (FP) PO SCH (10:00)
== END 2017-08-14 18:52 | disposition home or self-care (01) | DRG 291 ==
LOC: JER 09:26 → JERBED 14:01 → J4S 08-08 01:39
PROVIDERS: ADMIT Internal Medicine; ATTEND Internal Medicine
DX: I13.0 Hypertensive heart and chronic kidney disease with heart failure and stage 1 through stage 4 chronic kidney disease, or unspecified chronic kidney disease (principal); I50.33 Acute on chronic diastolic (congestive) heart failure; J96.21 Acute and chronic respiratory failure with hypoxia; J96.22 Acute and chronic respiratory failure with hypercapnia; I50.32 Chronic diastolic (congestive) heart failure; I48.92 Unspecified atrial flutter; L97.528 Non-pressure chronic ulcer of other part of left foot with other specified severity; L97.518 Non-pressure chronic ulcer of other part of right foot with other specified severity; J96.11 Chronic respiratory failure with hypoxia; Z68.41 Body mass index [BMI] 40.0-44.9, adult; L03.116 Cellulitis of left lower limb; L03.115 Cellulitis of right lower limb; N17.9 Acute kidney failure, unspecified; I25.10 Atherosclerotic heart disease of native coronary artery without angina pectoris; J44.9 Chronic obstructive pulmonary disease, unspecified; N18.3 Chronic kidney disease, stage 3 (moderate); I25.2 Old myocardial infarction; Z85.46 Personal history of malignant neoplasm of prostate; Z99.81 Dependence on supplemental oxygen; I87.8 Other specified disorders of veins; B87.89 Myiasis of other sites; E66.01 Morbid (severe) obesity due to excess calories; Z87.891 Personal history of nicotine dependence; Z88.0 Allergy status to penicillin; Z91.14 Patient's other noncompliance with medication regimen; E87.6 Hypokalemia; I48.91 Unspecified atrial fibrillation; G47.33 Obstructive sleep apnea (adult) (pediatric); I87.2 Venous insufficiency (chronic) (peripheral); I73.9 Peripheral vascular disease, unspecified; I27.20 Pulmonary hypertension, unspecified; E11.22 Type 2 diabetes mellitus with diabetic chronic kidney disease; E11.40 Type 2 diabetes mellitus with diabetic neuropathy, unspecified; E83.42 Hypomagnesemia
CPT/HCPCS: 36415; 36600; 71010-TC; 71275-TC; 73630-TC-LT; 73630-TC-RT; 80048; 80053; 80061; 81003; 82550; 82803; 83036; 83605; 83721; 83735; 83880; 84100; 84443; 84484; 85025; 85027; 85610; 85730; 87040; 87086; 90688; 93005; 93010; 93306-TC; 94010; 94640; 97116-GP; 97161-GP; 99285-25; G0008; J1644

== ENCOUNTER 2018-09-09 10:15 | Observation (INO) | payer OTHER ==
--- NOTE | 2018-09-09 10:22 | PDOC ---
History of Present Illness - General Stated Complaint: SUGAR PROBLEM Time Seen by Provider: 09/09/18 10:22 - History of Present Illness Initial Comments: 09/09/18 10:22 Mr. Lara is a 72 yo male w/ pmh of DM, diastolic CHF, COPD, chronic venous stasis, CKD (stage 3), CAD, prostate CA s/p prostatectomy BIBA after calling son to "thank him as he doesn't have long to live." Son called EMS. EMS checked BGM which was over range. Patient reports he has not been taking insulin for 3 months as he doesn't like checking his blood glucose levels. Patient is proscribed 14 units levemir at bedtime and 5 units novolog TID. Patient endorses taking other medications. Has not followed up with PCP in last year. Patient has no complaints at this time. The patient denies chest pain, shortness of breath, headache and dizziness. Denies fever, chills, nausea, vomit, diarrhea and constipation. Denies dysuria, frequency, urgency and hematuria. Past History - Past Medical History Allergies/Adverse Reactions: Allergies Allergy/AdvReac Type Severity Reaction Status Date / Time lactose Allergy Mild Verified 09/09/18 10:47 Penicillins Allergy Verified 09/09/18 10:47 Home Medications: Ambulatory Orders Hydralazine HCl 100 mg PO BID 03/17/16 Isosorbide Dinitrate [Isordil -] 10 mg PO BID 03/17/16 Atorvastatin Ca [Lipitor] 40 mg PO HS #30 tablet 01/12/17 Potassium Chloride 20 meq PO DAILY 08/07/17 Apixaban [Eliquis -] 5 mg PO BID #60 tablet 08/14/17 Docusate Sodium [Colace -] 100 mg PO BID #60 capsule 08/14/17 Gabapentin [Neurontin -] 300 mg PO TID #90 capsule 08/14/17 Insulin (Levemir) [Levemir Vial] 14 units SQ HS #200 units 08/14/17 Insulin Aspart [Novolog] 5 unit SQ TID #100 cartridge 08/14/17 Metoprolol Succinate [Toprol XL -] 75 mg PO DAILY #30 tab.sr.24h 08/14/17 Pen Needle, Diabetic [Ultra-Fine Short Pen Needle] 1 each MC TID #100 dis.needle 08/14/17 Silver Sulfadiazine 1% Top Cr [Silvadene -] 1 applic TP DAILY #1 jar 08/14/17 Spironolactone [Aldactone -] 25 mg PO DAILY #30 tablet 08/14/17 Torsemide 100 mg PO DAILY #30 tablet 08/14/17 Anemia: No Asthma: Yes Cancer: Yes (prostate) Cardiac Disorders: No CVA: No COPD: Yes CHF: No Dementia: No Diabetes: No GI Disorders: No Disorders: No HTN: Yes Hypercholesterolemia: No Liver Disease: No Seizures: No Thyroid Disease: No - Surgical History Abdominal Surgery: Yes (Prostate removal) Appendectomy: Yes Cardiac Surgery: No Cholecystectomy: No Lung Surgery: No Neurologic Surgery: No Orthopedic Surgery: No - Immunization History Immunization Up to Date: Yes - Suicide/Smoking/Psychosocial Hx Smoking History: Former smoker Have you smoked in the past 12 months: No If you are a former smoker, when did you quit?: 1960 Hx Alcohol Use: No Drug/Substance Use Hx: No Substance Use Type: None Hx Substance Use Treatment: No Review of Systems - Review of Systems Comments:: 09/09/18 10:23 GENERAL/CONSTITUTIONAL: No fever or chills. No weakness. HEAD, EYES, EARS, NOSE AND THROAT: No change in vision. No ear pain or discharge. No sore throat. CARDIOVASCULAR: No chest pain or shortness of breath RESPIRATORY: No cough, wheezing, or hemoptysis. GASTROINTESTINAL: No nausea, vomiting, diarrhea or constipation. GENITOURINARY: No dysuria, frequency, or change in urination. MUSCULOSKELETAL: No joint or muscle swelling or pain. No neck or back pain. SKIN: No rash NEUROLOGIC: No headache, vertigo, loss of consciousness, or change in strength/ sensation. ENDOCRINE: No increased thirst. No abnormal weight change HEMATOLOGIC/LYMPHATIC: No anemia, easy bleeding, or history of blood clots. ALLERGIC/IMMUNOLOGIC: No hives or skin allergy. *Physical Exam - Physical Exam Comments: 09/09/18 10:23 GENERAL: Awake, alert, and fully oriented, in no acute distress HEAD: No signs of trauma, normocephalic, atraumatic EYES: PERRLA, EOMI, sclera anicteric, conjunctiva clear ENT: Auricles normal inspection, hearing grossly normal, nares patent, oropharynx clear without exudates. Moist mucosa NECK: Normal ROM, supple, no lymphadenopathy, JVD, or masses LUNGS: No distress, speaks full sentences, clear to auscultation bilaterally HEART: Regular rate and rhythm, normal S1 and S2, no murmurs, rubs or gallops, peripheral pulses normal and equal bilaterally. ABDOMEN: Soft, nontender, normoactive bowel sounds. No guarding, no rebound. No masses EXTREMITIES: +Lower extremities swollen and scaly bilaterally, swollen c/w his chronic venous statsis. Otherwise normal range of motion. No clubbing or cyanosis. NEUROLOGICAL: +Patient noted to be emotionally labile. Cranial nerves II through XII grossly intact. Normal speech, normal gait, no focal sensorimotor deficits SKIN: Warm, Dry, normal turgor, no rashes or lesions noted. ED Treatment Course - LABORATORY CBC & Chemistry Diagram: 09/09/18 11:23 09/09/18 11:23 Medical Decision Making - Medical Decision Making 09/09/18 11:00 Mr. Lara is a 72 yo male w/ pmh as described BIBA for symptoms suggestive for depression. Patient denies any SI or HI however actions not congruent. Patient noted to be hyperglycemic via EMS. Labs sent for evaluation. 09/09/18 15:19 Discussed patient w/ Dr. Pérez for suspected depression; will evaluate in hospital. 09/09/18 15:19 Discussed patient with family who agree he seems more depressed. PCP contacted for consult. *DC/Admit/Observation/Transfer Diagnosis at time of Disposition: Hyperglycemia Depression Qualifiers: Depression Type: unspecified Qualified Code(s): F32.9 - Major depressive disorder, single episode, unspecified - Discharge Dispostion Decision to Admit order: Yes - Referrals - Patient Instructions - Post Discharge Activity
--- NOTE | 2018-09-09 11:14 | PDOC ---
Attending Attestation - Resident Resident Name: Juan Manuel Narvaez - ED Attending Attestation I have performed the following: I have examined & evaluated the patient, The case was reviewed & discussed with the resident, I agree w/resident's findings & plan, Exceptions are as noted - HPI HPI: 72 yo M history DM, CHF, COPD, venous stasis, CKD, CAD presents after calling his son and indicating that he did not have long to live. He has not been taking his insulin, as he felt he had already treated his diabetes and did not like using the needles. Denies SOB, fever, chills, dysuria. He has swelling in his legs that is chronic. - Physicial Exam PE: GENERAL: Awake, alert, and fully oriented, in no acute distress. Obese. Tearful at times. HEAD: No signs of trauma EYES: PERRLA, EOMI, sclera anicteric, conjunctiva clear ENT: Auricles normal inspection, hearing grossly normal, nares patent, oropharynx clear without exudates. Dry mucosa NECK: Normal ROM, supple, no lymphadenopathy, JVD, or masses LUNGS: Breath sounds equal, clear to auscultation bilaterally. No wheezes, and no crackles HEART: Regular rate and rhythm, normal S1 and S2, no murmurs, rubs or gallops ABDOMEN: Soft, nontender, normoactive bowel sounds. No guarding, no rebound. No masses EXTREMITIES: Normal range of motion, 3+ pitting edema to BLE with stasis changes. No clubbing or cyanosis. No cords, erythema, or tenderness NEUROLOGICAL: Cranial nerves II through XII grossly intact. Normal speech, normal gait. Motor and sensation intact. SKIN: Warm, Dry, normal turgor. +Erythema to the BLE. No open lesions. - Medical Decision Making Pt with poor adherence to DM regimen, stating he does not like to get injections. Pt with depressed affect, sad. Concerning that he is not taking his medications and also appears depressed. Will send labs to further evaluate. May require admission.
[2018-09-09] MEDS ORDERED: SPIRONOLACTONE 25 MG TABLET (FP) PO ONE (11:27)
[2018-09-09] MEDS ORDERED: APIXABAN 5 MG TABLET PO ONE ×2 (11:28→11:49)
[2018-09-09] MEDS ORDERED: ISOSORBIDE DINITRATE 5 MG TABLET PO ONE (11:29)
[2018-09-09] MEDS ORDERED: SPIRONOLACTONE 25 MG TABLET (FP) ONE (11:49)
[2018-09-09 11:53] LABS: BASO % 0.3 % (0-2.0); EOS % 0.3 % (0-4.5); HEMATOCRIT 40.4 % (35.4-49); HEMOGLOBIN 13.2 GM/dL (11.7-16.9); MCH 27.4 pg (25.7-33.7); MCHC 32.6 g/dl (32.0-35.9); MEAN CELL VOLUME 84.1 fl (80-96); MEAN PLT VOLUME 8.7 fl (7.5-11.1); MONO % 6.4 % (3.8-10.2); PLATELET COUNT 187 K/MM3 (134-434); RDW 14.6 % (11.9-15.9)
[2018-09-09 12:09] LABS: URINE APPEARANCE CLEAR; URINE BILIRUBIN NEGATIVE (<2.0 mg/dL); URINE COLOR STRAW; URINE GLUCOSE (UA) 3+ (NEGATIVE); URINE KETONE TRACE (NEGATIVE); URINE LEUK ESTERASE NEGATIVE (NEGATIVE); URINE NITRITE NEGATIVE (NEGATIVE); URINE PROTEIN NEGATIVE (NEGATIVE); URINE UROBILINOGEN NEGATIVE mg/dL (0.2-1.0)
[2018-09-09 12:10] LABS: ALBUMIN 3.4 g/dl (3.4-5.0); ALK PHOS 135 U/L (45-117); ANION GAP 12 MMOL/L (8-16); BILIRUBIN,TOTAL 0.8 mg/dL (0.2-1); BLOOD UREA NITROGEN 20 mg/dL (7-18); CALCIUM 9.2 mg/dL (8.5-10.1); CHLORIDE 94 mmol/L (98-107); CO2 28 mmol/L (21-32); CREATININE 1.3 mg/dL (0.55-1.3); SGOT/AST 8 U/L (15-37); SGPT/ALT 14 U/L (13-61); SODIUM 133 mmol/L (136-145); TOT PROT 6.9 g/dl (6.4-8.2)
[2018-09-09 12:18] LABS: GLUCOSE,RANDOM 463 mg/dL (74-106)
[2018-09-09] MEDS ORDERED: INSULIN REGULAR HUMAN 100 UNITS/ML *VIAL SQ ONE (12:19)
[2018-09-09 12:22] LABS: ACETONE SERUM TRACE (NEGATIVE)
[2018-09-09] MEDS ORDERED: INSULIN REGULAR HUMAN 100 UNITS/ML *VIAL ONE (12:33)
[2018-09-09] MEDS ORDERED: TORSEMIDE 100 MG TABLET PO ONE (12:37)
[2018-09-09] MEDS ORDERED: FUROSEMIDE 40 MG TABLET (FP) ONE (17:39)
[2018-09-09] MEDS ORDERED: INSULIN (NOVOLOG) ASPART 100 UNITS/ML 10ML VIAL ONE (17:40)
[2018-09-09] MEDS: INSULIN SLIDING SCALE (NOVOLOG) 1 VIAL SQ SCH (17:41)
[2018-09-09] MEDS: FUROSEMIDE 40 MG TABLET (FP) PO SCH ×2 (17:41→17:45)
--- NOTE | 2018-09-09 18:27 | HP ---
CHIEF COMPLAINT: Elevated glucose, depression PCP: Dr. Carrizales Oncology Physician Assistant: Dr. Fu Supervisor Incising: Dr. Farrell House Shorer: Dr. Francisco HISTORY OF PRESENT ILLNESS: 72 year old male with a PMH significant for DM2, A-fib, diastolic CHF, CAD, HTN , HLD, CKD, COPD (On home O2 PRN), chronic yahir stasis, oa, and obesity presented to the ED with slurred speech and depression. This morning, his son noticed when talking to him on the phone that his speech sounded slightly slurred. The son was also alarmed when his father said he wanted to "thank him as he doesn't have long to live." The son then called an ambulance to bring him to the ED. EMS checked BGM whih was over range. Patient reports today has bee a "bad emotional day" for him because he was reminded of when his father and he was left to make the decision to "pull the plug." He is very sad he was not able to be present when his father to say goodbye. This lack of closure has been a great source of sadness for him. He has never been diagnosed with any psychiatric disorder, never been on psych medications or seen a psychiatrist. Denies fevers, dizziness, syncope, seizures, chest pain, shortness of breath, n/v/d. Patient reports his speech has been slower and slightly slurred over the past several days. He has stopped taking his insulin over the past 3 months because he wanted to control his diabetes with diet. He reports having lost about 30 lbs over the past year through diet changes. His quality of life over the past year has been greatly diminished. He ambulates with two crutches because of severe OA to b/l knees and right hip. He has been told he needs all three joints replaced. Because he is on so many diuretics he constantly has to use the restroom, so he feels he cannot easily leave the house. His report he sits in a room in the dark all day and gets annoyed when someone tries to turn on the lights. Upon admission to the ED, BP 153/92, labs notable for BS of 463. He was given 8 u of regular insulin. Recent Travel: No PAST MEDICAL HISTORY: A-fib (On Eliquis) DM2 Diastolic CHF CAD HTN HLD CKD (stage 3) COPD (On home O2) Prostate cancer Chronic venous stasis Osteoarthritis of knees and right hip Obesity PAST SURGICAL HISTORY: Prostatectomy 01/2006 Tonsillectomy Appendectomy Social History: , lives with spouse, two adult children; a son and a daughter Smoking: Former, quit 30 years ago Alcohol: Rarely Drugs: Denies Family History: Father: Stroke, in his 50s Maternal Grandmother: DM Grandfather and uncle: Stroke Allergies lactose Allergy (Mild, Verified 09/09/18 10:47) Penicillins Allergy (Verified 09/09/18 10:47) HOME MEDICATIONS: Home Medications Medication Instructions Recorded Hydralazine HCl 100 mg PO BID 03/17/16 Isosorbide Dinitrate [Isordil -] 10 mg PO BID 03/17/16 Atorvastatin Ca [Lipitor] 40 mg PO HS #30 tablet 01/12/17 Potassium Chloride 20 meq PO DAILY 08/07/17 Apixaban [Eliquis -] 5 mg PO BID #60 tablet 08/14/17 Docusate Sodium [Colace -] 100 mg PO BID #60 capsule 08/14/17 Gabapentin [Neurontin -] 300 mg PO TID #90 capsule 08/14/17 Insulin (Levemir) [Levemir Vial] 14 units SQ HS #200 units 08/14/17 Insulin Aspart [Novolog] 5 unit SQ TID #100 cartridge 08/14/17 Metoprolol Succinate [Toprol XL -] 75 mg PO DAILY #30 tab.sr.24h 08/14/17 Pen Needle, Diabetic [Ultra-Fine 1 each MC TID #100 dis.needle 08/14/17 Short Pen Needle] Silver Sulfadiazine 1% Top Cr 1 applic TP DAILY #1 jar 08/14/17 [Silvadene -] Spironolactone [Aldactone -] 25 mg PO DAILY #30 tablet 08/14/17 Torsemide 100 mg PO DAILY #30 tablet 08/14/17 Furosemide [Lasix] 40 mg PO DAILY 09/09/18 REVIEW OF SYSTEMS CONSTITUTIONAL: (+) weight change, lost 30 lbs over the past year through TLC Absent: fever, chills, diaphoresis, generalized weakness, malaise, loss of appetite HEENT: Absent: rhinorrhea, nasal congestion, throat pain, throat swelling, difficulty swallowing, mouth swelling, ear pain, eye pain, visual changes CARDIOVASCULAR: (+) lightheadedness occasionally Absent: chest pain, syncope, palpitations, irregular heart rate, lightheadedness , peripheral edema RESPIRATORY: Absent: cough, shortness of breath, dyspnea with exertion, orthopnea, wheezing, stridor, hemoptysis GASTROINTESTINAL: (+) occasional diarrhea Absent: abdominal pain, abdominal distension, nausea, vomiting, constipation, melena, hematochezia GENITOURINARY: (+) frequency because of his diuretics Absent: dysuria, urgency, hesitancy, hematuria, flank pain, genital pain MUSCULOSKELETAL: Absent: myalgia, arthralgia, joint swelling, back pain, neck pain SKIN: (+) dry skin to BLE Absent: rash, itching, pallor HEMATOLOGIC/IMMUNOLOGIC: Absent: easy bleeding, easy bruising, lymphadenopathy, frequent infections ENDOCRINE: Absent: unexplained weight gain, unexplained weight loss, heat intolerance, cold intolerance NEUROLOGIC: (+) unsteady gait, paresthesias in b/l legs Absent: headache, focal weakness, dizziness, seizure, mental status changes, bladder or bowel incontinence PSYCHIATRIC: (+) Depression Absent: anxiety, suicidal or homicidal ideation, hallucinations. PHYSICAL EXAMINATION Vital Signs - 24 hr 09/09/18 09/09/18 09/09/18 10:18 12:40 17:38 Temperature 98.5 F Pulse Rate 76 Pulse Rate [ 95 H 69 Left] Respiratory 18 18 18 Rate Blood Pressure 152/93 Blood Pressure 141/73 130/55 L [Right Arm] O2 Sat by Pulse 99 95 94 L Oximetry (%) GENERAL: Dishevelled appearance, awake, alert, and fully oriented, in no acute distress. HEAD: Normal with no signs of trauma. EYES: [place] sclera, pupils equal, round and reactive to light, extraocular movements intact, conjunctiva clear. No lid lag. EARS, NOSE, THROAT: Poor dention with many missing teeth, nares patent, oropharynx clear without exudates. Moist mucous membranes. NECK: Normal range of motion, supple without lymphadenopathy, JVD, or masses. LUNGS: Breath sounds equal, clear to auscultation bilaterally. No wheezes, and no crackles. No accessory muscle use. HEART: Regular rate and rhythm, normal S1 and S2 without murmur, rub or gallop. ABDOMEN: Obese, soft, non-tender, not distended, normoactive bowel sounds, no guarding, no rebound, no masses. No hepatomegaly or splenomegaly. MUSCULOSKELETAL: Normal range of motion at all joints. No bony deformities or tenderness. No CVA tenderness. UPPER EXTREMITIES: Long, broken fingernails, 2+ pulses, warm, well-perfused. No cyanosis. No clubbing. No peripheral edema. LOWER EXTREMITIES: +Dry, hyper-pigmented, thickened skin to BLE with thick yellow toenails. NEUROLOGICAL: No facial droop, tongue midline, normal speech. PSYCHIATRIC: Cooperative. Good eye contact. Appropriate mood and affect. SKIN: Warm, dry, normal turgor, no rashes or lesions noted, normal capillary refill. Laboratory Results - last 24 hr 09/09/18 09/09/18 09/09/18 11:23 11:23 11:23 WBC 8.0 RBC 4.80 Hgb 13.2 Hct 40.4 MCV 84.1 MCH 27.4 MCHC 32.6 RDW 14.6 Plt Count 187 MPV 8.7 D Absolute Neuts (auto) 6.1 Neutrophils % 76.0 Lymphocytes % 17.0 D Monocytes % 6.4 Eosinophils % 0.3 Basophils % 0.3 Nucleated RBC % 0 Sodium 133 L Potassium 4.0 Chloride 94 L Carbon Dioxide 28 Anion Gap 12 BUN 20 H Creatinine 1.3 Creat Clearance w eGFR 54.26 POC Glucometer Random Glucose 463 H* Calcium 9.2 Total Bilirubin 0.8 AST 8 L ALT 14 Alkaline Phosphatase 135 H Total Protein 6.9 Albumin 3.4 Urine Color Straw Urine Appearance Clear Urine pH 8.0 Ur Specific Artesian 1.023 Urine Protein Negative Urine Glucose (UA) 3+ H Urine Ketones Trace H Urine Blood Negative Urine Nitrite Negative Urine Bilirubin Negative Urine Urobilinogen Negative Ur Leukocyte Esterase Negative Acetone, Qual Trace 09/09/18 09/09/18 13:37 17:34 WBC RBC Hgb Hct MCV MCH MCHC RDW Plt Count MPV Absolute Neuts (auto) Neutrophils % Lymphocytes % Monocytes % Eosinophils % Basophils % Nucleated RBC % Sodium Potassium Chloride Carbon Dioxide Anion Gap BUN Creatinine Creat Clearance w eGFR POC Glucometer > 400 [id number] Random Glucose Calcium Total Bilirubin AST ALT Alkaline Phosphatase Total Protein Albumin Urine Color Urine Appearance Urine pH Ur Specific Artesian Urine Protein Urine Glucose (UA) Urine Ketones Urine Blood Urine Nitrite Urine Bilirubin Urine Urobilinogen Ur Leukocyte Esterase Acetone, Qual ASSESSMENT/PLAN: 72 year old male with a PMH significant for DM2, A-fib, diastolic CHF, CAD, HTN , HLD, CKD, COPD (On home O2 PRN), chronic yahir stasis, oa, and obesity presented to the ED with slurred speech and depression. Work up revealed glucose of 463. Patient was placed on observation for glucose correction and psych consult. DM2 - Diagnosed one year ago - Non compliant with home regimen of Lantus 14 u HS, Novolog 5 u TID AC an sliding scale - Reports neuropathy to BLE, but no longer taking Gabapentin 300 mg PO TID - Start Lanutus 10 u SQ QHS - SS with Novolog - Monitor finger stick - Hgb A1c ordered - Followed by elementary assistant principal Dr. Francisco A-fib - On Eliquis 5 mg PO BID - Metoprolol Succinate 75 mg PO DAILY - Followed by driver engineer Dr. Fu Diastolic CHF/HTN/CAD - Home medications - Hydralazine HCl 100 mg PO BID - Torsemide 100 mg PO DAILY - Lasix 40 mg PO BID - Potassium Chloride 20 meq PO DAILY - Consult with Dr. Fu ordered to confirm Torsemide AND Lasix, hold Lasix until cleared HLD - Atorvastatin Ca 40 mg PO HS - Lipid panel ordered CKD (stage 3) - BUN/Cr 20/1.3 - Monitor BMP - Renal dosing for medications COPD - On home O2 PRN - Family reports he uses home O2 most days - Followed by financial analyst Dr. Farrell Chronic venous stasis - Seen by Dr. Zapata in the past - Aquaphor to BLE BID Depression - Never been on psychiatric medications in the past - Psych consult ordered Osteoarthritis of knees and right hip - Patient reports he has been told he needs all 3 joints replaced - Walks with two crutches at home - PT consult ordered - Denies pain - F/u OP with ortho Obesity - BMI 36.3 - Reports losing 30 lbs over the past year through dietary changes - Consider dietary consult Constipation - Docusate 100 mg PO BID FEN - PO intake adequate - Replete as needed - Diabetic, Na restricted, low cholesterol diet Prophylaxis - DVT: On Eliquis 5 mg PO BID Disp: Patient requires further inpatient monitoring. FULL CODE Visit type - Emergency Visit Emergency Visit: Yes ED Registration Date: 09/09/18 Care time: The patient presented to the Emergency Department on the above date and was hospitalized for further evaluation of their emergent condition. - New Patient This patient is new to me today: Yes Date on this admission: 09/10/18 - Critical Care Critical Care patient: No
[2018-09-09] MEDS ORDERED: FLU VACCINE QUAD 60 MCG/0.5 ML (MDV 18-19) IM ONE (19:15)
[2018-09-09] MEDS ORDERED: INSULIN (LEVEMIR) 100 UNITS/ML UNITS SQ SCH (22:00)
[2018-09-09] MEDS ORDERED: ATORVASTATIN CA 40 MG TABLET (FP) PO SCH (22:00)
[2018-09-09] MEDS: MINERAL OIL/PETROLAT/WATER TOPICAL CREAM 454 GM JAR TP SCH (22:55)
[2018-09-09] MEDS: INSULIN (LEVEMIR) 100 UNITS/ML UNITS SQ SCH (22:55)
[2018-09-09] MEDS: APIXABAN 5 MG TABLET PO SCH (22:56)
[2018-09-09] MEDS: DOCUSATE SODIUM 100 MG CAPSULE (FP) PO SCH (22:56)
[2018-09-09] MEDS: hydrALAZINE HCL 50 MG TABLET (FP) PO SCH (22:56)
[2018-09-09] MEDS ORDERED: ACETAMINOPHEN 325 MG TABLET (FP) PO ONE (23:08)
[2018-09-10] MEDS ORDERED: ACETAMINOPHEN 325 MG TABLET (FP) PO ONE (03:12)
[2018-09-10] MEDS: INSULIN SLIDING SCALE (NOVOLOG) 1 VIAL SQ SCH ×5 (06:12→21:35)
[2018-09-10 06:52] LABS: ANION GAP 8 MMOL/L (8-16); BLOOD UREA NITROGEN 21 mg/dL (7-18); CALCIUM 8.5 mg/dL (8.5-10.1); CHLORIDE 94 mmol/L (98-107); CO2 32 mmol/L (21-32); CREATININE 1.4 mg/dL (0.55-1.3); MAGNESIUM 1.8 mg/dL (1.8-2.4); POTASSIUM 3.4 mmol/L (3.5-5.1); SODIUM 134 mmol/L (136-145)
[2018-09-10 08:10] LABS: GLUCOSE,RANDOM 391 mg/dL (74-106)
[2018-09-10 08:44] LABS: CHOLESTEROL 133 mg/dL (50-200); HDL CHOLESTEROL 28 mg/dL (40-60); TRIGLYCERIDES 314 mg/dL (0-150)
[2018-09-10 09:14] LABS: HEMATOCRIT 35.5 % (35.4-49); HEMOGLOBIN 12.5 GM/dL (11.7-16.9); MCH 29.3 pg (25.7-33.7); MCHC 35.3 g/dl (32.0-35.9); MEAN CELL VOLUME 82.8 fl (80-96); MEAN PLT VOLUME 8.9 fl (7.5-11.1); PLATELET COUNT 192 K/MM3 (134-434); RBC 4.28 M/mm3 (4.00-5.60); RDW 14.5 % (11.9-15.9); WHITE BLOOD COUNT 7.3 K/mm3 (4.0-10.0)
--- NOTE | 2018-09-10 09:14 | CON.CARD ---
Consult Consult Specialty:: cardio - History of Present Illness Chief Complaint: suicidal ideation History of Present Illness: 72 M sent by son b/c pt reported he did not have long to live over the phone. psych consult pending to evaluate depression. pt gave ER history of afib on AC, dr campbell as senior information security consultant. also reported torsemide and furoemide both in his med list--we were consulted to clarify the diuretic dosing pt specifically denies leg swelling (at his usual best), sob, cp, palpit, syncope PMH: DM2, A-fib, diastolic CHF, CAD, HTN, HLD, CKD, COPD (On home O2 PRN), chronic yahir stasis, OA - Past Medical History Cardio/Vascular: Yes: CAD, CHF, HTN, Pulmonary Hypertension Pulmonary: Yes: Asthma, COPD. No: O2 Dependent Renal/: Yes: Cancer (prostate) Endocrine: Yes: Other (Hyperglycemia) Dermatology: Yes: Other (chronic changes on bilateral LEs due to venous insufficiency) - Past Surgical History Past Surgical History: Yes: Appendectomy, Prostatectomy - Alcohol/Substance Use Hx Alcohol Use: No History of Substance Use: reports: Marijuana (many years ago) - Smoking History Smoking history: Former smoker Have you smoked in the past 12 months: No If you are a former smoker, when did you quit?: 1959 - Social History Usual Living Arrangement: With Spouse ADL: Family Assistance History of Recent Travel: (unknown) Home Medications - Allergies Allergies/Adverse Reactions: Allergies Allergy/AdvReac Type Severity Reaction Status Date / Time lactose Allergy Mild Verified 09/09/18 10:47 Penicillins Allergy Verified 09/09/18 10:47 - Home Medications Home Medications: Ambulatory Orders Hydralazine HCl 100 mg PO BID 03/17/16 Isosorbide Dinitrate [Isordil -] 10 mg PO BID 03/17/16 Atorvastatin Ca [Lipitor] 40 mg PO HS #30 tablet 01/12/17 Potassium Chloride 20 meq PO DAILY 08/07/17 Apixaban [Eliquis -] 5 mg PO BID #60 tablet 08/14/17 Docusate Sodium [Colace -] 100 mg PO BID #60 capsule 08/14/17 Gabapentin [Neurontin -] 300 mg PO TID #90 capsule 08/14/17 Insulin (Levemir) [Levemir Vial] 14 units SQ HS #200 units 08/14/17 Insulin Aspart [Novolog] 5 unit SQ TID #100 cartridge 08/14/17 Metoprolol Succinate [Toprol XL -] 75 mg PO DAILY #30 tab.sr.24h 08/14/17 Pen Needle, Diabetic [Ultra-Fine Short Pen Needle] 1 each MC TID #100 dis.needle 08/14/17 Silver Sulfadiazine 1% Top Cr [Silvadene -] 1 applic TP DAILY #1 jar 08/14/17 Spironolactone [Aldactone -] 25 mg PO DAILY #30 tablet 08/14/17 Torsemide 100 mg PO DAILY #30 tablet 08/14/17 Furosemide [Lasix] 40 mg PO DAILY 09/09/18 Family Disease History - Family Disease History Family Disease History: Diabetes: Grandparent (Maternal Grandmother), Heart Disease: Father (HTN, Stroke ) Review of Systems - Review of Systems Constitutional: denies: Chills, Fever Eyes: denies: Eye Pain HENT: denies: Nasal Congestion Neck: denies: Stiffness Cardiovascular: denies: Palpitations Respiratory: denies: Orthopnea, PND Gastrointestinal: denies: Diarrhea, Rectal Bleeding Genitourinary: denies: Burning, Hematuria Musculoskeletal: denies: Muscle Pain Integumentary: denies: Rash Neurological: denies: Numbness, Seizure, Syncope Endocrine: denies: Excessive Sweating Hematology/Lymphatic: denies: Excessive Bleeding Vital Signs: Vital Signs Temperature 98.4 F 09/10/18 05:00 Pulse Rate 60 09/10/18 05:00 Respiratory Rate 18 09/10/18 05:00 Blood Pressure 126/70 09/10/18 05:00 O2 Sat by Pulse Oximetry (%) 94 L 09/09/18 17:38 Constitutional: Yes: Well Nourished, No Distress Eyes: No: Sclera Icterus HENT: No: Nasal Congestion Neck: No: Decreased ROM Respiratory: Yes: CTA Bilaterally. No: Accessory Muscle Use, Rales, Wheezes Gastrointestinal: Yes: Normal Bowel Sounds. No: Distention, Hepatomegaly, Palpable Mass, Tenderness Cardiovascular: Yes: Pulse Irregular JVD: No Carotid Bruit: No PMI: Non-Displaced Heart Sounds: Yes: S1, S2. No: Gallop Murmur: No: Systolic Murmur, Diastolic Murmur Musculoskeletal: Yes: Other (No kyphosis) Extremities: No: Cold, Cyanosis Edema: No Peripheral Pulses: 2+ Left Carotid, 2+ Right Carotid, 2+ Left Doralis Pedis, 2+ Right Dorsalis Pedis Integumentary: No: Jaundice Neurological: Yes: Alert, Oriented (x3) Psychiatric: No: Agitated - Other Data Labs, Other Data: CBC, BMP 09/10/18 06:00 Assessment/Plan mibi 11/2013: no ischemia, nl lvef echo 08/18: mild LVE, mild decr LVEF. mild RVE, mild decr RVSF. mild L/SEBASTIAN. mild MR/TR. nl RVSP. mild ao root dilation home med list: hydralazine 10 bid, isordil 10 bid, torsemide 100 qd, kdur 20 qd , atorva 40, toprol 75 qd a/p: 71 m hx dchf, venous insuff/le edema, htn, obesity, copd, and pna this past summer here with sob. chronic mixed syst/diast chf, venous insuff: -mild biventricular dilation/dysfunction on echo 08/18 -hosp admit for chf 2016, treated with lasix 40 iv bid--changed to 40 po bid on discharge. changed to torsemide 100 qd since then, as of 07/[address] campbell -d/c wt then 265 lbs ([facility]). was 253 lbs in office 07/19. current wt signif lower--defer to pmd re: ? etiology of wt loss -rec outpt BEATRIZ eval if pt not previously evaluated, if he is willing -routine outpt echo surveillance with dr campbell, to monitor LV/RV function htn: -iram stopped here in 2016 due to anthony/ckd -treated with hydralazine and isordil -bp presently controlled. same plan Afib/flutter: -ekg here flutter, HR controlled -on eliquis at home, correct dose--continue same ckd: -baseline creatinine ranges 1.1-1.5 -renal fxn stable here DM: -not controlled, med non-compliance problematic copd: -no sx's of a.e. depression: -per psych, pmd
[2018-09-10] MEDS: DOCUSATE SODIUM 100 MG CAPSULE (FP) PO SCH ×2 (10:32→21:29)
[2018-09-10] MEDS: hydrALAZINE HCL 50 MG TABLET (FP) PO SCH ×2 (10:33→21:29)
[2018-09-10] MEDS: MINERAL OIL/PETROLAT/WATER TOPICAL CREAM 454 GM JAR TP SCH ×2 (10:34→21:37)
[2018-09-10] MEDS: POTASSIUM CHLORIDE TABS 20 MEQ TABLET.ER (FP) PO SCH (10:34)
[2018-09-10] MEDS ORDERED: PT OWN MED DRAWER 7, Y5N ONE ×2 (10:37→22:41)
[2018-09-10] MEDS: APIXABAN 5 MG TABLET PO SCH ×2 (10:43→21:51)
--- NOTE | 2018-09-10 11:25 | CON.PSY ---
Psychiatry Consult Chief Complaint: 72 year old seen for Psych evaluationfor depression. Patient aooarantly called his son to thank hih and Son thought pt was saying good bye and called the ambulance. patient has chronic Medicak condition s including DM. Patient says he has been fiollowing DRs protocol and been friving bLodd Sufal levels down. He denies suicidal idea or plans. Patient lives with his . Symptoms: reports: Decreased Energy - Previous Psychiatric Treatment Outpatient: None Inpatient: None - Previous Substance Abuse Treatment Outpatient: None Inpatient: None - Current Medications Current Medications: Active Medications Apixaban (Eliquis -) 5 mg PO BID [facility] Last Admin: 09/10/18 10:43 Dose: 5 mg Atorvastatin Calcium (Lipitor -) 40 mg PO [facility] Last Admin: 09/09/18 22:56 Dose: 40 mg Docusate Sodium (Colace -) 100 mg PO BID [facility] Last Admin: 09/10/18 10:32 Dose: 100 mg Hydralazine HCl (Apresoline -) 100 mg PO BID [facility] Last Admin: 09/10/18 10:33 Dose: 100 mg Insulin Aspart (Novolog Vial Sliding Scale -) 1 vial SQ [facility]; Protocol Last Admin: 09/10/18 09:00 Dose: 10 units Insulin Detemir (Levemir Vial) 10 units SQ [facility] Last Admin: 09/09/18 22:55 Dose: 10 units Metoprolol Succinate (Toprol Xl -) 75 mg PO DAILY [facility] Last Admin: 09/10/18 10:33 Dose: 75 mg Multi-Ingredient Lotion (Eucerin (Large Jar) -) 1 applic TP BID [facility] Last Admin: 09/10/18 10:34 Dose: 1 applic Potassium Chloride (K-Dur -) 20 meq PO DAILY [facility] Last Admin: 09/10/18 10:34 Dose: 20 meq Torsemide (Demadex -) 100 mg PO DAILY [facility] - Allergies Allergies: Allergies Allergy/AdvReac Type Severity Reaction Status Date / Time lactose Allergy Mild Verified 09/09/18 10:47 Penicillins Allergy Verified 09/09/18 10:47 - Current Living Status Usual Living Arrangement: With Spouse - Current Mental Status Evaluation Appearance: Well Groomed Attitude: Cooperative - Affect Affect: Constrictive Appropriateness: Appropriate to Content - Mood Mood: Euthymic - Speech/Language Expressive: Coherent - Psychomotor Activity Psychomotor Activity: Normal - Thought Process Thought Process: Intact - Thought Content Hallucinations: Absent Delusions: Absent - Self Perception Self Perception: No Impairment - Cognition Attention: Alert Orientation: Time Memory, Immediate Recall: Intact Memory, Short Term: 2/3 Memory, Remote with Promptin/3 - Concentration Serial Sevens Intact: No Simple Calculations Intact: Yes - Abstraction Proverb Interpretation: Intact Judgement: Intact - Insight Insight: Intact - Impulse Control Impulse Control: Good Control - Suicidal Ideation Suicidal Ideation: No - Homicidal Ideation Homicidal Ideation: No Assessment/Plan 1) Patient is not suicidal at this time. 2) Suggest Lexapro for depressive symptoms, start with 5mg pom od..
[2018-09-10] MEDS ORDERED: TORSEMIDE 100 MG TABLET PO ONE (11:27)
[2018-09-10] MEDS: TORSEMIDE 100 MG TABLET PO SCH (11:47)
--- NOTE | 2018-09-10 12:13 | PN ---
Progress Note, Physician Chief Complaint: Depression Hypokalemia History of Present Illness: NAD Sitting at the edge of the bed, eating lunch no distress reported Seen by Psychiatry for depression No suicidal thoughts Started on Lexapro - Current Medication List Current Medications: Active Medications Apixaban (Eliquis -) 5 mg PO BID [facility] Last Admin: 09/10/18 10:43 Dose: 5 mg Atorvastatin Calcium (Lipitor -) 40 mg PO HS [facility] Last Admin: 09/09/18 22:56 Dose: 40 mg Docusate Sodium (Colace -) 100 mg PO BID [facility] Last Admin: 09/10/18 10:32 Dose: 100 mg Escitalopram Oxalate (Lexapro -) 5 mg PO DAILY [facility] Hydralazine HCl (Apresoline -) 100 mg PO BID [facility] Last Admin: 09/10/18 10:33 Dose: 100 mg Insulin Aspart (Novolog Vial Sliding Scale -) 1 vial SQ [facility]; Protocol Last Admin: 09/10/18 11:47 Dose: 4 units Insulin Detemir (Levemir Vial) 10 units SQ [facility] Last Admin: 09/09/18 22:55 Dose: 10 units Metoprolol Succinate (Toprol Xl -) 75 mg PO DAILY [facility] Last Admin: 09/10/18 10:33 Dose: 75 mg Multi-Ingredient Lotion (Eucerin (Large Jar) -) 1 applic TP BID [facility] Last Admin: 09/10/18 10:34 Dose: 1 applic Potassium Chloride (K-Dur -) 20 meq PO DAILY [facility] Last Admin: 09/10/18 10:34 Dose: 20 meq Torsemide (Demadex -) 100 mg PO DAILY [facility] Last Admin: 09/10/18 11:47 Dose: 100 mg - Objective Vital Signs: Vital Signs Temperature 98.8 F 09/10/18 09:00 Pulse Rate 60 09/10/18 09:00 Respiratory Rate 20 09/10/18 09:00 Blood Pressure 132/67 09/10/18 09:00 O2 Sat by Pulse Oximetry (%) 94 L 09/09/18 17:38 Constitutional: Yes: Well Nourished, No Distress, Calm Cardiovascular: Yes: Regular Rate and Rhythm Respiratory: Yes: Regular Gastrointestinal: Yes: Normal Bowel Sounds, Soft, Abdomen, Obese Musculoskeletal: Yes: Muscle Weakness Extremities: Yes: WNL Edema: No Neurological: Yes: Alert, Oriented Psychiatric: Yes: Alert, Oriented Labs: CBC, BMP 09/10/18 06:00 09/10/18 06:00 Problem List - Problems (1) Depression Assessment/Plan: -Seen by Psychiatry -Started on Lexapro 5 mg podaily -outpatient follow up with PCP and psychiatry Code(s): F32.9 - MAJOR DEPRESSIVE DISORDER, SINGLE EPISODE, UNSPECIFIED Qualifiers: Depression Type: unspecified Qualified Code(s): F32.9 - Major depressive disorder, single episode, unspecified (2) Hyperglycemia Assessment/Plan: -A1C < 5.0 but BGM >300 -On Levemir and Novolog sliding scale -Increase Levemir to 10 U BID -Diabetic diet -BGM AC HS -RD consult Code(s): R73.9 - HYPERGLYCEMIA, UNSPECIFIED (3) Sleep apnea Assessment/Plan: -Seen by pulmonary -Outpatient follow up for repeat sleep studies Code(s): G47.30 - SLEEP APNEA, UNSPECIFIED (4) A-fib Assessment/Plan: -chronic -rate controlled -On Eliquis Code(s): I48.91 - UNSPECIFIED ATRIAL FIBRILLATION Qualifiers: Atrial fibrillation type: chronic Qualified Code(s): I48.2 - Chronic atrial fibrillation Assessment/Plan See problem list Physical therapy
--- NOTE | 2018-09-10 12:27 | CON.PULM ---
Consult Consult Specialty:: PULM/CCM Referred by:: RAINA Reason for Consultation:: SOB - History of Present Illness Chief Complaint: SOB History of Present Illness: 72 M, DM2, A-fib, diastolic CHF, CAD, HTN, HLD, CKD, COPD on home O2 PRN, chronic venous stasis, OA, and Severe OSAS (116.7 with severe oxygen destauration to 67%). Patient reports that he is not on treatment for his OSAS. Admitted via the ER due to slurred speech and depression. No travel history or sick contacts. He is awake and alert and appears comfortable on RA. He reports that he does have some dry cough. No hemoptysis or night sweats. CXR: Cardiomegaly / no acute process - Past Medical History Cardio/Vascular: Yes: CAD, CHF, HTN, Pulmonary Hypertension Pulmonary: Yes: Asthma, COPD. No: O2 Dependent Renal/: Yes: Cancer (prostate) Endocrine: Yes: Other (Hyperglycemia) Dermatology: Yes: Other (chronic changes on bilateral LEs due to venous insufficiency) - Past Surgical History Past Surgical History: Yes: Appendectomy, Prostatectomy - Alcohol/Substance Use Hx Alcohol Use: No History of Substance Use: reports: Marijuana (many years ago) - Smoking History Smoking history: Former smoker Have you smoked in the past 12 months: No If you are a former smoker, when did you quit?: 1959 - Social History Usual Living Arrangement: With Spouse ADL: Family Assistance History of Recent Travel: (unknown) Home Medications - Allergies Allergies/Adverse Reactions: Allergies Allergy/AdvReac Type Severity Reaction Status Date / Time lactose Allergy Mild Verified 09/09/18 10:47 Penicillins Allergy Verified 09/09/18 10:47 - Home Medications Home Medications: Ambulatory Orders Hydralazine HCl 100 mg PO BID 03/17/16 Isosorbide Dinitrate [Isordil -] 10 mg PO BID 03/17/16 Atorvastatin Ca [Lipitor] 40 mg PO HS #30 tablet 01/12/17 Potassium Chloride 20 meq PO DAILY 08/07/17 Apixaban [Eliquis -] 5 mg PO BID #60 tablet 08/14/17 Docusate Sodium [Colace -] 100 mg PO BID #60 capsule 08/14/17 Gabapentin [Neurontin -] 300 mg PO TID #90 capsule 08/14/17 Insulin (Levemir) [Levemir Vial] 14 units SQ HS #200 units 08/14/17 Insulin Aspart [Novolog] 5 unit SQ TID #100 cartridge 08/14/17 Metoprolol Succinate [Toprol XL -] 75 mg PO DAILY #30 tab.sr.24h 08/14/17 Pen Needle, Diabetic [Ultra-Fine Short Pen Needle] 1 each MC TID #100 dis.needle 08/14/17 Silver Sulfadiazine 1% Top Cr [Silvadene -] 1 applic TP DAILY #1 jar 08/14/17 Spironolactone [Aldactone -] 25 mg PO DAILY #30 tablet 08/14/17 Torsemide 100 mg PO DAILY #30 tablet 08/14/17 Furosemide [Lasix] 40 mg PO DAILY 09/09/18 Family Disease History - Family Disease History Family Disease History: Diabetes: Grandparent (Maternal Grandmother), Heart Disease: Father (HTN, Stroke ) Review of Systems - Review of Systems Constitutional: reports: Malaise. denies: Chills, Fever, Night Sweats, Unintentional Wgt. Loss Eyes: reports: No Symptoms HENT: reports: No Symptoms Neck: reports: No Symptoms Cardiovascular: denies: Chest Pain, Edema, Palpitations, Shortness of Breath Respiratory: reports: Cough, Snoring, SOB on Exertion. denies: Hemoptysis, Orthopnea, SOB, Wheezing Gastrointestinal: reports: No Symptoms Genitourinary: reports: No Symptoms Breasts: reports: No Symptoms Reported Musculoskeletal: reports: No Symptoms Integumentary: reports: No Symptoms Neurological: reports: No Symptoms Endocrine: reports: No Symptoms Hematology/Lymphatic: reports: No Symptoms Psychiatric: reports: Altered Sleep Pattern, Anxiety, Depression Physical Exam Vital Sings: Vital Signs Temperature 98.8 F 09/10/18 09:00 Pulse Rate 60 09/10/18 09:00 Respiratory Rate 20 09/10/18 09:00 Blood Pressure 132/67 09/10/18 09:00 O2 Sat by Pulse Oximetry (%) 94 L 09/09/18 17:38 Constitutional: Yes: No Distress, Calm, Obese Eyes: Yes: Conjunctiva Clear, EOM Intact HENT: Yes: Atraumatic, Normocephalic Neck: Yes: Supple, Trachea Midline Cardiovascular: Yes: Pulse Irregular, Murmur Respiratory: Yes: Cough. No: Accessory Muscle Use, Diminished, On Nasal O2, Rales, Rhonchi, SOB, SOB on Exertion, Stridor, Tachypnea, Wheezes ...Inspection: Yes: WNL ...Clubbing: No Gastrointestinal: Yes: Normal Bowel Sounds, Soft, Abdomen, Obese Breast(s): Yes: WNL Musculoskeletal: Yes: WNL Extremities: Yes: WNL Edema: No Peripheral Pulses WNL: Yes Integumentary: Yes: WNL Neurological: Yes: WNL, Alert, Oriented ...Motor Strength: WNL Psychiatric: Yes: WNL, Alert, Oriented Labs: CBC, BMP 09/10/18 06:00 09/10/18 06:00 Imaging - Results Chest X-ray: Report Reviewed, Image Reviewed Problem List - Problems (1) Sleep apnea Code(s): G47.30 - SLEEP APNEA, UNSPECIFIED (2) Depression Code(s): F32.9 - MAJOR DEPRESSIVE DISORDER, SINGLE EPISODE, UNSPECIFIED Qualifiers: Depression Type: unspecified Qualified Code(s): F32.9 - Major depressive disorder, single episode, unspecified (3) Hyperglycemia Code(s): R73.9 - HYPERGLYCEMIA, UNSPECIFIED (4) A-fib Code(s): I48.91 - UNSPECIFIED ATRIAL FIBRILLATION Qualifiers: Atrial fibrillation type: unspecified Qualified Code(s): I48.91 - Unspecified atrial fibrillation (5) CHF (congestive heart failure) Code(s): I50.9 - HEART FAILURE, UNSPECIFIED Qualifiers: Qualified Code(s): I50.30 - Unspecified diastolic (congestive) heart failure (6) Obstructive sleep apnea Code(s): G47.33 - OBSTRUCTIVE SLEEP APNEA (ADULT) (PEDIATRIC) (7) CAD (coronary artery disease) Code(s): I25.10 - ATHSCL HEART DISEASE OF [place] CORONARY ARTERY W/O ANG PCTRS (8) CKD (chronic kidney disease) stage 3, GFR 30-59 ml/min Code(s): N18.3 - CHRONIC KIDNEY DISEASE, STAGE 3 (MODERATE) (9) COPD (chronic obstructive pulmonary disease) Code(s): J44.9 - CHRONIC OBSTRUCTIVE PULMONARY DISEASE, UNSPECIFIED Qualifiers: COPD type: COPD with acute exacerbation Qualified Code(s): J44.1 - Chronic obstructive pulmonary disease with (acute) exacerbation (10) HTN (hypertension) Code(s): I10 - ESSENTIAL (PRIMARY) HYPERTENSION (11) Pulmonary hypertension Code(s): I27.2 - OTHER SECONDARY PULMONARY HYPERTENSION * DO NOT USE * (12) Venous stasis of both lower extremities Code(s): I87.8 - OTHER SPECIFIED DISORDERS OF VEINS Assessment/Plan Will need formal OSAS re-evaluation O2 as needed BD TX PRN No need for systemic steroids No smoking No indication for ABX Will follow Thank you. Dr Eagle
[2018-09-10] MEDS ORDERED: ESCITALOPRAM OXALATE 10 MG TABLET (FP) PO ONE (13:44)
[2018-09-10] MEDS: INSULIN (LEVEMIR) 100 UNITS/ML UNITS SQ SCH ×2 (21:30→22:36)
[2018-09-10] MEDS ORDERED: ATORVASTATIN CA 20 MG TABLET (FP) PO SCH (22:00)
[2018-09-11] MEDS: INSULIN (LEVEMIR) 100 UNITS/ML UNITS SQ SCH (06:29)
[2018-09-11] MEDS: INSULIN SLIDING SCALE (NOVOLOG) 1 VIAL SQ SCH ×2 (06:29→12:15)
[2018-09-11 07:07] LABS: BASO % 0.4 % (0-2.0); EOS % 1.3 % (0-4.5); HEMATOCRIT 37.8 % (35.4-49); HEMOGLOBIN 12.7 GM/dL (11.7-16.9); LYMPH % 28.9 % (8-40); MCH 27.8 pg (25.7-33.7); MCHC 33.5 g/dl (32.0-35.9); MEAN PLT VOLUME 8.5 fl (7.5-11.1); MONO % 6.8 % (3.8-10.2); NEUT % 62.6 % (42.8-82.8); PLATELET COUNT 182 K/MM3 (134-434); RBC 4.56 M/mm3 (4.00-5.60); RDW 14.8 % (11.9-15.9); WHITE BLOOD COUNT 7.2 K/mm3 (4.0-10.0)
[2018-09-11 07:28] LABS: ALBUMIN 2.9 g/dl (3.4-5.0); ALK PHOS 109 U/L (45-117); ANION GAP 10 MMOL/L (8-16); BILIRUBIN,TOTAL 0.9 mg/dL (0.2-1); BLOOD UREA NITROGEN 26 mg/dL (7-18); CALCIUM 8.4 mg/dL (8.5-10.1); CHLORIDE 96 mmol/L (98-107); CO2 31 mmol/L (21-32); CREATININE 1.3 mg/dL (0.55-1.3); GLUCOSE,RANDOM 219 mg/dL (74-106); SGOT/AST 11 U/L (15-37); SGPT/ALT 13 U/L (13-61); SODIUM 137 mmol/L (136-145); TOT PROT 6.1 g/dl (6.4-8.2)
[2018-09-11] MEDS ORDERED: INSULIN (NOVOLOG) ASPART 100 UNITS/ML 10ML VIAL ONE (09:49)
[2018-09-11] MEDS: APIXABAN 5 MG TABLET PO SCH (09:57)
[2018-09-11] MEDS: hydrALAZINE HCL 50 MG TABLET (FP) PO SCH (09:57)
[2018-09-11] MEDS: POTASSIUM CHLORIDE TABS 20 MEQ TABLET.ER (FP) PO SCH (09:58)
[2018-09-11] MEDS: TORSEMIDE 100 MG TABLET PO SCH (09:59)
[2018-09-11] MEDS: MINERAL OIL/PETROLAT/WATER TOPICAL CREAM 454 GM JAR TP SCH (09:59)
--- NOTE | 2018-09-11 09:59 | PN ---
Progress Note (short form) - Note Progress Note: Resting in NAD. Breathing feels OK. No acute events overnight. Intake & Output 09/08/18 09/09/18 09/10/18 09/11/18 23:59 23:59 23:59 23:59 Intake Total 350 1050 0 Output Total 1250 Balance 350 -200 0 Weight 229 lb 8 oz 229 lb 1 oz Last Vital Signs Temp Pulse Resp BP Pulse Ox 98.3 F 63 18 130/75 97 09/11/18 05:00 09/11/18 05:00 09/11/18 05:00 09/11/18 05:00 09/11/18 01:00 Active Medications Apixaban (Eliquis -) 5 mg PO BID [facility] Last Admin: 09/10/18 21:51 Dose: 5 mg Atorvastatin Calcium (Lipitor -) 20 mg PO HS [facility] Last Admin: 09/10/18 21:30 Dose: 20 mg Docusate Sodium (Colace -) 100 mg PO BID [facility] Last Admin: 09/10/18 21:29 Dose: 100 mg Escitalopram Oxalate (Lexapro -) 5 mg PO DAILY [facility] Hydralazine HCl (Apresoline -) 100 mg PO BID [facility] Last Admin: 09/10/18 21:29 Dose: 100 mg Insulin Aspart (Novolog Vial Sliding Scale -) 1 vial SQ [facility]; Protocol Last Admin: 09/11/18 06:29 Dose: 4 units Insulin Detemir (Levemir Vial) 10 units SQ BID@0700,2200 [facility] Last Admin: 09/11/18 06:29 Dose: 10 units Metoprolol Succinate (Toprol Xl -) 75 mg PO DAILY [facility] Last Admin: 09/10/18 10:33 Dose: 75 mg Multi-Ingredient Lotion (Eucerin (Large Jar) -) 1 applic TP BID [facility] Last Admin: 09/10/18 21:37 Dose: 1 applic Potassium Chloride (K-Dur -) 20 meq PO DAILY [facility] Last Admin: 09/10/18 10:34 Dose: 20 meq Torsemide (Demadex -) 100 mg PO DAILY [facility] Last Admin: 09/10/18 11:47 Dose: 100 mg Constitutional: Yes: No Distress, Calm, Obese Eyes: Yes: Conjunctiva Clear, EOM Intact HENT: Yes: Atraumatic, Normocephalic Neck: Yes: Supple, Trachea Midline Cardiovascular: Yes: Pulse Irregular, Murmur Respiratory: Yes: Cough. No: Accessory Muscle Use, Diminished, On Nasal O2, Rales, Rhonchi, SOB, SOB on Exertion, Stridor, Tachypnea, Wheezes ...Inspection: Yes: WNL ...Clubbing: No Gastrointestinal: Yes: Normal Bowel Sounds, Soft, Abdomen, Obese Breast(s): Yes: WNL Musculoskeletal: Yes: WNL Extremities: Yes: WNL Edema: No Peripheral Pulses WNL: Yes Integumentary: Yes: WNL Neurological: Yes: WNL, Alert, Oriented ...Motor Strength: WNL Psychiatric: Yes: WNL, Alert, Oriented Labs: Laboratory Results - last 24 hr 09/10/18 09/10/18 09/10/18 06:00 11:44 16:54 WBC RBC Hgb Hct MCV MCH MCHC RDW Plt Count MPV Absolute Neuts (auto) Neutrophils % Lymphocytes % Monocytes % Eosinophils % Basophils % Nucleated RBC % Sodium Potassium Chloride Carbon Dioxide Anion Gap BUN Creatinine Creat Clearance w eGFR POC Glucometer 214 234 Random Glucose Hemoglobin A1c % < 5.0 Calcium Total Bilirubin AST ALT Alkaline Phosphatase Total Protein Albumin 09/10/18 09/11/18 09/11/18 21:34 06:00 06:00 WBC 7.2 RBC 4.56 Hgb 12.7 Hct 37.8 MCV 83.0 MCH 27.8 MCHC 33.5 RDW 14.8 Plt Count 182 MPV 8.5 Absolute Neuts (auto) 4.5 Neutrophils % 62.6 Lymphocytes % 28.9 D Monocytes % 6.8 Eosinophils % 1.3 D Basophils % 0.4 Nucleated RBC % 0 Sodium 137 Potassium 3.0 L Chloride 96 L Carbon Dioxide 31 Anion Gap 10 BUN 26 H Creatinine 1.3 Creat Clearance w eGFR 54.26 POC Glucometer 325 Random Glucose 219 H Hemoglobin A1c % Calcium 8.4 L Total Bilirubin 0.9 AST 11 L ALT 13 Alkaline Phosphatase 109 Total Protein 6.1 L Albumin 2.9 L 09/11/18 06:27 WBC RBC Hgb Hct MCV MCH MCHC RDW Plt Count MPV Absolute Neuts (auto) Neutrophils % Lymphocytes % Monocytes % Eosinophils % Basophils % Nucleated RBC % Sodium Potassium Chloride Carbon Dioxide Anion Gap BUN Creatinine Creat Clearance w eGFR POC Glucometer 252 Random Glucose Hemoglobin A1c % Calcium Total Bilirubin AST ALT Alkaline Phosphatase Total Protein Albumin Problem List - Problems (1) Sleep apnea Code(s): G47.30 - SLEEP APNEA, UNSPECIFIED (2) Depression Code(s): F32.9 - MAJOR DEPRESSIVE DISORDER, SINGLE EPISODE, UNSPECIFIED Qualifiers: Depression Type: unspecified Qualified Code(s): F32.9 - Major depressive disorder, single episode, unspecified (3) Hyperglycemia Code(s): R73.9 - HYPERGLYCEMIA, UNSPECIFIED (4) A-fib Code(s): I48.91 - UNSPECIFIED ATRIAL FIBRILLATION Qualifiers: Atrial fibrillation type: unspecified Qualified Code(s): I48.91 - Unspecified atrial fibrillation (5) CHF (congestive heart failure) Code(s): I50.9 - HEART FAILURE, UNSPECIFIED Qualifiers: Qualified Code(s): I50.30 - Unspecified diastolic (congestive) heart failure (6) Obstructive sleep apnea Code(s): G47.33 - OBSTRUCTIVE SLEEP APNEA (ADULT) (PEDIATRIC) (7) CAD (coronary artery disease) Code(s): I25.10 - ATHSCL HEART DISEASE OF [place] CORONARY ARTERY W/O ANG PCTRS (8) CKD (chronic kidney disease) stage 3, GFR 30-59 ml/min Code(s): N18.3 - CHRONIC KIDNEY DISEASE, STAGE 3 (MODERATE) (9) COPD (chronic obstructive pulmonary disease) Code(s): J44.9 - CHRONIC OBSTRUCTIVE PULMONARY DISEASE, UNSPECIFIED Qualifiers: COPD type: COPD with acute exacerbation Qualified Code(s): J44.1 - Chronic obstructive pulmonary disease with (acute) exacerbation (10) HTN (hypertension) Code(s): I10 - ESSENTIAL (PRIMARY) HYPERTENSION (11) Pulmonary hypertension Code(s): I27.2 - OTHER SECONDARY PULMONARY HYPERTENSION * DO NOT USE * (12) Venous stasis of both lower extremities Code(s): I87.8 - OTHER SPECIFIED DISORDERS OF VEINS Assessment/Plan Will need formal OSAS retitration O2 as needed BD TX PRN No need for systemic steroids No smoking No indication for ABX Glycemic control No Pulmonary contraindication for D/C planning Dr Eagle Problem List - Problems (1) Sleep apnea Code(s): G47.30 - SLEEP APNEA, UNSPECIFIED (2) Depression Code(s): F32.9 - MAJOR DEPRESSIVE DISORDER, SINGLE EPISODE, UNSPECIFIED Qualifiers: Depression Type: unspecified Qualified Code(s): F32.9 - Major depressive disorder, single episode, unspecified (3) Hyperglycemia Code(s): R73.9 - HYPERGLYCEMIA, UNSPECIFIED (4) A-fib Code(s): I48.91 - UNSPECIFIED ATRIAL FIBRILLATION Qualifiers: Atrial fibrillation type: chronic Qualified Code(s): I48.2 - Chronic atrial fibrillation (5) CHF (congestive heart failure) Code(s): I50.9 - HEART FAILURE, UNSPECIFIED (6) Obstructive sleep apnea Code(s): G47.33 - OBSTRUCTIVE SLEEP APNEA (ADULT) (PEDIATRIC) (7) CAD (coronary artery disease) Code(s): I25.10 - ATHSCL HEART DISEASE OF [place] CORONARY ARTERY W/O ANG PCTRS (8) CKD (chronic kidney disease) stage 3, GFR 30-59 ml/min Code(s): N18.3 - CHRONIC KIDNEY DISEASE, STAGE 3 (MODERATE) (9) COPD (chronic obstructive pulmonary disease) Code(s): J44.9 - CHRONIC OBSTRUCTIVE PULMONARY DISEASE, UNSPECIFIED Qualifiers: COPD type: COPD with acute exacerbation Qualified Code(s): J44.1 - Chronic obstructive pulmonary disease with (acute) exacerbation (10) HTN (hypertension) Code(s): I10 - ESSENTIAL (PRIMARY) HYPERTENSION (11) Pulmonary hypertension Code(s): I27.2 - OTHER SECONDARY PULMONARY HYPERTENSION * DO NOT USE * (12) Venous stasis of both lower extremities Code(s): I87.8 - OTHER SPECIFIED DISORDERS OF VEINS
[2018-09-11] MEDS ORDERED: ESCITALOPRAM OXALATE 10 MG TABLET (FP) PO SCH (10:00)
[2018-09-11] MEDS: DOCUSATE SODIUM 100 MG CAPSULE (FP) PO SCH (10:00)
--- NOTE | 2018-09-11 10:45 | DS ---
Physical Examination Vital Signs: Vital Signs Temperature 98.3 F 09/11/18 05:00 Pulse Rate 63 09/11/18 05:00 Respiratory Rate 18 09/11/18 05:00 Blood Pressure 130/75 09/11/18 05:00 O2 Sat by Pulse Oximetry (%) 97 09/11/18 01:00 Findings/Remarks: 72 year old male with a PMH significant for DM2, A-fib, diastolic CHF, CAD, HTN , HLD, CKD, COPD (On home O2 PRN), chronic yahir stasis, oa, and obesity presented to the ED with slurred speech and depression. This morning, his son noticed when talking to him on the phone that his speech sounded slightly slurred. The son was also alarmed when his father said he wanted to "thank him as he doesn't have long to live." The son then called an ambulance to bring him to the ED. EMS checked BGM whih was over range. Patient reports today has bee a "bad emotional day" for him because he was reminded of when his father and he was left to make the decision to "pull the plug." He is very sad he was not able to be present when his father to say goodbye. This lack of closure has been a great source of sadness for him. He has never been diagnosed with any psychiatric disorder, never been on psych medications or seen a psychiatrist. Denies fevers, dizziness, syncope, seizures, chest pain, shortness of breath, n/v/d. Patient reports his speech has been slower and slightly slurred over the past several days. He has stopped taking his insulin over the past 3 months because he wanted to control his diabetes with diet. He reports having lost about 30 lbs over the past year through diet changes. His quality of life over the past year has been greatly diminished. He ambulates with two crutches because of severe OA to b/l knees and right hip. He has been told he needs all three joints replaced. Because he is on so many diuretics he constantly has to use the restroom, so he feels he cannot easily leave the house. His report he sits in a room in the dark all day and gets annoyed when someone tries to turn on the lights. Upon admission to the ED, BP 153/92, labs notable for BS of 463. He was given 8 u of regular insulin. Constitutional: Yes: Well Nourished, No Distress, Calm Cardiovascular: Yes: Regular Rate and Rhythm Respiratory: Yes: Regular Gastrointestinal: Yes: Normal Bowel Sounds, Soft, Abdomen, Obese Musculoskeletal: Yes: Muscle Weakness Edema: No Peripheral Pulses WNL: No Peripheral Pulses: Left Doralis Pedis: 1+, Right Dorsalis Pedis: 1+ Neurological: Yes: Alert, Oriented Psychiatric: Yes: Alert, Oriented Labs: CBC, BMP 09/11/18 06:00 09/11/18 06:00 Discharge Summary Reason For Visit: DEPRESSION, HYPERGLYCEMIA Current Active Problems Depression (Acute) Hyperglycemia (Acute) Sleep apnea (Acute) Hospital Course: Laboratory Last Values WBC 7.2 K/mm3 (4.0-10.0) 09/11/18 06:00 RBC 4.56 M/mm3 (4.00-5.60) 09/11/18 06:00 Hgb 12.7 GM/dL (11.7-16.9) 09/11/18 06:00 Hct 37.8 % (35.4-49) 09/11/18 06:00 MCV 83.0 fl (80-96) 09/11/18 06:00 MCH 27.8 pg (25.7-33.7) 09/11/18 06:00 MCHC 33.5 g/dl (32.0-35.9) 09/11/18 06:00 RDW 14.8 % (11.9-15.9) 09/11/18 06:00 Plt Count 182 K/MM3 (134-434) 09/11/18 06:00 MPV 8.5 fl (7.5-11.1) 09/11/18 06:00 Absolute Neuts (auto) 4.5 K/mm3 (1.5-8.0) 09/11/18 06:00 Neutrophils % 62.6 % (42.8-82.8) 09/11/18 06:00 Lymphocytes % 28.9 % (8-40) D 09/11/18 06:00 Monocytes % 6.8 % (3.8-10.2) 09/11/18 06:00 Eosinophils % 1.3 % (0-4.5) D 09/11/18 06:00 Basophils % 0.4 % (0-2.0) 09/11/18 06:00 Nucleated RBC % 0 % (0-0) 09/11/18 06:00 Sodium 137 mmol/L (136-145) 09/11/18 06:00 Potassium 3.0 mmol/L (3.5-5.1) L 09/11/18 06:00 Chloride 96 mmol/L (98-107) L 09/11/18 06:00 Carbon Dioxide 31 mmol/L (21-32) 09/11/18 06:00 Anion Gap 10 MMOL/L (8-16) 09/11/18 06:00 BUN 26 mg/dL (7-18) H 09/11/18 06:00 Creatinine 1.3 mg/dL (0.55-1.3) 09/11/18 06:00 Creat Clearance w eGFR 54.26 (>60) 09/11/18 06:00 POC Glucometer 252 UNITS (80-120) 09/11/18 06:27 Random Glucose 219 mg/dL (74-106) H 09/11/18 06:00 Hemoglobin A1c % < 5.0 % (4.2-6.3) 09/10/18 06:00 Calcium 8.4 mg/dL (8.5-10.1) L 09/11/18 06:00 Magnesium 1.8 mg/dL (1.8-2.4) 09/10/18 06:00 Total Bilirubin 0.9 mg/dL (0.2-1) 09/11/18 06:00 AST 11 U/L (15-37) L 09/11/18 06:00 ALT 13 U/L (13-61) 09/11/18 06:00 Alkaline Phosphatase 109 U/L (45-117) 09/11/18 06:00 Total Protein 6.1 g/dl (6.4-8.2) L 09/11/18 06:00 Albumin 2.9 g/dl (3.4-5.0) L 09/11/18 06:00 Triglycerides 314 mg/dL (0-150) H 09/10/18 06:00 Cholesterol 133 mg/dL (50-200) 09/10/18 06:00 Total LDL Cholesterol 55 mg/dL (5-100) 09/10/18 06:00 HDL Cholesterol 28 mg/dL (40-60) L 09/10/18 06:00 Urine Color Straw 09/09/18 11:23 Urine Appearance Clear 09/09/18 11:23 Urine pH 8.0 (5.0-8.0) 09/09/18 11:23 Ur Specific [place] 1.023 (1.010-1.035) 09/09/18 11:23 Urine Protein Negative (NEGATIVE) 09/09/18 11:23 Urine Glucose (UA) 3+ (NEGATIVE) H 09/09/18 11:23 Urine Ketones Trace (NEGATIVE) H 09/09/18 11:23 Urine Blood Negative (NEGATIVE) 09/09/18 11:23 Urine Nitrite Negative (NEGATIVE) 09/09/18 11:23 Urine Bilirubin Negative (<2.0 mg/dL) 09/09/18 11: Urine Urobilinogen Negative mg/dL (0.2-1.0) 09/09/18 11:23 Ur Leukocyte Esterase Negative (NEGATIVE) 09/09/18 11:23 Acetone, Qual Trace (NEGATIVE) 09/09/18 11:23 Condition: Stable - Instructions Referrals: Gael Amaya MD [Staff Physician] - Disposition: VNS/HOME HEALTH CARE - Home Medications Comprehensive Discharge Medication List: Ambulatory Orders Hydralazine HCl 100 mg PO BID 03/17/16 Isosorbide Dinitrate [Isordil -] 10 mg PO BID 03/17/16 Atorvastatin Ca [Lipitor] 40 mg PO HS #30 tablet 01/12/17 Potassium Chloride 20 meq PO DAILY 08/07/17 Apixaban [Eliquis -] 5 mg PO BID #60 tablet 08/14/17 Docusate Sodium [Colace -] 100 mg PO BID #60 capsule 08/14/17 Gabapentin [Neurontin -] 300 mg PO TID #90 capsule 08/14/17 Insulin (Levemir) [Levemir Vial] 14 units SQ HS #200 units 08/14/17 Insulin Aspart [Novolog] 5 unit SQ TID #100 cartridge 08/14/17 Metoprolol Succinate [Toprol XL -] 75 mg PO DAILY #30 tab.sr.24h 08/14/17 Pen Needle, Diabetic [Ultra-Fine Short Pen Needle] 1 each MC TID #100 dis.needle 08/14/17 Silver Sulfadiazine 1% Top Cr [Silvadene -] 1 applic TP DAILY #1 jar 08/14/17 Spironolactone [Aldactone -] 25 mg PO DAILY #30 tablet 08/14/17 Torsemide 100 mg PO DAILY #30 tablet 08/14/17 Furosemide [Lasix] 40 mg PO DAILY 09/09/18 Atorvastatin Ca [Lipitor] 20 mg PO HS #30 tablet 09/10/18 Escitalopram Oxalate [Lexapro -] 5 mg PO DAILY #30 tablet 09/10/18
[2018-09-11 11:39] VITALS: BP 127/69; PULSE 68; TEMP 98.4
[2018-09-11 12:33] VITALS: BMI 32.8
--- NOTE | 2018-09-11 12:59 | EKG ---
Test Reason : Blood Pressure : / mmHG Vent. Rate : 062 BPM Atrial Rate : 248 BPM P-R Int : 000 ms QRS Dur : 096 ms QT Int : 430 ms P-R-T Axes : -03 -15 003 degrees QTc Int : 436 ms ATRIAL FLUTTER WITH 4:1 A-V CONDUCTION INFERIOR INFARCT (CITED ON OR BEFORE 17-MAR-2016) CANNOT RULE OUT ANTERIOR INFARCT (CITED ON OR BEFORE 07-NOV-2013) ABNORMAL ECG WHEN COMPARED WITH ECG OF 07-AUG-2017 10:13, ATRIAL FLUTTER HAS REPLACED ATRIAL FIBRILLATION VENT. RATE HAS DECREASED BY 35 BPM NON-SPECIFIC CHANGE IN ST SEGMENT IN INFERIOR LEADS QT HAS SHORTENED Confirmed by Panchito Mayorga ([id number]) on 09/11/2018 12:59:04 PM Referred By: Confirmed By:Panchito Mayorga
--- NOTE | 2018-09-11 12:59 | PN ---
Progress Note (short form) - Note Progress Note: Consult Specialty:: cardio - History of Present Illness Chief Complaint: suicidal ideation History of Present Illness: no chest pain, palps, dizziness Current Medications Apixaban (Eliquis -) 5 mg PO BID [facility] Last Admin: 09/11/18 09:57 Dose: 5 mg Atorvastatin Calcium (Lipitor -) 20 mg PO HS [facility] Last Admin: 09/10/18 21:30 Dose: 20 mg Docusate Sodium (Colace -) 100 mg PO BID [facility] Last Admin: 09/11/18 10:00 Dose: 100 mg Escitalopram Oxalate (Lexapro -) 5 mg PO DAILY [facility] Last Admin: 09/11/18 10:01 Dose: 5 mg Hydralazine HCl (Apresoline -) 100 mg PO BID [facility] Last Admin: 09/11/18 09:57 Dose: 100 mg Insulin Aspart (Novolog Vial Sliding Scale -) 1 vial SQ [facility]; Protocol Last Admin: 09/11/18 12:15 Dose: 6 units Insulin Detemir (Levemir Vial) 10 units SQ BID@0700,2200 [facility] Last Admin: 09/11/18 06:29 Dose: 10 units Metoprolol Succinate (Toprol Xl -) 75 mg PO DAILY [facility] Last Admin: 09/11/18 09:58 Dose: 75 mg Multi-Ingredient Lotion (Eucerin (Large Jar) -) 1 applic TP BID [facility] Last Admin: 09/11/18 09:59 Dose: 1 applic Potassium Chloride (K-Dur -) 20 meq PO DAILY [facility] Last Admin: 09/11/18 09:58 Dose: 20 meq Torsemide (Demadex -) 100 mg PO DAILY [facility] Last Admin: 09/11/18 09:59 Dose: 100 mg Vital Signs Period Temp Pulse Resp BP Sys/Davila Pulse Ox Last 24 Hr 98 F-98.8 F 60-68 18-20 116-135/61-80 97-100 Constitutional: Yes: Well Nourished, No Distress Eyes: No: Sclera Icterus HENT: No: Nasal Congestion Neck: No: Decreased ROM Respiratory: Yes: CTA Bilaterally. No: Accessory Muscle Use, Rales, Wheezes Gastrointestinal: Yes: Normal Bowel Sounds. No: Distention, Hepatomegaly, Palpable Mass, Tenderness Cardiovascular: Yes: Pulse Irregular JVD: No Carotid Bruit: No PMI: Non-Displaced Heart Sounds: Yes: S1, S2. No: Gallop Murmur: No: Systolic Murmur, Diastolic Murmur Musculoskeletal: Yes: Other (No kyphosis) Extremities: No: Cold, Cyanosis Edema: No Peripheral Pulses: 2+ Left Carotid, 2+ Right Carotid, 2+ Left Doralis Pedis, 2+ Right Dorsalis Pedis Integumentary: No: Jaundice Neurological: Yes: Alert, Oriented (x3) Psychiatric: No: Agitated Assessment/Plan mibi 11/2013: no ischemia, nl lvef echo 08/18: mild LVE, mild decr LVEF. mild RVE, mild decr RVSF. mild L/SEBASTIAN. mild MR/TR. nl RVSP. mild ao root dilation home med list: hydralazine 10 bid, isordil 10 bid, torsemide 100 qd, kdur 20 qd , atorva 40, toprol 75 qd a/p: 71 m hx dchf, venous insuff/le edema, htn, obesity, copd, and pna this past summer here with sob. chronic mixed syst/diast chf, venous insuff: -mild biventricular dilation/dysfunction on echo 08/18 -hosp admit for chf 2016, treated with lasix 40 iv bid--changed to 40 po bid on discharge. changed to torsemide 100 qd since then, as of 07/[address] fu -d/c wt then 265 lbs (bedscale). was 253 lbs in office 07/19. current wt signif lower--defer to pmd re: ? etiology of wt loss -rec outpt BEATRIZ eval if pt not previously evaluated, if he is willing -routine outpt echo surveillance with dr fu, to monitor LV/RV function - cont home meds, follow up with Dr. Fu htn: -iram stopped here in 2016 due to anthony/ckd -treated with hydralazine and isordil -bp presently controlled. same plan Afib/flutter: -ekg here flutter, HR controlled -on eliquis at home, correct dose--continue same ckd: -baseline creatinine ranges 1.1-1.5 -renal fxn stable here DM: -not controlled, med non-compliance problematic copd: -no sx's of a.e. depression: -per psych, pmd
== END 2018-09-11 13:40 | disposition home health service (06) ==
LOC: JER 10:15 → JERBED 15:23 → J7W 18:38
PROVIDERS: ADMIT Internal Medicine; ATTEND Family Medicine
PROC: 3E013VG Introduction of Insulin into Subcutaneous Tissue, Percutaneous Approach (ICD-10-PCS; principal; 2018-09-09)
PROC: 3E013VG Introduction of Insulin into Subcutaneous Tissue, Percutaneous Approach (ICD-10-PCS; 2018-09-09)
DX: F32.9 Major depressive disorder, single episode, unspecified (principal); E11.65 Type 2 diabetes mellitus with hyperglycemia; Z79.4 Long term (current) use of insulin; G47.33 Obstructive sleep apnea (adult) (pediatric); I25.10 Atherosclerotic heart disease of native coronary artery without angina pectoris; I13.0 Hypertensive heart and chronic kidney disease with heart failure and stage 1 through stage 4 chronic kidney disease, or unspecified chronic kidney disease; N18.3 Chronic kidney disease, stage 3 (moderate); I50.40 Unspecified combined systolic (congestive) and diastolic (congestive) heart failure; Z87.891 Personal history of nicotine dependence; I48.2 Chronic atrial fibrillation; Z79.01 Long term (current) use of anticoagulants; J44.9 Chronic obstructive pulmonary disease, unspecified; J45.909 Unspecified asthma, uncomplicated; I87.8 Other specified disorders of veins; M17.0 Bilateral primary osteoarthritis of knee; M16.11 Unilateral primary osteoarthritis, right hip; E66.9 Obesity, unspecified; Z68.32 Body mass index [BMI] 32.0-32.9, adult; E11.22 Type 2 diabetes mellitus with diabetic chronic kidney disease
CPT/HCPCS: 36415; 71045-TC-FY; 80048; 80053; 80061; 81003; 82009; 82962; 83036; 83721; 83735; 85025; 85027; 93005; 93010; 96372; 97116-GP; 97161-GP; 99285-25; G0378

== ENCOUNTER 2019-08-30 14:23 | Inpatient (IN) | payer OTHER ==
--- NOTE | 2019-08-30 15:29 | PDOC ---
History of Present Illness - General Chief Complaint: Blood Pressure Problem Stated Complaint: HTN,DM Time Seen by Provider: 08/30/19 15:27 - History of Present Illness Initial Comments: 08/30/19 16:36 73y/o M hx of IDDM, CHF, COPD, Asthma, chronic venous stasis and ulcers, CKD, CAD, prostate Ca s/p prostactetomy, chronic hip/leg pain ambulates with crutches presents to the ER with bilateral leg swelling and non-healing ulcer over the last 2 months. patient has a hx of non-compliance with medications and treatment plans. was prompted to go to [facility] urgent care today at the insistence of his sister. sent to ED for further evaluation. At baseline, patient report 2 pillow orthopnea at home and use of O2 by nasal cannula (4L) as needed. Denies any worsening shortness of breath, chest pain, nausea, vomiting, hematuria, fevers, chills, penile discharge.Endorses, groin pain ( chronic), dysuria, testicular pain. 08/30/19 16:41 Past History - Past Medical History Allergies/Adverse Reactions: Allergies Allergy/AdvReac Type Severity Reaction Status Date / Time lactose Allergy Mild Verified 08/30/19 16:17 Penicillins Allergy Verified 08/30/19 16:17 Home Medications: Ambulatory Orders Isosorbide Dinitrate [Isordil] 10 mg PO BID 03/17/16 Atorvastatin Ca [Lipitor] 40 mg PO HS #30 tablet 01/12/17 Potassium Chloride 20 meq PO DAILY 08/07/17 Docusate Sodium [Colace -] 100 mg PO BID #60 capsule 08/14/17 Gabapentin [Neurontin -] 300 mg PO TID #90 capsule 08/14/17 Metoprolol Succinate [Toprol XL -] 75 mg PO DAILY #30 tab.sr.24h 08/14/17 Pen Needle, Diabetic [Ultra-Fine Short Pen Needle] 1 each MC TID #100 dis.needle 08/14/17 Silver Sulfadiazine 1% Top Cr [Silvadene -] 1 applic TP DAILY #1 jar 08/14/17 Torsemide 100 mg PO DAILY #30 tablet 08/14/17 Escitalopram Oxalate [Lexapro -] 5 mg PO DAILY #30 tablet 09/10/18 Insulin (Levemir) [Levemir Vial] 28 units SQ HS 08/31/19 Insulin Aspart [Novolog] 14 unit SQ TID 08/31/19 Apixaban [Eliquis -] 5 mg PO BID #60 tablet 09/03/19 Sulfamethoxazole/Trimethoprim [Bactrim Ds -] 1 tab PO BID #8 tablet 09/03/19 Anemia: No Asthma: Yes Cancer: Yes (prostate) Cardiac Disorders: Yes (AF, CAD) CVA: No COPD: Yes CHF: Yes Dementia: No Diabetes: Yes GI Disorders: No Disorders: No HTN: Yes Hypercholesterolemia: No Liver Disease: No Seizures: No Thyroid Disease: No - Surgical History Abdominal Surgery: Yes (Prostatectomy) Appendectomy: Yes Cardiac Surgery: No Cholecystectomy: No Lung Surgery: No Neurologic Surgery: No Orthopedic Surgery: No - Immunization History Immunization Up to Date: Yes - Psycho Social/Smoking Cessation Hx Smoking History: Former smoker Have you smoked in the past 12 months: No If you are a former smoker, when did you quit?: 1960 Hx Alcohol Use: No Drug/Substance Use Hx: No Substance Use Type: None Hx Substance Use Treatment: No *Physical Exam - Physical Exam 08/30/19 16:43 PE: GENERAL: Awake, alert, and fully oriented, in no acute distress HEAD: No signs of trauma, normocephalic, atraumatic EYES: PERRLA, EOMI, sclera anicteric, conjunctiva clear ENT: Auricles normal inspection, hearing grossly normal, nares patent, oropharynx clear without exudates. Moist mucosa NECK: Normal ROM, supple, no lymphadenopathy, JVD, or masses LUNGS: No distress, speaks full sentences, decreased breath sounds in upper lung graham, faint crackles at lung bases. HEART: Irregular rhythm, S1 and S2 present, no murmurs, rubs or gallops, faint pedal pulses. ABDOMEN: Soft, nontender, normoactive bowel sounds. No guarding, no rebound. : No penile dishcarge noted/rash. testicular tenderness no swelling noted. EXTREMITIES : chronic stasis dermatitis changes. thickened skin. ulcer on right leg. crusting present on right extremity, foul smelling. NEUROLOGICAL: Cranial nerves II through XII grossly intact. Normal speech, normal gait, no focal sensorimotor deficits SKIN: Other than legs noted above, rest of skin warm and dry. ED Treatment Course - LABORATORY CBC & Chemistry Diagram: 09/02/19 07:45 09/02/19 07:45 Medical Decision Making - Medical Decision Making 08/30/19 16:48 73y/o M hx of IDDM, CHF, COPD, Asthma, chronic venous stasis and ulcers, CKD, CAD, prostate Ca s/p prostactetomy, chronic hip/leg pain sepsis work up wound culture duplex venous u/s bilaterally Meds: hydralazine 50mg po for htn 226/110 08/30/19 17:29 EKG: Atrial flutter with variable AV block left axis deviation anterior infarct, age undetermined 08/30/19 17:31 Lactic acid and vbg pending troponin negative creatinine 1.4 08/30/19 18:39 X-rays done, u/s pending blood pressure 196/70 HR 89 will give labetalol 10 mg IV 08/30/19 20:06 urine 2+ protein, 3+ glucose negative leukocytes esterase, nitrites, blood bacteria 3.9 CXR Large heart, unfolded aorta and mild congestive changes. discrete infiltrate not seen, angles sharp bones and soft tissue intact. Leg tib/fib bilateral x-rays degenerative changes otherwise normal no soft tissue air Antibiotics: vancomycin 1g clindamycin 600mg Iv ordered (pt allergic to penicillin so cannot receive zosyn. 08/30/19 20:07 Lab called for follow up on wound culture. 08/30/19 20:32 Vascular U/s no dvt involving either leg. microblogged for admission. Discharge - Discharge Information Problems reviewed: Yes Clinical Impression/Diagnosis: Venous stasis of both lower extremities, Diabetic leg ulcer Condition: Improved Disposition: HOME - Follow up/Referral - Patient Discharge Instructions - Post Discharge Activity
[2019-08-30] MEDS ORDERED: hydrALAZINE HCL 50 MG TABLET (FP) PO ONE (16:33)
[2019-08-30 17:00] LABS: BASO % 0.3 % (0-2.0); EOS % 0.6 % (0-4.5); HEMATOCRIT 42.9 % (35.4-49); LYMPH % 15.5 % (8-40); MCHC 32.7 g/dl (32.0-35.9); MEAN CELL VOLUME 82.3 fl (80-96); MEAN PLT VOLUME 7.8 fl (7.5-11.1); MONO % 5.8 % (3.8-10.2); NEUT % 77.8 % (42.8-82.8); PLATELET COUNT 239 K/MM3 (134-434); RBC 5.21 M/mm3 (4.00-5.60); RDW 16.6 % (11.9-15.9); WHITE BLOOD COUNT 8.3 K/mm3 (4.0-10.0)
[2019-08-30 17:08] LABS: INR 1.09 (0.83-1.09); PROTHROMBIN TIME (PATIENT) 12.9 SEC (9.7-13.0)
[2019-08-30 17:11] LABS: ACTIVATED PTT 32.6 SECONDS (25.2-36.5)
[2019-08-30 17:25] LABS: ALBUMIN 3.2 g/dl (3.4-5.0); ALK PHOS 119 U/L (45-117); ANION GAP 7 MMOL/L (8-16); BILIRUBIN,TOTAL 0.4 mg/dL (0.2-1); BLOOD UREA NITROGEN 21.3 mg/dL (7-18); CALCIUM 8.8 mg/dL (8.5-10.1); CHLORIDE 101 mmol/L (98-107); CO2 31 mmol/L (21-32); CREATININE 1.4 mg/dL (0.55-1.3); GLUCOSE,RANDOM 273 mg/dL (74-106); POTASSIUM 3.8 mmol/L (3.5-5.1); SGOT/AST 8 U/L (15-37); SGPT/ALT 13 U/L (13-61); SODIUM 139 mmol/L (136-145); TOT PROT 7.1 g/dl (6.4-8.2)
[2019-08-30 17:35] LABS: VENOUS PC02 33.1 mmHg (38-52); VENOUS PH 7.49 (7.31-7.41)
[2019-08-30 17:37] LABS: VENOUS PO2 83.8 mmHg (28-48)
[2019-08-30 17:45] LABS: EPI CELLS 0.6 /HPF (0-5/HPF); HYALINE CASTS 0 /lpf (0-8); URINE APPEARANCE CLEAR; URINE BACTERIA 3.9 /hpf (NEGATIVE); URINE BILIRUBIN NEGATIVE (NEGATIVE); URINE COLOR YELLOW; URINE GLUCOSE (UA) 3+ (NEGATIVE); URINE KETONE NEGATIVE (NEGATIVE); URINE LEUK ESTERASE NEGATIVE (NEGATIVE); URINE NITRITE NEGATIVE (NEGATIVE); URINE PROTEIN 2+ (NEGATIVE); URINE RBC 0 /hpf (0-4); URINE UROBILINOGEN 0.2 mg/dL (0.2-1.0); URINE WBC 0 /hpf (0-5)
--- NOTE | 2019-08-30 17:52 | PDOC ---
Attending Attestation - Resident Resident Name: Jessica Catherine - ED Attending Attestation I have performed the following: I have examined & evaluated the patient, The case was reviewed & discussed with the resident, I agree w/resident's findings & plan, Exceptions are as noted - HPI HPI: 08/30/19 17:46 Mr. Lara is a 73 yo M h/o IDDM, CHF, COPD, Asthma, chronic venous stasis and ulcers, CKD, CAD, prostate Ca s/p prostactetomy, chronic hip/leg pain ambulates with crutches presents to the ER with bilateral leg swelling and non-healing ulcer over the last 2 months. Patient has been noncompliant with his antihypertensives for several months. He states that this is because his blood pressure has been normal and he has not needed to take his antihypertensives Patient denies any complaints of chest pain, palpitations, shortness of breath, headache, focal weakness or numbness He states his lower extremity edema is actually improved from prior Weeping ulcers have been there for several months. No fevers or chills Patient was actually brought to the urgent care by his sister who then brought him to the ER Patient has been tolerating p.o., no nausea or vomiting. He denies excessive sodium intake. He reports that he is at his baseline in terms of orthopnea, has not had an increased O2 requirement - Physicial Exam PE: 08/30/19 17:49 GENERAL: The patient is in no acute distress, pleasant with examiner. ENT: Ears normal, nares patent, oropharynx clear without exudates. Moist mucous membranes. NECK: Normal range of motion, supple, no lymphadenopathy LUNGS: Breath sounds equal, clear to auscultation bilaterally. No wheezes, and no crackles. HEART: Irregular, no murmur noted ABDOMEN: Soft, nontender, normoactive bowel sounds. EXTREMITIES: Bilateral lower extremity edema, venous stasis changes, right lower extremity with several areas of open skin with drainage skin is not warm, no significant erythema NEUROLOGICAL: Cranial nerves II through XII grossly intact. Normal speech. No focal neurological deficits. SKIN: Please see above - Medical Decision Making 08/30/19 17:52 73 yo M presenting to the ER with elevated BP and bilateral lower extremity edema Pt has been non complaint with medications EKG: A flutter, rate of 65 bpm, left axis deviation, no ST elevation or depression, T waves are upright 08/30/19 17:52 Laboratory Tests 08/30/19 08/30/19 08/30/19 16:30 16:30 16:30 WBC 8.3 Hgb 14.0 Hct 42.9 Plt Count 239 D INR 1.09 VBG pH POC VBG pCO2 POC VBG pO2 BUN 21.3 H Creatinine 1.4 H CK-MB (CK-2) 1.4 Troponin I < 0.02 Urine Blood Urine Nitrite Ur Leukocyte Esterase 08/30/19 08/30/19 17:00 17:00 WBC Hgb Hct Plt Count INR VBG pH 7.49 H POC VBG pCO2 33.1 L POC VBG pO2 83.8 H BUN Creatinine CK-MB (CK-2) Troponin I Urine Blood Negative Urine Nitrite Negative Ur Leukocyte Esterase Negative Chest x-ray: pending 08/30/19 18:08 Repeat BP: 195/90 08/30/19 18:32 Will give Hydralazine IV or Labetolol IV 08/30/19 18:[address] Combs pending Duplex, BP re assessment, Admission Clinical impression: Hypertension, initial presentation Severe venous stasis changes, initial presentation CHF, initial presentation medication non compliance, initial presentation
[2019-08-30] MEDS ORDERED: LABETALOL HCL 5 MG/1 ML (100MG/20 ML VIAL) IVPUSH ONE (18:39)
[2019-08-30] MEDS ORDERED: VANCOMYCIN 1 GM in D5W (PRE-DOCKED) 1,000 MG/250 ML IVPB ONE (19:15)
[2019-08-30] MEDS ORDERED: CLINDAMYCIN 600MG PREMIX IVPB 600 MG/50 ML BAG IVPB ONE ×2 (19:15→21:03)
[2019-08-30] MEDS ORDERED: VANCOMYCIN 1 GRAM (PRE-DOCKED) 1,000 MG/250 ML BAG IVPB ONE (21:03)
[2019-08-30] MEDS ORDERED: LABETALOL HCL 5 MG/1 ML (200MG/40ML VIAL) IVPB ONE (21:03)
--- NOTE | 2019-08-30 21:43 | HP ---
CHIEF COMPLAINT: Lower extremity foot ulcers PCP: None HISTORY OF PRESENT ILLNESS: Pt is a 73 y/o M with a significant past medical history of uncontrolled HTN, CHF, COPD, Asthma, chronic venous stasis and ulcers, CKD, CAD, prostate Ca s/p prostactetomy, chronic hip/leg pain who presented to [facility] [place] due to increasing swelling as well as oozing from lower extremity ulcers for the past 2 months. Pt endorses he has been suffering from chronic venous ulcers on both of his legs for numerous years. States that Since June, he has been experiencing increased heaviness and oozing from these ulcers. States he is often not compliant with his medications. Denies chest pain, nausea/vomiting, lightheadedness, or LOC. Endorses shortness of breath. ER course was notable for: (1) Vanc + Clinda (2) Atrial Flutter w/ Variable AV block (3) PAST MEDICAL HISTORY: as above PAST SURGICAL HISTORY: Social History: Smoking: denies Alcohol: denies Drugs: denies Allergies lactose Allergy (Mild, Verified 08/30/19 16:17) Penicillins Allergy (Verified 08/30/19 16:17) HOME MEDICATIONS: Home Medications Medication Instructions Recorded Hydralazine HCl 100 mg PO BID 03/17/16 Isosorbide Dinitrate [Isordil] 10 mg PO BID 03/17/16 Atorvastatin Ca [Lipitor] 40 mg PO HS #30 tablet 01/12/17 Potassium Chloride 20 meq PO DAILY 08/07/17 Apixaban [Eliquis -] 5 mg PO BID #60 tablet 08/14/17 Docusate Sodium [Colace -] 100 mg PO BID #60 capsule 08/14/17 Gabapentin [Neurontin -] 300 mg PO TID #90 capsule 08/14/17 Insulin (Levemir) [Levemir Vial] 14 units SQ HS #200 units 08/14/17 Insulin Aspart [Novolog] 5 unit SQ TID #100 cartridge 08/14/17 Metoprolol Succinate [Toprol XL -] 75 mg PO DAILY #30 tab.sr.24h 08/14/17 Pen Needle, Diabetic [Ultra-Fine 1 each MC TID #100 dis.needle 08/14/17 Short Pen Needle] Silver Sulfadiazine 1% Top Cr 1 applic TP DAILY #1 jar 08/14/17 [Silvadene -] Spironolactone [Aldactone -] 25 mg PO DAILY #30 tablet 08/14/17 Torsemide 100 mg PO DAILY #30 tablet 08/14/17 Furosemide [Lasix] 40 mg PO DAILY 09/09/18 Atorvastatin Ca [Lipitor] 20 mg PO HS #30 tablet 09/10/18 Escitalopram Oxalate [Lexapro -] 5 mg PO DAILY #30 tablet 09/10/18 REVIEW OF SYSTEMS CONSTITUTIONAL: Absent: fever, chills, diaphoresis, generalized weakness, malaise, loss of appetite, weight change HEENT: Absent: rhinorrhea, nasal congestion, throat pain, throat swelling, difficulty swallowing, mouth swelling, ear pain, eye pain, visual changes CARDIOVASCULAR: Absent: chest pain, syncope, palpitations, irregular heart rate, lightheadedness , peripheral edema RESPIRATORY: present: shortness of breath, dyspnea with exertion, orthopnea GASTROINTESTINAL: Absent: abdominal pain, abdominal distension, nausea, vomiting, diarrhea, constipation, melena, hematochezia GENITOURINARY: Absent: dysuria, frequency, urgency, hesitancy, hematuria, flank pain, genital pain MUSCULOSKELETAL: Absent: myalgia, arthralgia, joint swelling, back pain, neck pain SKIN: present: lower extremity dermatitis HEMATOLOGIC/IMMUNOLOGIC: Absent: easy bleeding, easy bruising, lymphadenopathy, frequent infections ENDOCRINE: Absent: unexplained weight gain, unexplained weight loss, heat intolerance, cold intolerance NEUROLOGIC: Absent: headache, focal weakness or paresthesias, dizziness, unsteady gait, seizure, mental status changes, bladder or bowel incontinence PSYCHIATRIC: Absent: anxiety, depression, suicidal or homicidal ideation, hallucinations. PHYSICAL EXAMINATION Vital Signs - 24 hr 08/30/19 08/30/19 08/30/19 14:25 16:23 18:59 Temperature 98.1 F 98.7 F Pulse Rate 58 L 60 Respiratory 22 H Rate Blood Pressure 223/110 H Blood Pressure [Left Arm] O2 Sat by Pulse 90 L 97 Oximetry (%) 08/30/19 19:04 Temperature Pulse Rate Respiratory 18 Rate Blood Pressure Blood Pressure 190/90 H [Left Arm] O2 Sat by Pulse 96 Oximetry (%) GENERAL: NAD HEAD: Normal with no signs of trauma. EYES: EOMI Sclera Clear EARS, NOSE, THROAT: MMM NECK: Supple LUNGS: Crackles bilateral lung bases HEART: Irregular S1S2 ABDOMEN: obese, soft nondistended nontender LOWER EXTREMITIES: 3+ edema b/l. Stasis dermatitis, oozing quarter sized ulcer right lateral aspect leg. Onychomycosis b/l. PSYCHIATRIC: Cooperative. Good eye contact. Appropriate mood and affect. Laboratory Results - last 24 hr 08/30/19 08/30/19 08/30/19 16:30 16:30 16:30 WBC 8.3 RBC 5.21 Hgb 14.0 Hct 42.9 MCV 82.3 MCH 27.0 MCHC 32.7 RDW 16.6 H Plt Count 239 D MPV 7.8 Absolute Neuts (auto) 6.4 Neutrophils % 77.8 D Lymphocytes % 15.5 D Monocytes % 5.8 Eosinophils % 0.6 Basophils % 0.3 Nucleated RBC % 0 PT with INR 12.90 INR 1.09 PTT (Actin FS) 32.6 VBG pH POC VBG pCO2 POC VBG pO2 VBG HCO3 VBG O2 Sat (Candido) VBG Base Excess Sodium 139 Potassium 3.8 Chloride 101 Carbon Dioxide 31 Anion Gap 7 L BUN 21.3 H Creatinine 1.4 H Est GFR (CKD-EPI)AfAm 57.36 Est GFR (CKD-EPI)NonAf 49.49 Random Glucose 273 H Lactic Acid Calcium 8.8 Total Bilirubin 0.4 AST 8 L ALT 13 Alkaline Phosphatase 119 H Creatine Kinase 66 CK-MB (CK-2) 1.4 Troponin I < 0.02 Total Protein 7.1 Albumin 3.2 L Urine Color Urine Appearance Urine pH Ur Specific Benkelman Urine Protein Urine Glucose (UA) Urine Ketones Urine Blood Urine Nitrite Urine Bilirubin Urine Urobilinogen Ur Leukocyte Esterase Urine WBC (Auto) Urine RBC (Auto) Urine Casts (Auto) U Epithel Cells (Auto) Urine Bacteria (Auto) 08/30/19 08/30/19 08/30/19 17:00 17:00 17:20 WBC RBC Hgb Hct MCV MCH MCHC RDW Plt Count MPV Absolute Neuts (auto) Neutrophils % Lymphocytes % Monocytes % Eosinophils % Basophils % Nucleated RBC % PT with INR INR PTT (Actin FS) VBG pH 7.49 H POC VBG pCO2 33.1 L POC VBG pO2 83.8 H VBG HCO3 24.9 VBG O2 Sat (Candido) No Result Required. VBG Base Excess No Result Required. Sodium Potassium Chloride Carbon Dioxide Anion Gap BUN Creatinine Est GFR (CKD-EPI)AfAm Est GFR (CKD-EPI)NonAf Random Glucose Lactic Acid 1.5 Calcium Total Bilirubin AST ALT Alkaline Phosphatase Creatine Kinase CK-MB (CK-2) Troponin I Total Protein Albumin Urine Color Yellow Urine Appearance Clear Urine pH 6.0 D Ur Specific Benkelman 1.028 Urine Protein 2+ H Urine Glucose (UA) 3+ H Urine Ketones Negative Urine Blood Negative Urine Nitrite Negative Urine Bilirubin Negative Urine Urobilinogen 0.2 Ur Leukocyte Esterase Negative Urine WBC (Auto) 0 Urine RBC (Auto) 0 Urine Casts (Auto) 0 U Epithel Cells (Auto) 0.6 Urine Bacteria (Auto) 3.9 ASSESSMENT/PLAN: Pt is a 73 y/o M with a significant past medical history of uncontrolled HTN, CHF, COPD, Asthma, chronic venous stasis and ulcers, CKD, CAD, prostate Ca s/p prostactetomy, chronic hip/leg pain who presented to [facility] [place] due to oozing lower extremity ulcers for the past 2 months # R Lower extremity ulcer/Superimposed Cellulites -Vancomycin and Clinda in ED -Will place on Aztreonam and Flagyl in addition to the Vancomycin. -ID consult. Recs appreciated. #HTN -C/w home hydralazine and Isosorbide -Will hold Metoprolol in light of bradycardia appreciated here in hospital #IDDM -ISS -Crucial to control hyperglycemia in setting of chronic wound ulcer #CHF -Resume Lasix #FEN No standing Fluids Monitor Electrolytes Sodium/Diabetic Diet #Dispo: Med-Surg #DVT ppx: HEP Sq TID Visit type - Emergency Visit Emergency Visit: Yes ED Registration Date: 08/30/19 Care time: The patient presented to the Emergency Department on the above date and was hospitalized for further evaluation of their emergent condition. - New Patient This patient is new to me today: Yes Date on this admission: 08/31/19 - Critical Care Critical Care patient: No ATTENDING PHYSICIAN STATEMENT I saw and evaluated the patient. I reviewed the resident's note and discussed the case with the resident. I agree with the resident's findings and plan as documented. SUBJECTIVE: OBJECTIVE: ASSESSMENT AND PLAN:
[2019-08-30] MEDS ORDERED: HEPARIN NA (PORCINE) 5,000 UNITS/ML 1ML VIAL SQ SCH (22:00)
[2019-08-30] MEDS ORDERED: HEPARIN NA (PORCINE) 5,000 UNITS/ML 1ML VIAL ONE (22:38)
--- NOTE | 2019-08-30 23:30 | PN ---
Teaching Attending Note Name of Resident: Jesus Mosquera ATTENDING PHYSICIAN STATEMENT I saw and evaluated the patient. I reviewed the resident's note and discussed the case with the resident. I agree with the resident's findings and plan as documented. SUBJECTIVE: 73 yo M h/o IDDM, CHF, COPD, Asthma, chronic venous stasis and ulcers, CKD, CAD , prostate Ca s/p prostactetomy, chronic hip/leg pain ambulates with crutches [id number] Complaining of right leg ulcer which she has had for at least several weeks and is not healing. Ulcers began to drain fluid patient was concerned for possible infection. Denied any fevers, chills, rigors. OBJECTIVE: Last Vital Signs Temp Pulse Resp BP Pulse Ox 98.5 F 68 18 160/106 H 97 08/31/19 04:33 08/31/19 04:33 08/31/19 04:43 08/31/19 04:33 08/31/19 04:43 GENERAL: Obese well nourished. Awake and alert. No acute distress. HEENT: Normocephalic, atraumatic. PERRLA, EOMI. No conjunctival pallor. Sclera are non- icteric. Moist mucous membranes. Oropharynx is clear. NECK: Supple. Full ROM. No JVD. Carotid pulses 2+ and symmetric, without bruits. No thyromegaly. No lymphadenopathy. CARDIOVASCULAR: Regular rate and rhythm. No murmurs, rubs, or gallops. Distal pulses are 2+ and symmetric. PULMONARY: No evidence of respiratory distress. Lungs clear to auscultation bilaterally. No wheezing, rales or rhonchi. ABDOMINAL: Soft. Non-tender. Non-distended. No rebound or guarding. No organomegaly. Normoactive bowel sounds. MUSCULOSKELETAL Normal range of motion at all joints. No bony deformities or tenderness. No CVA tenderness. EXTREMITIES: Right lower extremity mid tibial ulcer noted, nonpainful to touch, draining serosanguineous fluid. Not very warm to touch and minimal erythema's and surrounding area. Bilateral lower extremity hyperkeratotic changes noted. Severe venous stasis dermatitis. SKIN: Warm and dry. Normal capillary refill. No rashes. No jaundice. PSYCHIATRIC: Cooperative. Good eye contact. Appropriate mood and affect. Abnormal Lab Results 08/30/19 08/30/19 08/30/19 16:30 16:30 17:00 RDW 16.6 H VBG pH POC VBG pCO2 POC VBG pO2 Anion Gap 7 L BUN 21.3 H Creatinine 1.4 H Random Glucose 273 H AST 8 L Alkaline Phosphatase 119 H Albumin 3.2 L Urine Protein 2+ H Urine Glucose (UA) 3+ H 08/30/19 17:00 RDW VBG pH 7.49 H POC VBG pCO2 33.1 L POC VBG pO2 83.8 H Anion Gap BUN Creatinine Random Glucose AST Alkaline Phosphatase Albumin Urine Protein Urine Glucose (UA) Imaging studies reviewed ASSESSMENT AND PLAN: 73-year-old male with severe venous stasis changes in lower extremities and right mid tibial ulcer concerning for infection. Due to proximity to tibia would be prudent to rule out osteomyelitis. Penicillin allergy with reported hives. Admit to MedSurg Vancomycin, aztreonam, metronidazole empirically Blood cultures x2 ESR and CRP MRI of right lower extremity to rule out osteomyelitis of tibia Leg elevation Compressive stockings to lower extremities bilaterally Tight glucose control Wound care to right leg lesion #Uncontrolled NovoLog sliding scale Basal insulin A1c Diabetic diet #HypertensionSevere, uncontrolled Continue with furosemide home dose, hydralazine dose, isosorbide dinitrate Given patient's initial bradycardia upon presentation would hold home Toprol dose for now and consider readjusting Stressed salt restriction #CKD Avoid nephrotoxins Monitor renal function closely BP control Heparin subcutaneously for DVT prophylaxis
[2019-08-31] MEDS ORDERED: AZTREONAM 1 GM in DEXTROSE 5%-WATER - 50 ML IVPB SCH (04:45)
[2019-08-31] MEDS: GABAPENTIN 300 MG CAPSULE (FP) PO SCH ×3 (05:17→22:16)
[2019-08-31] MEDS ORDERED: AZTREONAM 1 GM VIAL (RESTRICTED TO ID) ONE (05:31)
[2019-08-31] MEDS ORDERED: DEXTROSE 5%-WATER - 50 ML IVPB ONE (05:31)
[2019-08-31] MEDS: INSULIN SLIDING SCALE (NOVOLOG) 1 VIAL SQ SCH ×4 (06:24→22:17)
[2019-08-31 09:02] LABS: BASO % 0.5 % (0-2.0); EOS % 0.9 % (0-4.5); HEMATOCRIT 39.7 % (35.4-49); LYMPH % 19.7 % (8-40); MCH 26.6 pg (25.7-33.7); MCHC 32.7 g/dl (32.0-35.9); MEAN CELL VOLUME 81.4 fl (80-96); MEAN PLT VOLUME 7.7 fl (7.5-11.1); MONO % 6.2 % (3.8-10.2); NEUT % 72.7 % (42.8-82.8); PLATELET COUNT 214 K/MM3 (134-434); RBC 4.88 M/mm3 (4.00-5.60); RDW 16.6 % (11.9-15.9); WHITE BLOOD COUNT 7.8 K/mm3 (4.0-10.0)
[2019-08-31 09:10] LABS: INR 1.15 (0.83-1.09); PROTHROMBIN TIME (PATIENT) 13.6 SEC (9.7-13.0)
[2019-08-31 09:11] LABS: ACTIVATED PTT 33.1 SECONDS (25.2-36.5)
[2019-08-31] MEDS: hydrALAZINE HCL 50 MG TABLET (FP) PO SCH ×2 (09:20→22:16)
[2019-08-31] MEDS: ESCITALOPRAM OXALATE 10 MG TABLET (FP) PO SCH (09:20)
[2019-08-31] MEDS: ISOSORBIDE DINITRATE 10 MG TABLET (FP) PO SCH ×2 (09:21→18:12)
[2019-08-31] MEDS: DOCUSATE SODIUM 100 MG CAPSULE (FP) PO SCH ×2 (09:21→22:16)
[2019-08-31] MEDS: APIXABAN 5 MG TABLET PO SCH ×2 (09:21→22:17)
[2019-08-31 09:35] LABS: BILIRUBIN,TOTAL 0.8 mg/dL (0.2-1); BLOOD UREA NITROGEN 17.5 mg/dL (7-18); CALCIUM 8.9 mg/dL (8.5-10.1); CREATININE 1.3 mg/dL (0.55-1.3); MAGNESIUM 1.9 mg/dL (1.8-2.4); POTASSIUM 3.6 mmol/L (3.5-5.1); TOT PROT 6.6 g/dl (6.4-8.2)
[2019-08-31] MEDS ORDERED: PT OWN MED DRAWER 7, Y5N ONE ×2 (11:31→17:44)
--- NOTE | 2019-08-31 14:33 | CON.ID ---
Consult - Past Medical History Cardio/Vascular: Yes: CAD, CHF, HTN, Pulmonary Hypertension Pulmonary: Yes: Asthma, COPD. No: O2 Dependent Renal/: Yes: Cancer (prostate) Endocrine: Yes: Other (Hyperglycemia) Dermatology: Yes: Other (chronic changes on bilateral LEs due to venous insufficiency) - Past Surgical History Past Surgical History: Yes: Appendectomy, Prostatectomy - Alcohol/Substance Use Hx Alcohol Use: No History of Substance Use: reports: Marijuana (many years ago) - Smoking History Smoking history: Former smoker Have you smoked in the past 12 months: No If you are a former smoker, when did you quit?: 1959 - Social History Usual Living Arrangement: With Spouse ADL: Family Assistance History of Recent Travel: (unknown) Home Medications - Allergies Allergies/Adverse Reactions: Allergies Allergy/AdvReac Type Severity Reaction Status Date / Time lactose Allergy Mild Verified 08/30/19 16:17 Penicillins Allergy Verified 08/30/19 16:17 - Home Medications Home Medications: Ambulatory Orders Hydralazine HCl 100 mg PO BID 03/17/16 Isosorbide Dinitrate [Isordil] 10 mg PO BID 03/17/16 Atorvastatin Ca [Lipitor] 40 mg PO HS #30 tablet 01/12/17 Potassium Chloride 20 meq PO DAILY 08/07/17 Apixaban [Eliquis -] 5 mg PO BID #60 tablet 08/14/17 Docusate Sodium [Colace -] 100 mg PO BID #60 capsule 08/14/17 Gabapentin [Neurontin -] 300 mg PO TID #90 capsule 08/14/17 Metoprolol Succinate [Toprol XL -] 75 mg PO DAILY #30 tab.sr.24h 08/14/17 Pen Needle, Diabetic [Ultra-Fine Short Pen Needle] 1 each MC TID #100 dis.needle 08/14/17 Silver Sulfadiazine 1% Top Cr [Silvadene -] 1 applic TP DAILY #1 jar 08/14/17 Spironolactone [Aldactone -] 25 mg PO DAILY #30 tablet 08/14/17 Torsemide 100 mg PO DAILY #30 tablet 08/14/17 Furosemide [Lasix] 40 mg PO DAILY 09/09/18 Escitalopram Oxalate [Lexapro -] 5 mg PO DAILY #30 tablet 09/10/18 Insulin (Levemir) [Levemir Vial] 28 units SQ HS 08/31/19 Insulin Aspart [Novolog] 14 unit SQ TID 08/31/19 Physical Exam Vital Signs: Vital Signs Temperature 98.4 F 08/31/19 10:00 Pulse Rate 111 H 08/31/19 10:00 Respiratory Rate 18 08/31/19 10:00 Blood Pressure 156/102 H 08/31/19 10:00 O2 Sat by Pulse Oximetry (%) 96 08/31/19 10:00 Labs: CBC, BMP 08/31/19 08:18 08/31/19 08:18
--- NOTE | 2019-08-31 16:51 | PN ---
Progress Note (short form) - Note Progress Note: ID consult dictated severe venous stasis chf dm pen allergy no signs of infection will d/c antibiotics suspect needs cardiology eval as well as vascular will need wound care f/u as outpt for his legs or VNS Problem List - Problems (1) Venous stasis of both lower extremities Code(s): I87.8 - OTHER SPECIFIED DISORDERS OF VEINS (2) Acute on chronic diastolic (congestive) heart failure Code(s): I50.33 - ACUTE ON CHRONIC DIASTOLIC (CONGESTIVE) HEART FAILURE (3) Penicillin allergy Code(s): Z88.0 - ALLERGY STATUS TO PENICILLIN (4) Diabetes Code(s): E11.9 - TYPE 2 DIABETES MELLITUS WITHOUT COMPLICATIONS
[2019-08-31] MEDS ORDERED: INSULIN (NOVOLOG) ASPART 100 UNITS/ML 10ML VIAL ONE (17:18)
--- NOTE | 2019-08-31 17:33 | CONS ---
DATE OF CONSULTATION: DATE OF DICTATION: 08/31/2019 HISTORY OF PRESENT ILLNESS: This is a 73-year-old man who was last admitted to [facility] a year ago in September of 2018 for 2 days. He has a history of CHF. He is followed by Dr. Fu. Has a history of diabetes. He is followed by Dr. Francisco, CKD, coronary artery disease. He has chronic lower extremity edema. He used to come to the wound care center but has stopped doing that as well. He presents to the ER with bilateral lower extremity swelling that has been occurring over minimum last several weeks to months. He notes that he has had some clear drainage from his legs and some water blisters. He has no fevers or chills. He does not identify a primary care doctor. He was ambulating with crutches at home. He went to the [facility] and was sent to the ER. He reports his breathing is at its baseline. He uses 2 pillows, and he uses oxygen as needed. He denies any fevers, chills, nausea, vomiting and states that his leg swelling has worsened. ALLERGIES: He is allergic to PENICILLIN, which he describes as rash that he had many years ago. PAST MEDICAL HISTORY: Notable for prostate cancer. He has a history of diabetes, hypertension, atrial fibrillation, coronary artery disease, COPD, asthma. He has a history of chronic changes to his legs due to venous insufficiency, and he is no longer being followed at Wound Care or having any kind of care to his legs. PAST SURGICAL HISTORY: Notable for prostatectomy and appendectomy. MEDICATIONS: He is on torsemide, Aldactone, metoprolol, Isordil, insulin, hydralazine, Neurontin, Lasix, Lexapro, Colace, Lipitor, and Eliquis. SOCIAL HISTORY: He is . He lives at home with his . He is retired. There is no history of any travel. They have no pets. REVIEW OF SYSTEMS: As per HPI. PHYSICAL EXAMINATION: Vital Signs: His temperature is 98.3, pulse of 113. Blood pressure is 133/73. Respiratory rate is 18. HEENT: He is normocephalic. His eyes are anicteric. Neck: Supple. Lungs: Clear to auscultation. Heart: Regular rate and rhythm. Abdomen: Protuberant and nontender. Extremities: Notable for bilateral lower extremity edema. He has chronic venous stasis with hyperkeratotic changes of both legs. He has no erythema, and there is no purulence or warmth. LABORATORY: Notable for a white count of 7.8, hemoglobin 13. Platelets are 214. Sedimentation rate is 28. BUN and creatinine are 17 and 1.3, with normal LFTs. Urinalysis is notable for 3+ glucose, 2+ protein. Cultures are pending. He has had multiple imaging studies including duplex of his legs which was negative for DVT. He has had bilateral tibiofibular films that are negative as well. SUMMARY: 1. This is a gentleman with severe venous stasis changes of his leg which I suspect are chronic. He does not wrap his legs or treat them in any other way. He also has evidence of edema. I would suggest at this time that he be seen by Cardiology as well as Vascular. I do not see any signs of infection of his legs, so I will go ahead and stop his antibiotics. 2. History of congestive heart failure. 3. History of diabetes. 4. PENICILLIN allergy. FRANCESCA TOWNSEND M.D. [id number]
--- NOTE | 2019-08-31 19:13 | PN ---
Progress Note (short form) - Note Progress Note: SUBJECTIVE: Feels okay - no fever/chills. OBJECTIVE: Afebrile, Hemodynamically Stable. Last Vital Signs Temp Pulse Resp BP Pulse Ox 98.3 F 113 H 18 133/73 96 08/31/19 14:35 08/31/19 14:35 08/31/19 14:35 08/31/19 14:35 08/31/19 10:00 HEENT- Atraumatic, normocephalic. Heart - S1, S2, RRR Lungs - clear to auscultation Abdomen - Distended due to high BMI. Soft, non-tender. Bowel sounds normal. Extremities - Extensive Venous stasis skin changes with edema, thickening of skin, anterior/medial aspect of RLE with stasis ulcer with mild serous drainage - no purulence or cellulitis. Neuro - AAO x 3. Tone/Power normal all extremities. Laboratory Results - last 24 hr 08/31/19 08/31/19 08/31/19 05:52 08:18 08:18 WBC 7.8 RBC 4.88 Hgb 13.0 Hct 39.7 MCV 81.4 MCH 26.6 MCHC 32.7 RDW 16.6 H Plt Count 214 MPV 7.7 Absolute Neuts (auto) 5.7 Neutrophils % 72.7 Lymphocytes % 19.7 D Monocytes % 6.2 Eosinophils % 0.9 Basophils % 0.5 Nucleated RBC % 0 ESR PT with INR 13.60 H INR 1.15 H PTT (Actin FS) 33.1 Sodium Potassium Chloride Carbon Dioxide Anion Gap BUN Creatinine Est GFR (CKD-EPI)AfAm Est GFR (CKD-EPI)NonAf POC Glucometer 307 Random Glucose Calcium Phosphorus Magnesium Total Bilirubin AST ALT Alkaline Phosphatase C-Reactive Protein Total Protein Albumin 08/31/19 08/31/19 08/31/19 08:18 08:18 08:18 WBC RBC Hgb Hct MCV MCH MCHC RDW Plt Count MPV Absolute Neuts (auto) Neutrophils % Lymphocytes % Monocytes % Eosinophils % Basophils % Nucleated RBC % ESR 28 H PT with INR INR PTT (Actin FS) Sodium 139 Potassium 3.6 Chloride 103 Carbon Dioxide 29 Anion Gap 7 L BUN 17.5 Creatinine 1.3 Est GFR (CKD-EPI)AfAm 62.74 Est GFR (CKD-EPI)NonAf 54.13 POC Glucometer Random Glucose 218 H Calcium 8.9 Phosphorus 3.0 Magnesium 1.9 Total Bilirubin 0.8 AST 8 L ALT 12 L Alkaline Phosphatase 111 C-Reactive Protein 2.0 H Total Protein 6.6 Albumin 3.0 L 08/31/19 08/31/19 11:14 17:13 WBC RBC Hgb Hct MCV MCH MCHC RDW Plt Count MPV Absolute Neuts (auto) Neutrophils % Lymphocytes % Monocytes % Eosinophils % Basophils % Nucleated RBC % ESR PT with INR INR PTT (Actin FS) Sodium Potassium Chloride Carbon Dioxide Anion Gap BUN Creatinine Est GFR (CKD-EPI)AfAm Est GFR (CKD-EPI)NonAf POC Glucometer 264 303 Random Glucose Calcium Phosphorus Magnesium Total Bilirubin AST ALT Alkaline Phosphatase C-Reactive Protein Total Protein Albumin Current Medications Generic Name Dose Route Start Last Admin Trade Name Freq PRN Reason Stop Dose Admin Apixaban 5 mg 08/31/19 10:00 08/31/19 09:21 Eliquis - PO 5 mg BID EVANGELINA Administration Atorvastatin Calcium 40 mg 08/31/19 22:00 Lipitor - PO HS [facility] Docusate Sodium 100 mg 08/31/19 10:00 08/31/19 09:21 Colace - PO 100 mg BID EVANGELINA Administration Escitalopram Oxalate 5 mg 08/31/19 10:00 08/31/19 09:20 Lexapro - PO 5 mg DAILY EVANGELINA Administration Gabapentin 300 mg 08/31/19 06:00 08/31/19 14:20 Neurontin - PO 300 mg TID EVANGELINA Administration Hydralazine HCl 100 mg 08/31/19 10:00 08/31/19 09:20 Apresoline - PO 100 mg BID EVANGELINA Administration Insulin Aspart 1 vial 08/31/19 07:00 08/31/19 17:20 Novolog Vial Sliding Scale - SQ 8 units ACHS [facility] Administration Protocol Insulin Detemir 10 units 08/31/19 22:00 Levemir Vial SQ HS EVANGELINA Isosorbide Dinitrate 10 mg 08/31/19 10:00 08/31/19 18:12 Isordil - PO 10 mg BIDISORDIL EVANGELINA Administration Home Medications Medication Instructions Recorded Hydralazine HCl 100 mg PO BID 03/17/16 Isosorbide Dinitrate [Isordil] 10 mg PO BID 03/17/16 Atorvastatin Ca [Lipitor] 40 mg PO HS #30 tablet 01/12/17 Potassium Chloride 20 meq PO DAILY 08/07/17 Apixaban [Eliquis -] 5 mg PO BID #60 tablet 08/14/17 Docusate Sodium [Colace -] 100 mg PO BID #60 capsule 08/14/17 Gabapentin [Neurontin -] 300 mg PO TID #90 capsule 08/14/17 Metoprolol Succinate [Toprol XL -] 75 mg PO DAILY #30 tab.sr.24h 08/14/17 Pen Needle, Diabetic [Ultra-Fine 1 each MC TID #100 dis.needle 08/14/17 Short Pen Needle] Silver Sulfadiazine 1% Top Cr 1 applic TP DAILY #1 jar 08/14/17 [Silvadene -] Spironolactone [Aldactone -] 25 mg PO DAILY #30 tablet 08/14/17 Torsemide 100 mg PO DAILY #30 tablet 08/14/17 Furosemide [Lasix] 40 mg PO DAILY 09/09/18 Escitalopram Oxalate [Lexapro -] 5 mg PO DAILY #30 tablet 09/10/18 Insulin (Levemir) [Levemir Vial] 28 units SQ HS 08/31/19 Insulin Aspart [Novolog] 14 unit SQ TID 08/31/19 ASSESSMENT/PLAN: 73 year old female with DM 2, Chronic Systolic CHF, Atrial fibrillation/Flutter , CRF sec to COPD, Chronic venous stasis and ulcers, CKD 3, CAD, Prostate Ca s/ p prostactetomy, ambulates with crutches presents with 2 week Hx of non-healing RLE ulcer, initially blister now de-roofed. No fevers/chills. 1. Severe Chronic Venous Stasis Possible infected ulcer RLE anterior/medial olsen Seen by ID - Abx discontinued for low suspicion of infection Wound care/Vascular consult requested. Previously on Torsemide and Spironolactone - needs medical reconciliation and medication update. Will give IV Lasix while in-house. 2. DM 2 - continue Levemir and Novolog sliding scale. 3. Chronic mixed Diastolic/Systolic CHF No evidence of acute exacerbation Continue BB. unclear whether patient is on Lasix, Torsemide +/- Spironolactone. Will confirm medications. 4. HTN - Continue Hydralazine, Isosorbide, Metoprolol. 5. CKD 3 -Stable. 6. CRF sec to COPD - stable, no evidence of exacerbation. Supplemental O2. 7. Atrial fibrillation - on BB and Eliquis. Appears to be in SR now. Will get ECG. 8. Depression - continue Lexapro DVT Px - on Eliquis. Visit type - Emergency Visit Emergency Visit: Yes ED Registration Date: 08/30/19 Care time: The patient presented to the Emergency Department on the above date and was hospitalized for further evaluation of their emergent condition. - New Patient This patient is new to me today: Yes Date on this admission: 09/01/19 - Critical Care Critical Care patient: No - Discharge Referral Referred to [facility] Med P.C.: No
[2019-08-31] MEDS: FUROSEMIDE 40 MG/4 ML INJECTABLE VIAL IVPUSH SCH (19:58)
[2019-08-31] MEDS: ATORVASTATIN CA 40 MG TABLET (FP) PO SCH (22:16)
[2019-08-31] MEDS: INSULIN (LEVEMIR) 100 UNITS/ML UNITS SQ SCH (22:17)
[2019-09-01] MEDS: GABAPENTIN 300 MG CAPSULE (FP) PO SCH ×3 (05:56→21:46)
[2019-09-01] MEDS: INSULIN SLIDING SCALE (NOVOLOG) 1 VIAL SQ SCH ×4 (06:18→21:46)
[2019-09-01 08:28] VITALS: BMI 38.5
[2019-09-01 09:08] LABS: BLOOD UREA NITROGEN 21.7 mg/dL (7-18); CALCIUM 8.8 mg/dL (8.5-10.1); CREATININE 1.4 mg/dL (0.55-1.3); POTASSIUM 3.9 mmol/L (3.5-5.1)
[2019-09-01] MEDS ORDERED: PT OWN MED DRAWER 7, Y5N ONE ×4 (09:17→17:17)
[2019-09-01] MEDS: FUROSEMIDE 40 MG/4 ML INJECTABLE VIAL IVPUSH SCH (09:33)
[2019-09-01] MEDS: ESCITALOPRAM OXALATE 10 MG TABLET (FP) PO SCH (09:34)
[2019-09-01] MEDS: hydrALAZINE HCL 50 MG TABLET (FP) PO SCH (09:34)
[2019-09-01] MEDS: APIXABAN 5 MG TABLET PO SCH ×2 (09:34→21:46)
[2019-09-01] MEDS: DOCUSATE SODIUM 100 MG CAPSULE (FP) PO SCH ×2 (09:34→21:46)
[2019-09-01] MEDS: ISOSORBIDE DINITRATE 10 MG TABLET (FP) PO SCH ×2 (09:34→17:55)
[2019-09-01] MEDS: SILVER SULFADIAZINE 1% TOP CREAM 50 GM JAR TP SCH (09:35)
[2019-09-01] MEDS ORDERED: CEFTRIAXONE 1 GM in DEXTROSE 5%-WATER - 50 ML IVPB SCH (10:00)
--- NOTE | 2019-09-01 11:18 | CONSULT ---
Consult - text type - Consultation Consultation Note: Podiatry Consultation: 73 year old male, history of chronic venous insufficiency, presented to hospital for admission for RLE venous ulcer. Patient endorses history of blister on his leg that erupted. He noted increased swelling in the legs as well. He denies F/V/N/C/SOB/CP. Afebrile during admission. PMHx: HTN, CHF, COPD, Asthma, chronic venous stasis and ulcers, CKD, CAD, prostate Ca s/p prostactetomy, chronic hip/leg pain Meds: noted PSHx: noted ALL: lactose, PCN JAMARCUS: Vascular: Pedal pulses 1/4, TG wnl, CFT brisk to all toes. There are no ischemic changes to the feet. The feet are warm and well perfused. Neuro: epicritic and protective sensations grossly intact to bilateral feet. There are no focal motor or sensory deficits bilaterally. Derm: there are chronic venous stasis changes with lichenification of both legs. There is a lower leg venous stasis ulcer of the right leg with fibrogranular base, mild serous drainage, no purulent drainage, no probing to bone, no fluctuance, no streaking cellulitis, no soft tissue crepitus, no signs of active infection Imp: 73 year old male with venous insufficiency and venous stasis changes with RLE venous ulcer 1. IV abx per infectious disease 2. Recommend consultation with vascular sx for evaluation of venous stasis ulcer 3. Recommend leg elevation 4. No acute podiatric intervention at this time. Thank you for the courtesy of this consultation. Geovanna Hernandez DPM
[2019-09-01] MEDS ORDERED: DEXTROSE 5%-WATER - 50 ML IVPB ONE ×2 (11:35→17:16)
[2019-09-01] MEDS ORDERED: INSULIN (NOVOLOG) ASPART 100 UNITS/ML 10ML VIAL ONE (11:35)
[2019-09-01] MEDS ORDERED: cefTRIAXone SODIUM 1 GM VIAL ONE ×2 (11:35→17:16)
--- NOTE | 2019-09-01 14:54 | PN ---
Teaching Attending Note Name of Resident: Radha Martin ATTENDING PHYSICIAN STATEMENT I saw and evaluated the patient. I reviewed the resident's note and discussed the case with the resident. I agree with the resident's findings and plan as documented. SUBJECTIVE: Feels well - no LE pain. No fever/chills. OBJECTIVE: Afebrile, Hemodynamically Stable. Last Vital Signs Temp Pulse Resp BP Pulse Ox 98.6 F 57 L 17 132/77 95 09/01/19 14:20 09/01/19 14:20 09/01/19 14:20 09/01/19 14:20 09/01/19 09:00 Heart - S1, S2, RRR Lungs - clear to auscultation Abdomen - Distended due to high BMI. Soft, non-tender. Bowel sounds normal. Extremities - Extensive Venous stasis skin changes with edema, thickening of skin, anterior/medial aspect of RLE with stasis ulcer with mild serous drainage - no purulence or cellulitis. Neuro - AAO x 3. Tone/Power normal all extremities. Laboratory Results - last 24 hr 08/31/19 08/31/19 09/01/19 17:13 20:37 05:52 Sodium Potassium Chloride Carbon Dioxide Anion Gap BUN Creatinine Est GFR (CKD-EPI)AfAm Est GFR (CKD-EPI)NonAf POC Glucometer 303 308 201 Random Glucose Calcium 09/01/19 09/01/19 08:30 11:38 Sodium 140 Potassium 3.9 Chloride 104 Carbon Dioxide 29 Anion Gap 6 L BUN 21.7 H Creatinine 1.4 H Est GFR (CKD-EPI)AfAm 57.36 Est GFR (CKD-EPI)NonAf 49.49 POC Glucometer 221 Random Glucose 224 H Calcium 8.8 Current Medications Generic Name Dose Route Start Last Admin Trade Name Freq PRN Reason Stop Dose Admin Apixaban 5 mg 08/31/19 10:00 09/01/19 09:34 Eliquis - PO 5 mg BID [facility] Administration Atorvastatin Calcium 40 mg 08/31/19 22:00 08/31/19 22:16 Lipitor - PO 40 mg HS [facility]ANGELINA Administration Docusate Sodium 100 mg 08/31/19 10:00 09/01/19 09:34 Colace - PO 100 mg BID EVANGELINA Administration Escitalopram Oxalate 5 mg 08/31/19 10:00 09/01/19 09:34 Lexapro - PO 5 mg DAILY [facility]ANGELINA Administration Gabapentin 300 mg 08/31/19 06:00 09/01/19 13:52 Neurontin - PO 300 mg TID [facility] Administration Insulin Aspart 1 vial 08/31/19 07:00 09/01/19 11:39 Novolog Vial Sliding Scale - SQ 4 units ACHS [facility]ANGELINA Administration Protocol Insulin Detemir 10 units 08/31/19 22:00 08/31/19 22:17 Levemir Vial SQ 10 units HS [facility] Administration Isosorbide Dinitrate 10 mg 08/31/19 10:00 09/01/19 09:34 Isordil - PO Not Given BIDISORDIL [facility] Metoprolol Succinate 75 mg 09/02/19 10:00 Toprol Xl - PO DAILY [facility] Silver Sulfadiazine 1 applic 09/01/19 10:00 09/01/19 09:35 Silvadene - TP 1 applic DAILY [facility] Administration Torsemide 100 mg 09/02/19 10:00 Demadex - PO DAILY [facility] Home Medications Medication Instructions Recorded Isosorbide Dinitrate [Isordil] 10 mg PO BID 03/17/16 Atorvastatin Ca [Lipitor] 40 mg PO HS #30 tablet 01/12/17 Potassium Chloride 20 meq PO DAILY 08/07/17 Apixaban [Eliquis -] 5 mg PO BID #60 tablet 08/14/17 Docusate Sodium [Colace -] 100 mg PO BID #60 capsule 08/14/17 Gabapentin [Neurontin -] 300 mg PO TID #90 capsule 08/14/17 Metoprolol Succinate [Toprol XL -] 75 mg PO DAILY #30 tab.sr.24h 08/14/17 Pen Needle, Diabetic [Ultra-Fine 1 each MC TID #100 dis.needle 08/14/17 Short Pen Needle] Silver Sulfadiazine 1% Top Cr 1 applic TP DAILY #1 jar 08/14/17 [Silvadene -] Torsemide 100 mg PO DAILY #30 tablet 08/14/17 Escitalopram Oxalate [Lexapro -] 5 mg PO DAILY #30 tablet 09/10/18 Insulin (Levemir) [Levemir Vial] 28 units SQ HS 08/31/19 Insulin Aspart [Novolog] 14 unit SQ TID 08/31/19 ASSESSMENT/PLAN: 73 year old female with DM 2, Chronic Systolic CHF, Atrial fibrillation/Flutter , CRF sec to COPD, Chronic venous stasis and ulcers, CKD 3, CAD, Prostate Ca s/ p prostactetomy, ambulates with crutches presents with 2 week Hx of non-healing RLE ulcer, initially blister now de-roofed. No fevers/chills. 1. Severe Chronic Venous Stasis with Venous Ulcer RLE anterior/medial olsen Seen by ID - Abx discontinued due to low suspicion of infection Wound care/Vascular consult requested. Previously on Torsemide 100mg, resumed. 2. UTI Urine Cx - LFNB Will start Ceftriaxone. Renal/Bladder US requested. 3. DM 2 - continue Levemir and Novolog sliding scale. 4. Chronic mixed Diastolic/Systolic CHF No evidence of acute exacerbation Continue BB and Torsemide. 5. HTN - Continue Isosorbide, Metoprolol. 6. CKD 3 -Stable. Torsemide resumed. 7. CRF sec to COPD - stable, no evidence of exacerbation. Supplemental O2. 8. Atrial fibrillation - on BB and Eliquis. 9. Depression - continue Lexapro DVT Px - on Eliquis.
--- NOTE | 2019-09-01 14:57 | PN ---
Physical Exam: SUBJECTIVE: Patient seen and examined in the morning. No acute events overnight. No complaints of chest pain, no shortness of breath, no abdominal pain, no nausea, no vomiting, no fevers. OBJECTIVE: Vital Signs Period Temp Pulse Resp BP Sys/Davila Pulse Ox Last 24 Hr 98 F-98.9 F 57-106 17-20 116-150/70-88 93-95 GENERAL: The patient is awake, alert, and fully oriented, in no acute distress. HEAD: Normal with no signs of trauma. LUNGS: Breath sounds equal, clear to auscultation bilaterally, no wheezes. HEART: Regular rate and rhythm, S1, S2 without murmur, rub or gallop. ABDOMEN: Soft, nontender, nondistended, normoactive bowel sounds. EXTREMITIES: 2+ pulses, warm, well-perfused, no edema. Chronic venous stasis changes present on b/l lower extremities. 2x2 cm ulcer without pus on the left lower extremity. NEUROLOGICAL: Cranial nerves II through XII grossly intact. PSYCH: Normal mood, normal affect. Laboratory Results - last 24 hr 08/31/19 08/31/19 09/01/19 17:13 20:37 05:52 Sodium Potassium Chloride Carbon Dioxide Anion Gap BUN Creatinine Est GFR (CKD-EPI)AfAm Est GFR (CKD-EPI)NonAf POC Glucometer 303 308 201 Random Glucose Calcium 09/01/19 09/01/19 08:30 11:38 Sodium 140 Potassium 3.9 Chloride 104 Carbon Dioxide 29 Anion Gap 6 L BUN 21.7 H Creatinine 1.4 H Est GFR (CKD-EPI)AfAm 57.36 Est GFR (CKD-EPI)NonAf 49.49 POC Glucometer 221 Random Glucose 224 H Calcium 8.8 Active Medications Generic Name Dose Route Start Last Admin Trade Name Freq PRN Reason Stop Dose Admin Apixaban 5 mg 08/31/19 10:00 09/01/19 09:34 Eliquis - PO 5 mg BID [facility] Administration Atorvastatin Calcium 40 mg 08/31/19 22:00 08/31/19 22:16 Lipitor - PO 40 mg HS [facility] Administration Docusate Sodium 100 mg 08/31/19 10:00 09/01/19 09:34 Colace - PO 100 mg BID [facility] Administration Escitalopram Oxalate 5 mg 08/31/19 10:00 09/01/19 09:34 Lexapro - PO 5 mg DAILY [facility] Administration Gabapentin 300 mg 08/31/19 06:00 09/01/19 13:52 Neurontin - PO 300 mg TID [facility] Administration Insulin Aspart 1 vial 08/31/19 07:00 09/01/19 11:39 Novolog Vial Sliding Scale - SQ 4 units ACHS [facility] Administration Protocol Insulin Detemir 10 units 08/31/19 22:00 08/31/19 22:17 Levemir Vial SQ 10 units HS [facility] Administration Isosorbide Dinitrate 10 mg 08/31/19 10:00 09/01/19 09:34 Isordil - PO Not Given BIDISORDIL [facility] Metoprolol Succinate 75 mg 09/02/19 10:00 Toprol Xl - PO DAILY [facility] Silver Sulfadiazine 1 applic 09/01/19 10:00 09/01/19 09:35 Silvadene - TP 1 applic DAILY [facility] Administration Torsemide 100 mg 09/02/19 10:00 Demadex - PO DAILY [facility] ASSESSMENT/PLAN: 73M with DM2, CHF, Atrial fibrillatoin, CRF secondary to COPD, chronic venous stasis and ulcers, CKD stage 3, CAD, prostate cancer s/ prostatectomy, who presents with 2 weeks of non healing right lower extremity ulcer. 1)Severe Chronic Venous Stasis -Wound culture growing multiple organisms -Torsemide 100 mg PO Daily -Wound care/ vascular consulted -ID consulted, appreciate recs 2)UTI -Ceftriaxone 1 mg IV Daily -Renal/Bladder US 3) DM 2 -Continue Levemir 10 units SQ HS -Sliding Scale 4)Chronic mixed CHF -Metoprolol 75 mg PO Daily 5) HTN -Continue Isosorbide 10 mg BID -Continue Metoprolol 75 mg PO Daily 6) Hx of CRF 2/2 COPD -Supplemental O2, is on home oxygen 3-4L normally 7)Atrial fibrillation -Continue Eliquis 5 mg PO BID 8)Depression -Continue Lexapro 9)CKD 3 -Stable DVT Prophylaxis: On home dose Eliquis 5mg PO BID F: Oral hydration E: Monitor BMP N: Diabetic diet Visit type - Emergency Visit Emergency Visit: Yes ED Registration Date: 08/30/19 Care time: The patient presented to the Emergency Department on the above date and was hospitalized for further evaluation of their emergent condition. - New Patient This patient is new to me today: Yes Date on this admission: 09/01/19 - Critical Care Critical Care patient: No ATTENDING PHYSICIAN STATEMENT I saw and evaluated the patient. I reviewed the resident's note and discussed the case with the resident. I agree with the resident's findings and plan as documented. SUBJECTIVE: OBJECTIVE: ASSESSMENT AND PLAN:
[2019-09-01] MEDS: CEFTRIAXONE 1 GM in DEXTROSE 5%-WATER - 50 ML IVPB SCH (16:57)
[2019-09-01] MEDS: INSULIN (LEVEMIR) 100 UNITS/ML UNITS SQ SCH (21:46)
[2019-09-01] MEDS: ATORVASTATIN CA 40 MG TABLET (FP) PO SCH (21:46)
[2019-09-02] MEDS: GABAPENTIN 300 MG CAPSULE (FP) PO SCH ×3 (06:07→21:57)
[2019-09-02] MEDS: INSULIN SLIDING SCALE (NOVOLOG) 1 VIAL SQ SCH ×4 (06:09→22:00)
[2019-09-02] MEDS ORDERED: INSULIN (NOVOLOG) ASPART 100 UNITS/ML 10ML VIAL ONE ×3 (06:20→21:25)
[2019-09-02 08:52] LABS: BASO % 0.5 % (0-2.0); EOS % 1.9 % (0-4.5); HEMATOCRIT 40.2 % (35.4-49); HEMOGLOBIN 13.1 GM/dL (11.7-16.9); MCH 26.8 pg (25.7-33.7); MCHC 32.6 g/dl (32.0-35.9); MEAN CELL VOLUME 82.2 fl (80-96); MEAN PLT VOLUME 7.8 fl (7.5-11.1); MONO % 6.8 % (3.8-10.2); NEUT % 69.8 % (42.8-82.8); PLATELET COUNT 210 K/MM3 (134-434); RBC 4.89 M/mm3 (4.00-5.60); RDW 16.4 % (11.9-15.9); WHITE BLOOD COUNT 7.3 K/mm3 (4.0-10.0)
[2019-09-02 09:17] LABS: BLOOD UREA NITROGEN 22.2 mg/dL (7-18); CALCIUM 8.9 mg/dL (8.5-10.1); CREATININE 1.3 mg/dL (0.55-1.3); POTASSIUM 3.7 mmol/L (3.5-5.1)
--- NOTE | 2019-09-02 10:44 | EKG ---
Test Reason : Blood Pressure : / mmHG Vent. Rate : 079 BPM Atrial Rate : 079 BPM P-R Int : 244 ms QRS Dur : 082 ms QT Int : 386 ms P-R-T Axes : -07 -12 023 degrees QTc Int : 442 ms ATRIAL FLUTTER WITH VARIABLE BLOCK POSSIBLE INFERIOR INFARCT , AGE UNDETERMINED ANTERIOR INFARCT (CITED ON OR BEFORE 07-NOV-2013) ABNORMAL ECG WHEN COMPARED WITH ECG OF 30-AUG-2019 16:40, NO SIGNIFICANT CHANGE WAS FOUND Confirmed by BRIGHT GIBSON, BROOKE ([id number]) on 09/02/2019 10:43:46 AM Referred By: RENETTA SINGER Confirmed By:BROOKE NOVOA MD
[2019-09-02] MEDS ORDERED: PT OWN MED DRAWER 7, Y5N ONE ×2 (10:47→17:28)
[2019-09-02] MEDS ORDERED: cefTRIAXone SODIUM 1 GM VIAL ONE (10:47)
[2019-09-02] MEDS ORDERED: DEXTROSE 5%-WATER - 50 ML IVPB ONE (10:48)
[2019-09-02] MEDS: CEFTRIAXONE 1 GM in DEXTROSE 5%-WATER - 50 ML IVPB SCH (10:57)
[2019-09-02] MEDS: DOCUSATE SODIUM 100 MG CAPSULE (FP) PO SCH ×2 (10:57→21:57)
[2019-09-02] MEDS: ESCITALOPRAM OXALATE 10 MG TABLET (FP) PO SCH (10:58)
[2019-09-02] MEDS: metoPROLOL SUCCINATE 25 MG TAB.SR.24H (FP) PO SCH (10:58)
[2019-09-02] MEDS: SILVER SULFADIAZINE 1% TOP CREAM 50 GM JAR TP SCH (11:00)
[2019-09-02] MEDS: ISOSORBIDE DINITRATE 10 MG TABLET (FP) PO SCH ×2 (11:01→17:36)
[2019-09-02] MEDS: TORSEMIDE 100 MG TABLET PO SCH (11:01)
[2019-09-02] MEDS: APIXABAN 5 MG TABLET PO SCH ×2 (11:02→21:57)
--- NOTE | 2019-09-02 11:40 | EKG ---
Test Reason : Blood Pressure : / mmHG Vent. Rate : 065 BPM Atrial Rate : 234 BPM P-R Int : 000 ms QRS Dur : 084 ms QT Int : 436 ms P-R-T Axes : 000 -33 034 degrees QTc Int : 453 ms ATRIAL FLUTTER WITH VARIABLE A-V BLOCK LEFT AXIS DEVIATION ANTERIOR INFARCT (CITED ON OR BEFORE 07-NOV-2013) ABNORMAL ECG WHEN COMPARED WITH ECG OF 09-SEP-2018 16:42, T WAVE VARIATION Confirmed by BROOKE NOVOA MD ([id number]) on 09/02/2019 11:39:49 AM Referred By: Confirmed By:BROOKE NOVOA MD
--- NOTE | 2019-09-02 17:10 | PN ---
Teaching Attending Note Name of Resident: Radha Martin ATTENDING PHYSICIAN STATEMENT I saw and evaluated the patient. I reviewed the resident's note and discussed the case with the resident. I agree with the resident's findings and plan as documented. SUBJECTIVE: Feels well - no LE pain. No fever/chills. OBJECTIVE: Afebrile, Hemodynamically Stable. Last Vital Signs Temp Pulse Resp BP Pulse Ox 97.8 F 72 20 132/75 95 09/02/19 15:21 09/02/19 15:21 09/02/19 15:21 09/02/19 15:21 09/02/19 08:50 Heart - S1, S2, RRR Lungs - clear to auscultation Abdomen - Distended due to high BMI. Soft, non-tender. Bowel sounds normal. Extremities - Extensive Venous stasis skin changes with edema, thickening/ lichenification of skin, anterior/medial aspect of RLE with stasis ulcer with mild serous drainage - no purulence or cellulitis. Neuro - AAO x 3. Tone/Power normal all extremities. Laboratory Results - last 24 hr 09/01/19 09/02/19 09/02/19 21:44 06:08 07:45 WBC 7.3 RBC 4.89 Hgb 13.1 Hct 40.2 MCV 82.2 MCH 26.8 MCHC 32.6 RDW 16.4 H Plt Count 210 MPV 7.8 Absolute Neuts (auto) 5.1 Neutrophils % 69.8 Lymphocytes % 21.0 Monocytes % 6.8 Eosinophils % 1.9 D Basophils % 0.5 Nucleated RBC % 0 Sodium Potassium Chloride Carbon Dioxide Anion Gap BUN Creatinine Est GFR (CKD-EPI)AfAm Est GFR (CKD-EPI)NonAf POC Glucometer 194 215 Random Glucose Calcium 09/02/19 09/02/19 07:45 10:59 WBC RBC Hgb Hct MCV MCH MCHC RDW Plt Count MPV Absolute Neuts (auto) Neutrophils % Lymphocytes % Monocytes % Eosinophils % Basophils % Nucleated RBC % Sodium 141 Potassium 3.7 Chloride 103 Carbon Dioxide 30 Anion Gap 7 L BUN 22.2 H Creatinine 1.3 Est GFR (CKD-EPI)AfAm 62.74 Est GFR (CKD-EPI)NonAf 54.13 POC Glucometer 277 Random Glucose 167 H Calcium 8.9 Current Medications Generic Name Dose Route Start Last Admin Trade Name Freq PRN Reason Stop Dose Admin Apixaban 5 mg 08/31/19 10:00 09/02/19 11:02 Eliquis - PO 5 mg BID [facility] Administration Atorvastatin Calcium 40 mg 08/31/19 22:00 09/01/19 21:46 Lipitor - PO 40 mg HS [facility] Administration Docusate Sodium 100 mg 08/31/19 10:00 09/02/19 10:57 Colace - PO 100 mg BID [facility] Administration Escitalopram Oxalate 5 mg 08/31/19 10:00 09/02/19 10:58 Lexapro - PO 5 mg DAILY [facility] Administration Gabapentin 300 mg 08/31/19 06:00 09/02/19 14:35 Neurontin - PO 300 mg TID [facility] Administration Ceftriaxone Sodium 1 gm/ 50 mls @ 200 mls/hr 09/01/19 15:00 09/02/19 10:57 Dextrose IVPB 200 mls/hr DAILY [facility] Administration Protocol Insulin Aspart 1 vial 08/31/19 07:00 09/02/19 11:02 Novolog Vial Sliding Scale - SQ 6 units ACHS [facility] Administration Protocol Insulin Detemir 10 units 08/31/19 22:00 09/01/19 21:46 Levemir Vial SQ 10 units HS [facility] Administration Isosorbide Dinitrate 10 mg 08/31/19 10:00 09/02/19 11:01 Isordil - PO 10 mg BIDISORDIL [facility] Administration Metoprolol Succinate 75 mg 09/02/19 10:00 09/02/19 10:58 Toprol Xl - PO 75 mg DAILY [facility] Administration Silver Sulfadiazine 1 applic 09/01/19 10:00 09/02/19 11:00 Silvadene - TP 1 applic DAILY [facility] Administration Torsemide 100 mg 09/02/19 10:00 09/02/19 11:01 Demadex - PO 100 mg DAILY [facility] Administration Home Medications Medication Instructions Recorded Isosorbide Dinitrate [Isordil] 10 mg PO BID 03/17/16 Atorvastatin Ca [Lipitor] 40 mg PO HS #30 tablet 01/12/17 Potassium Chloride 20 meq PO DAILY 08/07/17 Apixaban [Eliquis -] 5 mg PO BID #60 tablet 08/14/17 Docusate Sodium [Colace -] 100 mg PO BID #60 capsule 08/14/17 Gabapentin [Neurontin -] 300 mg PO TID #90 capsule 08/14/17 Metoprolol Succinate [Toprol XL -] 75 mg PO DAILY #30 tab.sr.24h 08/14/17 Pen Needle, Diabetic [Ultra-Fine 1 each MC TID #100 dis.needle 08/14/17 Short Pen Needle] Silver Sulfadiazine 1% Top Cr 1 applic TP DAILY #1 jar 08/14/17 [Silvadene -] Torsemide 100 mg PO DAILY #30 tablet 08/14/17 Escitalopram Oxalate [Lexapro -] 5 mg PO DAILY #30 tablet 09/10/18 Insulin (Levemir) [Levemir Vial] 28 units SQ HS 08/31/19 Insulin Aspart [Novolog] 14 unit SQ TID 08/31/19 ASSESSMENT/PLAN: 73 year old female with DM 2, Chronic Systolic CHF, Atrial fibrillation/Flutter , CRF sec to COPD, Chronic venous stasis and ulcers, CKD 3, CAD, Prostate Ca s/ p prostactetomy, ambulates with crutches presents with 2 week Hx of non-healing RLE ulcer, initially blistered, now de-roofed. No fevers/chills. 1. Severe Chronic Venous Stasis with Venous Ulcer RLE anterior/medial olsen Seen by ID - Abx discontinued due to low suspicion of infection Wound swab - polymicrobial. Wound care/Vascular consult requested 08/31, awaiting evaluation. Case discussed with Dr. Zapata by the team, awaiting evaluation. Previously on Torsemide 100mg, resumed. 2. UTI Urine Cx - Klebsiella Continue Ceftriaxone. Renal/Bladder US - no structural abnormalities, no hydro, no nephrolithiasis. 3. DM 2 - continue Levemir and Novolog sliding scale. 4. Chronic mixed Diastolic/Systolic CHF Stable - no evidence of acute decompensation Continue BB and Torsemide. 5. HTN - Continue Isosorbide, Metoprolol. 6. CKD 3 - Stable. Torsemide resumed. 7. CRF sec to COPD on Home O2 - stable, no evidence of exacerbation. Supplemental O2 @ 2L. 8. Atrial fibrillation - on BB and Eliquis. 9. Depression - continue Lexapro DVT Px - on Eliquis.
--- NOTE | 2019-09-02 17:45 | PN ---
Physical Exam: SUBJECTIVE: Patient seen and examined in the morning. No acute events overnight. Patient has no complaints of chest pain, shortness of breath, pain in legs, abdominal pain, nausea, vomiting, diarrhea, hives, or pruritus. OBJECTIVE: Vital Signs Period Temp Pulse Resp BP Sys/Davila Pulse Ox Last 24 Hr 97.8 F-98.9 F 56-72 18-20 132-142/72-83 95-95 GENERAL: The patient is awake, alert, and fully oriented, in no acute distress. HEAD: Normal with no signs of trauma. LUNGS: Breath sounds equal, clear to auscultation bilaterally, no wheezes. HEART: Regular rate and rhythm, S1, S2 without murmur, rub or gallop. ABDOMEN: Soft, nontender, nondistended, normoactive bowel sounds. EXTREMITIES: 2+ pulses, warm, well-perfused, no edema. Chronic venous stasis changes present on b/l lower extremities. 2x2 cm ulcer without pus on the left lower extremity. NEUROLOGICAL: Cranial nerves II through XII grossly intact. PSYCH: Normal mood, normal affect. Laboratory Results - last 24 hr 09/01/19 09/02/19 09/02/19 21:44 06:08 07:45 WBC 7.3 RBC 4.89 Hgb 13.1 Hct 40.2 MCV 82.2 MCH 26.8 MCHC 32.6 RDW 16.4 H Plt Count 210 MPV 7.8 Absolute Neuts (auto) 5.1 Neutrophils % 69.8 Lymphocytes % 21.0 Monocytes % 6.8 Eosinophils % 1.9 D Basophils % 0.5 Nucleated RBC % 0 Sodium Potassium Chloride Carbon Dioxide Anion Gap BUN Creatinine Est GFR (CKD-EPI)AfAm Est GFR (CKD-EPI)NonAf POC Glucometer 194 215 Random Glucose Calcium 09/02/19 09/02/19 09/02/19 07:45 10:59 17:08 WBC RBC Hgb Hct MCV MCH MCHC RDW Plt Count MPV Absolute Neuts (auto) Neutrophils % Lymphocytes % Monocytes % Eosinophils % Basophils % Nucleated RBC % Sodium 141 Potassium 3.7 Chloride 103 Carbon Dioxide 30 Anion Gap 7 L BUN 22.2 H Creatinine 1.3 Est GFR (CKD-EPI)AfAm 62.74 Est GFR (CKD-EPI)NonAf 54.13 POC Glucometer 277 318 Random Glucose 167 H Calcium 8.9 Active Medications Generic Name Dose Route Start Last Admin Trade Name Nicolasq PRN Reason Stop Dose Admin Apixaban 5 mg 08/31/19 10:00 09/02/19 11:02 Eliquis - PO 5 mg BID [facility] Administration Atorvastatin Calcium 40 mg 08/31/19 22:00 09/01/19 21:46 Lipitor - PO 40 mg HS [facility] Administration Docusate Sodium 100 mg 08/31/19 10:00 09/02/19 10:57 Colace - PO 100 mg BID [facility] Administration Escitalopram Oxalate 5 mg 08/31/19 10:00 09/02/19 10:58 Lexapro - PO 5 mg DAILY [facility] Administration Gabapentin 300 mg 08/31/19 06:00 09/02/19 14:35 Neurontin - PO 300 mg TID [facility] Administration Ceftriaxone Sodium 1 gm/ 50 mls @ 200 mls/hr 09/01/19 15:00 09/02/19 10:57 Dextrose IVPB 200 mls/hr DAILY [facility] Administration Protocol Insulin Aspart 1 vial 08/31/19 07:00 09/02/19 17:09 Novolog Vial Sliding Scale - SQ 8 units ACHS [facility] Administration Protocol Insulin Detemir 10 units 08/31/19 22:00 09/01/19 21:46 Levemir Vial SQ 10 units HS [facility] Administration Isosorbide Dinitrate 10 mg 08/31/19 10:00 09/02/19 17:36 Isordil - PO 10 mg BIDISORDIL [facility] Administration Metoprolol Succinate 75 mg 09/02/19 10:00 09/02/19 10:58 Toprol Xl - PO 75 mg DAILY [facility] Administration Silver Sulfadiazine 1 applic 09/01/19 10:00 09/02/19 11:00 Silvadene - TP 1 applic DAILY [facility] Administration Torsemide 100 mg 09/02/19 10:00 09/02/19 11:01 Demadex - PO 100 mg DAILY [facility] Administration ASSESSMENT/PLAN: 73M with DM2, CHF, Atrial fibrillatoin, CRF secondary to COPD, chronic venous stasis and ulcers, CKD stage 3, CAD, prostate cancer s/ prostatectomy, who presents with 2 weeks of non healing right lower extremity ulcer. 1)Severe Chronic Venous Stasis -Wound culture growing multiple organisms -Torsemide 100 mg PO Daily -Wound care/ vascular consulted -ID consulted, appreciate recs 2)UTI -Urine culture positive for Klebesellia. -Ceftriaxone 1 mg IV Daily. Will continue as Bactrim outpatient. -Renal/Bladder US had no acute pathology. 3) DM 2 -Continue Levemir 10 units SQ HS -Sliding Scale 4)Chronic mixed CHF -Metoprolol 75 mg PO Daily 5) HTN -Continue Isosorbide 10 mg BID -Continue Metoprolol 75 mg PO Daily 6) Hx of CRF 2/2 COPD -Supplemental O2, is on home oxygen 3-4L normally 7)Atrial fibrillation -Continue Eliquis 5 mg PO BID 8)Depression -Continue Lexapro 9)CKD 3 -Stable DVT Prophylaxis: On home dose Eliquis 5mg PO BID F: Oral hydration E: Monitor BMP N: Diabetic diet Visit type - Emergency Visit Emergency Visit: Yes ED Registration Date: 08/30/19 Care time: The patient presented to the Emergency Department on the above date and was hospitalized for further evaluation of their emergent condition. - New Patient This patient is new to me today: No - Critical Care Critical Care patient: No ATTENDING PHYSICIAN STATEMENT I saw and evaluated the patient. I reviewed the resident's note and discussed the case with the resident. I agree with the resident's findings and plan as documented. SUBJECTIVE: OBJECTIVE: ASSESSMENT AND PLAN:
--- NOTE | 2019-09-02 18:02 | PN ---
Progress Note (short form) - Note Progress Note: Vascular Surgery RLE venous stasis ulcer. Dressing changed. Please start alginate with SHEN for compression. Pt can follow up as outpt in [facility] -- we can then compress the wound week to week. We can order venous reflux studies. We can also order a lymphedema pump for the pt as outpt. Rhett Zapata DO
[2019-09-02] MEDS: ATORVASTATIN CA 40 MG TABLET (FP) PO SCH (21:57)
[2019-09-02] MEDS: INSULIN (LEVEMIR) 100 UNITS/ML UNITS SQ SCH (21:57)
[2019-09-03] MEDS: GABAPENTIN 300 MG CAPSULE (FP) PO SCH (05:51)
[2019-09-03] MEDS: INSULIN SLIDING SCALE (NOVOLOG) 1 VIAL SQ SCH (06:01)
[2019-09-03] MEDS ORDERED: PT OWN MED DRAWER 7, Y5N ONE (09:50)
[2019-09-03] MEDS ORDERED: DEXTROSE 5%-WATER - 50 ML IVPB ONE (09:50)
[2019-09-03] MEDS ORDERED: cefTRIAXone SODIUM 1 GM VIAL ONE (09:50)
[2019-09-03] MEDS: metoPROLOL SUCCINATE 25 MG TAB.SR.24H (FP) PO SCH (09:54)
[2019-09-03] MEDS: APIXABAN 5 MG TABLET PO SCH (09:54)
[2019-09-03] MEDS: ESCITALOPRAM OXALATE 10 MG TABLET (FP) PO SCH (09:55)
[2019-09-03] MEDS: ISOSORBIDE DINITRATE 10 MG TABLET (FP) PO SCH (10:01)
[2019-09-03] MEDS: CEFTRIAXONE 1 GM in DEXTROSE 5%-WATER - 50 ML IVPB SCH (10:02)
[2019-09-03] MEDS: DOCUSATE SODIUM 100 MG CAPSULE (FP) PO SCH (10:02)
[2019-09-03] MEDS: TORSEMIDE 100 MG TABLET PO SCH (10:02)
[2019-09-03] MEDS: SILVER SULFADIAZINE 1% TOP CREAM 50 GM JAR TP SCH (10:06)
[2019-09-03 10:25] VITALS: BP 133/78; PULSE 85; TEMP 98.7
--- NOTE | 2019-09-03 13:09 | PN ---
Teaching Attending Note Name of Resident: Radha Martin ATTENDING PHYSICIAN STATEMENT I saw and evaluated the patient. I reviewed the resident's note and discussed the case with the resident. I agree with the resident's findings and plan as documented. SUBJECTIVE: Patient has no complaints. OBJECTIVE: Vital Signs Period Temp Pulse Resp BP Sys/Davila Pulse Ox Last 24 Hr 97.8 F-98.7 F 58-85 18-20 122-146/70-78 95-95 HEART: Irregular LUNGS: Clear ABDOMEN: Obese, soft, non-tender, non-distended, normal BS EXTREMITIES: 1+ edema, chronic venous stasis changes, RLE wound dressed Laboratory Results - last 24 hr 09/02/19 09/02/19 09/03/19 17:08 21:59 05:53 POC Glucometer 318 273 165 ASSESSMENT AND PLAN: 73 year old female with DM 2, Chronic Systolic CHF, Atrial fibrillation/Flutter , CRF sec to COPD, Chronic venous stasis and ulcers, CKD 3, CAD, Prostate Ca s/ p prostactetomy, ambulates with crutches presents with 2 week Hx of non-healing RLE ulcer, initially blistered, now de-roofed. No fevers/chills. 1. Chronic venous stasis of lower extremities with venous ulcer RLE - No evidence of infection - Continue wound care - Follow up at wound center 2. Klebsiella UTI - On ceftriaxone - discharge on Bactrim 3. Type 2 DM - Continue Levemir, Novolog sliding scale 4. Chronic systolic and diastolic heart failure - Stable - Continue torsemide 5. HTN - Continue Toprol XL, torsemide 6. Hyperlipidemia - Continue Lipitor 7. Stage 3 CKD - Stable 8. Chronic hypoxic respiratory failure secondary to COPD - Continue oxygen to maintain saturation >90% 9. Atrial fibrillation, permanent - Rate controlled - Continue Toprol XL, Eliquis 10. Depression - Continue Lexapro
--- NOTE | 2019-09-03 14:37 | DS ---
Physical Exam: SUBJECTIVE: Patient seen and examined in the morning. No acute events overnight. No complaints of chest pain, abdominal pain, shortness of breath, nausea, vomiting, diarrhea. OBJECTIVE: Vital Signs Period Temp Pulse Resp BP Sys/Davila Pulse Ox Last 24 Hr 97.8 F-98.7 F 58-85 18-20 122-146/70-78 95-95 PHYSICAL EXAM GENERAL: The patient is awake, alert, and fully oriented, in no acute distress. HEAD: Normal with no signs of trauma. LUNGS: Breath sounds equal, clear to auscultation bilaterally, no wheezes. HEART: Regular rate and rhythm, S1, S2 without murmur, rub or gallop. ABDOMEN: Soft, nontender, nondistended, normoactive bowel sounds. EXTREMITIES: 2+ pulses, warm, well-perfused, no edema. Chronic venous stasis changes present on b/l lower extremities. Left lower extremity has dressing in place, no bleeding present. NEUROLOGICAL: Cranial nerves II through XII grossly intact. PSYCH: Normal mood, normal affect. LABS Laboratory Results - last 24 hr 09/02/19 09/02/19 09/03/19 17:08 21:59 05:53 POC Glucometer 318 273 165 Microbiology 08/30/19 17:03 Leg - Left Knee Gram Stain - Final 08/30/19 17:03 Leg - Left Knee Wound Culture - Final Klebsiella Pneumoniae Enterobacter Cloacae Enterobacter Cloacae#2 Enterococcus Faecalis Strep Agalactiae Group B Staphylococcus Aureus Bacteroides Pyogenes 08/30/19 17:20 Blood - Peripheral Venous Blood Culture - Preliminary NO GROWTH OBTAINED AFTER 72 HOURS, INCUBATION TO CONTINUE FOR 2 DAYS. 08/30/19 17:20 Blood - Peripheral Venous Blood Culture - Preliminary NO GROWTH OBTAINED AFTER 72 HOURS, INCUBATION TO CONTINUE FOR 2 DAYS. 08/30/19 17:00 Urine - Urine Clean Catch Urine Culture - Final Klebsiella Pneumoniae HOSPITAL COURSE: Date of Admission:08/30/19 Date of Discharge: 09/03/19 73M with DM2, CHF, Atrial fibrillatoin, CRF secondary to COPD, chronic venous stasis and ulcers, CKD stage 3, CAD, prostate cancer s/p prostatectomy, who presents with 2 weeks of non healing right lower extremity ulcer. Chronic venous stasis changes present on both legs, patient was initially started on vancomycin, aztreonam, metronidazole, but were discontinued by ID. Patient's home medicines were restarted, and patient was diuresed with his home dose of Torsemide 100mg PO daily. Urine cultures and wound cultures were done, urine culture was positive for klebseilla. Patient was started on ceftriaxone and will finish Bactrim 1 tablet BID, for the next 4 days. Patient will follow up with wound care clinic this Monday for continued management of his venous stasis and ulcers. Patient was restarted on his home dose of Eliquis, which he had not been getting refills for as an outpatient. Imaging done this admission: Chest X-Ray: A single AP view the chest reveals a large heart, unfolded aorta and some mild congestive changes. A discrete infiltrate is not seen. The angles are sharp. The bones and soft tissues are intact. Correlation recommended. Tib/Fib X-Ray (LEFT): 4 views of the left tibia and fibula have been submitted. There is no sign of fracture or subluxation and no sign of blastic or lytic changes. Swelling, foreign body or soft tissue air is not seen. There is no sign of a gross ulceration. There are some degenerative changes. There is loss of bone density. Tib/Fib X-Ray(RIGHT): 3 views of the right tibia and fibula reveal degenerative changes, loss of bone density, swelling and an exostosis off the distal right fibula. There is no sign of a foreign body or soft tissue air. A gross ulceration is not seen. If symptoms persist, further imaging may be of help. Vascular Study: No DVT is identified involving either leg. Hip X-Ray: Extensive osteoarthritic right hip changes. Kidney/Bladder U/S: Technically limited study. Grossly no evidence of hydronephrosis Limited evaluation of bladder Minutes to complete discharge: 30 Discharge Summary Problems reviewed: Yes Reason For Visit: CELLULITIS, HYPERTENSION Condition: Improved - Instructions Diet, Activity, Other Instructions: You were admitted to the hospital because you had worsening of a non-healing ulcer on your leg. While you were here we treated you by giving your home medication of diuretics, and elevating your legs. Wound care and vascular surgery also saw you while you were here. You will continue management of your legs with the clinic. Please use alginate dressing with SHEN bandages for compression of your legs. Follow up with the wound care clinic in order to have more studies done of the blood flow in your legs and to get a special pump to help reduce the swelling. We saw that you have a UTI and we started you on antibiotics. You will continue them as an outpatient. Please take: Bactrim 1 table, twice a day, by mouth for the next 4 days. You will finish treatment on 09/07/19. Please continue your home medications as directed. We have given you a refill for your Eliquis. Please follow up with Dr. Zapata for further evaluation of the blood flow in your legs and continued management of your wounds. You may make an appointment at the wound care clinic. Please follow up with Dr. Terrell to update him on this admission and continue your health maintanence and manage your medications. Please return to the emergency department if you have bleeding from your legs, nausea, vomiting, diarrhea, chest pains, shortness of breath or worsening of your symptoms. Referrals: [facility] [place] [Provider Group] - 1 Week Rhett Zapata DO [Staff Physician] - 09/06/19 Disposition: HOME - Home Medications Comprehensive Discharge Medication List: Ambulatory Orders Isosorbide Dinitrate [Isordil] 10 mg PO BID 03/17/16 Atorvastatin Ca [Lipitor] 40 mg PO HS #30 tablet 01/12/17 Potassium Chloride 20 meq PO DAILY 08/07/17 Docusate Sodium [Colace -] 100 mg PO BID #60 capsule 08/14/17 Gabapentin [Neurontin -] 300 mg PO TID #90 capsule 08/14/17 Metoprolol Succinate [Toprol XL -] 75 mg PO DAILY #30 tab.sr.24h 08/14/17 Pen Needle, Diabetic [Ultra-Fine Short Pen Needle] 1 each MC TID #100 dis.needle 08/14/17 Silver Sulfadiazine 1% Top Cr [Silvadene -] 1 applic TP DAILY #1 jar 08/14/17 Torsemide 100 mg PO DAILY #30 tablet 08/14/17 Escitalopram Oxalate [Lexapro -] 5 mg PO DAILY #30 tablet 09/10/18 Insulin (Levemir) [Levemir Vial] 28 units SQ HS 08/31/19 Insulin Aspart [Novolog] 14 unit SQ TID 08/31/19 Apixaban [Eliquis -] 5 mg PO BID #60 tablet 09/03/19 Sulfamethoxazole/Trimethoprim [Bactrim Ds -] 1 tab PO DAILY #4 tablet 09/03/19 This patient is new to me today: No Emergency Visit: Yes ED Registration Date: 08/30/19 Care time: The patient presented to the Emergency Department on the above date and was hospitalized for further evaluation of their emergent condition. Critical Care patient: No - Discharge Referral Referred to [facility] Med [facility] No ATTENDING PHYSICIAN STATEMENT I saw and evaluated the patient. I reviewed the resident's note and discussed the case with the resident. I agree with the resident's findings and plan as documented. SUBJECTIVE: OBJECTIVE: ASSESSMENT AND PLAN:
== END 2019-09-03 11:51 | disposition home or self-care (01) | DRG 300 ==
LOC: JER 14:23 → JERBED 21:22 → J6S 08-31 03:45
PROVIDERS: ADMIT Internal Medicine; ATTEND Internal Medicine
DX: E11.51 Type 2 diabetes mellitus with diabetic peripheral angiopathy without gangrene (principal); N39.0 Urinary tract infection, site not specified; I48.92 Unspecified atrial flutter; I13.0 Hypertensive heart and chronic kidney disease with heart failure and stage 1 through stage 4 chronic kidney disease, or unspecified chronic kidney disease; I50.42 Chronic combined systolic (congestive) and diastolic (congestive) heart failure; J96.11 Chronic respiratory failure with hypoxia; I48.21 Permanent atrial fibrillation; L97.828 Non-pressure chronic ulcer of other part of left lower leg with other specified severity; L97.819 Non-pressure chronic ulcer of other part of right lower leg with unspecified severity; E11.622 Type 2 diabetes mellitus with other skin ulcer; J44.9 Chronic obstructive pulmonary disease, unspecified; I25.10 Atherosclerotic heart disease of native coronary artery without angina pectoris; I44.39 Other atrioventricular block; E11.22 Type 2 diabetes mellitus with diabetic chronic kidney disease; N18.3 Chronic kidney disease, stage 3 (moderate); F32.9 Major depressive disorder, single episode, unspecified; B96.1 Klebsiella pneumoniae [K. pneumoniae] as the cause of diseases classified elsewhere; Z88.0 Allergy status to penicillin; Z85.46 Personal history of malignant neoplasm of prostate; Z91.19 Patient's noncompliance with other medical treatment and regimen
CPT/HCPCS: 36415; 71045-TC-FY; 73523-TC-FY; 73590-TC-LT-FY; 73590-TC-RT-FY; 76775-TC; 76856-TC; 80048; 80053; 81003; 82550; 82553; 82803; 82962; 83605; 83735; 84100; 84484; 85025; 85610; 85651; 85730; 86140; 87040; 87070; 87076; 87086; 87186; 87205; 93005; 93010; 93970-TC; 99283-25; J1644

== ENCOUNTER 2022-05-09 15:29 | Inpatient (IN) | payer OTHER ==
[2022-05-09 15:54] VITALS: BMI 38.4
[2022-05-09 17:58] LABS: BASO % 0.3 % (0-2.0); EOS % 0.3 % (0-4.5); HEMATOCRIT 39.7 % (35.4-49); HEMOGLOBIN 13.3 GM/dL (11.7-16.9); LYMPH % 12.7 % (8-40); MCH 27.8 pg (25.7-33.7); MCHC 33.5 g/dl (32.0-35.9); MEAN CELL VOLUME 83.1 fl (80-96); MEAN PLT VOLUME 7.1 fl (7.5-11.1); MONO % 4.1 % (3.8-10.2); NEUT % 82.6 % (42.8-82.8); PLATELET COUNT 220 10^3/uL (134-434); RBC 4.78 M/mm3 (4.00-5.60); RDW 15.5 % (11.9-15.9); WHITE BLOOD COUNT 9.6 K/mm3 (4.0-10.0)
[2022-05-09 18:01] LABS: EPI CELLS 6 /uL (0-25.1); HYALINE CASTS 0 /uL (0-3.1); URINE APPEARANCE CLEAR; URINE BACTERIA 5 /uL (0-1359); URINE BILIRUBIN NEGATIVE (NEGATIVE); URINE COLOR YELLOW; URINE GLUCOSE (UA) NEGATIVE (NEGATIVE); URINE KETONE NEGATIVE (NEGATIVE); URINE LEUK ESTERASE NEGATIVE (NEGATIVE); URINE NITRITE NEGATIVE (NEGATIVE); URINE PROTEIN 3+ (NEGATIVE); URINE RBC 12 /uL (0-23.9); URINE WBC 4 /uL (0-25.8)
[2022-05-09 18:05] LABS: INR 1.2 (0.83-1.09); PROTHROMBIN TIME (PATIENT) 13.8 SEC (9.7-13.0)
[2022-05-09 18:12] LABS: CALCIUM 9.2 mg/dL (8.5-10.1)
[2022-05-09 18:14] LABS: ALBUMIN 3.7 g/dl (3.4-5.0)
[2022-05-09 18:17] LABS: CREATININE 1.2 mg/dL (0.55-1.3)
[2022-05-09 18:18] LABS: BILIRUBIN,TOTAL 0.6 mg/dL (0.2-1); TOT PROT 7.4 g/dl (6.4-8.2)
[2022-05-09 18:21] LABS: N-TERMINAL BNP 479.4 pg/ml (5-450)
[2022-05-09] MEDS ORDERED: amLODIPine BESYLATE 5 MG TABLET (FP) PO ONE (18:23)
[2022-05-09] MEDS ORDERED: metoPROLOL SUCCINATE 25 MG TAB.SR.24H (FP) PO ONE ×2 (18:23→19:24)
[2022-05-09] MEDS ORDERED: LISINOPRIL 5 MG TABLET PO ONE (18:23)
[2022-05-09 18:39] LABS: ERYTHROCYTE SEDIMENTATION RATE 44 mm/hr (0-20)
[2022-05-09] MEDS ORDERED: amLODIPine BESYLATE 5 MG TABLET (FP) ONE ×2 (19:23→21:59)
[2022-05-09] MEDS ORDERED: LISINOPRIL 20 MG TABLET ONE (19:24)
[2022-05-09] MEDS ORDERED: amLODIPine BESYLATE 5 MG TABLET (FP) PO STA (21:57)
[2022-05-09] MEDS ORDERED: TORSEMIDE 20 MG TABLET (FP) PO STA (22:06)
[2022-05-10] MEDS ORDERED: LISINOPRIL 20 MG TABLET PO STA (01:21)
[2022-05-10] MEDS ORDERED: LISINOPRIL 20 MG TABLET ONE ×2 (04:50→09:04)
[2022-05-10] MEDS ORDERED: metoPROLOL SUCCINATE 25 MG TAB.SR.24H (FP) PO SCH (06:00)
[2022-05-10 09:00] LABS: HEMATOCRIT 37.4 % (35.4-49); HEMOGLOBIN 12.9 GM/dL (11.7-16.9); MCH 28.1 pg (25.7-33.7); MCHC 34.4 g/dl (32.0-35.9); MEAN CELL VOLUME 81.7 fl (80-96); MEAN PLT VOLUME 7.2 fl (7.5-11.1); PLATELET COUNT 216 10^3/uL (134-434); RBC 4.58 M/mm3 (4.00-5.60); RDW 15.3 % (11.9-15.9); WHITE BLOOD COUNT 9.8 K/mm3 (4.0-10.0)
[2022-05-10] MEDS ORDERED: amLODIPine BESYLATE 5 MG TABLET (FP) ONE (09:03)
[2022-05-10] MEDS ORDERED: APIXABAN 5 MG TABLET ONE (09:04)
[2022-05-10] MEDS ORDERED: metoPROLOL SUCCINATE 25 MG TAB.SR.24H (FP) PO ONE (09:04)
[2022-05-10 09:05] LABS: COCAINE, UR NEGATIVE (NEGATIVE); OPIATES, URI NEGATIVE (NEGATIVE); PHENCYCLIDINE,URINE NEGATIVE (NEGATIVE); URINE AMPHETAMINES NEGATIVE (NEGATIVE); URINE BARBITURATES NEGATIVE (NEGATIVE); URINE BENZODIAZEPINES NEGATIVE (NEGATIVE)
[2022-05-10 09:13] LABS: METHADONE, UR NEGATIVE (NEGATIVE)
[2022-05-10 09:18] LABS: CALCIUM 9.4 mg/dL (8.5-10.1)
[2022-05-10 09:20] LABS: ALBUMIN 3.6 g/dl (3.4-5.0); BLOOD UREA NITROGEN 18.5 mg/dL (7-18); MAGNESIUM 1.9 mg/dL (1.8-2.4)
[2022-05-10 09:23] LABS: CREATININE 1.3 mg/dL (0.55-1.3); PHOSPHOROUS 3.4 mg/dL (2.5-4.9)
[2022-05-10 09:24] LABS: BILIRUBIN,TOTAL 1.1 mg/dL (0.2-1); TOT PROT 7.2 g/dl (6.4-8.2)
[2022-05-10] MEDS: LABETALOL IN NACL, ISO-OSMOTIC 300 MG/300 ML BAG IV SCH ×3 (09:35→11:15)
[2022-05-10] MEDS ORDERED: APIXABAN 5 MG TABLET PO SCH (10:00)
[2022-05-10] MEDS ORDERED: CLOBETASOL PROPIONATE TP SCH (10:00)
[2022-05-10] MEDS ORDERED: amLODIPine BESYLATE 5 MG TABLET (FP) PO SCH (10:00)
[2022-05-10] MEDS ORDERED: LISINOPRIL 20 MG TABLET PO SCH ×2 (10:00)
[2022-05-10] MEDS ORDERED: ENOXAPARIN NA (PORCINE) 40 MG/0.4 ML DISP.SYRIN SQ SCH (10:00)
[2022-05-10] MEDS: TORSEMIDE 20 MG TABLET (FP) PO SCH ×2 (12:43→14:18)
[2022-05-10] MEDS ORDERED: NICARDIPINE 25 MG in DEXTROSE 5%-WATER - 240 ML IVPB SCH (14:30)
[2022-05-10] MEDS ORDERED: LABETALOL IN NACL, ISO-OSMOTIC 300 MG/300 ML BAG IV SCH (15:33)
[2022-05-10] MEDS ORDERED: TORSEMIDE 20 MG TABLET (FP) PO ONE (18:24)
[2022-05-10] MEDS: INSULIN SLIDING SCALE (NOVOLOG) 1 VIAL SQ SCH (19:02)
[2022-05-10] MEDS: MUPIROCIN 2% TOPICAL OINTMENT FOR DECOLONIZATION NS SCH (21:00)
[2022-05-10] MEDS: APIXABAN 5 MG TABLET PO SCH (21:24)
[2022-05-10] MEDS ORDERED: INSULIN (LEVEMIR) 100 UNITS/ML UNITS SQ SCH ×2 (22:00)
[2022-05-10] MEDS ORDERED: ATORVASTATIN CA 40 MG TABLET (FP) PO SCH ×2 (22:00)
[2022-05-10] MEDS ORDERED: CHLORHEXIDINE GLUCONATE 4% CLEANSER FOR DECOLONIZATION TP SCH (22:00)
[2022-05-11] MEDS: TORSEMIDE 20 MG TABLET (FP) PO SCH ×2 (06:22→14:55)
[2022-05-11] MEDS: INSULIN SLIDING SCALE (NOVOLOG) 1 VIAL SQ SCH ×3 (06:22→17:02)
[2022-05-11 08:05] LABS: CALCIUM 8.8 mg/dL (8.5-10.1)
[2022-05-11 08:07] LABS: BLOOD UREA NITROGEN 22.1 mg/dL (7-18); HEMATOCRIT 34.3 % (35.4-49); HEMOGLOBIN 11.7 GM/dL (11.7-16.9); MCH 28.2 pg (25.7-33.7); MEAN CELL VOLUME 82.9 fl (80-96); MEAN PLT VOLUME 7.5 fl (7.5-11.1); PLATELET COUNT 207 10^3/uL (134-434); RBC 4.14 M/mm3 (4.00-5.60)
[2022-05-11 08:11] LABS: ALBUMIN 2.9 g/dl (3.4-5.0); CREATININE 1.4 mg/dL (0.55-1.3); MAGNESIUM 1.9 mg/dL (1.8-2.4); PHOSPHOROUS 3.9 mg/dL (2.5-4.9)
[2022-05-11] MEDS: MUPIROCIN 2% TOPICAL OINTMENT FOR DECOLONIZATION NS SCH (09:35)
[2022-05-11] MEDS: APIXABAN 5 MG TABLET PO SCH ×2 (09:35→21:39)
[2022-05-11] MEDS ORDERED: amLODIPine BESYLATE 5 MG TABLET (FP) PO SCH (10:00)
[2022-05-11] MEDS ORDERED: LISINOPRIL 20 MG TABLET PO SCH (10:00)
[2022-05-11] MEDS ORDERED: CLOBETASOL PROPIONATE TP SCH (10:00)
[2022-05-11] MEDS ORDERED: amLODIPine BESYLATE 10 MG TABLET (FP) PO SCH (10:16)
[2022-05-11] MEDS ORDERED: amLODIPine BESYLATE 5 MG TABLET (FP) PO ONE (12:50)
[2022-05-11] MEDS ORDERED: NIFEdipine E.R. 30 MG TABLET PO SCH (12:55)
[2022-05-11] MEDS: metoPROLOL SUCCINATE 25 MG TAB.SR.24H (FP) PO SCH (15:18)
[2022-05-11] MEDS ORDERED: ATORVASTATIN CA 40 MG TABLET (FP) PO SCH (22:00)
[2022-05-11] MEDS ORDERED: metoPROLOL SUCCINATE 25 MG TAB.SR.24H (FP) PO SCH ×2 (22:00)
[2022-05-11] MEDS ORDERED: INSULIN (LEVEMIR) 100 UNITS/ML UNITS SQ SCH (22:00)
[2022-05-12] MEDS: TORSEMIDE 20 MG TABLET (FP) PO SCH ×2 (06:09→13:43)
[2022-05-12] MEDS: INSULIN SLIDING SCALE (NOVOLOG) 1 VIAL SQ SCH ×2 (06:14→11:26)
[2022-05-12 08:47] LABS: BASO % 0.4 % (0-2.0); EOS % 1.6 % (0-4.5); HEMATOCRIT 38.6 % (35.4-49); LYMPH % 20.3 % (8-40); MCH 27.9 pg (25.7-33.7); MCHC 33.7 g/dl (32.0-35.9); MEAN CELL VOLUME 82.6 fl (80-96); MEAN PLT VOLUME 7.4 fl (7.5-11.1); MONO % 6.7 % (3.8-10.2); PLATELET COUNT 229 10^3/uL (134-434); RBC 4.67 M/mm3 (4.00-5.60); RDW 15.1 % (11.9-15.9); WHITE BLOOD COUNT 9.4 K/mm3 (4.0-10.0)
[2022-05-12 09:33] LABS: BLOOD UREA NITROGEN 24.4 mg/dL (7-18); CALCIUM 8.7 mg/dL (8.5-10.1)
[2022-05-12 09:34] LABS: ALBUMIN 3.3 g/dl (3.4-5.0); MAGNESIUM 1.8 mg/dL (1.8-2.4)
[2022-05-12 09:35] LABS: CREATININE 1.4 mg/dL (0.55-1.3); PHOSPHOROUS 3.6 mg/dL (2.5-4.9)
[2022-05-12 09:37] LABS: BILIRUBIN,TOTAL 0.6 mg/dL (0.2-1)
[2022-05-12 09:41] LABS: TOT PROT 6.9 g/dl (6.4-8.2)
[2022-05-12] MEDS ORDERED: CLOBETASOL PROPIONATE TP SCH (10:00)
[2022-05-12] MEDS ORDERED: amLODIPine BESYLATE 10 MG TABLET (FP) PO SCH (10:00)
[2022-05-12] MEDS ORDERED: LISINOPRIL 20 MG TABLET PO SCH (10:00)
[2022-05-12] MEDS ORDERED: NIFEdipine E.R. 30 MG TABLET PO SCH (10:00)
[2022-05-12] MEDS: APIXABAN 5 MG TABLET PO SCH (11:05)
[2022-05-12 11:11] VITALS: PULSE 78; RESP 17
[2022-05-12] MEDS ORDERED: POTASSIUM CHLORIDE TABS 20 MEQ TABLET.ER (FP) PO ONE (12:30)
[2022-05-12 14:09] VITALS: BP 154/75; TEMP 98.3
== END 2022-05-12 17:50 | disposition home or self-care (01) | DRG 305 ==
LOC: JER 15:29 → JERBED 18:25 → JICU 05-10 12:09 → J4S 05-11 17:45
PROVIDERS: ADMIT Hospitalist; ATTEND Internal Medicine
DX: I16.1 Hypertensive emergency (principal); I50.22 Chronic systolic (congestive) heart failure; H49.22 Sixth [abducent] nerve palsy, left eye; I13.0 Hypertensive heart and chronic kidney disease with heart failure and stage 1 through stage 4 chronic kidney disease, or unspecified chronic kidney disease; J44.9 Chronic obstructive pulmonary disease, unspecified; J45.909 Unspecified asthma, uncomplicated; I25.10 Atherosclerotic heart disease of native coronary artery without angina pectoris; H53.2 Diplopia; E11.22 Type 2 diabetes mellitus with diabetic chronic kidney disease; R51.9 Headache, unspecified; N18.9 Chronic kidney disease, unspecified; E66.9 Obesity, unspecified; Z68.38 Body mass index [BMI] 38.0-38.9, adult; I48.91 Unspecified atrial fibrillation; E11.42 Type 2 diabetes mellitus with diabetic polyneuropathy; Z85.46 Personal history of malignant neoplasm of prostate; Z91.14 Patient's other noncompliance with medication regimen; Z79.01 Long term (current) use of anticoagulants
CPT/HCPCS: 36415; 70450-TC; 71045-TC-FY; 80053; 80061; 80307; 81003; 82962; 83036; 83735; 83880; 84100; 84443; 85025; 85027; 85610; 85651; 85730; 86140; 86850; 86900; 86901; 93005; 93010; 93306-TC; 93880-TC; 99285-25; C9803-CS; U0003; U0005

== ENCOUNTER 2024-03-27 22:24 | Inpatient (IN) | payer OTHER ==
[2024-03-27 22:41] VITALS: BMI 34.0
[2024-03-27] MEDS ORDERED: ALBUTEROL SO4 2.5/IPRATROPIUM 0.5 INH SOL 3 ML VIAL.NEB. NEB ONE (23:07)
[2024-03-27] MEDS ORDERED: methylPREDNISolone NA SUCC 125 MG/2 ML VIAL ONE (23:08)
[2024-03-27] MEDS: ALBUTEROL SO4 2.5/IPRATROPIUM 0.5 INH SOL 3 ML VIAL.NEB. NEB ONE ×3 (23:10→23:41)
[2024-03-27] MEDS: methylPREDNISolone NA SUCC 125 MG/2 ML VIAL IVPB ONE (23:34)
[2024-03-27 23:36] LABS: VENOUS BASE EXCESS 10.3 mmol/L (-2-2); VENOUS O2 SATURATION 78.4 % (70-80); VENOUS PH 7.264 (7.310-7.410)
[2024-03-27 23:37] LABS: VENOUS PCO2 90.4 mmHg (38-52)
[2024-03-27 23:43] LABS: BASO % 0.3 % (0-2.0); HEMATOCRIT 30.6 % (35.4-49); HEMOGLOBIN 9.5 GM/dL (11.7-16.9); LYMPH % 7.2 % (8-40); MCH 26.3 pg (25.7-33.7); MCHC 31.1 g/dl (32.0-35.9); MEAN CELL VOLUME 84.6 fl (80-96); MEAN PLT VOLUME 7.5 fl (7.5-11.1); MONO % 8.1 % (3.8-10.2); NEUT % 83.4 % (42.8-82.8); PLATELET COUNT 190 10^3/uL (134-434); RBC 3.62 M/mm3 (4.00-5.60); RDW 18.6 % (11.9-15.9)
[2024-03-27 23:48] LABS: INR 1.27 (0.83-1.09); PROTHROMBIN TIME (PATIENT) 14.2 SEC (9.7-13.0)
[2024-03-27 23:51] LABS: ACTIVATED PTT 37.4 SECONDS (25.2-36.5)
[2024-03-28 00:01] LABS: POTASSIUM 4.8 mmol/L (3.5-5.1)
[2024-03-28 00:04] LABS: ALBUMIN 2.7 g/dl (3.4-5.0); BLOOD UREA NITROGEN 32.3 mg/dL (7-18); MAGNESIUM 2.2 mg/dL (1.8-2.4)
[2024-03-28 00:07] LABS: CREATININE 1.4 mg/dL (0.55-1.3)
[2024-03-28 00:08] LABS: BILIRUBIN,TOTAL 0.8 mg/dL (0.2-1); TOT PROT 6.8 g/dl (6.4-8.2)
[2024-03-28 00:12] LABS: N-TERMINAL BNP 2226.3 pg/ml (5-450)
[2024-03-28] MEDS ORDERED: CEFTRIAXONE 1 GM/50 ML BAG ONE (01:10)
[2024-03-28] MEDS: CEFTRIAXONE 1,000 MG in DEXTROSE 5%-WATER - 50 ML IVPB ONE (01:15)
[2024-03-28 01:49] LABS: ARTERIAL BLD GAS O2 SATURATION 93.7 % (95-98); ARTERIAL BLOOD GAS BASE EXCESS 9.2 mmol/L (-2-2); ARTERIAL BLOOD GAS PO2 79.9 mmHg (80-100); ARTERIAL BLOOD GAS pH 7.286 (7.350-7.450)
[2024-03-28] MEDS: AZITHROMYCIN IVPB 500 MG in DEXTROSE 5%-WATER - 250 ML IVPB ONE (02:08)
[2024-03-28] MEDS ORDERED: AZITHROMYCIN IVPB 500 MG/250 ML BAG IVPB ONE (02:09)
[2024-03-28] MEDS ORDERED: LEVALBUTEROL HCL 0.31 MG/3 ML VIAL.NEB IH PRN (03:48)
[2024-03-28 04:58] LABS: EPI CELLS 3 /uL (0-25.1); HYALINE CASTS 5 /uL (0-3.1); URINE APPEARANCE CLOUDY; URINE BACTERIA 8612 /uL (0-1359); URINE BILIRUBIN NEGATIVE (NEGATIVE); URINE COLOR YELLOW; URINE GLUCOSE (UA) NEGATIVE (NEGATIVE); URINE KETONE NEGATIVE (NEGATIVE); URINE LEUK ESTERASE 3+ (NEGATIVE); URINE NITRITE NEGATIVE (NEGATIVE); URINE PROTEIN 2+ (NEGATIVE); URINE RBC 8 /uL (0-23.9); URINE WBC 611 /uL (0-25.8)
[2024-03-28] MEDS: ALBUTEROL SO4 2.5/IPRATROPIUM 0.5 INH SOL 3 ML VIAL.NEB. NEB SCH (05:39)
[2024-03-28] MEDS: FUROSEMIDE 40 MG/4 ML INJECTABLE VIAL IVPUSH ONE (06:39)
[2024-03-28 08:24] LABS: HEMATOCRIT 30.5 % (35.4-49); HEMOGLOBIN 9.7 GM/dL (11.7-16.9); MCH 26.7 pg (25.7-33.7); MCHC 31.7 g/dl (32.0-35.9); MEAN CELL VOLUME 84.2 fl (80-96); MEAN PLT VOLUME 7.5 fl (7.5-11.1); PLATELET COUNT 179 10^3/uL (134-434); RBC 3.62 M/mm3 (4.00-5.60); RDW 17.8 % (11.9-15.9); WHITE BLOOD COUNT 6.7 K/mm3 (4.0-10.0)
[2024-03-28 08:45] LABS: POTASSIUM 5.2 mmol/L (3.5-5.1)
[2024-03-28 08:51] LABS: ALBUMIN 2.8 g/dl (3.4-5.0); BLOOD UREA NITROGEN 35.2 mg/dL (7-18); CALCIUM 8.7 mg/dL (8.5-10.1); MAGNESIUM 2.4 mg/dL (1.8-2.4)
[2024-03-28 08:54] LABS: CREATININE 1.4 mg/dL (0.55-1.3)
[2024-03-28 08:56] LABS: BILIRUBIN,TOTAL 0.8 mg/dL (0.2-1); TOT PROT 6.8 g/dl (6.4-8.2)
[2024-03-28 09:06] LABS: ANISOCYTOSIS 0; MACROCYTOSIS 0
[2024-03-28] MEDS ORDERED: methylPREDNISolone NA SUCC 40 MG/1 ML VIAL IVPUSH SCH (10:00)
[2024-03-28] MEDS ORDERED: AZITHROMYCIN IVPB 500 MG/250 ML BAG IVPB SCH (10:00)
[2024-03-28] MEDS ORDERED: FUROSEMIDE 40 MG/4 ML INJECTABLE VIAL IVPUSH SCH (12:00)
[2024-03-28] MEDS: APIXABAN 5 MG TABLET PO SCH (12:19)
[2024-03-28] MEDS: methylPREDNISolone NA SUCC 40 MG/1 ML VIAL IVPUSH SCH (12:19)
[2024-03-28] MEDS: FUROSEMIDE 40 MG/4 ML INJECTABLE VIAL IVPUSH SCH ×2 (12:19→19:32)
[2024-03-28] MEDS: SODIUM ZIRCONIUM CYCLOSILICATE (LOKELMA) 5 GM PACKET PO SCH (15:11)
[2024-03-28] MEDS: AZTREONAM 1 GM in DEXTROSE 5%-WATER - 50 ML IVPB SCH ×2 (18:20→23:39)
[2024-03-28] MEDS: VANCOMYCIN/WATER FOR INJ (PEG) 1,000 MG/200 ML BAG IVPB ONE (19:31)
[2024-03-28] MEDS: BACITRACIN ZINC 15 GM TUBE TOPICAL OINTMENT TP SCH (21:09)
[2024-03-28] MEDS: AZTREONAM 1 GM in DEXTROSE 5%-WATER - 50 ML IVPB ONE (21:42)
[2024-03-28] MEDS: INSULIN (LEVEMIR) 100 UNITS/ML UNITS SQ SCH (21:46)
[2024-03-28] MEDS: VANCOMYCIN 1,000 MG in DEXTROSE 5%-WATER - 250 ML IVPB ONE (23:39)
[2024-03-29] MEDS: AZTREONAM 2 GM in DEXTROSE 5%-WATER 100 ML IVPB SCH (01:57)
[2024-03-29] MEDS: INSULIN ASPART SLIDING SCALE (NOVOLOG) 1 VIAL SQ SCH (06:27)
[2024-03-29 09:23] LABS: HEMATOCRIT 32.1 % (35.4-49); HEMOGLOBIN 10.2 GM/dL (11.7-16.9); MCH 26.7 pg (25.7-33.7); MCHC 31.6 g/dl (32.0-35.9); MEAN CELL VOLUME 84.4 fl (80-96); MEAN PLT VOLUME 8.1 fl (7.5-11.1); PLATELET COUNT 200 10^3/uL (134-434); RBC 3.81 M/mm3 (4.00-5.60); WHITE BLOOD COUNT 6.1 K/mm3 (4.0-10.0)
[2024-03-29 09:49] LABS: ALBUMIN 2.9 g/dl (3.4-5.0); CALCIUM 8.9 mg/dL (8.5-10.1)
[2024-03-29 09:50] LABS: BLOOD UREA NITROGEN 45.1 mg/dL (7-18); MAGNESIUM 2.3 mg/dL (1.8-2.4)
[2024-03-29 09:53] LABS: CREATININE 1.6 mg/dL (0.55-1.3)
[2024-03-29 09:54] LABS: BILIRUBIN,TOTAL 0.7 mg/dL (0.2-1); TOT PROT 7.2 g/dl (6.4-8.2)
[2024-03-29 11:05] LABS: ARTERIAL BLD GAS O2 SATURATION 85.2 % (95-98); ARTERIAL BLOOD GAS PO2 52.3 mmHg (80-100); ARTERIAL BLOOD GAS pH 7.372 (7.350-7.450)
[2024-03-29 11:06] LABS: ALLENS TEST POSITIVE
[2024-03-29] MEDS: ERYTHROMYCIN 0.5% OPHTHALMIC OINTMENT 3.5 GM TUBE OU SCH (14:22)
[2024-03-29] MEDS: CEFTRIAXONE 2 GM in DEXTROSE 5%-WATER 100 ML IVPB SCH (18:23)
[2024-03-30 07:53] LABS: HEMATOCRIT 30.3 % (35.4-49); HEMOGLOBIN 9.8 GM/dL (11.7-16.9); MCH 27.1 pg (25.7-33.7); MCHC 32.3 g/dl (32.0-35.9); MEAN CELL VOLUME 83.7 fl (80-96); MEAN PLT VOLUME 7.8 fl (7.5-11.1); PLATELET COUNT 204 10^3/uL (134-434); RBC 3.62 M/mm3 (4.00-5.60); RDW 18.2 % (11.9-15.9)
[2024-03-30 08:09] LABS: POTASSIUM 3.7 mmol/L (3.5-5.1)
[2024-03-30] MEDS: AZTREONAM 2 GM in DEXTROSE 5%-WATER 100 ML IVPB SCH ×2 (08:10→08:12)
[2024-03-30 08:25] LABS: BLOOD UREA NITROGEN 53.3 mg/dL (7-18); CALCIUM 7.9 mg/dL (8.5-10.1)
[2024-03-30 08:26] LABS: ALBUMIN 2.5 g/dl (3.4-5.0)
[2024-03-30 08:29] LABS: CREATININE 1.5 mg/dL (0.55-1.3)
[2024-03-30 08:30] LABS: BILIRUBIN,TOTAL 0.5 mg/dL (0.2-1); TOT PROT 6.5 g/dl (6.4-8.2)
[2024-03-30] MEDS ORDERED: MAGNESIUM HYDROX 2400MG/30ML ORAL SUSPENSION 30 ML CUP PO PRN (18:13)
[2024-03-30] MEDS: amLODIPine BESYLATE 10 MG TABLET (FP) PO SCH (18:42)
[2024-03-30] MEDS: MAGNESIUM HYDROX 2400MG/30ML ORAL SUSPENSION 30 ML CUP PO ONE (18:43)
[2024-03-31] MEDS: FUROSEMIDE 40 MG/4 ML INJECTABLE VIAL IVPUSH SCH (06:48)
[2024-03-31 07:32] LABS: BASO % 0.1 % (0-2.0); EOS % 0.7 % (0-4.5); HEMATOCRIT 30.7 % (35.4-49); HEMOGLOBIN 9.7 GM/dL (11.7-16.9); MCH 26.4 pg (25.7-33.7); MCHC 31.5 g/dl (32.0-35.9); MEAN CELL VOLUME 83.7 fl (80-96); MEAN PLT VOLUME 7.4 fl (7.5-11.1); MONO % 9.9 % (3.8-10.2); NEUT % 78.3 % (42.8-82.8); PLATELET COUNT 194 10^3/uL (134-434); RBC 3.67 M/mm3 (4.00-5.60); RDW 17.5 % (11.9-15.9); WHITE BLOOD COUNT 6.1 K/mm3 (4.0-10.0)
[2024-03-31 07:49] LABS: POTASSIUM 3.6 mmol/L (3.5-5.1)
[2024-03-31 07:56] LABS: ALBUMIN 2.5 g/dl (3.4-5.0); BLOOD UREA NITROGEN 44.6 mg/dL (7-18); CREATININE 1.2 mg/dL (0.55-1.3)
[2024-03-31 07:57] LABS: BILIRUBIN,TOTAL 0.6 mg/dL (0.2-1)
[2024-03-31 07:58] LABS: TOT PROT 6.2 g/dl (6.4-8.2)
[2024-03-31] MEDS: POLYMYXIN B SULFATE/TMP 10 ML OPHTHALMIC SOLUTION OD SCH (11:10)
[2024-03-31] MEDS ORDERED: INSULIN ASPART SLIDING SCALE (NOVOLOG) 1 VIAL SQ ONE (12:46)
[2024-04-01 08:36] LABS: CHLORIDE 94 mmol/L (98-107); POTASSIUM 3.9 mmol/L (3.5-5.1); SODIUM 143 mmol/L (136-145)
[2024-04-01 08:37] LABS: BASO % 0.1 % (0-2.0); EOS % 0.6 % (0-4.5); HEMATOCRIT 30.9 % (35.4-49); LYMPH % 10.8 % (8-40); MCH 26.9 pg (25.7-33.7); MCHC 32.3 g/dl (32.0-35.9); MEAN CELL VOLUME 83.1 fl (80-96); MEAN PLT VOLUME 7.8 fl (7.5-11.1); NEUT % 79.5 % (42.8-82.8); PLATELET COUNT 192 10^3/uL (134-434); RBC 3.72 M/mm3 (4.00-5.60)
[2024-04-01 08:38] LABS: CALCIUM 8.3 mg/dL (8.5-10.1)
[2024-04-01 08:39] LABS: ALBUMIN 2.7 g/dl (3.4-5.0); BLOOD UREA NITROGEN 42.2 mg/dL (7-18); GLUCOSE,RANDOM 99 mg/dL (74-106); MAGNESIUM 1.9 mg/dL (1.8-2.4)
[2024-04-01 08:42] LABS: CREATININE 1.4 mg/dL (0.55-1.3); PHOSPHOROUS 4.1 mg/dL (2.5-4.9); SGOT/AST 11 U/L (15-37); SGPT/ALT 9 U/L (13-61)
[2024-04-01 08:43] LABS: BILIRUBIN,TOTAL 0.5 mg/dL (0.2-1); TOT PROT 6.6 g/dl (6.4-8.2)
[2024-04-01 08:45] LABS: ALK PHOS 85 U/L (45-117)
[2024-04-01 09:17] LABS: ANION GAP 4 mmol/L (4-13); CO2 > 45 mmol/L (21-32)
[2024-04-02 08:01] LABS: BASO % 0.3 % (0-2.0); EOS % 0.9 % (0-4.5); HEMATOCRIT 31.2 % (35.4-49); HEMOGLOBIN 9.8 GM/dL (11.7-16.9); LYMPH % 8.1 % (8-40); MCH 26.4 pg (25.7-33.7); MCHC 31.5 g/dl (32.0-35.9); MEAN CELL VOLUME 83.9 fl (80-96); MEAN PLT VOLUME 7.5 fl (7.5-11.1); MONO % 7.7 % (3.8-10.2); PLATELET COUNT 180 10^3/uL (134-434); RBC 3.72 M/mm3 (4.00-5.60); RDW 17.7 % (11.9-15.9); WHITE BLOOD COUNT 6.3 K/mm3 (4.0-10.0)
[2024-04-02 08:20] LABS: CHLORIDE 95 mmol/L (98-107); POTASSIUM 3.5 mmol/L (3.5-5.1); SODIUM 144 mmol/L (136-145)
[2024-04-02 08:27] LABS: ALBUMIN 2.6 g/dl (3.4-5.0); BLOOD UREA NITROGEN 39.8 mg/dL (7-18); CALCIUM 7.7 mg/dL (8.5-10.1); GLUCOSE,RANDOM 128 mg/dL (74-106); MAGNESIUM 1.7 mg/dL (1.8-2.4)
[2024-04-02 08:30] LABS: SGOT/AST 8 U/L (15-37); SGPT/ALT 12 U/L (13-61)
[2024-04-02 08:31] LABS: CREATININE 1.2 mg/dL (0.55-1.3)
[2024-04-02 08:32] LABS: BILIRUBIN,TOTAL 0.7 mg/dL (0.2-1); TOT PROT 6.6 g/dl (6.4-8.2)
[2024-04-02 08:33] LABS: ALK PHOS 80 U/L (45-117)
[2024-04-02 08:36] LABS: ANION GAP 4 mmol/L (4-13); CO2 > 45 mmol/L (21-32)
[2024-04-02] MEDS: FUROSEMIDE 40 MG/4 ML INJECTABLE VIAL IVPUSH SCH (09:17)
[2024-04-02] MEDS ORDERED: LEVALBUTEROL HCL 0.63 MG/3 ML VIAL.NEB. IH ONE (20:37)
[2024-04-02] MEDS ORDERED: MAGNESIUM HYDROX 2400MG/30ML ORAL SUSPENSION 30 ML CUP PO PRN (21:04)
[2024-04-02] MEDS: APIXABAN 5 MG TABLET PO SCH (22:10)
[2024-04-02] MEDS: INSULIN (LEVEMIR) 100 UNITS/ML UNITS SQ SCH (22:10)
[2024-04-02] MEDS: POLYMYXIN B SULFATE/TMP 10 ML OPHTHALMIC SOLUTION OD SCH (23:06)
[2024-04-03] MEDS: INSULIN ASPART SLIDING SCALE (NOVOLOG) 1 VIAL SQ SCH (06:03)
[2024-04-03] MEDS: FUROSEMIDE 40 MG/4 ML INJECTABLE VIAL IVPUSH SCH (08:28)
[2024-04-03 09:25] LABS: HEMATOCRIT 30.4 % (35.4-49); HEMOGLOBIN 9.8 GM/dL (11.7-16.9); MCHC 32.2 g/dl (32.0-35.9); MEAN CELL VOLUME 83.9 fl (80-96); MEAN PLT VOLUME 7.5 fl (7.5-11.1); PLATELET COUNT 184 10^3/uL (134-434); RBC 3.63 M/mm3 (4.00-5.60); RDW 17.8 % (11.9-15.9); WHITE BLOOD COUNT 6.4 K/mm3 (4.0-10.0)
[2024-04-03 09:55] LABS: CHLORIDE 93 mmol/L (98-107); POTASSIUM 3.6 mmol/L (3.5-5.1); SODIUM 142 mmol/L (136-145)
[2024-04-03 10:16] LABS: ALBUMIN 2.6 g/dl (3.4-5.0); BLOOD UREA NITROGEN 35.6 mg/dL (7-18); GLUCOSE,RANDOM 104 mg/dL (74-106); MAGNESIUM 1.9 mg/dL (1.8-2.4)
[2024-04-03 10:19] LABS: CREATININE 1.1 mg/dL (0.55-1.3); PHOSPHOROUS 2.9 mg/dL (2.5-4.9); SGOT/AST 10 U/L (15-37); SGPT/ALT 10 U/L (13-61)
[2024-04-03 10:20] LABS: BILIRUBIN,TOTAL 0.7 mg/dL (0.2-1); TOT PROT 6.6 g/dl (6.4-8.2)
[2024-04-03 10:22] LABS: ALK PHOS 81 U/L (45-117)
[2024-04-03 10:30] LABS: ANION GAP 3 mmol/L (4-13); CO2 > 45 mmol/L (21-32)
[2024-04-03] MEDS: amLODIPine BESYLATE 10 MG TABLET (FP) PO SCH (10:41)
[2024-04-03] MEDS: CEFTRIAXONE 2 GM in DEXTROSE 5%-WATER 100 ML IVPB SCH (10:41)
[2024-04-03 13:57] LABS: ARTERIAL BLD GAS O2 SATURATION 88.3 % (95-98); ARTERIAL BLOOD GAS BASE EXCESS 20.3 mmol/L (-2-2); ARTERIAL BLOOD GAS PO2 58.4 mmHg (80-100)
[2024-04-03] MEDS: methylPREDNISolone NA SUCC 40 MG/1 ML VIAL IVPUSH SCH (17:08)
[2024-04-03] MEDS: BACITRACIN ZINC 15 GM TUBE TOPICAL OINTMENT TP SCH (18:42)
[2024-04-04 01:13] LABS: ARTERIAL BLOOD GAS BASE EXCESS 16.5 mmol/L (-2-2); ARTERIAL BLOOD GAS PO2 88.4 mmHg (80-100); ARTERIAL BLOOD GAS pH 7.469 (7.350-7.450)
[2024-04-04 01:14] LABS: VENT MODE S/T
[2024-04-04 01:15] LABS: VENT RATE 16
[2024-04-04 07:02] LABS: HEMATOCRIT 29.4 % (35.4-49); HEMOGLOBIN 9.4 GM/dL (11.7-16.9); MCH 26.6 pg (25.7-33.7); MCHC 31.9 g/dl (32.0-35.9); MEAN CELL VOLUME 83.4 fl (80-96); MEAN PLT VOLUME 7.9 fl (7.5-11.1); PLATELET COUNT 176 10^3/uL (134-434); RBC 3.53 M/mm3 (4.00-5.60); WHITE BLOOD COUNT 5.2 K/mm3 (4.0-10.0)
[2024-04-04 07:10] LABS: INR 1.48 (0.83-1.09); PROTHROMBIN TIME (PATIENT) 16.8 SEC (9.7-13.0)
[2024-04-04 07:20] LABS: CHLORIDE 95 mmol/L (98-107); SODIUM 144 mmol/L (136-145)
[2024-04-04 07:21] LABS: CALCIUM 8.1 mg/dL (8.5-10.1)
[2024-04-04 07:22] LABS: BLOOD UREA NITROGEN 37.7 mg/dL (7-18); GLUCOSE,RANDOM 205 mg/dL (74-106); MAGNESIUM 1.8 mg/dL (1.8-2.4)
[2024-04-04 07:25] LABS: CREATININE 1.2 mg/dL (0.55-1.3); PHOSPHOROUS 2.9 mg/dL (2.5-4.9)
[2024-04-04 07:28] LABS: ANION GAP 4 mmol/L (4-13); CO2 > 45 mmol/L (21-32)
[2024-04-04 13:20] LABS: ARTERIAL BLD GAS O2 SATURATION 86.4 % (95-98); ARTERIAL BLOOD GAS BASE EXCESS 12.6 mmol/L (-2-2); ARTERIAL BLOOD GAS PO2 51.1 mmHg (80-100); ARTERIAL BLOOD GAS pH 7.437 (7.350-7.450)
[2024-04-04 13:21] LABS: ALLENS TEST POSITIVE
[2024-04-04] MEDS: methylPREDNISolone NA SUCC 40 MG/1 ML VIAL IVPUSH SCH (21:20)
[2024-04-05] MEDS ORDERED: INSULIN ASPART SLIDING SCALE (NOVOLOG) 1 VIAL SQ ONE (05:52)
[2024-04-05 08:37] LABS: HEMATOCRIT 29.8 % (35.4-49); HEMOGLOBIN 9.8 GM/dL (11.7-16.9); MCH 26.9 pg (25.7-33.7); MCHC 32.8 g/dl (32.0-35.9); MEAN CELL VOLUME 82.1 fl (80-96); MEAN PLT VOLUME 7.9 fl (7.5-11.1); PLATELET COUNT 195 10^3/uL (134-434); RBC 3.63 M/mm3 (4.00-5.60); WHITE BLOOD COUNT 6.6 K/mm3 (4.0-10.0)
[2024-04-05 08:52] LABS: POTASSIUM 3.8 mmol/L (3.5-5.1)
[2024-04-05 09:02] LABS: ALBUMIN 2.8 g/dl (3.4-5.0); BLOOD UREA NITROGEN 57.4 mg/dL (7-18); CALCIUM 8.3 mg/dL (8.5-10.1); MAGNESIUM 2.1 mg/dL (1.8-2.4)
[2024-04-05 09:05] LABS: CREATININE 1.5 mg/dL (0.55-1.3); PHOSPHOROUS 2.8 mg/dL (2.5-4.9)
[2024-04-05 09:07] LABS: BILIRUBIN,TOTAL 0.5 mg/dL (0.2-1); TOT PROT 6.9 g/dl (6.4-8.2)
[2024-04-05 10:51] LABS: ANISOCYTOSIS 0; MACROCYTOSIS 0
[2024-04-05] MEDS ORDERED: MAGNESIUM HYDROX 2400MG/30ML ORAL SUSPENSION 30 ML CUP PO PRN ×2 (14:01→21:17)
[2024-04-05] MEDS: INSULIN ASPART SLIDING SCALE (NOVOLOG) 1 VIAL SQ SCH (17:50)
[2024-04-05] MEDS: POLYMYXIN B SULFATE/TMP 10 ML OPHTHALMIC SOLUTION OD SCH ×2 (17:50→21:52)
[2024-04-05] MEDS: INSULIN (LEVEMIR) 100 UNITS/ML UNITS SQ SCH (21:42)
[2024-04-05] MEDS: APIXABAN 5 MG TABLET PO SCH (21:42)
[2024-04-05] MEDS: methylPREDNISolone NA SUCC 40 MG/1 ML VIAL IVPUSH SCH (21:54)
[2024-04-05] MEDS ORDERED: INSULIN (LEVEMIR) 100 UNITS/ML UNITS SQ SCH (22:00)
[2024-04-05] MEDS ORDERED: APIXABAN 5 MG TABLET PO SCH (22:00)
[2024-04-06] MEDS: INSULIN ASPART SLIDING SCALE (NOVOLOG) 1 VIAL SQ SCH (07:09)
[2024-04-06] MEDS ORDERED: FUROSEMIDE 40 MG/4 ML INJECTABLE VIAL IVPUSH SCH (08:00)
[2024-04-06] MEDS: FUROSEMIDE 40 MG/4 ML INJECTABLE VIAL IVPUSH SCH (08:58)
[2024-04-06] MEDS: BACITRACIN ZINC 15 GM TUBE TOPICAL OINTMENT TP SCH (09:00)
[2024-04-06] MEDS: amLODIPine BESYLATE 10 MG TABLET (FP) PO SCH (09:08)
[2024-04-06 09:58] LABS: BASO % 0.1 % (0-2.0); HEMATOCRIT 29.2 % (35.4-49); HEMOGLOBIN 9.4 GM/dL (11.7-16.9); LYMPH % 4.2 % (8-40); MCH 26.3 pg (25.7-33.7); MCHC 32.3 g/dl (32.0-35.9); MEAN CELL VOLUME 81.3 fl (80-96); MEAN PLT VOLUME 7.4 fl (7.5-11.1); MONO % 5.7 % (3.8-10.2); PLATELET COUNT 201 10^3/uL (134-434); RBC 3.59 M/mm3 (4.00-5.60); RDW 18.2 % (11.9-15.9); WHITE BLOOD COUNT 8.3 K/mm3 (4.0-10.0)
[2024-04-06] MEDS ORDERED: POLYETHYLENE GLYCOL (HEALTHYLAX) 3350 17 GM PACKET PO SCH (10:00)
[2024-04-06] MEDS ORDERED: BACITRACIN ZINC 15 GM TUBE TOPICAL OINTMENT TP SCH (10:00)
[2024-04-06] MEDS ORDERED: amLODIPine BESYLATE 10 MG TABLET (FP) PO SCH (10:00)
[2024-04-06 10:19] LABS: POTASSIUM 3.7 mmol/L (3.5-5.1)
[2024-04-06 10:21] LABS: ALBUMIN 2.8 g/dl (3.4-5.0); BLOOD UREA NITROGEN 69.7 mg/dL (7-18); CALCIUM 8.2 mg/dL (8.5-10.1); MAGNESIUM 2.2 mg/dL (1.8-2.4)
[2024-04-06 10:24] LABS: CREATININE 1.8 mg/dL (0.55-1.3); PHOSPHOROUS 2.8 mg/dL (2.5-4.9)
[2024-04-06 10:26] LABS: BILIRUBIN,TOTAL 0.5 mg/dL (0.2-1); TOT PROT 6.7 g/dl (6.4-8.2)
[2024-04-06] MEDS: POLYETHYLENE GLYCOL (HEALTHYLAX) 3350 17 GM PACKET PO SCH (11:04)
[2024-04-07] MEDS: methylPREDNISolone NA SUCC 40 MG/1 ML VIAL IVPUSH SCH (09:14)
[2024-04-07] MEDS: MINERAL OIL/PET HY-PHL TOPICAL OINTMENT 454 GM JAR TP SCH (11:36)
[2024-04-07 15:47] VITALS: RESP 18
[2024-04-08] MEDS: TORSEMIDE 20 MG TABLET (FP) PO SCH (06:16)
[2024-04-08 06:30] LABS: ARTERIAL BLD GAS O2 SATURATION 97.4 % (95-98); ARTERIAL BLOOD GAS BASE EXCESS 11.4 mmol/L (-2-2); ARTERIAL BLOOD GAS PO2 98.8 mmHg (80-100); ARTERIAL BLOOD GAS pH 7.422 (7.350-7.450)
[2024-04-08 06:42] LABS: ALLENS TEST POSITIVE
[2024-04-08 06:43] LABS: VENT MODE S/T; VENT RATE 16
[2024-04-08] MEDS: predniSONE 20 MG TABLET (UD) PO SCH (09:32)
[2024-04-08 09:39] LABS: BASO % 0.1 % (0-2.0); EOS % 0.1 % (0-4.5); HEMATOCRIT 30.9 % (35.4-49); HEMOGLOBIN 9.9 GM/dL (11.7-16.9); LYMPH % 12.1 % (8-40); MCH 26.5 pg (25.7-33.7); MEAN CELL VOLUME 82.7 fl (80-96); MEAN PLT VOLUME 7.8 fl (7.5-11.1); MONO % 7.2 % (3.8-10.2); NEUT % 80.5 % (42.8-82.8); PLATELET COUNT 208 10^3/uL (134-434); RBC 3.74 M/mm3 (4.00-5.60); RDW 17.9 % (11.9-15.9); WHITE BLOOD COUNT 8.9 K/mm3 (4.0-10.0)
[2024-04-08 10:33] LABS: POTASSIUM 3.5 mmol/L (3.5-5.1)
[2024-04-08 10:46] LABS: BLOOD UREA NITROGEN 62.2 mg/dL (7-18)
[2024-04-08 10:48] LABS: CALCIUM 8.7 mg/dL (8.5-10.1); CREATININE 1.5 mg/dL (0.55-1.3); MAGNESIUM 2.3 mg/dL (1.8-2.4); PHOSPHOROUS 2.8 mg/dL (2.5-4.9); TOT PROT 6.6 g/dl (6.4-8.2)
[2024-04-08 10:50] LABS: BILIRUBIN,TOTAL 0.7 mg/dL (0.2-1)
[2024-04-08] MEDS ORDERED: INSULIN ASPART SLIDING SCALE (NOVOLOG) 1 VIAL SQ ONE (11:26)
[2024-04-08 15:09] VITALS: BP 159/72; PULSE 72; TEMP 98.2
== END 2024-04-08 14:42 | DRG 291 ==
LOC: JER 22:24 → JERBED 03-28 02:26 → J4W 03-28 10:39 → J5S 04-02 21:04 → J4W 04-03 22:49 → J8W 04-05 20:37
PROVIDERS: ADMIT Internal Medicine; ATTEND Internal Medicine
DX: I13.0 Hypertensive heart and chronic kidney disease with heart failure and stage 1 through stage 4 chronic kidney disease, or unspecified chronic kidney disease (principal); I50.33 Acute on chronic diastolic (congestive) heart failure; J15.69 Pneumonia due to other Gram-negative bacteria; J96.21 Acute and chronic respiratory failure with hypoxia; J96.12 Chronic respiratory failure with hypercapnia; J44.1 Chronic obstructive pulmonary disease with (acute) exacerbation; R78.81 Bacteremia; J96.11 Chronic respiratory failure with hypoxia; N39.0 Urinary tract infection, site not specified; N18.9 Chronic kidney disease, unspecified; E66.9 Obesity, unspecified; Z68.33 Body mass index [BMI] 33.0-33.9, adult; I48.91 Unspecified atrial fibrillation; E87.5 Hyperkalemia; N18.30 Chronic kidney disease, stage 3 unspecified; B96.4 Proteus (mirabilis) (morganii) as the cause of diseases classified elsewhere; E11.22 Type 2 diabetes mellitus with diabetic chronic kidney disease
CPT/HCPCS: 0241U-QW; 36415; 36600; 71045-TC-FY; 74176-TC; 80048; 80053; 81003; 82803; 82962; 83036; 83735; 83880; 84100; 84443; 84484; 85025; 85027; 85610; 85730; 86682; 87040; 87086; 87186; 87635; 93005; 93010; 93306-TC; 94660; 97116-GP; 97162-GP; 99285-25